=== PATIENT | female | born 1960 | race Two or more races ===

== ENCOUNTER 2020-08-25 08:15 | Outpatient (REF) | payer OTHER, SELFPAY | END 2020-08-25 08:16 | disposition home or self-care (01) | LOC: HO.LAB 08:15 | PROVIDERS: Visit Provider Internal Medicine | DX: Z20.828 Contact with and (suspected) exposure to other viral communicable diseases (principal) | CPT/HCPCS: C9803; U0003 ==

== ENCOUNTER 2020-09-09 06:02 | Outpatient (REF) | payer OTHER, SELFPAY ==
[2020-09-09 07:05] LABS: MANUAL DIFF FLAG NO
[2020-09-09 07:12] LABS: Basophils Absolute Auto 0.1 X10*3/uL (0.0-0.2); Basophils Percent Auto 0.8 % (0-2); Eosinophils Absolute Auto 0.3 X10*3/uL (0.0-0.4); Eosinophils Percent Auto 4.6 % (0-4); Glucose Urine UA NEG (NEG); Hematocrit 39.9 % (37-47); Hemoglobin 12.9 g/dl (12.0-16.0); Imm Gran Abs Auto 0.02 X10*3/uL (0.00-0.03); Imm Gran Pct Auto 0.3 % (0.0-0.4); Leukocyte Esterase Urine NEG (NEG); Lymphocytes Absolute Auto 2.5 X10*3/uL (1.2-4.9); Mean Corpuscular HGB Conc 32.3 g/dl (31.0-35.0); Mean Corpuscular Hemoglobin 30.1 pg (27.0-33.0); Mean Platelet Volume 10.5 fL (9.4-12.3); Monocytes Absolute Auto 0.6 X10*3/uL (0.1-1.2); Monocytes Percent Auto 8.1 % (2-11); Neutrophils Absolute Auto 3.9 X10*3/uL (2.0-8.3); Neutrophils Percent Auto 52.2 % (45-73); Nitrite Urine NEG (NEG); PH 5.5 (5.0-8.0); Platelet Count 250 X10*3/uL (160-400); Red Blood Count 4.29 X10*6/uL (4.20-5.50); Red Cell Distribution Width 13.6 % (11.0-16.0); Specific Gravity - Urine 1.025 (1.005-1.025); Urine Blood 2+ (NEG); Urine Ketones NEG (NEG); Urine Protein NEG (NEG-TRACE); White Blood Count 7.4 X10*3/uL (4.8-10.8)
[2020-09-09 07:15] LABS: Appearance Urine CLEAR; Color Urine YELLOW
[2020-09-09 07:27] LABS: Alanine Aminotransferase 23 U/L (0-31); Albumin Level 4.3 g/dL (3.5-5.0); Alkaline Phosphatase 92 U/L (39-117); Anion Gap 11 (12-20); Aspartate Amino Transferase 15 U/L (5-31); Bilirubin Total 0.3 mg/dL (0.0-1.0); Blood Urea Nitrogen 17 mg/dL (9-16); Calcium 8.8 mg/dL (8.4-10.2); Carbon Dioxide 27 mmol/L (22-29); Chloride 104 mmol/L (96-108); Cholesterol 171 mg/dL; Estimated Glomerular Filt Rate > 60; Glucose Fasting 116 mg/dL (60-99); HDL Cholesterol 48 mg/dL; LDL Cholesterol Calculated 99 mg/dl; Potassium 4.3 mmol/l (3.3-5.1); Sodium 138 mmol/L (135-145); Total Protein 7.3 g/dL (6.5-8.0); Triglycerides 123 mg/dL
[2020-09-09 07:31] LABS: Estimated Average Glucose 131 mg/dL; Hemoglobin A1c % 6.2 %
[2020-09-09 07:35] LABS: Creatinine Urine 82.71 mg/dL; Microalbumin Urine < 5.0 mg/L
[2020-09-09 07:37] LABS: Squamous Epithelial Cell Urine 1+ /LPF; WBC Urine 0 /HPF (0-4)
[2020-09-09 07:50] LABS: TSH reflex Free T4 4.99 mIU/mL (0.32-4.0)
[2020-09-09 08:44] LABS: Free T4 (Free Thyroxine) 0.87 ng/dL (0.71-1.85)
== END 2020-09-09 06:03 | disposition home or self-care (01) ==
LOC: HO.LAB 06:02
PROVIDERS: Visit Provider Internal Medicine
DX: E78.00 Pure hypercholesterolemia, unspecified (principal); E11.9 Type 2 diabetes mellitus without complications; I10 Essential (primary) hypertension; F17.200 Nicotine dependence, unspecified, uncomplicated; K21.9 Gastro-esophageal reflux disease without esophagitis; K59.00 Constipation, unspecified; F41.9 Anxiety disorder, unspecified; G47.00 Insomnia, unspecified
CPT/HCPCS: 36415; 80053; 80061; 81001; 82043; 83036; 84439; 84443; 85025

== ENCOUNTER 2021-05-29 06:58 | Outpatient (REF) | payer OTHER, SELFPAY ==
[2021-05-29 07:36] LABS: MANUAL DIFF FLAG NO
[2021-05-29 07:37] LABS: Basophils Absolute Auto 0.1 X10*3/uL (0.0-0.2); Basophils Percent Auto 0.6 % (0-2); Eosinophils Absolute Auto 0.4 X10*3/uL (0.0-0.4); Eosinophils Percent Auto 4.6 % (0-4); Hematocrit 41.8 % (37-47); Hemoglobin 13.4 g/dl (12.0-16.0); Imm Gran Abs Auto 0.02 X10*3/uL (0.00-0.03); Imm Gran Pct Auto 0.3 % (0.0-0.4); Lymphocytes Absolute Auto 2.4 X10*3/uL (1.2-4.9); Lymphocytes Percent Auto 30.3 % (20-40); Mean Corpuscular HGB Conc 32.1 g/dl (31.0-35.0); Mean Corpuscular Hemoglobin 29.5 pg (27.0-33.0); Mean Corpuscular Volume 91.9 fL (80-98); Mean Platelet Volume 10.4 fL (9.4-12.3); Monocytes Absolute Auto 0.7 X10*3/uL (0.1-1.2); Monocytes Percent Auto 8.3 % (2-11); Neutrophils Absolute Auto 4.4 X10*3/uL (2.0-8.3); Neutrophils Percent Auto 55.9 % (45-73); Platelet Count 250 X10*3/uL (160-400); Red Blood Count 4.55 X10*6/uL (4.20-5.50); Red Cell Distribution Width 13.7 % (11.0-16.0); White Blood Count 7.8 X10*3/uL (4.8-10.8)
[2021-05-29 07:44] LABS: Estimated Average Glucose 151 mg/dL; Hemoglobin A1c % 6.9 %
[2021-05-29 07:56] LABS: Alanine Aminotransferase 20 U/L (0-31); Albumin Level 4.5 g/dL (3.5-5.0); Alkaline Phosphatase 106 U/L (39-117); Anion Gap 11 (12-20); Aspartate Amino Transferase 13 U/L (5-31); Bilirubin Total 0.5 mg/dL (0.0-1.0); Blood Urea Nitrogen 13 mg/dL (9-16); Carbon Dioxide 28 mmol/L (22-29); Chloride 104 mmol/L (96-108); Cholesterol 191 mg/dL; Estimated Glomerular Filt Rate > 60; Glucose Fasting 133 mg/dL (60-99); HDL Cholesterol 48 mg/dL; LDL Cholesterol Calculated 109 mg/dl; Potassium 4.3 mmol/L (3.3-5.1); Sodium 139 mmol/L (135-145); Total Protein 7.7 g/dL (6.5-8.0); Triglycerides 174 mg/dL
[2021-05-29 08:18] LABS: TSH reflex Free T4 3.97 uIU/mL (0.32-4.0)
[2021-05-29 09:10] LABS: Appearance Urine CLEAR; Color Urine YELLOW; Glucose Urine UA NEG (NEG); Leukocyte Esterase Urine NEG (NEG); Nitrite Urine NEG (NEG); UACC Culture Trigger NO; Urine Blood 1+ (NEG); Urine Ketones NEG (NEG); Urine Protein NEG (NEG-TRACE)
[2021-05-29 09:30] LABS: Amorphous Sediment Urine TRACE /LPF; Bacteria Urine TRACE /LPF; Squamous Epithelial Cell Urine 1+ /LPF; WBC Urine 0-2 /HPF (0-4)
[2021-05-29 09:35] LABS: Creatinine Urine 87.81 mg/dL; Microalbum/Creatinine Ratio Ur 5.6 ug/mg cr
== END 2021-05-29 06:59 | disposition home or self-care (01) ==
LOC: HO.LAB 06:58
PROVIDERS: PCP Internal Medicine; Visit Provider Internal Medicine
DX: E11.9 Type 2 diabetes mellitus without complications (principal); E78.00 Pure hypercholesterolemia, unspecified; E66.9 Obesity, unspecified; I10 Essential (primary) hypertension; K21.9 Gastro-esophageal reflux disease without esophagitis; K59.00 Constipation, unspecified; F17.200 Nicotine dependence, unspecified, uncomplicated
CPT/HCPCS: 36415; 80053; 80061; 81001; 82043; 83036; 84443; 85025

== ENCOUNTER 2021-09-04 06:17 | Outpatient (REF) | payer OTHER, SELFPAY ==
[2021-09-04 06:34] LABS: MANUAL DIFF FLAG NO
[2021-09-04 07:12] LABS: Basophils Absolute Auto 0.1 X10*3/uL (0.0-0.2); Basophils Percent Auto 0.7 % (0-2); Eosinophils Absolute Auto 0.3 X10*3/uL (0.0-0.4); Eosinophils Percent Auto 4.3 % (0-4); Hematocrit 41.1 % (37.0-47.0); Hemoglobin 13.3 g/dl (12.0-16.0); Imm Gran Abs Auto 0.02 X10*3/uL (0.00-0.03); Imm Gran Pct Auto 0.3 % (0.0-0.4); Lymphocytes Absolute Auto 2.5 X10*3/uL (1.2-4.9); Lymphocytes Percent Auto 32.5 % (20-40); Mean Corpuscular HGB Conc 32.4 g/dl (31.0-35.0); Mean Corpuscular Hemoglobin 29.8 pg (27.0-33.0); Mean Corpuscular Volume 92.2 fL (80.0-98.0); Mean Platelet Volume 10.6 fL (9.4-12.3); Monocytes Absolute Auto 0.5 X10*3/uL (0.1-1.2); Monocytes Percent Auto 6.5 % (2-11); Neutrophils Absolute Auto 4.3 x10*3/uL (2.0-8.3); Neutrophils Percent Auto 55.7 % (45-73); Platelet Count 267 X10*3/uL (160-400); Red Blood Count 4.46 X10*6/uL (4.20-5.50); Red Cell Distribution Width 13.4 % (11.0-16.0); White Blood Count 7.7 X10*3/uL (4.8-10.8)
[2021-09-04 07:22] LABS: Appearance Urine CLEAR; Color Urine YELLOW; Glucose Urine UA NEG (NEG); Leukocyte Esterase Urine NEG (NEG); Nitrite Urine NEG (NEG); PH 5.5 (5.0-8.0); Specific Gravity - Urine 1.025 (1.005-1.025); UACC Culture Trigger NO; Urine Blood 2+ (NEG); Urine Ketones NEG (NEG); Urine Protein NEG (NEG-TRACE)
[2021-09-04 07:33] LABS: Estimated Average Glucose 163 mg/dL; Hemoglobin A1c % 7.3 %
[2021-09-04 07:41] LABS: Alanine Aminotransferase 25 U/L (0-31); Albumin Level 4.4 g/dL (3.5-5.0); Alkaline Phosphatase 111 U/L (39-117); Anion Gap 12 (12-20); Aspartate Amino Transferase 17 U/L (5-31); Bilirubin Total 0.3 mg/dL (0.0-1.0); Blood Urea Nitrogen 11 mg/dL (9-16); Calcium 9.3 mg/dL (8.4-10.2); Carbon Dioxide 25 mmol/L (22-29); Chloride 105 mmol/L (96-108); Cholesterol 174 mg/dL; Estimated Glomerular Filt Rate > 60; Glucose Fasting 131 mg/dL (60-99); HDL Cholesterol 47 mg/dL; LDL Cholesterol Calculated 94 mg/dl; Potassium 4.1 mmol/L (3.3-5.1); Sodium 138 mmol/L (135-145); Total Protein 7.7 g/dL (6.5-8.0); Triglycerides 165 mg/dL
[2021-09-04 07:52] LABS: Bacteria Urine 1+ /LPF; Mucus Urine 2+ /LPF; Squamous Epithelial Cell Urine 2+ /LPF; WBC Urine 0 /HPF (0-4)
[2021-09-04 08:03] LABS: TSH reflex Free T4 5.25 uIU/mL (0.32-4.0); Vitamin D 25-OH Total 17.9 ng/mL (>30)
[2021-09-04 09:08] LABS: Free T4 (Free Thyroxine) 0.83 ng/dL (0.71-1.85)
== END 2021-09-04 06:18 | disposition home or self-care (01) ==
LOC: HO.LAB 06:17
PROVIDERS: PCP Internal Medicine; Visit Provider Internal Medicine
DX: E78.00 Pure hypercholesterolemia, unspecified (principal); E55.9 Vitamin D deficiency, unspecified; I10 Essential (primary) hypertension; E11.9 Type 2 diabetes mellitus without complications
CPT/HCPCS: 36415; 80053; 80061; 81001; 82306; 83036; 84439; 84443; 85025

== ENCOUNTER 2021-12-18 06:11 | Outpatient (REF) | payer OTHER, SELFPAY ==
[2021-12-18 07:12] LABS: Alanine Aminotransferase 27 U/L (0-31); Albumin Level 4.3 g/dL (3.5-5.0); Alkaline Phosphatase 107 U/L (39-117); Anion Gap 12 (12-20); Aspartate Amino Transferase 16 U/L (5-31); Bilirubin Total 0.3 mg/dL (0.0-1.0); Blood Urea Nitrogen 11 mg/dL (9-16); Calcium 9.5 mg/dL (8.4-10.2); Carbon Dioxide 24 mmol/L (22-29); Chloride 104 mmol/L (96-108); Cholesterol 185 mg/dL; Estimated Glomerular Filt Rate > 60; Glucose Fasting 175 mg/dL (60-99); HDL Cholesterol 50 mg/dL; LDL Cholesterol Calculated 105 mg/dl; Potassium 4.3 mmol/L (3.3-5.1); Sodium 136 mmol/L (135-145); Total Protein 7.8 g/dL (6.5-8.0); Triglycerides 151 mg/dL
[2021-12-18 07:27] LABS: Estimated Average Glucose 169 mg/dL; Hemoglobin A1c % 7.5 %
[2021-12-18 07:34] LABS: TSH reflex Free T4 3.47 uIU/mL (0.32-4.0); Vitamin D 25-OH Total 8.7 ng/mL (>30)
[2021-12-18 07:59] LABS: Appearance Urine HAZY; Color Urine ORANGE; Glucose Urine UA NEG (NEG); Leukocyte Esterase Urine NEG (NEG); Nitrite Urine NEG (NEG); PH 5.5 (5.0-8.0); Specific Gravity - Urine >= 1.030 (1.005-1.025); UACC Culture Trigger NO; Urine Blood 3+ (NEG); Urine Ketones NEG (NEG); Urine Protein NEG (NEG-TRACE)
[2021-12-18 08:09] LABS: Bacteria Urine TRACE /LPF; Mucus Urine 1+ /LPF; Squamous Epithelial Cell Urine 2+ /LPF
[2021-12-18 08:17] LABS: Creatinine Urine 159.44 mg/dL; Microalbum/Creatinine Ratio Ur 8.1 ug/mg cr
== END 2021-12-18 06:12 | disposition home or self-care (01) ==
LOC: HO.LAB 06:11
PROVIDERS: PCP Internal Medicine; Visit Provider Internal Medicine
DX: E78.00 Pure hypercholesterolemia, unspecified (principal); E11.9 Type 2 diabetes mellitus without complications; E55.9 Vitamin D deficiency, unspecified; I10 Essential (primary) hypertension
CPT/HCPCS: 36415; 80053; 80061; 81001; 81003; 82043; 82306; 83036; 84443

== ENCOUNTER 2021-12-25 14:01 | Outpatient (REF) | payer OTHER, SELFPAY ==
--- NOTE | ~2021-12-25 | US_ITS ---
EXAMINATION: US RETROPERITONEAL COMPLETE (RENAL) CLINICAL INFORMATION: Recurrent and persistent hematuria with unspecified morphologic changes. COMPARISON: Previous CT of the abdomen and pelvis September 2011 TECHNIQUE: Real-time imaging of the kidneys and bladder. FINDINGS: RIGHT KIDNEY: 9.7 x 5.3 x 6.0 cm (SAG x AP x TRV). The kidney is normal in size, contour, and echogenicity. Renal cortical thickness is normal. No calculi or focal parenchymal lesions. No hydronephrosis. LEFT KIDNEY: 9.9 x 5.6 x 5.0 cm (SAG x AP x TRV). The kidney is normal in size, contour, and echogenicity. Renal cortical thickness is normal. No calculi or focal parenchymal lesions. No hydronephrosis.. BLADDER: Well distended and normal. Bilateral ureteral jets are demonstrated. Prevoid bladder volume is 423 mL. Postvoid bladder volume is 43.2 mL. US/US retroperitoneal comp IMPRESSION: Normal renal ultrasound. Small 43 mL post void bladder residual..
== END 2021-12-25 14:02 | disposition home or self-care (01) ==
LOC: HO.HMGCX 14:01
PROVIDERS: Visit Provider Internal Medicine
DX: N02.9 Recurrent and persistent hematuria with unspecified morphologic changes (principal)
CPT/HCPCS: 76770

== ENCOUNTER 2022-02-23 15:22 | Outpatient (REF) | payer OTHER, SELFPAY ==
--- NOTE | ~2022-02-23 | MM_ITS ---
EXAMINATION: MM SCREENING DIGITAL BREAST TOMOSYNTHESIS, BILATERAL CLINICAL INFORMATION: Screening. Asymptomatic. The lifetime risk of breast cancer based on the Tyrer-Cuzick Model is 6%. COMPARISON: Mammography: January 31, 2018 and studies dating back to July 31, 2010 TECHNIQUE: Digital breast tomosynthesis is performed in both the craniocaudal and mediolateral oblique views along with computer-aided detection (CAD). Synthesized 2D images are generated from the tomosynthesis. Additional right exaggerated craniocaudal view performed. FINDINGS: The breasts are almost entirely fatty (ACR BI-RADS breast composition Category a). There are no significant masses, abnormal calcifications, or other abnormalities. MM/MM tomosynthesis screening BI IMPRESSION: There are no significant changes from prior study. ASSESSMENT: BI-RADS 1: Negative RECOMMENDATION: Routine annual mammography screening. This patient's information was entered into a reminder system with a target due date for their next mammogram.
== END 2022-02-23 15:23 | disposition home or self-care (01) ==
LOC: HO.MAMMO 15:22
PROVIDERS: Visit Provider Internal Medicine
DX: Z12.31 Encounter for screening mammogram for malignant neoplasm of breast (principal)
CPT/HCPCS: 77063; 77067

== ENCOUNTER 2022-04-01 07:42 | Outpatient (REF) | payer OTHER, SELFPAY ==
[2022-04-01 08:15] LABS: MANUAL DIFF FLAG NO
[2022-04-01 09:08] LABS: Basophils Absolute Auto 0.1 X10*3/uL (0.0-0.2); Basophils Percent Auto 0.6 % (0-2); Eosinophils Absolute Auto 0.3 X10*3/uL (0.0-0.4); Hematocrit 42.2 % (37.0-47.0); Hemoglobin 13.5 g/dl (12.0-16.0); Imm Gran Abs Auto 0.01 X10*3/uL (0.00-0.03); Imm Gran Pct Auto 0.1 % (0.0-0.4); Lymphocytes Absolute Auto 2.5 X10*3/uL (1.2-4.9); Lymphocytes Percent Auto 31.4 % (20-40); Mean Corpuscular Hemoglobin 29.2 pg (27.0-33.0); Mean Corpuscular Volume 91.1 fL (80.0-98.0); Mean Platelet Volume 10.6 fL (9.4-12.3); Monocytes Absolute Auto 0.8 X10*3/uL (0.1-1.2); Monocytes Percent Auto 9.6 % (2-11); Neutrophils Absolute Auto 4.3 x10*3/uL (2.0-8.3); Neutrophils Percent Auto 54.3 % (45-73); Platelet Count 248 X10*3/uL (160-400); Red Blood Count 4.63 X10*6/uL (4.20-5.50); Red Cell Distribution Width 13.2 % (11.0-16.0); White Blood Count 7.9 X10*3/uL (4.8-10.8)
[2022-04-01 09:13] LABS: Urine Cytology See Pathology rpt
[2022-04-01 09:20] LABS: Appearance Urine CLEAR; Color Urine STRAW; Glucose Urine UA NEG (NEG); Leukocyte Esterase Urine NEG (NEG); Nitrite Urine NEG (NEG); PH 5.5 (5.0-8.0); Specific Gravity - Urine 1.025 (1.005-1.025); UACC Culture Trigger NO; Urine Blood 2+ (NEG); Urine Ketones NEG (NEG); Urine Protein NEG (NEG-TRACE)
[2022-04-01 09:37] LABS: Estimated Average Glucose 151 mg/dL; Hemoglobin A1c % 6.9 %
[2022-04-01 09:38] LABS: Alanine Aminotransferase 31 U/L (0-31); Albumin Level 4.5 g/dL (3.5-5.0); Alkaline Phosphatase 110 U/L (39-117); Anion Gap 13 (12-20); Aspartate Amino Transferase 17 U/L (5-31); Bilirubin Total 0.4 mg/dL (0.0-1.0); Blood Urea Nitrogen 16 mg/dL (9-16); Calcium 9.2 mg/dL (8.4-10.2); Carbon Dioxide 24 mmol/L (22-29); Chloride 102 mmol/L (96-108); Cholesterol 179 mg/dL; Estimated Glomerular Filt Rate > 60; Glucose Fasting 140 mg/dL (60-99); HDL Cholesterol 44 mg/dL; LDL Cholesterol Calculated 104 mg/dl; Potassium 4.2 mmol/L (3.3-5.1); Sodium 135 mmol/L (135-145); Total Protein 7.8 g/dL (6.5-8.0); Triglycerides 157 mg/dL
[2022-04-01 09:40] LABS: Squamous Epithelial Cell Urine TRACE /LPF
[2022-04-01 09:41] LABS: RBC Urine 0-2 /HPF (0); WBC Urine 0 /HPF (0-4)
[2022-04-01 09:57] LABS: Creatinine Urine 71.53 mg/dL; Microalbumin Urine < 5.0 mg/L
[2022-04-01 10:02] LABS: TSH reflex Free T4 4.37 uIU/mL (0.32-4.0); Vitamin D 25-OH Total 18.4 ng/mL (>30)
[2022-04-01 10:38] LABS: Free T4 (Free Thyroxine) 0.94 ng/dL (0.71-1.85)
== END 2022-04-01 07:43 | disposition home or self-care (01) ==
LOC: HO.LAB 07:42
PROVIDERS: PCP Internal Medicine; Visit Provider Internal Medicine
DX: N02.9 Recurrent and persistent hematuria with unspecified morphologic changes (principal); E55.9 Vitamin D deficiency, unspecified; I10 Essential (primary) hypertension; E11.9 Type 2 diabetes mellitus without complications; E78.00 Pure hypercholesterolemia, unspecified
CPT/HCPCS: 36415; 80053; 80061; 81001; 82043; 82306; 83036; 84439; 84443; 85025; 88112

== ENCOUNTER 2022-06-27 08:09 | Emergency (ER) | payer OTHER, SELFPAY ==
[2022-06-27 08:18] VITALS: BP 157/69; PULSE 91; RESP 20; TEMP 35.9; O2SAT 98; BMI 32.9
--- NOTE | 2022-06-27 09:26 | ED.EXTPRO ---
HPI - Extremity Problem General Chief complaint: Extremity Injury, Upper Stated complaint: Back pain Time Seen by Provider: 06/27/22 08:56 Source: patient Mode of arrival: ambulatory Limitations: no limitations History of Present Illness HPI Narrative: Patient presents emergency department for evaluation of upper back/left shoulder pain. she states that 2 days ago she awoke from her sleep with bad pain to the mid back /shoulder shoulder blade region. Pain 8/10. She denies any fall or injury. She states that she slept on her left side which she does not typically do and thinks that she may have pulled a muscle. Pain is made worse with movement of the left arm. Denies fevers, chills, headache, neck pain, neck stiffness, chest pain, palpitations, shortness of breath, difficulty breathing, nausea, vomiting, abdominal pain, numbness or tingling to the upper lower extremities, lower back pain. Related Data Home Medications Medication Instructions Recorded Confirmed magnesium hydroxide 400 mg/5 mL 5 ml PO DAILY PRN 11/18/20 04/02/22 oral suspension (Milk of Magnesia) Previous Rx's Medication Instructions Recorded triamcinolone acetonide 0.5 % 1 appl topical BID PRN itchy rash 08/31/21 topical cream 10 days #60 grams sennosides 8.6 mg tablet 8.6 mg PO DAILY PRN constipation 09/21/21 #30 tabs fluocinonide 0.05 % topical cream 1 appl topical QID PRN rash 15 10/19/21 days #60 grams lisinopril 10 1 tab PO DAILY #90 caps 11/17/21 mg-hydrochlorothiazide 12.5 mg tablet metformin 500 mg tablet,extended 500 mg PO BEDTIME 90 days #90 tabs 12/18/21 release 24 hr cholecalciferol (vitamin D3) 50 50 mcg PO DAILY 90 days #90 caps 04/02/22 mcg (2,000 unit) capsule albuterol sulfate 90 mcg/actuation 1 inh inhalation QID PRN shortness 04/21/22 aerosol inhaler (Ventolin HFA) of breath or wheezing #8.5 grams atorvastatin 20 mg tablet 20 mg PO DAILY #90 caps 04/28/22 oxycodone 10 mg tablet See Rx Instructions .Route 06/23/22 .COMPLEX 28 days #66 tabs zolpidem 10 mg tablet 10 mg PO BEDTIME PRN insomnia 30 06/23/22 days #30 tabs cyclobenzaprine 10 mg tablet 10 mg PO TID PRN muscle spasm #14 06/27/22 tabs lidocaine 5 % topical patch 1 patch topical DAILY #15 ea 06/27/22 Allergies Allergy/AdvReac Type Severity Reaction Status Date / Time amoxicillin [Amoxicillin] Allergy Unknown SHORTNESS Verified 04/21/22 10:34 OF BREATH penicillin V Allergy Unknown shortness Verified 04/21/22 10:34 of breath Penicillins Allergy Unknown SHORTNESS Verified 04/21/22 10:34 OF BREATH Review of Systems Review of Systems: Constitutional: No weight loss, fever, chills, weakness or fatigue. Skin:No rash. No itching. Cardiovascular: No chest pain, chest pressure or chest discomfort. No palpitations or pedal edema. Respiratory: No shortness of breath, cough or sputum production. Gastrointestinal: No nausea, vomiting or diarrhea. No abdominal pain Genitourinary: No burning micturition. No urinary frequency or incontinence. Neurologic: No headache, dizziness, syncope, unilateral weakness, ataxia, numbness or tingling in the extremities. No change in bowel or bladder control. Musculoskeletal: + Back/ shoulder pain as noted in HPI. No joint pain or stiffness. Hematologic: No bleeding or bruising. Lymphatics: No enlarged lymph nodes. Psychiatric:No depression or anxiety. Endocrine: No polyuria or polydipsia. Yes all other systems are reviewed and are negative [facility] Past Medical History Attestation statement: The following information was validated with the patient. 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 Pure hypercholesterolemia Smoker Surgical History History of ectopic History of foot surgery History of open reduction and internal fixation (ORIF) procedure History of tooth extraction History of tubal ligation Family History Family History Father Hypertension Mother Hypertension Family/Other Breast cancer Social History Social History Housing: Apartment Alcohol intake: never Patient Tobacco Use Status: Current everyday Tobacco user Cigarettes Per Day: 6 e-Cigarette/Vaping Use: Never Used Second Hand Smoke Exposure: Yes Advance Directives: Yes Advance Directives Information Provided: Yes Advance Directives on File: No service: No Current occupational status: disabled Cognitive needs: No Hearing needs: No Vision needs: No Physical Exam Vital Signs: Vital Signs: Last Vital Signs Temp 98.6 F 06/27/22 10:00 Pulse 74 06/27/22 10:00 Resp 16 06/27/22 10:00 BP 130/81 06/27/22 10:00 Pulse Ox 98 06/27/22 10:00 O2 Del Method 06/27/22 10:00 BMI result Body Mass Index 32.9 Appearance: Alert.?Oriented to person, place and time. No acute distress.?Normal affect. Eyes: Pupils equal, round and reactive to light.? ENT: Pharynx normal.?? Neck: Normal inspection.? Neck supple.?? CVS: Heart sounds normal. Normal heart rate and rhythm.? Pulses normal; bilateral radial pulses 2+, bilateral posterior tibial/dorsalis pedis pulses 2+.? Respiratory: No respiratory distress.? Lung sounds clear to auscultation bilaterally?? Abdomen: Soft and non-tender. Normoactive bowel sounds. Skin: Skin warm and dry.? Normal skin color.? Extremities: No lower extremity edema.? No calf ttp? Back: + mild paraspinal muscular tenderness from lumbar region to coccyx. No CVA tenderness. No midline spinal tenderness, step-off's, or deformity. Full ROM intact in bilateral lower extremities. No rashes, lesions, areas of induration or fluctuance, or signs of infection noted. Neuro: Moves all extremities spontaneously. Sensation to light touch intact bilaterally.No ataxia, gait normal and steady.No focal neuro deficits. Course Course Course Narrative: patient is a 61-year-old female with a past medical history of anxiety, hypertension, diabetes, GERD, obesity, osteoarthritis, hypercholesterolemia presents emergency department for evaluation of left posterior shoulder/ mid upper back pain. Sudden onset after awaking couple days ago, exacerbated by movement of the left arm. Vital signs are stable. No active chest pain or shortness of breath, less consistent with ACS / pneumonia. has tenderness upon palpation of the muscles beneath the shoulder blade, At this time, Pain is most consistent with muscular pain. On neurological exam there are no deficits. Not consistent with spinal fracture, spinal infection, epidural abscess, AAA, epidural abscess, or dissection. No high risk past medical history including incontinence, fever, immunosuppression, recent surgery or lumbar puncture, coagulopathy, significant trauma, recent unintentional weight loss, pulsatile mass, history of cancer, history of TB, history of IV drug use that would warrant MRI or CT. No imaging is currently indicated at this time. patient received ketorolac IM and cyclobenzaprine p.o. while in the emergency department, with some relief from pain, currently 11/26. Plan for discharge home with prescription for cyclobenzaprine, reviewed worsening signs and symptoms to return back to emergency department for, and follow-up with primary care provider, and patient agreed with plan. Discharge Plan Discharge Clinical Impression: Muscle strain of left shoulder region Patient Disposition: Home, Self-Care Instructions: Muscle Strain (ED) Additional Instructions: As we discussed, please be sure to rest, apply ice/ heat for 10-15 minutes 3-4 times daily to the area of most pain. You can apply topical Lidoderm patch as prescribed. You have been given a prescription for cyclobenzaprine, this is a muscle relaxer, may make you drowsy. You should not drive, drink alcohol, or work while taking this medication. You should return to emergency department with any new or worsening symptoms or concerns such as increased pain, chest pain, palpitations, shortness of breath, difficulty breathing, nausea, vomiting abdominal pain. Please follow-up with your primary care provider next week. Prescriptions: New cyclobenzaprine 10 mg tablet 10 mg PO TID PRN (Reason: muscle spasm) Qty: 14 0RF lidocaine 5 % adhesive patch,medicated 1 patch topical DAILY Qty: 15 0RF Rx Instructions: leave on most painful area for up to 12 hrs No Action sennosides 8.6 mg tablet 8.6 mg PO DAILY PRN (Reason: constipation) Qty: 30 3RF fluocinonide 0.05 % cream 1 appl topical QID PRN (Reason: rash) 15 Days Qty: 60 2RF lisinopril-hydrochlorothiazide 10-12.5 mg tablet 1 tab PO DAILY Qty: 90 0RF atorvastatin 20 mg tablet 20 mg PO DAILY Qty: 90 1RF oxycodone 10 mg tablet See Rx Instructions .ROUTE .COMPLEX 28 Days Qty: 66 0RF Rx Instructions: Take 1 tablet by mouth 2 to 3 times a day as needed for increased pain; zolpidem 10 mg tablet 10 mg PO BEDTIME PRN (Reason: insomnia) 30 Days Qty: 30 1RF magnesium hydroxide [Milk of Magnesia] 400 mg/5 mL suspension 5 ml PO DAILY PRN triamcinolone acetonide 0.5 % cream 1 appl topical BID PRN (Reason: itchy rash) 10 Days Qty: 60 3RF cholecalciferol (vitamin D3) 50 mcg (2,000 unit) capsule 50 mcg PO DAILY 90 Days Qty: 90 3RF albuterol sulfate [Ventolin HFA] 90 mcg/actuation HFA aerosol inhaler 1 inh inhalation QID PRN (Reason: shortness of breath or wheezing) Qty: 8.5 1RF metformin 500 mg tablet extended release 24 hr 500 mg PO BEDTIME 90 Days Qty: 90 3RF Interventions: ED Discharge Assessment Last Done: 06/27/22 10:47 Discharge Date/Time: 06/27/22 10:48
[2022-06-27] MEDS: Cyclobenzaprine HCl 10 MG TABLET PO (09:54)
[2022-06-27] MEDS: Ketorolac Tromethamine 30 MG/ML VIAL IM (09:54)
[2022-06-27 10:00] VITALS: BP 130/81; PULSE 74; RESP 16; TEMP 37; O2SAT 98
== END 2022-06-27 10:48 | disposition home or self-care (01) ==
PROVIDERS: Emergency Provider Emergency Medicine; PCP Internal Medicine
DX: M54.50 Low back pain, unspecified (principal); M25.512 Pain in left shoulder; F17.210 Nicotine dependence, cigarettes, uncomplicated; Z71.6 Tobacco abuse counseling; Z79.899 Other long term (current) drug therapy
CPT/HCPCS: 96372; 99284; J1885

== ENCOUNTER 2022-08-26 04:52 | Emergency (ER) | payer OTHER, SELFPAY ==
--- NOTE | ~2022-08-26 | XR_ITS ---
EXAMINATION: XR CHEST CLINICAL INFORMATION: Fever. Cough. COMPARISON: Chest radiograph 10/01/2019. TECHNIQUE: 2 views of the chest were obtained. FINDINGS: Normal appearance of the cardiomediastinal structures. Pleura no focal pulmonary consolidation. Normal pattern of pulmonary vasculature. XR/XR chest 2V IMPRESSION: *No acute cardiopulmonary abnormalities identified.
[2022-08-26 04:58] VITALS: BP 132/67; PULSE 117; RESP 18; TEMP 36.9; O2SAT 99; BMI 33.6
[2022-08-26 05:13] LABS: Basophils Percent Auto 0.4 % (0-2); Hematocrit 43.8 % (37.0-47.0); Hemoglobin 14.3 g/dl (12.0-16.0); Imm Gran Abs Auto 0.01 X10*3/uL (0.00-0.03); Imm Gran Pct Auto 0.2 % (0.0-0.4); Lymphocytes Absolute Auto 1.2 X10*3/uL (1.2-4.9); Lymphocytes Percent Auto 23.2 % (20-40); MANUAL DIFF FLAG NO; Mean Corpuscular HGB Conc 32.6 g/dl (31.0-35.0); Mean Corpuscular Hemoglobin 28.9 pg (27.0-33.0); Mean Corpuscular Volume 88.5 fL (80.0-98.0); Mean Platelet Volume 9.9 fL (9.4-12.3); Monocytes Absolute Auto 0.6 X10*3/uL (0.1-1.2); Monocytes Percent Auto 12.5 % (2-11); Neutrophils Absolute Auto 3.2 x10*3/uL (2.0-8.3); Neutrophils Percent Auto 63.7 % (45-73); Platelet Count 193 X10*3/uL (160-400); Red Blood Count 4.95 X10*6/uL (4.20-5.50); Red Cell Distribution Width 13.6 % (11.0-16.0); White Blood Count 5.1 X10*3/uL (4.8-10.8)
[2022-08-26 05:46] LABS: Alanine Aminotransferase 27 U/L (0-31); Albumin Level 4.6 g/dL (3.5-5.0); Alkaline Phosphatase 106 U/L (39-117); Anion Gap 15 (12-20); Aspartate Amino Transferase 29 U/L (5-31); Bilirubin Total 0.3 mg/dL (0.0-1.0); Blood Urea Nitrogen 9 mg/dL (9-16); Calcium 9.2 mg/dL (8.4-10.2); Carbon Dioxide 24 mmol/L (22-29); Chloride 101 mmol/L (96-108); Creatinine Clr Calc Pharmacy 70.5; Estimated Glomerular Filt Rate > 60; Glucose Random 167 mg/dL (60-115); Potassium 3.6 mmol/L (3.3-5.1); Sodium 136 mmol/L (135-145); Total Protein 7.9 g/dL (6.5-8.0)
[2022-08-26 05:54] LABS: Influenza A PCR NEGATIVE (Negative); Influenza B PCR NEGATIVE (Negative); Resp Syncy Virus RNA Qual PCR NEGATIVE (Negative); SARS COV2 PCR INHOUSE NEGATIVE (Negative)
--- NOTE | 2022-08-26 06:28 | ED.URI ---
HPI - URI/Sore Throat General Chief Complaint: Upper Respiratory Symptoms Stated Complaint: flu like symptoms, body fatigue, side pain Time Seen by Provider: 08/26/22 06:27 Source: patient Mode of arrival: ambulatory Limitations: no limitations History of Present Illness HPI Narrative: Mother was sick on and she tested positive with the flu, Patient started getting sick on Tuesday. Weakness, not eating and chest pain only with cough. MD elicited complaint: fever, cough, sore throat and nasal congestion Onset (ago): day(s) Consistency: constant Severity: mild Able to tolerate fluids by mouth: Yes Associated symptoms: fever, chills, nasal congestion, cough, chest pain and shortness of breath Related Data Home Medications Medication Instructions Recorded Confirmed magnesium hydroxide 400 mg/5 mL 5 ml PO DAILY PRN 11/18/20 07/24/22 oral suspension (Milk of Magnesia) Previous Rx's Medication Instructions Recorded triamcinolone acetonide 0.5 % 1 appl topical BID PRN itchy rash 08/31/21 topical cream 10 days #60 grams fluocinonide 0.05 % topical cream 1 appl topical QID PRN rash 15 10/19/21 days #60 grams cholecalciferol (vitamin D3) 50 50 mcg PO DAILY 90 days #90 caps 04/02/22 mcg (2,000 unit) capsule albuterol sulfate 90 mcg/actuation 1 inh inhalation QID PRN shortness 04/21/22 aerosol inhaler (Ventolin HFA) of breath or wheezing #8.5 grams atorvastatin 20 mg tablet 20 mg PO DAILY #90 caps 04/28/22 cyclobenzaprine 10 mg tablet 10 mg PO TID PRN muscle spasm #14 06/27/22 tabs lidocaine 5 % topical patch 1 patch topical DAILY #15 ea 06/27/22 lisinopril 10 1 tab PO DAILY #90 caps 07/22/22 mg-hydrochlorothiazide 12.5 mg tablet ciprofloxacin HCl 500 mg tablet 500 mg PO BID 10 days #20 tabs 07/23/22 metformin 500 mg tablet,extended 1,000 mg PO BID 90 days #360 tabs 07/23/22 release 24 hr oxycodone 10 mg tablet See Rx Instructions .Route 08/18/22 .COMPLEX 28 days #66 tabs sennosides 8.6 mg tablet 8.6 mg PO DAILY PRN constipation 08/18/22 #30 tabs zolpidem 10 mg tablet 10 mg PO BEDTIME PRN insomnia 30 08/18/22 days #30 tabs naproxen 500 mg tablet (Naprosyn) 500 mg PO BID #20 tabs 08/26/22 [id number] 2.5 20 ml PO Q4H PRN cough #118 mL 08/26/22 mg-5 mg-50 mg/5 mL oral liquid (Robitussin Cough and Cold CF) Allergies Allergy/AdvReac Type Severity Reaction Status Date / Time amoxicillin [Amoxicillin] Allergy Unknown SHORTNESS Verified 07/24/22 03:00 OF BREATH penicillin V Allergy Unknown shortness Verified 07/24/22 03:00 of breath Penicillins Allergy Unknown SHORTNESS Verified 07/24/22 03:00 OF BREATH Review of Systems Constitutional: Constitutional: Reports no additional constitutional complaints Eyes: Eyes: Reports no additional eye complaints ENT: Denies dizziness Cardiovascular: Cardiovascular: Reports no additional cardiovascular complaints Respiratory: Respiratory: Reports as per HPI Gastrointestinal: Gastrointestinal: Reports no additional gastrointestinal complaints Genitourinary: Genitourinary: Reports no additional female genitourinary complaints Musculoskeletal: Musculoskeletal: Reports no additional musculoskeletal complaints Integumentary/Breasts: Skin/Breast: Denies rash Neurologic: Reports system reviewed and no additional complaints, except as documented, Denies dizziness and Denies Sensory deficit (Neuro) Psychiatric: Psychiatric: Denies anxiety PMFSH Past Medical History 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 Pure hypercholesterolemia Smoker Surgical History History of ectopic History of foot surgery History of open reduction and internal fixation (ORIF) procedure History of tooth extraction History of tubal ligation Family History Family History Father Hypertension Mother Hypertension Family/Other Breast cancer Social History Social History Housing: Apartment Alcohol intake: never Patient Tobacco Use Status: Current everyday Tobacco user Cigarettes Per Day: 6 e-Cigarette/Vaping Use: Never Used Second Hand Smoke Exposure: Yes Advance Directives: No service: No Current occupational status: disabled Cognitive needs: No Hearing needs: No Vision needs: No Physical Exam Vital Signs: Vital Signs: Last Vital Signs Temp 98.4 F 08/26/22 04:58 Pulse 117 H 08/26/22 04:58 Resp 18 08/26/22 04:58 BP 132/67 08/26/22 04:58 Pulse Ox 99 08/26/22 04:58 O2 Del Method 08/26/22 04:58 BMI result Body Mass Index 33.6 Neuro: Sensory Exam: No Sensory deficit (Neuro) Course Reevaluation(s) Reevaluation #1: FINDINGS: Normal appearance of the cardiomediastinal structures. Pleura no focal pulmonary consolidation. Normal pattern of pulmonary vasculature. XR/XR chest 2V IMPRESSION: *No acute cardiopulmonary abnormalities identified. Dictated By: Harlan Arthur MD Reevaluation #2: Patient likely has the flu will dc on cough meds and NSAIDs, no evidence of pneumonia, oxygen normal Time: 06:38 Discharge Plan Discharge Clinical Impression: Upper respiratory infection, Influenza A Patient Disposition: Home, Self-Care Instructions: Influenza (ED), Upper Respiratory Infection (ED), Viral Syndrome (ED) Prescriptions: New Robitussin Cough and Cold CF 2.5-5-50 mg/5 mL liquid 20 ml PO Q4H PRN (Reason: cough) Qty: 118 0RF naproxen [Naprosyn] 500 mg tablet 500 mg PO BID Qty: 20 0RF No Action fluocinonide 0.05 % cream 1 appl topical QID PRN (Reason: rash) 15 Days Qty: 60 2RF atorvastatin 20 mg tablet 20 mg PO DAILY Qty: 90 1RF lisinopril-hydrochlorothiazide 10-12.5 mg tablet 1 tab PO DAILY Qty: 90 1RF oxycodone 10 mg tablet See Rx Instructions .ROUTE .COMPLEX 28 Days Qty: 66 0RF Rx Instructions: Take 1 tablet by mouth 2 to 3 times a day as needed for increased pain; sennosides 8.6 mg tablet 8.6 mg PO DAILY PRN (Reason: constipation) Qty: 30 3RF zolpidem 10 mg tablet 10 mg PO BEDTIME PRN (Reason: insomnia) 30 Days Qty: 30 1RF cyclobenzaprine 10 mg tablet 10 mg PO TID PRN (Reason: muscle spasm) Qty: 14 0RF lidocaine 5 % adhesive patch,medicated 1 patch topical DAILY Qty: 15 0RF Rx Instructions: leave on most painful area for up to 12 hrs magnesium hydroxide [Milk of Magnesia] 400 mg/5 mL suspension 5 ml PO DAILY PRN triamcinolone acetonide 0.5 % cream 1 appl topical BID PRN (Reason: itchy rash) 10 Days Qty: 60 3RF cholecalciferol (vitamin D3) 50 mcg (2,000 unit) capsule 50 mcg PO DAILY 90 Days Qty: 90 3RF ciprofloxacin HCl 500 mg tablet 500 mg PO BID 10 Days Qty: 20 0RF metformin 500 mg tablet extended release 24 hr 1,000 mg PO BID 90 Days Qty: 360 3RF albuterol sulfate [Ventolin HFA] 90 mcg/actuation HFA aerosol inhaler 1 inh inhalation QID PRN (Reason: shortness of breath or wheezing) Qty: 8.5 1RF Referrals: Physician,Unknown J [Primary Care Provider] - 1 week
[2022-08-26 06:31] VITALS: BP 130/72; PULSE 97; RESP 18; TEMP 37.2; O2SAT 93
== END 2022-08-26 07:50 | disposition home or self-care (01) ==
PROVIDERS: Emergency Provider Emergency Medicine
DX: J10.1 Influenza due to other identified influenza virus with other respiratory manifestations (principal); M79.10 Myalgia, unspecified site; R05.9 Cough, unspecified; R07.89 Other chest pain; R50.9 Fever, unspecified; F17.200 Nicotine dependence, unspecified, uncomplicated; Z20.822 Contact with and (suspected) exposure to COVID-19; Z79.899 Other long term (current) drug therapy; Z71.6 Tobacco abuse counseling
CPT/HCPCS: 0241U; 36415; 71046; 80053; 85025; 99283; 99284

== ENCOUNTER 2022-08-30 18:06 | Emergency (ER) | payer OTHER, SELFPAY ==
--- NOTE | ~2022-08-30 | XR_ITS ---
EXAMINATION: XR CHEST CLINICAL INFORMATION: Cough. Difficulty breathing. COMPARISON: Chest x-ray 08/26/2022 TECHNIQUE: 2 views of the chest were obtained. FINDINGS: Right axilla is normal in size. Lungs are adequately aerated. No lobar consolidation. No pleural effusion or pneumothorax. Mild degenerative changes of the spine. XR/XR chest 2V IMPRESSION: No acute pulmonary pathology.
[2022-08-30 18:13] VITALS: BP 174/92; PULSE 79; RESP 18; TEMP 36.6; O2SAT 96; BMI 32.8
--- NOTE | 2022-08-30 18:13 | ED_ITS ---
HPI - SOB/Dyspnea General Chief Complaint: Upper Respiratory Symptoms Stated Complaint: SOB, hard time breathing Time Seen by Provider: 08/30/22 19:25 Source: patient Mode of arrival: ambulatory Limitations: no limitations History of Present Illness HPI Narrative: 61 yo female with PMH RAD, +former smoker (10 days ago), anxiety, depression, HTN, HLD, DM here with complaints of diff breathing, cough. Seen here on August 26 and had testing for flu, COVID, RSV which were negative as well as chest x-ray. Patient returns for shortness of breath. No fevers, chills, chest pain, leg swelling or leg pain. Related Data Home Medications Medication Instructions Recorded Confirmed magnesium hydroxide 400 mg/5 mL 5 ml PO DAILY PRN 11/18/20 07/24/22 oral suspension (Milk of Magnesia) Previous Rx's Medication Instructions Recorded triamcinolone acetonide 0.5 % 1 appl topical BID PRN itchy rash 08/31/21 topical cream 10 days #60 grams fluocinonide 0.05 % topical cream 1 appl topical QID PRN rash 15 10/19/21 days #60 grams cholecalciferol (vitamin D3) 50 50 mcg PO DAILY 90 days #90 caps 04/02/22 mcg (2,000 unit) capsule albuterol sulfate 90 mcg/actuation 1 inh inhalation QID PRN shortness 04/21/22 aerosol inhaler (Ventolin HFA) of breath or wheezing #8.5 grams atorvastatin 20 mg tablet 20 mg PO DAILY #90 caps 04/28/22 cyclobenzaprine 10 mg tablet 10 mg PO TID PRN muscle spasm #14 06/27/22 tabs lidocaine 5 % topical patch 1 patch topical DAILY #15 ea 06/27/22 lisinopril 10 1 tab PO DAILY #90 caps 07/22/22 mg-hydrochlorothiazide 12.5 mg tablet ciprofloxacin HCl 500 mg tablet 500 mg PO BID 10 days #20 tabs 07/23/22 metformin 500 mg tablet,extended 1,000 mg PO BID 90 days #360 tabs 07/23/22 release 24 hr oxycodone 10 mg tablet See Rx Instructions .Route 08/18/22 .COMPLEX 28 days #66 tabs sennosides 8.6 mg tablet 8.6 mg PO DAILY PRN constipation 08/18/22 #30 tabs zolpidem 10 mg tablet 10 mg PO BEDTIME PRN insomnia 30 08/18/22 days #30 tabs naproxen 500 mg tablet (Naprosyn) 500 mg PO BID #20 tabs 08/26/22 glgsenbyvzqmp-IK-gxlikreeveb 2.5 20 ml PO Q4H PRN cough #118 mL 08/26/22 mg-5 mg-50 mg/5 mL oral liquid (Robitussin Cough and Cold CF) azithromycin 250 mg tablet 250 mg PO DAILY 4 days #4 tabs 08/30/22 prednisone 20 mg tablet 60 mg PO DAILY 4 days #12 tabs 08/30/22 Allergies Allergy/AdvReac Type Severity Reaction Status Date / Time amoxicillin [Amoxicillin] Allergy Intermediate SHORTNESS Unverified 08/30/22 18:13 OF BREATH penicillin V Allergy Intermediate shortness Verified 08/30/22 18:13 of breath Penicillins Allergy Intermediate SHORTNESS Verified 08/30/22 18:13 OF BREATH Review of Systems Review of Systems: Yes all other systems are reviewed and are negative Constitutional: Constitutional: Reports no additional constitutional complaints, Denies body ache(s), Denies chills, Denies fever(s), Denies headache(s) and Denies weakness Eyes: Eyes: Reports no additional eye complaints and Denies change in vision ENT: Reports system reviewed and no additional complaints, except as documented, Denies dizziness, Denies headache(s), Denies nasal congestion, Denies nasal discharge and Denies neck pain Cardiovascular: Cardiovascular: Reports no additional cardiovascular complaints, Denies chest pain, Denies leg edema and Reports dyspnea Respiratory: Respiratory: Reports no additional respiratory complaints, Reports cough, Reports dyspnea and Reports wheezing Gastrointestinal: Gastrointestinal: Reports no additional gastrointestinal complaints, Denies abdominal pain, Denies diarrhea, Denies nausea and Denies vomiting Genitourinary: Genitourinary: Reports no additional female genitourinary complaints and Denies urinary incontinence Musculoskeletal: Musculoskeletal: Reports no additional musculoskeletal complaints, Denies back pain, Denies arthralgias, Denies joint swelling, Denies neck pain, Denies numbness and Denies tingling Integumentary/Breasts: Skin/Breast: Reports system reviewed and no additional complaints, except as docu and Denies rash Neurologic: Reports system reviewed and no additional complaints, except as documented, Denies Abnormal speech present, Denies dizziness, Denies headache(s), Denies numbness, Denies tingling and Denies weakness Allergic/Immunologic: Allergic/Immunologic: Reports wheezing PMFSH Past Medical History Attestation statement: The following information was validated with the patient. 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 Pure hypercholesterolemia Smoker Surgical History History of ectopic History of foot surgery History of open reduction and internal fixation (ORIF) procedure History of tooth extraction History of tubal ligation Family History Family History Father Hypertension Mother Hypertension Family/Other Breast cancer Social History Social History Housing: Apartment Alcohol intake: never Patient Tobacco Use Status: Current everyday Tobacco user Cigarettes Per Day: 6 e-Cigarette/Vaping Use: Never Used Second Hand Smoke Exposure: Yes Advance Directives: No Advance Directives Information Provided: Yes service: No Current occupational status: disabled Cognitive needs: No Hearing needs: No Vision needs: No Physical Exam Vital Signs: Vital Signs: Last Vital Signs Temp 97.8 F 08/30/22 18:13 Pulse 79 08/30/22 18:13 Resp 18 08/30/22 18:13 BP 174/92 H 08/30/22 18:13 Pulse Ox 96 08/30/22 18:13 O2 Del Method 08/30/22 18:13 BMI result Body Mass Index 32.8 Const: General: cooperative, healthy appearing, comfortable and no acute distress Orientation/consciousness: patient oriented x3 Limitations: no limitations HEENT: Head: Yes normal to inspection Ears: hearing grossly normal b ilaterally General nose exam: Normal external nose present Face and sinus: Yes normal facial exam Mouth: Normal oral and palatal mucosa present Throat: Yes posterior oropharynx normal Eyes: General: appearance normal, both eyes and all related structures Pupils: Equal, round and reactive pupils present Neck: Neck: Yes normal visual inspection Chest: Chest palpation & inspection: normal inspection of the chest Resp: Other: Expiratory wheezing throughout Effort & Inspection: normal respiratory effort Cardio: Rate: regular rate Rhythm: regular rhythm Peripheral pulses: Peripheral pulses 2+ throughout GI: Inspection: Yes normal to inspection Palpation (GI): Soft to palpation and nontender Auscultation: normal bowel sounds Back/Spine/Pelvis: Thoracic/Lumbar Spine: thoracic and lumbar spine normal to inspection Skin: General skin exam: no rashes or lesions noted Neuro: General: patient oriented x3, no focal motor deficits and normal sensation to monofilament Cranial nerves: Yes Equal, round and reactive pupils present Cognition (Neuro): normal cognition Speech: No Abnormal speech present Gait exam (Neuro): Normal gait present Motor exam (neuro): 5/5 motor strength present throughout Extrem: General: Yes normal to inspection Course Course Course Narrative: This is a rapid medical exam. Deferred additional HPI, ROS, PE to primary provider. 61 yo female with PMH RAD, +former smoker (10 days ago), anxiety, depression, HTN, HLD, DM here with complaints of diff breathing, cough. Seen here on August 26 and had testing for flu, COVID, RSV which were negative as well as chest x-ray. Patient returns for shortness of breath. No fevers, chills, chest pain, leg swelling or leg pain. Will check CXR, flu/covid/rsv testing. VSS Reevaluation(s) Reevaluation #1: Testing for flu, COVID, RSV are negative. Chest x-ray shows no evidence of pneumonia. Patient will be treated with prednisone, azithromycin and albuterol MDI. Reviewed worrisome signs and symptoms of when to return to the emergency room. Comfortable plan for discharge home. Medications Administered Discontinued Medications Generic Name Dose Route Start Last Admin Trade Name Freq PRN Reason Stop Dose Admin Albuterol Sulfate 2 puff 08/30/22 19:27 08/30/22 19:36 Albuterol Sulfate 90 Mcg 8 Gm Inhaler INHALE 08/30/22 19:28 2 puff ONCE ONE Administration Azithromycin 500 mg 08/30/22 19:27 08/30/22 19:36 Azithromycin 500 Mg Tablet PO 08/30/22 19:28 500 mg ONCE ONE Administration Prednisone 60 mg 08/30/22 19:27 08/30/22 19:36 Prednisone 20 Mg Tablet PO 08/30/22 19:28 60 mg ONCE ONE Administration Medical Decision Making Medical Decision Making [facility] Narrative: 61 yo female with PMH RAD, +former smoker (10 days ago), anxiety, depression, HTN, HLD, DM here with complaints of diff breathing, cough. Seen here on August 26 and had testing for flu, COVID, RSV which were negative as well as chest x-ray. Patient returns for shortness of breath. No fevers, chills, chest pain, leg swelling or leg pain. Mild expiratory wheezing on exam. Vitals are stable. Will send testing for flu, COVID, RSV and check chest x-ray. Differential Diagnosis Differential Diagnoses: The differential diagnosis associated with the presentation includes Viral syndrome, influenza, pneumonia PE less likely with no hypoxia, no tachypnea, no tachycardia, no clinical findings concerning for DVT and no risk factors Lab Data Labs: Lab Results 08/30/22 Range/Units 18:30 Influenza Type A (PCR) NEGATIVE (Negative) Influenza Type B (PCR) NEGATIVE (Negative) RSV RNA Qual (PCR) NEGATIVE (Negative) SARS-CoV-2 RNA (RT-PCR) NEGATIVE (Negative) Discharge Plan Discharge Clinical Impression: Bronchitis Patient Disposition: Home, Self-Care Instructions: Acute Bronchitis (ED) Additional Instructions: Chest x-ray shows no signs of pneumonia Testing for flu, COVID, RSV are negative Use inhaler 2 puffs every 4-6 hours as needed for cough or wheezing Start the antibiotic and prednisone tomorrow Prescriptions: New azithromycin 250 mg tablet 250 mg PO DAILY 4 Days Qty: 4 0RF Rx Instructions: start on day 2 of therapy prednisone 20 mg tablet 60 mg PO DAILY 4 Days Qty: 12 0RF No Action fluocinonide 0.05 % cream 1 appl topical QID PRN (Reason: rash) 15 Days Qty: 60 2RF atorvastatin 20 mg tablet 20 mg PO DAILY Qty: 90 1RF lisinopril-hydrochlorothiazide 10-12.5 mg tablet 1 tab PO DAILY Qty: 90 1RF oxycodone 10 mg tablet See Rx Instructions .ROUTE .COMPLEX 28 Days Qty: 66 0RF Rx Instructions: Take 1 tablet by mouth 2 to 3 times a day as needed for increased pain; sennosides 8.6 mg tablet 8.6 mg PO DAILY PRN (Reason: constipation) Qty: 30 3RF zolpidem 10 mg tablet 10 mg PO BEDTIME PRN (Reason: insomnia) 30 Days Qty: 30 1RF cyclobenzaprine 10 mg tablet 10 mg PO TID PRN (Reason: muscle spasm) Qty: 14 0RF lidocaine 5 % adhesive patch,medicated 1 patch topical DAILY Qty: 15 0RF Rx Instructions: leave on most painful area for up to 12 hrs Robitussin Cough and Cold CF 2.5-5-50 mg/5 mL liquid 20 ml PO Q4H PRN (Reason: cough) Qty: 118 0RF naproxen [Naprosyn] 500 mg tablet 500 mg PO BID Qty: 20 0RF magnesium hydroxide [Milk of Magnesia] 400 mg/5 mL suspension 5 ml PO DAILY PRN triamcinolone acetonide 0.5 % cream 1 appl topical BID PRN (Reason: itchy rash) 10 Days Qty: 60 3RF cholecalciferol (vitamin D3) 50 mcg (2,000 unit) capsule 50 mcg PO DAILY 90 Days Qty: 90 3RF ciprofloxacin HCl 500 mg tablet 500 mg PO BID 10 Days Qty: 20 0RF metformin 500 mg tablet extended release 24 hr 1,000 mg PO BID 90 Days Qty: 360 3RF albuterol sulfate [Ventolin HFA] 90 mcg/actuation HFA aerosol inhaler 1 inh inhalation QID PRN (Reason: shortness of breath or wheezing) Qty: 8.5 1RF Referrals: Lionel Rodriguez MD [Primary Care Provider] - 1 week
[2022-08-30 19:14] LABS: Influenza A PCR NEGATIVE (Negative); Influenza B PCR NEGATIVE (Negative); Resp Syncy Virus RNA Qual PCR NEGATIVE (Negative); SARS COV2 PCR INHOUSE NEGATIVE (Negative)
[2022-08-30] MEDS: predniSONE 20 MG TABLET 60 MG PO (19:36)
[2022-08-30] MEDS: Albuterol Sulfate 90 MCG 8 GM INHALER 2 PUFF INHALE (19:36)
[2022-08-30] MEDS: Azithromycin 500 MG TABLET PO (19:36)
== END 2022-08-30 20:02 | disposition home or self-care (01) ==
PROVIDERS: Nurse Practitioner Family; Emergency Provider Emergency Medicine; PCP Internal Medicine
DX: J40 Bronchitis, not specified as acute or chronic (principal); Z20.822 Contact with and (suspected) exposure to COVID-19; I10 Essential (primary) hypertension; E11.9 Type 2 diabetes mellitus without complications; E78.5 Hyperlipidemia, unspecified; Z79.02 Long term (current) use of antithrombotics/antiplatelets; Z79.899 Other long term (current) drug therapy; Z79.84 Long term (current) use of oral hypoglycemic drugs; F17.200 Nicotine dependence, unspecified, uncomplicated
CPT/HCPCS: 0241U; 71046; 99282; 99284

== ENCOUNTER 2022-09-02 15:10 | Emergency (ER) | payer OTHER, SELFPAY ==
[2022-09-02 16:02] VITALS: BP 156/93; PULSE 102; RESP 18; TEMP 36.6; O2SAT 96; BMI 31.8
--- NOTE | 2022-09-02 16:02 | ED.URI ---
HPI - URI/Sore Throat General Chief Complaint: Upper Respiratory Symptoms <ARELY Enamorado - Last Filed: 09/02/22 16:20> Stated Complaint: SOB had bronchitis recently <ARELY Enamorado - Last Filed: 09/02/22 16:20> Time Seen by Provider: 09/02/22 17:06 <ARELY Enamorado - Last Filed: 09/02/22 16:20> Source: patient <ARELY Hart - Last Filed: 09/02/22 18:19> Mode of arrival: ambulatory <ARELY Hart - Last Filed: 09/02/22 18:19> Limitations: no limitations <ARELY Hart Last Filed: 09/02/22 18:19> History of Present Illness HPI Narrative: 7-year-old female with a history of reactive airway disease, GERD, anxiety, depression, constipation, osteoarthritis, diabetes, HTN, HLD who presents to the ER for evaluation of shortness of breath and cough that have been ongoing for the last week and half. This is her 3rd visit to the ER for the same. She was initially seen on August 26, tested negative for the flu, COVID, RSV. She had a normal chest x-ray. She was sent home with symptomatic care. She presented back on the with ongoing symptoms. She was thus diagnosed with bronchitis and sent with a course of prednisone and a Z-Vahid. she reports ongoing dyspnea on exertion and shortness of breath. She states she has a mild nonproductive cough that is ongoing as well. No fever or chills. No chest pain or difficulty breathing. No leg swelling. <ARELY Hart - Last Filed: 09/02/22 18:19> MD elicited complaint: cough and other ( Shortness of breath) <ARELY Hart - Last Filed: 09/02/22 18:19> Onset (ago): week(s) (1.5) <ARELY Hart Last Filed: 09/02/22 18:19> Consistency: constant <ARELY Hart Last Filed: 09/02/22 18:19> Able to tolerate fluids by mouth: Yes <ARELY Hart Last Filed: 09/02/22 18:19> Exacerbating factors: exertion <ARELY Hart - Last Filed: 09/02/22 18:19> Relieving factors: nothing <ARELY Hart - Last Filed: 09/02/22 18:19> Associated symptoms: myalgias, headache, nasal congestion, sore throat, cough and shortness of breath <ARELY Hart - Last Filed: 09/02/22 18:19> Treatments prior to arrival: none <ARELY Hart - Last Filed: 09/02/22 18:19> Related Data Home Medications: Home Medications Medication Instructions Recorded Confirmed magnesium hydroxide 400 mg/5 mL 5 ml PO DAILY PRN 11/18/20 07/24/22 oral suspension (Milk of Magnesia) Previous Rx's Medication Instructions Recorded triamcinolone acetonide 0.5 % 1 appl topical BID PRN itchy rash 08/31/21 topical cream 10 days #60 grams fluocinonide 0.05 % topical cream 1 appl topical QID PRN rash 15 10/19/21 days #60 grams cholecalciferol (vitamin D3) 50 50 mcg PO DAILY 90 days #90 caps 04/02/22 mcg (2,000 unit) capsule albuterol sulfate 90 mcg/actuation 1 inh inhalation QID PRN shortness 04/21/22 aerosol inhaler (Ventolin HFA) of breath or wheezing #8.5 grams atorvastatin 20 mg tablet 20 mg PO DAILY #90 caps 04/28/22 cyclobenzaprine 10 mg tablet 10 mg PO TID PRN muscle spasm #14 06/27/22 tabs lidocaine 5 % topical patch 1 patch topical DAILY #15 ea 06/27/22 lisinopril 10 1 tab PO DAILY #90 caps 07/22/22 mg-hydrochlorothiazide 12.5 mg tablet ciprofloxacin HCl 500 mg tablet 500 mg PO BID 10 days #20 tabs 07/23/22 metformin 500 mg tablet,extended 1,000 mg PO BID 90 days #360 tabs 07/23/22 release 24 hr oxycodone 10 mg tablet See Rx Instructions .Route 08/18/22 .COMPLEX 28 days #66 tabs sennosides 8.6 mg tablet 8.6 mg PO DAILY PRN constipation 08/18/22 #30 tabs zolpidem 10 mg tablet 10 mg PO BEDTIME PRN insomnia 30 08/18/22 days #30 tabs naproxen 500 mg tablet (Naprosyn) 500 mg PO BID #20 tabs 08/26/22 abyhgyeyjxekh-VG-rscyezmgvuj 2.5 20 ml PO Q4H PRN cough #118 mL 08/26/22 mg-5 mg-50 mg/5 mL oral liquid (Robitussin Cough and Cold CF) azithromycin 250 mg tablet 250 mg PO DAILY 4 days #4 tabs 08/30/22 prednisone 20 mg tablet 60 mg PO DAILY 4 days #12 tabs 08/30/22 doxycycline hyclate 100 mg tablet 100 mg PO BID 7 days #14 tabs 09/02/22 hydrocodone-homatropine 5 mg-1.5 5 ml PO Q4-6H PRN cough #60 mL 09/02/22 mg/5 mL (5 mL) oral syrup (Hycodan) <ARELY Enamorado - Last Filed: 09/02/22 16:20> Allergies/Adverse Reactions: Allergies Allergy/AdvReac Type Severity Reaction Status Date / Time amoxicillin [Amoxicillin] Allergy Intermediate SHORTNESS Unverified 08/30/22 18:13 OF BREATH penicillin V Allergy Intermediate shortness Verified 08/30/22 18:13 of breath Penicillins Allergy Intermediate SHORTNESS Verified 08/30/22 18:13 OF BREATH <ARELY Enamorado - Last Filed: 09/02/22 16:20> Review of Systems Review of Systems: Constitutional: No Fever, No Chills ENT/Mouth: No sore throat, No Rhinorrhea Cardiovascular: No Chest Pain, + SOB, No Orthopnea, No Edema Respiratory: + Cough, No Sputum, + Wheezing, +dyspnea Gastrointestinal: No Nausea, No Vomiting, No Diarrhea, No abdominal Pain Genitourinary: No Dysuria, No Urinary Frequency, No Hematuria Musculoskeletal: No joint pain, No Myalgias Skin: No Skin Lesions, No rash Neuro: No Weakness, No Numbness, No Dizziness, + Headache Psych: No Anxiety/Panic, No Depression Heme/Lymph: No Bruising, No Lymphadenopathy <ARELY Hart Last Filed: 09/02/22 18:19> [facility] Past Medical History Medical History: 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 Pure hypercholesterolemia Smoker <ARELY Enamorado - Last Filed: 09/02/22 16:20> Surgical History: Surgical History History of ectopic History of foot surgery History of open reduction and internal fixation (ORIF) procedure History of tooth extraction History of tubal ligation <ARELY Enamorado - Last Filed: 09/02/22 16:20> Family History Family History: Family History Father Hypertension Mother Hypertension Family/Other Breast cancer <ARELY Enamorado - Last Filed: 09/02/22 16:20> Social History Social History: Social History Housing: Apartment Alcohol intake: never Patient Tobacco Use Status: Current everyday Tobacco user Cigarettes Per Day: 6 e-Cigarette/Vaping Use: Never Used Second Hand Smoke Exposure: Yes Advance Directives: No Advance Directives Information Provided: No service: No Current occupational status: disabled Cognitive needs: No Hearing needs: No Vision needs: No <ARELY Enamorado - Last Filed: 09/02/22 16:20> Physical Exam Vital Signs: Vital Signs: Last Vital Signs Temp 97.9 F 09/02/22 16:02 Pulse 102 H 09/02/22 16:02 Resp 18 09/02/22 16:02 BP 156/93 H 09/02/22 16:02 Pulse Ox 96 09/02/22 16:02 O2 Del Method 09/02/22 16:02 BMI result Body Mass Index 31.8 <ARELY Enamorado - Last Filed: 09/02/22 16:20> Vital Signs: Last Vital Signs Temp 97.9 F 09/02/22 16:02 Pulse 102 H 09/02/22 16:02 Resp 18 09/02/22 16:02 BP 156/93 H 09/02/22 16:02 Pulse Ox 96 09/02/22 16:02 O2 Del Method 09/02/22 16:02 BMI result Body Mass Index 31.8 <ARELY Hart - Last Filed: 09/02/22 18:19> Appearance: Alert. Oriented X3. No acute distress. Eyes: Pupils equal, round and reactive to light. ENT: Pharynx normal. Neck: Normal inspection. Neck supple. CVS: Normal heart rate and rhythm. Pulses normal. Respiratory: No respiratory distress. Breath sounds normal. Abdomen: Soft and nontender. +BS x4 Skin: Skin warm and dry. Normal skin color. Normal skin turgor. No rashes. Extremities: No lower extremity edema. No calf swelling or tenderness. Neuro: Oriented X 3. No motor deficit. No sensory deficit. Nonfocal <ARELY Hart - Last Filed: 09/02/22 18:19> Course Course Course Narrative: RME- 16:05pm - 61yoF with PMH RAD, +former smoker (10 days ago), anxiety, depression, HTN, HLD, DM here with complaints of diff breathing, cough for at least 2-3 weeks that is continuing to worsen not any better. Reports that she was seen here on 08/30/2022 and diagnosed with bronchitis and was negative for COVID/RSV/flu and pneumonia. Sent home with a Z-Vahid and prednisone although no symptomatic relief. Denies any other symptoms complaints or concerns at this time. Plan: EKG and labs ordered. Patient refusing chest x-ray and COVID/RSV/flu swab. Reports that she does not want to continue having the chest x-ray and the swabs. Patient will be sent to the ER for further evaluation and treatment. Patient is stable. Vital signs are stable. <ARELY Enamorado - Last Filed: 09/02/22 16:20> Reevaluation(s) Reevaluation #1: Patient seen and examined. Lungs are clear. She appears well. Head lab workup showing a white blood cell count of 10.9. She continues to refuse chest x-ray. Doubt pneumonia without any adventitious lung sounds or fever. She is breathing comfortably and saturating well on room air. Given her tachycardia and dyspnea on exertion will check D-dimer, although clinical suspicion is low and more likely related to viral symptoms. <ARELY Hart - Last Filed: 09/02/22 18:19> Reevaluation #2: D-dimer is less than 150 which is reassuring against blood clot. Discussed results with patient. Will add doxycycline for additional pulmonary coverage, had antitussive agent and have her follow-up with her PCP next week. Comfortable discharge home. Patient agrees with plan. <ARELY Hart - Last Filed: 09/02/22 18:19> Medical Decision Making Lab Data Result Diagrams: : 09/02/22 16:34 09/02/22 16:34 <ARELY Enamorado - Last Filed: 09/02/22 16:20> Labs: Lab Results 09/02/22 09/02/22 09/02/22 Range/Units 16:34 16:34 16:34 WBC 10.9 H (4.8-10.8) X10*3/uL RBC 4.89 (4.20-5.50) X10*6/uL Hgb 14.0 (12.0-16.0) g/dl Hct 42.6 (37.0-47.0) % MCV 87.1 (80.0-98.0) fL MCH 28.6 (27.0-33.0) pg MCHC 32.9 (31.0-35.0) g/dl RDW 13.0 (11.0-16.0) % Plt Count 295 D (160-400) X10*3/uL MPV 10.3 (9.4-12.3) fL Immature Gran % (Auto) 0.5 H (0.0-0.4) % Neut % (Auto) 85.5 H (45-73) % Lymph % (Auto) 10.8 L (20-40) % [facility] % (Auto) 3.1 (2-11) % Eos % (Auto) 0.0 (0-4) % Baso % (Auto) 0.1 (0-2) % Lymph # (Auto) 1.2 (1.2-4.9) X10*3/uL [facility] # (Auto) 0.3 (0.1-1.2) X10*3/uL Eos # (Auto) 0.0 (0.0-0.4) X10*3/uL Baso # (Auto) 0.0 (0.0-0.2) X10*3/uL Abs Immat Gran (auto) 0.05 H (0.00-0.03) X10*3/uL Absolute Neuts (auto) 9.4 H (2.0-8.3) x10*3/uL Absolute Nucleated RBC 0.000 (0.0-0.012) X10*3/uL Nucleated RBC % (auto) 0.0 (0.0-0.2) /100WBC PT 12.3 (10.0-13.1) SEC INR 1.1 (0.9-1.1) D-Dimer High Sensitivty < 150 NG/ML Sodium 133 L (135-145) mmol/L Potassium 4.2 (3.3-5.1) mmol/L Chloride 102 (96-108) mmol/L Carbon Dioxide 22 (22-29) mmol/L Anion Gap 13 (12-20) BUN 18 H (9-16) mg/dL Creatinine 0.95 (0.5-1.4) mg/dL Estim Creat Clear Calc 61.2 Estimated GFR > 60 Random Glucose 313 H (60-115) mg/dL Calcium 9.3 (8.4-10.2) mg/dL Magnesium 1.7 (1.6-2.6) mg/dL Total Bilirubin 0.5 (0.0-1.0) mg/dL AST 16 (5-31) U/L ALT 41 H (0-31) U/L Alkaline Phosphatase 107 (39-117) U/L B-Natriuretic Peptide (<100) pg/mL Total Protein 7.7 (6.5-8.0) g/dL Albumin 4.5 (3.5-5.0) g/dL 09/02/22 Range/Units 16:34 WBC (4.8-10.8) X10*3/uL RBC (4.20-5.50) X10*6/uL Hgb (12.0-16.0) g/dl Hct (37.0-47.0) % MCV (80.0-98.0) fL MCH (27.0-33.0) pg MCHC (31.0-35.0) g/dl RDW (11.0-16.0) % Plt Count (160-400) X10*3/uL MPV (9.4-12.3) fL Immature Gran % (Auto) (0.0-0.4) % Neut % (Auto) (45-73) % Lymph % (Auto) (20-40) % [facility] % (Auto) (2-11) % Eos % (Auto) (0-4) % Baso % (Auto) (0-2) % Lymph # (Auto) (1.2-4.9) X10*3/uL [facility] # (Auto) (0.1-1.2) X10*3/uL Eos # (Auto) (0.0-0.4) X10*3/uL Baso # (Auto) (0.0-0.2) X10*3/uL Abs Immat Gran (auto) (0.00-0.03) X10*3/uL Absolute Neuts (auto) (2.0-8.3) x10*3/uL Absolute Nucleated RBC (0.0-0.012) X10*3/uL Nucleated RBC % (auto) (0.0-0.2) /100WBC PT (10.0-13.1) SEC INR (0.9-1.1) D-Dimer High Sensitivty NG/ML Sodium (135-145) mmol/L Potassium (3.3-5.1) mmol/L Chloride (96-108) mmol/L Carbon Dioxide (22-29) mmol/L Anion Gap (12-20) BUN (9-16) mg/dL Creatinine (0.5-1.4) mg/dL Estim Creat Clear Calc Estimated GFR Random Glucose (60-115) mg/dL Calcium (8.4-10.2) mg/dL Magnesium (1.6-2.6) mg/dL Total Bilirubin (0.0-1.0) mg/dL AST (5-31) U/L ALT (0-31) U/L Alkaline Phosphatase (39-117) U/L B-Natriuretic Peptide 47 (<100) pg/mL Total Protein (6.5-8.0) g/dL Albumin (3.5-5.0) g/dL <ARELY Enamorado - Last Filed: 09/02/22 16:20> Lab Results 12/15/22 12/15/22 12/15/22 Range/Units 16:34 16:34 16:34 WBC 10.9 H (4.8-10.8) X10*3/uL RBC 4.89 (4.20-5.50) X10*6/uL Hgb 14.0 (12.0-16.0) g/dl Hct 42.6 (37.0-47.0) % MCV 87.1 (80.0-98.0) fL MCH 28.6 (27.0-33.0) pg MCHC 32.9 (31.0-35.0) g/dl RDW 13.0 (11.0-16.0) % Plt Count 295 D (160-400) X10*3/uL MPV 10.3 (9.4-12.3) fL Immature Gran % (Auto) 0.5 H (0.0-0.4) % Neut % (Auto) 85.5 H (45-73) % Lymph % (Auto) 10.8 L (20-40) % [facility] % (Auto) 3.1 (2-11) % Eos % (Auto) 0.0 (0-4) % Baso % (Auto) 0.1 (0-2) % Lymph # (Auto) 1.2 (1.2-4.9) X10*3/uL [facility] # (Auto) 0.3 (0.1-1.2) X10*3/uL Eos # (Auto) 0.0 (0.0-0.4) X10*3/uL Baso # (Auto) 0.0 (0.0-0.2) X10*3/uL Abs Immat Gran (auto) 0.05 H (0.00-0.03) X10*3/uL Absolute Neuts (auto) 9.4 H (2.0-8.3) x10*3/uL Absolute Nucleated RBC 0.000 (0.0-0.012) X10*3/uL Nucleated RBC % (auto) 0.0 (0.0-0.2) /100WBC PT 12.3 (10.0-13.1) SEC INR 1.1 (0.9-1.1) D-Dimer High Sensitivty < 150 NG/ML Sodium 133 L (135-145) mmol/L Potassium 4.2 (3.3-5.1) mmol/L Chloride 102 (96-108) mmol/L Carbon Dioxide 22 (22-29) mmol/L Anion Gap 13 (12-20) BUN 18 H (9-16) mg/dL Creatinine 0.95 (0.5-1.4) mg/dL Estim Creat Clear Calc 61.2 Estimated GFR > 60 Random Glucose 313 H (60-115) mg/dL Calcium 9.3 (8.4-10.2) mg/dL Magnesium 1.7 (1.6-2.6) mg/dL Total Bilirubin 0.5 (0.0-1.0) mg/dL AST 16 (5-31) U/L ALT 41 H (0-31) U/L Alkaline Phosphatase 107 (39-117) U/L B-Natriuretic Peptide (<100) pg/mL Total Protein 7.7 (6.5-8.0) g/dL Albumin 4.5 (3.5-5.0) g/dL 09/02/22 Range/Units 16:34 WBC (4.8-10.8) X10*3/uL RBC (4.20-5.50) X10*6/uL Hgb (12.0-16.0) g/dl Hct (37.0-47.0) % MCV (80.0-98.0) fL MCH (27.0-33.0) pg MCHC (31.0-35.0) g/dl RDW (11.0-16.0) % Plt Count (160-400) X10*3/uL MPV (9.4-12.3) fL Immature Gran % (Auto) (0.0-0.4) % Neut % (Auto) (45-73) % Lymph % (Auto) (20-40) % [facility] % (Auto) (2-11) % Eos % (Auto) (0-4) % Baso % (Auto) (0-2) % Lymph # (Auto) (1.2-4.9) X10*3/uL [facility] # (Auto) (0.1-1.2) X10*3/uL Eos # (Auto) (0.0-0.4) X10*3/uL Baso # (Auto) (0.0-0.2) X10*3/uL Abs Immat Gran (auto) (0.00-0.03) X10*3/uL Absolute Neuts (auto) (2.0-8.3) x10*3/uL Absolute Nucleated RBC (0.0-0.012) X10*3/uL Nucleated RBC % (auto) (0.0-0.2) /100WBC PT (10.0-13.1) SEC INR (0.9-1.1) D-Dimer High Sensitivty NG/ML Sodium (135-145) mmol/L Potassium (3.3-5.1) mmol/L Chloride (96-108) mmol/L Carbon Dioxide (22-29) mmol/L Anion Gap (12-20) BUN (9-16) mg/dL Creatinine (0.5-1.4) mg/dL Estim Creat Clear Calc Estimated GFR Random Glucose (60-115) mg/dL Calcium (8.4-10.2) mg/dL Magnesium (1.6-2.6) mg/dL Total Bilirubin (0.0-1.0) mg/dL AST (5-31) U/L ALT (0-31) U/L Alkaline Phosphatase (39-117) U/L B-Natriuretic Peptide 47 (<100) pg/mL Total Protein (6.5-8.0) g/dL Albumin (3.5-5.0) g/dL <ARELY Hart - Last Filed: 09/02/22 18:19> Independent Interpretation I performed an independent interpretation of an: EKG <ARELY Hart Last Filed: 09/02/22 18:19> Interpretation: normal sinus rhythm, ventricular rate 89 beats per minute, normal DE interval, normal QTC, no ST segment elevations or depressions. <ARELY Hart Last Filed: 09/02/22 18:19> Critical Care Time Critical Care Time Critical Care Time: No <ARELY Hart Last Filed: 09/02/22 18:19> Discharge Plan Discharge Clinical Impression: Bronchitis <ARELY Enamorado Last Filed: 09/02/22 16:20> Patient Disposition: Home, Self-Care <ARELY Enamorado Last Filed: 09/02/22 16:20> Instructions: Acute Bronchitis (ED) <ARELY Enamorado - Last Filed: 09/02/22 16:20> Additional Instructions: Your lab workup today was reassuring. No evidence of blood clot. Your most likely slowly recovering from a viral infection. Things should get better with time. Recommend adding on the newly prescribed antibiotic to your previously prescribed regimen. Complete your previously prescribed steroids and antibiotics. Take the prescribed cough medication as needed, do not drive after taking the 2nd make you sleepy. Rest and make sure you are staying hydrated. Follow-up with your doctor early next week. If you develop new or worsening symptoms call 911 or come back to the ER for further evaluation. <ARELY Enamorado - Last Filed: 09/02/22 16:20> Prescriptions: New doxycycline hyclate 100 mg tablet 100 mg PO BID 7 Days Qty: 14 0RF hydrocodone-homatropine [Hycodan] 5-1.5 mg/5 mL (5 mL) syrup 5 ml PO Q4-6H PRN (Reason: cough) Qty: 60 0RF Rx Instructions: Partial Fill upon patient request. No Action fluocinonide 0.05 % cream 1 appl topical QID PRN (Reason: rash) 15 Days Qty: 60 2RF atorvastatin 20 mg tablet 20 mg PO DAILY Qty: 90 1RF lisinopril-hydrochlorothiazide 10-12.5 mg tablet 1 tab PO DAILY Qty: 90 1RF oxycodone 10 mg tablet See Rx Instructions .ROUTE .COMPLEX 28 Days Qty: 66 0RF Rx Instructions: Take 1 tablet by mouth 2 to 3 times a day as needed for increased pain; sennosides 8.6 mg tablet 8.6 mg PO DAILY PRN (Reason: constipation) Qty: 30 3RF zolpidem 10 mg tablet 10 mg PO BEDTIME PRN (Reason: insomnia) 30 Days Qty: 30 1RF cyclobenzaprine 10 mg tablet 10 mg PO TID PRN (Reason: muscle spasm) Qty: 14 0RF lidocaine 5 % adhesive patch,medicated 1 patch topical DAILY Qty: 15 0RF Rx Instructions: leave on most painful area for up to 12 hrs Robitussin Cough and Cold CF 2.5-5-50 mg/5 mL liquid 20 ml PO Q4H PRN (Reason: cough) Qty: 118 0RF naproxen [Naprosyn] 500 mg tablet 500 mg PO BID Qty: 20 0RF azithromycin 250 mg tablet 250 mg PO DAILY 4 Days Qty: 4 0RF Rx Instructions: start on day 2 of therapy prednisone 20 mg tablet 60 mg PO DAILY 4 Days Qty: 12 0RF magnesium hydroxide [Milk of Magnesia] 400 mg/5 mL suspension 5 ml PO DAILY PRN triamcinolone acetonide 0.5 % cream 1 appl topical BID PRN (Reason: itchy rash) 10 Days Qty: 60 3RF cholecalciferol (vitamin D3) 50 mcg (2,000 unit) capsule 50 mcg PO DAILY 90 Days Qty: 90 3RF ciprofloxacin HCl 500 mg tablet 500 mg PO BID 10 Days Qty: 20 0RF metformin 500 mg tablet extended release 24 hr 1,000 mg PO BID 90 Days Qty: 360 3RF albuterol sulfate [Ventolin HFA] 90 mcg/actuation HFA aerosol inhaler 1 inh inhalation QID PRN (Reason: shortness of breath or wheezing) Qty: 8.5 1RF <ARELY Enamorado - Last Filed: 09/02/22 16:20>
--- NOTE | 2022-09-02 16:07 | ECG_ITS ---
Test Reason : SOB Blood Pressure : / mmHG Vent. Rate : 089 BPM Atrial Rate : 089 BPM P-R Int : 122 ms QRS Dur : 092 ms QT Int : 384 ms P-R-T Axes : 039 043 055 degrees QTc Int : 467 ms Normal sinus rhythm Normal ECG When compared with ECG of 01-OCT-2019 20:32, No significant change was found Referred By: Kaylah Man Electronically Signed By:SOLITARIO THURMAN
[2022-09-02 16:40] LABS: MANUAL DIFF FLAG NO
[2022-09-02 16:42] LABS: Basophils Percent Auto 0.1 % (0-2); Hematocrit 42.6 % (37.0-47.0); Imm Gran Abs Auto 0.05 X10*3/uL (0.00-0.03); Imm Gran Pct Auto 0.5 % (0.0-0.4); Lymphocytes Absolute Auto 1.2 X10*3/uL (1.2-4.9); Lymphocytes Percent Auto 10.8 % (20-40); Mean Corpuscular HGB Conc 32.9 g/dl (31.0-35.0); Mean Corpuscular Hemoglobin 28.6 pg (27.0-33.0); Mean Corpuscular Volume 87.1 fL (80.0-98.0); Mean Platelet Volume 10.3 fL (9.4-12.3); Monocytes Absolute Auto 0.3 X10*3/uL (0.1-1.2); Monocytes Percent Auto 3.1 % (2-11); Neutrophils Absolute Auto 9.4 x10*3/uL (2.0-8.3); Neutrophils Percent Auto 85.5 % (45-73); Platelet Count 295 X10*3/uL (160-400); Red Blood Count 4.89 X10*6/uL (4.20-5.50); White Blood Count 10.9 X10*3/uL (4.8-10.8)
[2022-09-02 16:48] LABS: INTERNATIONAL NORM RATIO 1.1 (0.9-1.1); Prothrombin Time 12.3 SEC (10.0-13.1)
[2022-09-02 17:00] LABS: Alanine Aminotransferase 41 U/L (0-31); Albumin Level 4.5 g/dL (3.5-5.0); Alkaline Phosphatase 107 U/L (39-117); Anion Gap 13 (12-20); Aspartate Amino Transferase 16 U/L (5-31); Bilirubin Total 0.5 mg/dL (0.0-1.0); Blood Urea Nitrogen 18 mg/dL (9-16); Calcium 9.3 mg/dL (8.4-10.2); Carbon Dioxide 22 mmol/L (22-29); Chloride 102 mmol/L (96-108); Creatinine Clr Calc Pharmacy 61.2; Estimated Glomerular Filt Rate > 60; Glucose Random 313 mg/dL (60-115); Magnesium 1.7 mg/dL (1.6-2.6); Potassium 4.2 mmol/L (3.3-5.1); Sodium 133 mmol/L (135-145); Total Protein 7.7 g/dL (6.5-8.0)
[2022-09-02 17:04] LABS: B Type Natriuretic Peptide 47 pg/mL (<100)
[2022-09-02 17:48] LABS: D Dimer High Sensitivity < 150 NG/ML
[2022-09-02 18:25] VITALS: BP 145/81; PULSE 84; RESP 20; TEMP 36.8; O2SAT 97
[2022-09-02] MEDS: Doxycycline Monohydrate 100 MG CAPSULE PO (18:37)
== END 2022-09-02 18:40 | disposition home or self-care (01) ==
PROVIDERS: Physician Assistant; Physician Assistant Medical; Emergency Provider Internal Medicine; PCP Internal Medicine
DX: J40 Bronchitis, not specified as acute or chronic (principal); R06.02 Shortness of breath; R05.9 Cough, unspecified; Z20.822 Contact with and (suspected) exposure to COVID-19; Z79.899 Other long term (current) drug therapy
CPT/HCPCS: 36415; 80053; 83735; 83880; 85025; 85379; 85610; 93005; 99283

== ENCOUNTER 2022-09-20 21:38 | Emergency (ER) | payer OTHER, SELFPAY ==
[2022-09-20 22:07] VITALS: BP 143/58; PULSE 78; RESP 18; TEMP 36.6; O2SAT 98; BMI 36.6
--- NOTE | 2022-09-20 22:07 | ED_ITS ---
HPI - Recheck/Abnormal Lab/Rx General Chief Complaint: General Medical <ARELY Enamorado - Last Filed: 09/20/22 22:10> Stated Complaint: elevated blood sugar <ARELY Enamorado - Last Filed: 09/20/22 22:10> Time Seen by Provider: 09/20/22 23:57 <ARELY Enamorado - Last Filed: 09/20/22 22:10> Source: patient and family <Mariela Shipley MD - Last Filed: 09/21/22 01:44> Mode of arrival: ambulatory <Mariela Shipley MD - Last Filed: 09/21/22 01:44> Limitations: no limitations <Mariela Shipley MD - Last Filed: 09/21/22 01:44> History of Present Illness HPI narrative: 61-year-old female with history of borderline diabetes is taking metformin 500 mg twice a day came in for high blood sugar after eating rice and chicken noodle soup. Patient declined blurry vision or headache, no increased urinary frequency , no dysuria. <Mariela Shipley MD - Last Filed: 09/21/22 01:44> Related Data Home Medications: Home Medications Medication Instructions Recorded Confirmed magnesium hydroxide 400 mg/5 mL 5 ml PO DAILY PRN 11/18/20 07/24/22 oral suspension (Milk of Magnesia) Previous Rx's Medication Instructions Recorded triamcinolone acetonide 0.5 % 1 appl topical BID PRN itchy rash 08/31/21 topical cream 10 days #60 grams fluocinonide 0.05 % topical cream 1 appl topical QID PRN rash 15 10/19/21 days #60 grams cholecalciferol (vitamin D3) 50 50 mcg PO DAILY 90 days #90 caps 04/02/22 mcg (2,000 unit) capsule albuterol sulfate 90 mcg/actuation 1 inh inhalation QID PRN shortness 04/21/22 aerosol inhaler (Ventolin HFA) of breath or wheezing #8.5 grams atorvastatin 20 mg tablet 20 mg PO DAILY #90 caps 04/28/22 cyclobenzaprine 10 mg tablet 10 mg PO TID PRN muscle spasm #14 06/27/22 tabs lidocaine 5 % topical patch 1 patch topical DAILY #15 ea 06/27/22 lisinopril 10 1 tab PO DAILY #90 caps 07/22/22 mg-hydrochlorothiazide 12.5 mg tablet ciprofloxacin HCl 500 mg tablet 500 mg PO BID 10 days #20 tabs 07/23/22 metformin 500 mg tablet,extended 1,000 mg PO BID 90 days #360 tabs 07/23/22 release 24 hr naproxen 500 mg tablet (Naprosyn) 500 mg PO BID #20 tabs 08/26/22 npejyxwmdodxx-[id number] 2.5 20 ml PO Q4H PRN cough #118 mL 08/26/22 mg-5 mg-50 mg/5 mL oral liquid (Robitussin Cough and Cold CF) azithromycin 250 mg tablet 250 mg PO DAILY 4 days #4 tabs 08/30/22 prednisone 20 mg tablet 60 mg PO DAILY 4 days #12 tabs 08/30/22 doxycycline hyclate 100 mg tablet 100 mg PO BID 7 days #14 tabs 09/02/22 hydrocodone-homatropine 5 mg-1.5 5 ml PO Q4-6H PRN cough #60 mL 09/02/22 mg/5 mL (5 mL) oral syrup (Hycodan) oxycodone 10 mg tablet See Rx Instructions .Route 09/14/22 .COMPLEX 28 days #66 tabs sennosides 8.6 mg tablet 8.6 mg PO DAILY PRN constipation 09/14/22 #30 tabs zolpidem 10 mg tablet 10 mg PO BEDTIME PRN insomnia 30 09/14/22 days #30 tabs <ARELY Enamorado - Last Filed: 09/20/22 22:10> Allergies/Adverse Reactions: Allergies Allergy/AdvReac Type Severity Reaction Status Date / Time amoxicillin [Amoxicillin] Allergy Intermediate SHORTNESS Unverified 08/30/22 18:13 OF BREATH penicillin V Allergy Intermediate shortness Verified 08/30/22 18:13 of breath Penicillins Allergy Intermediate SHORTNESS Verified 08/30/22 18:13 OF BREATH <ARELY Enamorado - Last Filed: 09/20/22 22:10> Review of Systems Review of Systems: All other systems are reviewed and are negative Constitutional: Reports as per HPI and Reports no additional constitutional complaints Eyes: Reports as per HPI and Reports no additional eye complaints Reports system reviewed and no additional complaints, except as documented Cardiovascular: Reports as per HPI and Reports no additional cardiovascular c omplaints Respiratory: Reports as per HPI and Reports no additional respiratory complaints Gastrointestinal: Reports as per HPI and Reports no additional gastrointestinal complaints Genitourinary: Reports no additional female genitourinary complaints Musculoskeletal: Reports no additional musculoskeletal complaints Skin/Breast: Reports system reviewed and no additional complaints, except as docu Psychiatric: Reports no additional psychiatric complaints Endocrine: Reports no additional endocrine complaints Hematologic/Lymphatic: Reports no additional hematologic/lymphatic complaints Allergic/Immunologic: Reports no additional allergic/immunologic complaints Reports system reviewed and no additional complaints, except as documented and Reports Abnormal speech present <Mariela Shipley MD - Last Filed: 09/21/22 01:44> FORMERLY [facility] Past Medical History Medical History: 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 Pure hypercholesterolemia Smoker <ARELY Enamorado - Last Filed: 09/20/22 22:10> Surgical History: Surgical History History of ectopic History of foot surgery History of open reduction and internal fixation (ORIF) procedure History of tooth extraction History of tubal ligation <ARELY Enamorado - Last Filed: 09/20/22 22:10> Family History Family History: Family History Father Hypertension Mother Hypertension Family/Other Breast cancer <ARELY Enamorado - Last Filed: 09/20/22 22:10> Social History Social History: Social History Housing: Apartment Alcohol intake: never Patient Tobacco Use Status: Current everyday Tobacco user Cigarettes Per Day: 6 e-Cigarette/Vaping Use: Never Used Second Hand Smoke Exposure: Yes Advance Directives: No service: No Current occupational status: disabled Cognitive needs: No Hearing needs: No Vision needs: No <ARELY Enamorado - Last Filed: 09/20/22 22:10> Physical Exam Vital Signs: Vital Signs: Last Vital Signs Temp 98.1 F 09/21/22 00:14 Pulse 78 09/20/22 22:07 Resp 62 H 09/21/22 00:14 BP 131/54 L 09/21/22 00:14 Pulse Ox 99 09/21/22 00:14 O2 Del Method 09/21/22 00:14 BMI result Body Mass Index 36.6 <ARELY Enamorado - Last Filed: 09/20/22 22:10> Vital Signs: Last Vital Signs Temp 98.1 F 09/21/22 00:14 Pulse 78 09/20/22 22:07 Resp 62 H 09/21/22 00:14 BP 131/54 L 09/21/22 00:14 Pulse Ox 99 09/21/22 00:14 O2 Del Method 09/21/22 00:14 BMI result Body Mass Index 36.6 vital signs have been reviewed as appeared to be correct. Blood pressure norm al. Heart rate normal. Respiration rate normal. Temperature normal. Oxygen saturation normal. <Mariela Shipley MD - Last Filed: 09/21/22 01:44> Appearance: Alert. Oriented X3. No acute distress. Head: Normal external exam. Normocephalic. Atraumatic. No Lion signs noted. No raccoon eyes noted Eyes: PERRLA. EOMI. Conjunctiva and sclera normal. Eyelids normal. ENT: TM's Normal. Pharynx normal. Uvula midline. Moist mucous membranes. No trismus noted. No drooling noted. No muffled voice noted. Neck: Normal inspection. Neck supple. FROM. No adenopathy. Thyroid Normal. No meningeal signs. No neck mass noted. CVS: Normal heart rate and rhythm. Heart sound normal. No murmurs noted. Pulses normal throughout. Respiratory: No respiratory distress. Painless inspiration. Breath sounds normal. No wheezes/rales/rhonchi noted. Chest nontender. No accessory muscle usage noted or decreased air movement noted. Abdomen: Soft and nontender. Bowel sounds normal in all 4 quadrants. No distention noted. No organomegaly noted. No visible injury noted. Back: No CVA tenderness. Full range of motion noted. Skin: Skin warm and dry. Normal skin color. Normal skin turgor. No rashes/lesions/lacerations noted. Extremities: No lower extremity edema. Extremities exhibit normal range of motion. Extremities nontender. Neuro: Oriented X 3. Cranial nerve exam: II-XII are grossly intact No motor deficit. No sensory deficit. Reflexes normal. <Mariela Shipley MD - Last Filed: 09/21/22 01:44> Course Course Course Narrative: OMAIRA-22:08PM - 61yoF presenting to the ED c c/o of elevated blood glucose levels up to 200's only on metformin reports taking as prescribed for the past few days. Reports that she took her blood sugar did prior to arrival which was 270. Reports increased urinary urgency/frequency. Denies any other symptoms related to this. Plan: Will obtain labs. Patient will be sent back to the waiting room to be evaluated in the ED. <ARELY Enamorado - Last Filed: 09/20/22 22:10> Reevaluation(s) Reevaluation #1: Hyperglycemia of type 2 diabetes blood sugar now is in the 180s no anion gap normal bicarb will discharge and follow-up with PCP. <Mariela Shipley MD - Last Filed: 09/21/22 01:44> Medications Administered Discontinued Medications Generic Name Dose Route Start Last Admin Trade Name Freq PRN Reason Stop Dose Admin Metformin HCl 500 mg 09/21/22 00:08 09/21/22 01:09 Metformin Hcl 500 Mg Tablet PO 09/21/22 00:09 500 mg ONCE ONE Administration <ARELY Enamorado - Last Filed: 09/20/22 22:10> Medications Administered Discontinued Medications Generic Name Dose Route Start Last Admin Trade Name Freq PRN Reason Stop Dose Admin Metformin HCl 500 mg 09/21/22 00:08 09/21/22 01:09 Metformin Hcl 500 Mg Tablet PO 09/21/22 00:09 500 mg ONCE ONE Administration <Mariela Shipley MD - Last Filed: 09/21/22 01:44> Medical Decision Making Differential Diagnosis Differential Diagnoses: The differential diagnosis associated with the presentation includes ( DKA/hyperglycemia / UTI.) <Mariela Shipley MD - Last Filed: 09/21/22 01:44> Lab Data MDM Lab Attestation statement: I reviewed the patient's lab results. <Mariela Shipley MD - Last Filed: 09/21/22 01:44> Result Diagrams: : 09/20/22 22:41 09/20/22 22:41 <ARELY Enamorado - Last Filed: 09/20/22 22:10> Labs: Lab Results 09/20/22 09/20/22 09/20/22 Range/Units 22:41 22:41 22:41 WBC 6.8 (4.8-10.8) X10*3/uL RBC 4.58 (4.20-5.50) X10*6/uL Hgb 13.4 (12.0-16.0) g/dl Hct 41.5 (37.0-47.0) % MCV 90.6 (80.0-98.0) fL MCH 29.3 (27.0-33.0) pg MCHC 32.3 (31.0-35.0) g/dl RDW 13.2 (11.0-16.0) % Plt Count 218 D (160-400) X10*3/uL MPV 10.9 (9.4-12.3) fL Immature Gran % (Auto) 0.3 (0.0-0.4) % Neut % (Auto) 56.8 (45-73) % Lymph % (Auto) 31.2 (20-40) % Saline % (Auto) 8.8 (2-11) % Eos % (Auto) 2.5 (0-4) % Baso % (Auto) 0.4 (0-2) % Lymph # (Auto) 2.1 (1.2-4.9) X10*3/uL Saline # (Auto) 0.6 (0.1-1.2) X10*3/uL Eos # (Auto) 0.2 (0.0-0.4) X10*3/uL Baso # (Auto) 0.0 (0.0-0.2) X10*3/uL Abs Immat Gran (auto) 0.02 (0.00-0.03) X10*3/uL Absolute Neuts (auto) 3.9 (2.0-8.3) x10*3/uL Absolute Nucleated RBC 0.000 (0.0-0.012) X10*3/uL Nucleated RBC % (auto) 0.0 (0.0-0.2) /100WBC PT 11.6 (10.0-13.1) SEC INR 1.0 (0.9-1.1) Sodium 139 (135-145) mmol/L Potassium 3.9 (3.3-5.1) mmol/L Chloride 104 (96-108) mmol/L Carbon Dioxide 24 (22-29) mmol/L Anion Gap 15 (12-20) BUN 15 (9-16) mg/dL Creatinine 0.83 (0.5-1.4) mg/dL Estim Creat Clear Calc 75.5 Estimated GFR > 60 Random Glucose 182 H (60-115) mg/dL Calcium 9.2 (8.4-10.2) mg/dL Magnesium 1.9 (1.6-2.6) mg/dL Total Bilirubin 0.3 (0.0-1.0) mg/dL AST 19 (5-31) U/L ALT 26 (0-31) U/L Alkaline Phosphatase 88 (39-117) U/L Total Protein 7.5 (6.5-8.0) g/dL Albumin 4.4 (3.5-5.0) g/dL Urine Color Urine Appearance Urine pH (5.0-9.0) Ur Specific Vale (1.005-1.025) Urine Protein (Neg-Trace) mg/dL Urine Glucose (UA) (Negative) mg/dL Urine Ketones (Negative) mg/dL Urine Blood (Negative) Urine Nitrite (Negative) Ur Leukocyte Esterase (Negative) Urine RBC (0-2) /HPF Urine WBC (0-5) /HPF Ur Squamous Epith Cells (0-2) /HPF Urine Bacteria (None Seen) Hyaline Casts (0-2) /LPF Acetone, Qual Negative (Negative) 09/21/22 Range/Units 00:38 WBC (4.8-10.8) X10*3/uL RBC (4.20-5.50) X10*6/uL Hgb (12.0-16.0) g/dl Hct (37.0-47.0) % MCV (80.0-98.0) fL MCH (27.0-33.0) pg MCHC (31.0-35.0) g/dl RDW (11.0-16.0) % Plt Count (160-400) X10*3/uL MPV (9.4-12.3) fL Immature Gran % (Auto) (0.0-0.4) % Neut % (Auto) (45-73) % Lymph % (Auto) (20-40) % Saline % (Auto) (2-11) % Eos % (Auto) (0-4) % Baso % (Auto) (0-2) % Lymph # (Auto) (1.2-4.9) X10*3/uL Saline # (Auto) (0.1-1.2) X10*3/uL Eos # (Auto) (0.0-0.4) X10*3/uL Baso # (Auto) (0.0-0.2) X10*3/uL Abs Immat Gran (auto) (0.00-0.03) X10*3/uL Absolute Neuts (auto) (2.0-8.3) x10*3/uL Absolute Nucleated RBC (0.0-0.012) X10*3/uL Nucleated RBC % (auto) (0.0-0.2) /100WBC PT (10.0-13.1) SEC INR (0.9-1.1) Sodium (135-145) mmol/L Potassium (3.3-5.1) mmol/L Chloride (96-108) mmol/L Carbon Dioxide (22-29) mmol/L Anion Gap (12-20) BUN (9-16) mg/dL Creatinine (0.5-1.4) mg/dL Estim Creat Clear Calc Estimated GFR Random Glucose (60-115) mg/dL Calcium (8.4-10.2) mg/dL Magnesium (1.6-2.6) mg/dL Total Bilirubin (0.0-1.0) mg/dL AST (5-31) U/L ALT (0-31) U/L Alkaline Phosphatase (39-117) U/L Total Protein (6.5-8.0) g/dL Albumin (3.5-5.0) g/dL Urine Color Yellow Urine Appearance Clear Urine pH 6.0 (5.0-9.0) Ur Specific Vale 1.010 (1.005-1.025) Urine Protein Negative (Neg-Trace) mg/dL Urine Glucose (UA) Negative (Negative) mg/dL Urine Ketones Negative (Negative) mg/dL Urine Blood Small (1+) H (Negative) Urine Nitrite Negative (Negative) Ur Leukocyte Esterase Trace H (Negative) Urine RBC 0-2 (0-2) /HPF Urine WBC 0-5 (0-5) /HPF Ur Squamous Epith Cells 0-2 (0-2) /HPF Urine Bacteria None Seen (None Seen) Hyaline Casts 0-2 (0-2) /LPF Acetone, Qual (Negative) <ARELY Enamorado - Last Filed: 09/20/22 22:10> Lab Results 09/20/22 09/20/22 09/20/22 Range/Units 22:41 22:41 22:41 WBC 6.8 (4.8-10.8) X10*3/uL RBC 4.58 (4.20-5.50) X10*6/uL Hgb 13.4 (12.0-16.0) g/dl Hct 41.5 (37.0-47.0) % MCV 90.6 (80.0-98.0) fL MCH 29.3 (27.0-33.0) pg MCHC 32.3 (31.0-35.0) g/dl RDW 13.2 (11.0-16.0) % Plt Count 218 D (160-400) X10*3/uL MPV 10.9 (9.4-12.3) fL Immature Gran % (Auto) 0.3 (0.0-0.4) % Neut % (Auto) 56.8 (45-73) % Lymph % (Auto) 31.2 (20-40) % Saline % (Auto) 8.8 (2-11) % Eos % (Auto) 2.5 (0-4) % Baso % (Auto) 0.4 (0-2) % Lymph # (Auto) 2.1 (1.2-4.9) X10*3/uL Saline # (Auto) 0.6 (0.1-1.2) X10*3/uL Eos # (Auto) 0.2 (0.0-0.4) X10*3/uL Baso # (Auto) 0.0 (0.0-0.2) X10*3/uL Abs Immat Gran (auto) 0.02 (0.00-0.03) X10*3/uL Absolute Neuts (auto) 3.9 (2.0-8.3) x10*3/uL Absolute Nucleated RBC 0.000 (0.0-0.012) X10*3/uL Nucleated RBC % (auto) 0.0 (0.0-0.2) /100WBC PT 11.6 (10.0-13.1) SEC INR 1.0 (0.9-1.1) Sodium 139 (135-145) mmol/L Potassium 3.9 (3.3-5.1) mmol/L Chloride 104 (96-108) mmol/L Carbon Dioxide 24 (22-29) mmol/L Anion Gap 15 (12-20) BUN 15 (9-16) mg/dL Creatinine 0.83 (0.5-1.4) mg/dL Estim Creat Clear Calc 75.5 Estimated GFR > 60 Random Glucose 182 H (60-115) mg/dL Calcium 9.2 (8.4-10.2) mg/dL Magnesium 1.9 (1.6-2.6) mg/dL Total Bilirubin 0.3 (0.0-1.0) mg/dL AST 19 (5-31) U/L ALT 26 (0-31) U/L Alkaline Phosphatase 88 (39-117) U/L Total Protein 7.5 (6.5-8.0) g/dL Albumin 4.4 (3.5-5.0) g/dL Urine Color Urine Appearance Urine pH (5.0-9.0) Ur Specific Vale (1.005-1.025) Urine Protein (Neg-Trace) mg/dL Urine Glucose (UA) (Negative) mg/dL Urine Ketones (Negative) mg/dL Urine Blood (Negative) Urine Nitrite (Negative) Ur Leukocyte Esterase (Negative) Urine RBC (0-2) /HPF Urine WBC (0-5) /HPF Ur Squamous Epith Cells (0-2) /HPF Urine Bacteria (None Seen) Hyaline Casts (0-2) /LPF Acetone, Qual Negative (Negative) 09/21/22 Range/Units 00:38 WBC (4.8-10.8) X10*3/uL RBC (4.20-5.50) X10*6/uL Hgb (12.0-16.0) g/dl Hct (37.0-47.0) % MCV (80.0-98.0) fL MCH (27.0-33.0) pg MCHC (31.0-35.0) g/dl RDW (11.0-16.0) % Plt Count (160-400) X10*3/uL MPV (9.4-12.3) fL Immature Gran % (Auto) (0.0-0.4) % Neut % (Auto) (45-73) % Lymph % (Auto) (20-40) % Saline % (Auto) (2-11) % Eos % (Auto) (0-4) % Baso % (Auto) (0-2) % Lymph # (Auto) (1.2-4.9) X10*3/uL Saline # (Auto) (0.1-1.2) X10*3/uL Eos # (Auto) (0.0-0.4) X10*3/uL Baso # (Auto) (0.0-0.2) X10*3/uL Abs Immat Gran (auto) (0.00-0.03) X10*3/uL Absolute Neuts (auto) (2.0-8.3) x10*3/uL Absolute Nucleated RBC (0.0-0.012) X10*3/uL Nucleated RBC % (auto) (0.0-0.2) /100WBC PT (10.0-13.1) SEC INR (0.9-1.1) Sodium (135-145) mmol/L Potassium (3.3-5.1) mmol/L Chloride (96-108) mmol/L Carbon Dioxide (22-29) mmol/L Anion Gap (12-20) BUN (9-16) mg/dL Creatinine (0.5-1.4) mg/dL Estim Creat Clear Calc Estimated GFR Random Glucose (60-115) mg/dL Calcium (8.4-10.2) mg/dL Magnesium (1.6-2.6) mg/dL Total Bilirubin (0.0-1.0) mg/dL AST (5-31) U/L ALT (0-31) U/L Alkaline Phosphatase (39-117) U/L Total Protein (6.5-8.0) g/dL Albumin (3.5-5.0) g/dL Urine Color Yellow Urine Appearance Clear Urine pH 6.0 (5.0-9.0) Ur Specific Vale 1.010 (1.005-1.025) Urine Protein Negative (Neg-Trace) mg/dL Urine Glucose (UA) Negative (Negative) mg/dL Urine Ketones Negative (Negative) mg/dL Urine Blood Small (1+) H (Negative) Urine Nitrite Negative (Negative) Ur Leukocyte Esterase Trace H (Negative) Urine RBC 0-2 (0-2) /HPF Urine WBC 0-5 (0-5) /HPF Ur Squamous Epith Cells 0-2 (0-2) /HPF Urine Bacteria None Seen (None Seen) Hyaline Casts 0-2 (0-2) /LPF Acetone, Qual (Negative) <Mariela Shipley MD - Last Filed: 09/21/22 01:44> Discharge Plan Discharge Clinical Impression: Acute hyperglycemia <ARELY Enamorado - Last Filed: 09/20/22 22:10> Patient Disposition: Home, Self-Care <ARELY Enamorado - Last Filed: 09/20/22 22:10> Instructions: Diabetic Hyperglycemia (ED) <ARELY Enamorado - Last Filed: 09/20/22 22:10> Prescriptions: No Action fluocinonide 0.05 % cream 1 appl topical QID PRN (Reason: rash) 15 Days Qty: 60 2RF atorvastatin 20 mg tablet 20 mg PO DAILY Qty: 90 1RF lisinopril-hydrochlorothiazide 10-12.5 mg tablet 1 tab PO DAILY Qty: 90 1RF oxycodone 10 mg tablet See Rx Instructions .ROUTE .COMPLEX 28 Days Qty: 66 0RF Rx Instructions: Take 1 tablet by mouth 2 to 3 times a day as needed for increased pain; sennosides 8.6 mg tablet 8.6 mg PO DAILY PRN (Reason: constipation) Qty: 30 3RF zolpidem 10 mg tablet 10 mg PO BEDTIME PRN (Reason: insomnia) 30 Days Qty: 30 1RF cyclobenzaprine 10 mg tablet 10 mg PO TID PRN (Reason: muscle spasm) Qty: 14 0RF lidocaine 5 % adhesive patch,medicated 1 patch topical DAILY Qty: 15 0RF Rx Instructions: leave on most painful area for up to 12 hrs Robitussin Cough and Cold CF 2.5-5-50 mg/5 mL liquid 20 ml PO Q4H PRN (Reason: cough) Qty: 118 0RF naproxen [Naprosyn] 500 mg tablet 500 mg PO BID Qty: 20 0RF azithromycin 250 mg tablet 250 mg PO DAILY 4 Days Qty: 4 0RF Rx Instructions: start on day 2 of therapy prednisone 20 mg tablet 60 mg PO DAILY 4 Days Qty: 12 0RF doxycycline hyclate 100 mg tablet 100 mg PO BID 7 Days Qty: 14 0RF hydrocodone-homatropine [Hycodan] 5-1.5 mg/5 mL (5 mL) syrup 5 ml PO Q4-6H PRN (Reason: cough) Qty: 60 0RF Rx Instructions: Partial Fill upon patient request. magnesium hydroxide [Milk of Magnesia] 400 mg/5 mL suspension 5 ml PO DAILY PRN triamcinolone acetonide 0.5 % cream 1 appl topical BID PRN (Reason: itchy rash) 10 Days Qty: 60 3RF cholecalciferol (vitamin D3) 50 mcg (2,000 unit) capsule 50 mcg PO DAILY 90 Days Qty: 90 3RF ciprofloxacin HCl 500 mg tablet 500 mg PO BID 10 Days Qty: 20 0RF metformin 500 mg tablet extended release 24 hr 1,000 mg PO BID 90 Days Qty: 360 3RF albuterol sulfate [Ventolin HFA] 90 mcg/actuation HFA aerosol inhaler 1 inh inhalation QID PRN (Reason: shortness of breath or wheezing) Qty: 8.5 1RF <ARELY Enamorado - Last Filed: 09/20/22 22:10> Referrals: Lionel Rodriguez MD [Primary Care Provider] - <ARELY Enamorado - Last Filed: 09/20/22 22:10>
[2022-09-20 22:59] LABS: Basophils Percent Auto 0.4 % (0-2); Eosinophils Absolute Auto 0.2 X10*3/uL (0.0-0.4); Eosinophils Percent Auto 2.5 % (0-4); Hematocrit 41.5 % (37.0-47.0); Hemoglobin 13.4 g/dl (12.0-16.0); Imm Gran Abs Auto 0.02 X10*3/uL (0.00-0.03); Imm Gran Pct Auto 0.3 % (0.0-0.4); Lymphocytes Absolute Auto 2.1 X10*3/uL (1.2-4.9); Lymphocytes Percent Auto 31.2 % (20-40); MANUAL DIFF FLAG NO; Mean Corpuscular HGB Conc 32.3 g/dl (31.0-35.0); Mean Corpuscular Hemoglobin 29.3 pg (27.0-33.0); Mean Corpuscular Volume 90.6 fL (80.0-98.0); Mean Platelet Volume 10.9 fL (9.4-12.3); Monocytes Absolute Auto 0.6 X10*3/uL (0.1-1.2); Monocytes Percent Auto 8.8 % (2-11); Neutrophils Absolute Auto 3.9 x10*3/uL (2.0-8.3); Neutrophils Percent Auto 56.8 % (45-73); Platelet Count 218 X10*3/uL (160-400); Red Blood Count 4.58 X10*6/uL (4.20-5.50); Red Cell Distribution Width 13.2 % (11.0-16.0); White Blood Count 6.8 X10*3/uL (4.8-10.8)
[2022-09-20 23:06] LABS: Prothrombin Time 11.6 SEC (10.0-13.1)
[2022-09-20 23:16] LABS: Acetone, serum QL Negative (Negative)
[2022-09-20 23:22] LABS: Alanine Aminotransferase 26 U/L (0-31); Albumin Level 4.4 g/dL (3.5-5.0); Alkaline Phosphatase 88 U/L (39-117); Anion Gap 15 (12-20); Aspartate Amino Transferase 19 U/L (5-31); Bilirubin Total 0.3 mg/dL (0.0-1.0); Blood Urea Nitrogen 15 mg/dL (9-16); Calcium 9.2 mg/dL (8.4-10.2); Carbon Dioxide 24 mmol/L (22-29); Chloride 104 mmol/L (96-108); Creatinine Clr Calc Pharmacy 75.5; Estimated Glomerular Filt Rate > 60; Glucose Random 182 mg/dL (60-115); Magnesium 1.9 mg/dL (1.6-2.6); Potassium 3.9 mmol/L (3.3-5.1); Sodium 139 mmol/L (135-145); Total Protein 7.5 g/dL (6.5-8.0)
[2022-09-21 00:14] VITALS: BP 131/54; RESP 62; TEMP 36.7; O2SAT 99
[2022-09-21 00:47] LABS: Appearance Urine Clear; Color Urine Yellow; Glucose Urine UA Negative (Negative); Leukocyte Esterase Urine Trace (Negative); Nitrite Urine Negative (Negative); UMIC TRIGGER UACC YES; Urine Blood Small (1+) (Negative); Urine Ketones Negative (Negative); Urine Protein Negative (Neg-Trace)
[2022-09-21 00:58] LABS: Bacteria Urine None Seen (None Seen); Hyaline Casts Urine 0-2 /LPF (0-2); RBC Urine 0-2 /HPF (0-2); Squamous Epithelial Cell Urine 0-2 /HPF (0-2); WBC Urine 0-5 /HPF (0-5)
[2022-09-21] MEDS: metFORMIN HCl 500 MG TABLET PO (01:09)
== END 2022-09-21 02:13 | disposition home or self-care (01) ==
PROVIDERS: Physician Assistant Medical; Emergency Provider Emergency Medicine; PCP Internal Medicine
DX: E11.65 Type 2 diabetes mellitus with hyperglycemia (principal); I10 Essential (primary) hypertension; E78.00 Pure hypercholesterolemia, unspecified; F17.210 Nicotine dependence, cigarettes, uncomplicated; E66.9 Obesity, unspecified; Z68.36 Body mass index [BMI] 36.0-36.9, adult; Z79.02 Long term (current) use of antithrombotics/antiplatelets; Z79.899 Other long term (current) drug therapy; Z79.84 Long term (current) use of oral hypoglycemic drugs
CPT/HCPCS: 36415; 80053; 81001; 82009; 83735; 85025; 85610; 99283

== ENCOUNTER 2022-10-07 21:58 | Observation (INO) | payer OTHER, SELFPAY ==
[2022-10-07 22:18] VITALS: BP 153/85; PULSE 103; RESP 18; TEMP 36.5; O2SAT 98; BMI 31.1
--- NOTE | 2022-10-07 22:37 | ED.GENADULT ---
HPI - General Adult General Chief complaint: Allergic Reaction Stated complaint: Swollen Tongue Time Seen by Provider: 10/07/22 22:26 Source: patient Limitations: no limitations History of Present Illness HPI narrative: this is a 62-year-old female who is on lisinopril for hypertension, also metformin for diabetes. The patient had taken her metformin this evening. Around 19:00 the patient noted swelling on the left side of her tongue which has gotten worse the point where admit the patient concerned that her airway might become obstructed. She denies any troubles swallowing her secretions at this time. She denies shortness of breath. She denies any lip swelling. Related Data Home Medications Medication Instructions Recorded Confirmed magnesium hydroxide 400 mg/5 mL 5 ml PO DAILY PRN 11/18/20 09/22/22 oral suspension (Milk of Magnesia) Previous Rx's Medication Instructions Recorded triamcinolone acetonide 0.5 % 1 appl topical BID PRN itchy rash 08/31/21 topical cream 10 days #60 grams fluocinonide 0.05 % topical cream 1 appl topical QID PRN rash 15 10/19/21 days #60 grams cholecalciferol (vitamin D3) 50 50 mcg PO DAILY 90 days #90 caps 04/02/22 mcg (2,000 unit) capsule albuterol sulfate 90 mcg/actuation 1 inh inhalation QID PRN shortness 04/21/22 aerosol inhaler (Ventolin HFA) of breath or wheezing #8.5 grams atorvastatin 20 mg tablet 20 mg PO DAILY #90 caps 04/28/22 lidocaine 5 % topical patch 1 patch topical DAILY #15 ea 06/27/22 lisinopril 10 1 tab PO DAILY #90 caps 07/22/22 mg-hydrochlorothiazide 12.5 mg tablet naproxen 500 mg tablet (Naprosyn) 500 mg PO BID #20 tabs 08/26/22 cxzstystybqls-HE-fbzybdpqpvq 2.5 20 ml PO Q4H PRN cough #118 mL 08/26/22 mg-5 mg-50 mg/5 mL oral liquid (Robitussin Cough and Cold CF) hydrocodone-homatropine 5 mg-1.5 5 ml PO Q4-6H PRN cough #60 mL 09/02/22 mg/5 mL (5 mL) oral syrup (Hycodan) oxycodone 10 mg tablet See Rx Instructions .Route 09/14/22 .COMPLEX 28 days #66 tabs sennosides 8.6 mg tablet 8.6 mg PO DAILY PRN constipation 09/14/22 #30 tabs zolpidem 10 mg tablet 10 mg PO BEDTIME PRN insomnia 30 09/14/22 days #30 tabs metformin 500 mg tablet,extended 1,000 mg PO BID 90 days #360 tabs 09/22/22 release 24 hr Allergies Allergy/AdvReac Type Severity Reaction Status Date / Time amoxicillin [Amoxicillin] Allergy Intermediate SHORTNESS Verified 09/22/22 16:43 OF BREATH penicillin V Allergy Intermediate shortness Verified 09/22/22 16:43 of breath Penicillins Allergy Intermediate SHORTNESS Verified 09/22/22 16:43 OF BREATH Review of Systems Constitutional: Constitutional: Denies fever(s) Eyes: Eyes: Reports no additional eye complaints ENT: Reports as per HPI Cardiovascular: Cardiovascular: Reports no additional cardiovascular complaints Respiratory: Respiratory: Reports no additional respiratory complaints Gastrointestinal: Gastrointestinal: Reports no additional gastrointestinal complaints Musculoskeletal: Musculoskeletal: Reports no additional musculoskeletal complaints Integumentary/Breasts: Skin/Breast: Denies rash Neurologic: Reports system reviewed and no additional complaints, except as documented PMFSH Past Medical History 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 Pure hypercholesterolemia Smoker Surgical History History of ectopic History of foot surgery History of open reduction and internal fixation (ORIF) procedure History of tooth extraction History of tubal ligation Family History Family History Father Hypertension Mother Hypertension Family/Other Breast cancer Social History Social History Housing: Apartment Alcohol intake: never Patient Tobacco Use Status: Current everyday Tobacco user Cigarettes Per Day: 6 e-Cigarette/Vaping Use: Never Used Second Hand Smoke Exposure: Yes Advance Directives: No Advance Directives Information Provided: No Nutrition Risks: Difficulty swallowing service: No Current occupational status: disabled Cognitive needs: No Hearing needs: No Vision needs: No Physical Exam ED Vital Signs: Vital Signs - 24 hr 10/07/22 22:18 10/07/22 23:03 10/07/22 23:19 Temperature 97.7 F Pulse Rate 103 H 95 85 Respiratory Rate 18 16 16 Blood Pressure 153/85 H 168/86 H 147/81 H Pulse Oximetry 98 98 97 Oxygen Delivery Method Room Air Room Air Room Air BMI result Body Mass Index 31.1 Const Other: moderately obese General: no acute distress Orientation/consciousness: patient oriented x3 HENMT Head: Yes normal to inspection General nose exam: Normal external nose present Mouth: moist mucous membranes and other ( Moderate swelling to the left half of the tongue, speech slightly affect) Throat: Yes posterior oropharynx normal, Yes tonsils normal and Yes uvula midline Eyes Eyelids: Yes eyelids normal Conjunctivae: conjunctivae normal Pupils: Equal, round and reactive pupils present Neck Neck: Yes supple Resp Effort & Inspection: normal respiratory effort Auscultation: clear to auscultation bilaterally Cardio Rate: regular rate Rhythm: regular rhythm Heart sounds: S1 normal heart sound present, S2 normal heart sound present, no gallops, no murmurs and no rubs GI Inspection: No distended Palpation (GI): Soft to palpation and nontender Auscultation: normal bowel sounds Skin General skin exam: other (Warm and dry) Neuro General: patient oriented x3 and CN's II-XI intact bilaterally Cranial nerves: Yes Equal, round and reactive pupils present Extrem General: Yes no pedal edema Psych Affect: normal affect Attitude: cooperative Medications Administered Generic Name Dose Route Start Last Admin Trade Name Freq PRN Reason Stop Dose Admin Enoxaparin Sodium 40 mg 10/07/22 23:30 10/07/22 23:47 Enoxaparin Sodium 40 Mg/0.4 Ml Syringe SUBCUT 40 mg Q24H PER Administration Sodium Chloride 3 ml 10/08/22 00:00 10/07/22 23:47 0.9 % Sodium Chloride Flush 3 Ml Syringe IVFLUSH 3 ml QSHIFT PER Administration Discontinued Medications Generic Name Dose Route Start Last Admin Trade Name Freq PRN Reason Stop Dose Admin Dexamethasone Sodium Phosphate 8 mg 10/07/22 22:35 10/07/22 22:49 Dexamethasone Sod Phosphate 4 Mg/Ml Vial IVPUSH 10/07/22 22:36 8 mg ONCE ONE Administration Diphenhydramine HCl 25 mg 10/07/22 22:35 10/07/22 22:49 Diphenhydramine Hcl 50 Mg/Ml Vial IVPUSH 10/07/22 22:36 25 mg ONCE ONE Administration Famotidine 20 mg 10/07/22 22:35 10/07/22 22:49 Famotidine/Pf 20 Mg/2 Ml Vial IVPUSH 10/07/22 22:36 20 mg ONCE ONE Administration Lorazepam 0.5 mg 10/07/22 23:06 10/07/22 23:15 Lorazepam 2 Mg/Ml Vial IVPUSH 10/07/22 23:07 0.5 mg STAT STA Administration Medical Decision Making Medical Decision Making [facility] Narrative: patient on lisinopril, with angioedema of her tongue, worse on the left side. Patient with some thickened speech but no imminent airway compromise. Patient was given Decadron 8 mg IV, Pepcid 20 mg IV, diphenhydramine 25 mg IV (patient had taken 25 mg at home). Onset of symptoms around 19:00. Given the location of the swelling and possible for airway compromise of the tongue became more swollen, admission for observation is warranted. Dr. Espinal of the hospitalist service was consulted for admission Differential Diagnosis allergic reaction, angioedema secondary to CONNER-inhibitor, airway obstruction, tongue infection Admission/Observation Consideration of admission/observation: Escalation of care including admission/observation considered Consult Healthcare Provider Management of the patient was discussed with: Hospitalist Lab Data [facility] Lab Attestation statement: I reviewed the patient's lab results. 10/07/22 22:48 10/07/22 22:48 Labs: Lab Results 10/07/22 10/07/22 10/07/22 Range/Units 22:48 22:48 22:48 WBC 9.7 (4.8-10.8) X10*3/uL RBC 5.03 (4.20-5.50) X10*6/uL Hgb 14.7 (12.0-16.0) g/dl Hct 43.8 (37.0-47.0) % MCV 87.1 (80.0-98.0) fL MCH 29.2 (27.0-33.0) pg MCHC 33.6 (31.0-35.0) g/dl RDW 13.6 (11.0-16.0) % Plt Count 265 (160-400) X10*3/uL MPV 10.3 (9.4-12.3) fL Immature Gran % (Auto) 0.2 (0.0-0.4) % Neut % (Auto) 58.6 (45-73) % Lymph % (Auto) 30.6 (20-40) % [place] % (Auto) 7.8 (2-11) % Eos % (Auto) 2.0 (0-4) % Baso % (Auto) 0.8 (0-2) % Lymph # (Auto) 3.0 (1.2-4.9) X10*3/uL [place] # (Auto) 0.8 (0.1-1.2) X10*3/uL Eos # (Auto) 0.2 (0.0-0.4) X10*3/uL Baso # (Auto) 0.1 (0.0-0.2) X10*3/uL Abs Immat Gran (auto) 0.02 (0.00-0.03) X10*3/uL Absolute Neuts (auto) 5.7 (2.0-8.3) x10*3/uL Absolute Nucleated RBC 0.000 (0.0-0.012) X10*3/uL Nucleated RBC % (auto) 0.0 (0.0-0.2) /100WBC Sodium 136 (135-145) mmol/L Potassium 3.6 (3.3-5.1) mmol/L Chloride 101 (96-108) mmol/L Carbon Dioxide 26 (22-29) mmol/L Anion Gap 13 (12-20) BUN 17 H (9-16) mg/dL Creatinine 0.77 (0.5-1.4) mg/dL Estim Creat Clear Calc 73.7 Estimated GFR > 60 Random Glucose 104 (60-115) mg/dL Calcium 9.8 D (8.4-10.2) mg/dL Total Bilirubin 0.4 (0.0-1.0) mg/dL AST 20 (5-31) U/L ALT 20 (0-31) U/L Alkaline Phosphatase 95 (39-117) U/L Total Protein 7.7 (6.5-8.0) g/dL Albumin 4.6 (3.5-5.0) g/dL COVID-19 ([place]) Negative (Negative) COVID-19 Clin Com See Note Discharge Plan Discharge Clinical Impression: Angioedema of tongue Patient Disposition: Admitted as Observation
[2022-10-07] MEDS: Famotidine/PF 20 MG/2 ML VIAL IVPUSH (22:49)
[2022-10-07] MEDS: dexAMETHasone sod phosphate 4 MG/ML VIAL 8 MG IVPUSH (22:49)
[2022-10-07] MEDS: diphenhydrAMINE HCL 50 MG/ML VIAL 25 MG IVPUSH (22:49)
[2022-10-07 22:52] LABS: MANUAL DIFF FLAG NO
[2022-10-07 22:53] LABS: Basophils Absolute Auto 0.1 X10*3/uL (0.0-0.2); Basophils Percent Auto 0.8 % (0-2); Eosinophils Absolute Auto 0.2 X10*3/uL (0.0-0.4); Hematocrit 43.8 % (37.0-47.0); Hemoglobin 14.7 g/dl (12.0-16.0); Imm Gran Abs Auto 0.02 X10*3/uL (0.00-0.03); Imm Gran Pct Auto 0.2 % (0.0-0.4); Lymphocytes Percent Auto 30.6 % (20-40); Mean Corpuscular HGB Conc 33.6 g/dl (31.0-35.0); Mean Corpuscular Hemoglobin 29.2 pg (27.0-33.0); Mean Corpuscular Volume 87.1 fL (80.0-98.0); Mean Platelet Volume 10.3 fL (9.4-12.3); Monocytes Absolute Auto 0.8 X10*3/uL (0.1-1.2); Monocytes Percent Auto 7.8 % (2-11); Neutrophils Absolute Auto 5.7 x10*3/uL (2.0-8.3); Neutrophils Percent Auto 58.6 % (45-73); Platelet Count 265 X10*3/uL (160-400); Red Blood Count 5.03 X10*6/uL (4.20-5.50); Red Cell Distribution Width 13.6 % (11.0-16.0); White Blood Count 9.7 X10*3/uL (4.8-10.8)
[2022-10-07 23:03] VITALS: BP 168/86; PULSE 95; RESP 16; O2SAT 98
[2022-10-07 23:06] LABS: Alanine Aminotransferase 20 U/L (0-31); Albumin Level 4.6 g/dL (3.5-5.0); Alkaline Phosphatase 95 U/L (39-117); Anion Gap 13 (12-20); Aspartate Amino Transferase 20 U/L (5-31); Bilirubin Total 0.4 mg/dL (0.0-1.0); Blood Urea Nitrogen 17 mg/dL (9-16); Calcium 9.8 mg/dL (8.4-10.2); Carbon Dioxide 26 mmol/L (22-29); Chloride 101 mmol/L (96-108); Creatinine Clr Calc Pharmacy 73.7; Estimated Glomerular Filt Rate > 60; Glucose Random 104 mg/dL (60-115); Potassium 3.6 mmol/L (3.3-5.1); Sodium 136 mmol/L (135-145); Total Protein 7.7 g/dL (6.5-8.0)
[2022-10-07 23:08] LABS: COVID-19 Test Negative (Negative); IDNOW Serial# 6674DD1D
[2022-10-07] MEDS: LORazepam 2 MG/ML VIAL 0.5 MG IVPUSH (23:15)
--- NOTE | 2022-10-07 23:16 | PC.NURSE ---
patient awake and alert. skin pwd, resp even and non labored. speaking in full, clear sentences. patient reports that this evening she started with left sided tongue swelling- left side of tongue is largely swollen. reports trouble swallowing- denies difficulty breathing, lung sounds CTA. patient medicated for allergic reaction per order. patient states that after pepcid was administerd she felt a pain/pressure from top of head to feet. vitals assessed and situation reports to Dr. Brito. patient medicated w/ ativan as ordered. before ativan was administered she stated the pain/pressure was starting to go away- sx lasted approx 5 minutes. patient aware of plan of care for admission,
[2022-10-07 23:19] VITALS: BP 147/81; PULSE 85; RESP 16; O2SAT 97
--- NOTE | 2022-10-07 23:28 | P.HPHOSP_ITS ---
History of Present Illness Date of Service: 10/07/22 Chief Complaint: Swelling of tongue This is a 62-year-old female with pertinent history of essential hypertension, mixed hyperlipidemia, chronic pain with opioid use, ugm-hdcsawk-vggvpevvg diabetes mellitus, insomnia who presents to the emergency department for evaluation tongue swelling. Patient states she noticed swelling of her tongue around 19:00 which was sudden in onset. Swelling on the left side of the tongue was increasing and patient was concerned and hence presented to the ER. Patient denies trouble breathing, swallowing her secretions, itching, loss of consciousness, wheezing, nausea, vomiting. No similar symptoms in the past. No history of angioedema in family. Patient denies fever, chills, chest discomfort, palpitations, abdominal pain, changes in urinary bowel habits. No swelling of the lips In the emergency department, patient given steroids and antihistamines Review of Systems Constitutional: Constitutional: Reports no additional constitutional complaints Cardiovascular: Cardiovascular: Reports no additional cardiovascular complaints Respiratory: Respiratory: Reports no additional respiratory complaints Gastrointestinal: Gastrointestinal: Reports no additional gastrointestinal complaints Genitourinary: Genitourinary: Reports no additional female genitourinary complaints [facility] 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 Pure hypercholesterolemia Smoker Functional capacity: independent ambulation Family History Father Hypertension Mother Hypertension Family/Other Breast cancer Surgical History History of ectopic History of foot surgery History of open reduction and internal fixation (ORIF) procedure History of tooth extraction History of tubal ligation Social History Housing: Apartment Alcohol intake: never Patient Tobacco Use Status: Current everyday Tobacco user Cigarettes Per Day: 6 e-Cigarette/Vaping Use: Never Used Second Hand Smoke Exposure: Yes Advance Directives: No Advance Directives Information Provided: No service: No Current occupational status: disabled Cognitive needs: No Hearing needs: No Vision needs: No Meds Allergies Allergy/AdvReac Type Severity Reaction Status Date / Time amoxicillin [Amoxicillin] Allergy Intermediate SHORTNESS Verified 09/22/22 16:43 OF BREATH penicillin V Allergy Intermediate shortness Verified 09/22/22 16:43 of breath Penicillins Allergy Intermediate SHORTNESS Verified 09/22/22 16:43 OF BREATH Active Medications: Current Medications Pharmacy Consult (Consult Rx Perform Med Rec) 1 each MISCELLANE ONCE PRN PRN Reason: Consult order Home Medications Medication Instructions Recorded Confirmed Last Taken Type magnesium hydroxide 400 mg/5 mL 5 ml PO DAILY PRN 11/18/20 09/22/22 Unknown History oral suspension (Milk of Magnesia) Physical Exam Vital Signs and Narrative: Vital Signs: Last Vital Signs Temp 97.7 F 10/07/22 22:18 Pulse 85 10/07/22 23:19 Resp 16 10/07/22 23:19 BP 147/81 H 10/07/22 23:19 Pulse Ox 97 10/07/22 23:19 O2 Del Method 10/07/22 23:19 BMI result Body Mass Index 31.1 Middle-aged female lying in bed in no distress Left-sided tongue swelling present Regular rate and rhythm, S1-S2 heard Regular breath sounds bilaterally, no wheezing or crackles appreciated Abdomen soft nontender, no guarding, no rigidity Patient is awake, alert and oriented to self, place, time and person ; no focal motor deficit Psych: Normal mood No pedal edema Results Labs 10/07/22 22:48 10/07/22 22:48 Labs: Laboratory Results - last 24 hr 10/07/22 10/07/22 10/07/22 22:48 22:48 22:48 MCV 87.1 MCH 29.2 MCHC 33.6 RDW 13.6 Plt Count 265 MPV 10.3 Immature Gran % (Auto) 0.2 Neut % (Auto) 58.6 Lymph % (Auto) 30.6 [place] % (Auto) 7.8 Eos % (Auto) 2.0 Baso % (Auto) 0.8 Lymph # (Auto) 3.0 [place] # (Auto) 0.8 Eos # (Auto) 0.2 Baso # (Auto) 0.1 Abs Immat Gran (auto) 0.02 Absolute Neuts (auto) 5.7 Absolute Nucleated RBC 0.000 Nucleated RBC % (auto) 0.0 Anion Gap 13 Estim Creat Clear Calc 73.7 Estimated GFR > 60 Random Glucose 104 Calcium 9.8 D Total Bilirubin 0.4 AST 20 ALT 20 Alkaline Phosphatase 95 Total Protein 7.7 Albumin 4.6 COVID-19 ([place]) Negative COVID-19 Clin Com See Note Assessment and Plan (1) Angioedema of tongue: Status: Acute Plan This is a 62-year-old female with pertinent history of essential hypertension, mixed hyperlipidemia, chronic pain with opioid use, gep-qoemaqb-qrxznyqrp diabetes mellitus, insomnia who presents to the emergency department for evaluation tongue swelling. #. Angioedema of the tongue: Patient received steroids and antihistamines in the ER. Will admit for observation. Closely monitor for resolution and discontinue CONNER-inhibitor. No concern for anaphylaxis or airway compromise at the time of admission. No urticaria #. Essential hypertension: Continue home medications, discontinue lisinopril as above. Optimize antihypertensives at discharge #. Ptd-xzgkikm-ilicjsnku diabetes mellitus: Hold metformin and initiate Accu- Cheks with sliding scale insulin while in the hospital #. Chronic pain with chronic use oxycodone #. Insomnia: On Ambien #. Mixed hyperlipidemia: On Statin Med rec pending DVT prophylaxis: Lovenox 40 mg daily Full code Cardiac diet Time Spent With Patient Time: Total time managing care of this patient today ____ minutes. Quality Stroke Does the patient have a stroke diagnosis?: No VTE Prior VTE?: No VTE Risk Level:: Medical - moderate - high VTE Device Contraindication: Treatment Not Indicated VTE Drug Contraindication: N/A - Med Ordered
[2022-10-07] MEDS: Enoxaparin Sodium 40 MG/0.4 ML SYRINGE SUBCUT (23:47)
[2022-10-07] MEDS: 0.9 % Sodium Chloride Flush 3 ML SYRINGE IVFLUSH (23:47)
[2022-10-08] MEDS: oxyCODONE HCl Immed Release 5 MG TABLET 10 MG PO ×3 (01:40→21:02)
[2022-10-08 02:15] VITALS: BP 125/79; PULSE 84; RESP 18; TEMP 35.7; O2SAT 96
[2022-10-08] MEDS: Zolpidem Tartrate 5 MG TABLET 10 MG PO ×2 (02:34→22:46)
[2022-10-08 07:00] LABS: Basophils Percent Auto 0.4 % (0-2); Eosinophils Percent Auto 0.1 % (0-4); Hematocrit 41.7 % (37.0-47.0); Hemoglobin 13.9 g/dl (12.0-16.0); Imm Gran Abs Auto 0.01 X10*3/uL (0.00-0.03); Imm Gran Pct Auto 0.1 % (0.0-0.4); Lymphocytes Absolute Auto 0.9 X10*3/uL (1.2-4.9); Lymphocytes Percent Auto 13.9 % (20-40); MANUAL DIFF FLAG SCAN; Mean Corpuscular HGB Conc 33.3 g/dl (31.0-35.0); Mean Corpuscular Volume 87.1 fL (80.0-98.0); Mean Platelet Volume 10.6 fL (9.4-12.3); Monocytes Absolute Auto 0.1 X10*3/uL (0.1-1.2); Monocytes Percent Auto 0.7 % (2-11); Neutrophils Absolute Auto 5.7 x10*3/uL (2.0-8.3); Neutrophils Percent Auto 84.8 % (45-73); Platelet Count 245 X10*3/uL (160-400); Red Blood Count 4.79 X10*6/uL (4.20-5.50); Red Cell Distribution Width 13.5 % (11.0-16.0); SCAN SMEAR FLAG 1; White Blood Count 6.7 X10*3/uL (4.8-10.8)
[2022-10-08 07:19] LABS: Anion Gap 15 (12-20); Blood Urea Nitrogen 14 mg/dL (9-16); Calcium 9.4 mg/dL (8.4-10.2); Carbon Dioxide 22 mmol/L (22-29); Chloride 102 mmol/L (96-108); Creatinine Clr Calc Pharmacy 77.8; Estimated Glomerular Filt Rate > 60; Glucose Random 143 mg/dL (60-115); Potassium 4.7 mmol/L (3.3-5.1); Sodium 134 mmol/L (135-145)
[2022-10-08 07:24] LABS: SLIDE REVIEW VERIFIED
[2022-10-08 07:27] VITALS: BP 115/63; PULSE 77; RESP 18; TEMP 36.2; O2SAT 97
[2022-10-08 08:05] LABS: Glucose, Whole Blood 140 mg/dL (60-115)
--- NOTE | 2022-10-08 08:12 | PHA.MEDREC ---
Pharmacy Consult ? Medication Reconciliation Pharmacy has completed the medication reconciliation. Spoke to patient.
[2022-10-08] MEDS: Cholecalciferol (Vitamin D3) 25 MCG TABLET 50 MCG PO (09:12)
[2022-10-08] MEDS: 0.9 % Sodium Chloride Flush 3 ML SYRINGE IVFLUSH ×3 (09:15→21:03)
--- NOTE | 2022-10-08 09:43 | MHC.CM.PN ---
MARISEL 10/08/22, EMR REVIEWED, PT ADMITTED W/SWELLING OF TONGUE, CM MET W/PT VIA [facility] REPORT DEVELOPER HOWEVER PT ANSWERED ALL QUESTIONS IN [place] AND HOUSE RN DID CLARIFY A FEW THINGS FOR PT. 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 PT VERIFIES PCP IS [facility] BARRON X3 AND PT REPORTS HER FATOU ELIZONDO [phone] IS HER HCP AND COPY REQUESTED. KAYLAN D/C LATER TODAY W/RESUMP OF SOA [employer]INEER HRS AND PT WILL ARRANGE HER OWN TRANSPORT
[2022-10-08] MEDS: diphenhydrAMINE HCL 50 MG/ML VIAL 25 MG IVPUSH ×2 (09:57→16:50)
[2022-10-08 11:30] LABS: Glucose, Whole Blood 117 mg/dL (60-115)
--- NOTE | 2022-10-08 11:31 | P.PNIM_ITS ---
Subjective Subjective Date of Service: 10/08/22 Interval History: Complaining of persistent tongue swelling and difficultly swallowing pills, requesting for oxycodone home dose for her chronic pain, denies shortness of breath, no chest pain, no palpitations, denies rash or itching, no other acute events overnight, refusing to take insulin, refusing to take steroids due to concern for hyperglycemia. Review of Systems General no headache no dizziness no fever chills. CVS no chest pain, no palpitation. Respiratory no cough no sob Gastrointestinal no nausea no vomiting, no abdominal pain Review of Systems: Yes all other systems are reviewed and are negative Physical Exam Vital Signs: Vital Signs: Last Vital Signs Temp 97.2 F 10/08/22 07:27 Pulse 77 10/08/22 07:27 Resp 18 10/08/22 07:27 BP 115/63 10/08/22 07:27 Pulse Ox 97 10/08/22 07:27 O2 Del Method 10/08/22 07:27 BMI result Body Mass Index 31.1 Const: Other: General patient awake alert, in no distress Persistent Left-sided tongue swelling , CVS Regular rate and rhythm, S1-S2 heard No drooling Resp: Regular breath sounds bilaterally, no wheezing or crackles appreciated Abdomen soft non tender, no guarding, no rigidity Neuro awake, alert and oriented to self, place, time and person ; no focal motor deficit Psych: Normal mood No pedal edema Objective Data Active Medications Acetaminophen (Acetaminophen 325 Mg Tablet) 650 mg PO Q6H PRN PRN Reason: Pain, Mild (Pain Scale 1-3) Albuterol Sulfate (Albuterol Sulfate 90 Mcg 8 Gm Inhaler) 1 puff INHALE QID PRN PRN Reason: shortness of breath or wheezing Atorvastatin Calcium (Atorvastatin Calcium 20 Mg Tablet) 20 mg PO DAILY [facility] Last Admin: 10/08/22 09:22 Dose: Not Given Documented By: TESSY Non-Admin Reason: Patient Refused Dextrose (Dextrose 50 % 25 Gm/50 Ml Syringe) 25 gm IVPUSH Q15M PRN; Protocol PRN Reason: per Hypoglycemia Standing Ord. Enoxaparin Sodium (Enoxaparin Sodium 40 Mg/0.4 Ml Syringe) 40 mg SUBCUT Q24H [facility] Last Admin: 10/07/22 23:47 Dose: 40 mg Documented By: HO.DAMONC Glucose (Glucose Gel 15 Gm Gel..Gram.) 15 gm PO Q15M PRN; Protocol PRN Reason: per Hypoglycemia Standing Ord. Hydroxyzine HCl (Hydroxyzine Hcl 25 Mg Tablet) 25 mg PO BEDTIME PRN PRN Reason: anxiety or sleep Insulin Human Lispro (Insulin Lispro 100 Unit/Ml 3 Ml Vial) 0 unit SUBCUT QIDACHS [facility]; Protocol Last Admin: 10/08/22 08:08 Dose: Not Given Documented By: TESSY Non-Admin Reason: No Insulin Coverage Melatonin (Melatonin 3 Mg Tablet) 6 mg PO BEDTIME PRN PRN Reason: Insomnia Metformin HCl (Metformin Hcl 1,000 Mg Tablet) 1,000 mg PO BIDWM [facility] Methylprednisolone Sodium Succinate (Methylprednisolone Sod Succ 40 Mg/Ml Vial) 40 mg IVPUSH Q8H [facility] Last Admin: 10/08/22 09:59 Dose: Not Given Documented By: TESSY Non-Admin Reason: Patient Refused Ondansetron HCl (Ondansetron Hcl 4 Mg/2 Ml Vial) 4 mg IVPUSH Q8H PRN PRN Reason: Nausea and Vomiting Oxycodone HCl (Oxycodone Hcl Immed Release 5 Mg Tablet) 10 mg PO Q8H PRN PRN Reason: Pain, Severe (Pain Scale 7-10) Last Admin: 10/08/22 11:22 Dose: 10 mg Documented By: TESSY Pharmacy Consult (Consult Rx Perform Med Rec) 1 each MISCELLANE ONCE PRN PRN Reason: Consult order Senna (Sennosides 8.6 Mg Tablet) 8.6 mg PO DAILY PRN PRN Reason: constipation Sodium Chloride (0.9 % Sodium Chloride Flush 3 Ml Syringe) 3 ml IVFLUSH QSHIFT [facility] Last Admin: 10/08/22 09:15 Dose: 3 ml Documented By: TESSY Vitamin D (Cholecalciferol (Vitamin D3) 25 Mcg Tablet) 50 mcg PO DAILY [facility] Last Admin: 10/08/22 09:12 Dose: 50 mcg Documented By: TESSY Zolpidem Tartrate (Zolpidem Tartrate 5 Mg Tablet) 10 mg PO BEDTIME PRN PRN Reason: Insomnia Last Admin: 10/08/22 02:34 Dose: 10 mg Documented By: ARIANA Zolpidem Tartrate (Zolpidem Tartrate 5 Mg Tablet) 10 mg PO BEDTIME PRN PRN Reason: insomnia Labs 10/08/22 06:13 10/08/22 06:13 Labs: Laboratory Results - last 24 hr 10/07/22 10/07/22 10/07/22 22:48 22:48 22:48 MCV 87.1 MCH 29.2 MCHC 33.6 RDW 13.6 Plt Count 265 MPV 10.3 Immature Gran % (Auto) 0.2 Neut % (Auto) 58.6 Lymph % (Auto) 30.6 Mathews % (Auto) 7.8 Eos % (Auto) 2.0 Baso % (Auto) 0.8 Lymph # (Auto) 3.0 Mathews # (Auto) 0.8 Eos # (Auto) 0.2 Baso # (Auto) 0.1 Abs Immat Gran (auto) 0.02 Absolute Neuts (auto) 5.7 Absolute Nucleated RBC 0.000 Nucleated RBC % (auto) 0.0 Smear Tech's Comments Anion Gap 13 Estim Creat Clear Calc 73.7 Estimated GFR > 60 POC Glucose Random Glucose 104 Calcium 9.8 D Total Bilirubin 0.4 AST 20 ALT 20 Alkaline Phosphatase 95 Total Protein 7.7 Albumin 4.6 COVID-19 ([place]) Negative COVID-19 Clin Com See Note 10/08/22 10/08/22 10/08/22 06:13 06:13 07:29 MCV 87.1 MCH 29.0 MCHC 33.3 RDW 13.5 Plt Count 245 MPV 10.6 Immature Gran % (Auto) 0.1 Neut % (Auto) 84.8 H Lymph % (Auto) 13.9 L Mathews % (Auto) 0.7 L Eos % (Auto) 0.1 Baso % (Auto) 0.4 Lymph # (Auto) 0.9 L Mathews # (Auto) 0.1 Eos # (Auto) 0.0 Baso # (Auto) 0.0 Abs Immat Gran (auto) 0.01 Absolute Neuts (auto) 5.7 Absolute Nucleated RBC 0.000 Nucleated RBC % (auto) 0.0 Smear Tech's Comments VERIFIED Anion Gap 15 Estim Creat Clear Calc 77.8 Estimated GFR > 60 POC Glucose 140 H Random Glucose 143 H Calcium 9.4 Total Bilirubin AST ALT Alkaline Phosphatase Total Protein Albumin COVID-19 ([place]) COVID-19 Clin Com 10/08/22 11:27 MCV MCH MCHC RDW Plt Count MPV Immature Gran % (Auto) Neut % (Auto) Lymph % (Auto) Mathews % (Auto) Eos % (Auto) Baso % (Auto) Lymph # (Auto) Mathews # (Auto) Eos # (Auto) Baso # (Auto) Abs Immat Gran (auto) Absolute Neuts (auto) Absolute Nucleated RBC Nucleated RBC % (auto) Smear Tech's Comments Anion Gap Estim Creat Clear Calc Estimated GFR POC Glucose 117 H Random Glucose Calcium Total Bilirubin AST ALT Alkaline Phosphatase Total Protein Albumin COVID-19 ([place]) COVID-19 Clin Com Assessment and Plan (1) Angioedema of tongue: Status: Acute Plan 62-year-old female with pertinent history of essential hypertension, mixed hyperlipidemia, chronic pain with opioid use, uym-oxfefsu-cspdgsdsy diabetes mellitus, insomnia who presents to the emergency department for evaluation tongue swelling. #.? Angioedema of the tongue likely due to CONNER-inhibitor Complaining of persistent tongue swelling, as well as difficulty swallowing pills. Will place on IV steroids, and iv Benadryl, discontinue lisinopril, will follow clinical course, no shortness of breath no airway compromise, no anaphylaxis. #.? Essential hypertension: Soft BP this morning, DC lisinopril, follow blood pressure?resume hctz 12.5 mg. #.? Hqc-kgzfmgf-eboylinhv diabetes mellitus:? Patient refusing insulin, and reassured patient will be requiring insulin short-term while on steroids, cont inue diabetic diet resume metformin #.? Chronic pain with chronic use of oxycodone, resume home dose of oxycodone #.? Insomnia: Continue Ambien home dose #.? Mixed hyperlipidemia:? On Statin # Obesity recommend low-calorie diet that will help with better blood sugar control. DVT prophylaxis: Lovenox 40 mg daily Full code in my clinical judgment patient needs continued hospitalization for further management of persistent tongue swelling and difficulty swallowing requiring IV steroids and antihistamine. Time Spent With Patient Time: Total time managing care of this patient today ____ minutes. Quality Stroke Does the patient have a stroke diagnosis?: No VTE Prior VTE?: No VTE Risk Level:: Medical - moderate - high VTE Device Contraindication: Treatment Not Indicated VTE Drug Contraindication: N/A - Med Ordered
[2022-10-08 15:23] VITALS: BP 129/69; PULSE 82; RESP 16; TEMP 36.8; O2SAT 97
[2022-10-08 16:13] LABS: Glucose, Whole Blood 127 mg/dL (60-115)
[2022-10-08] MEDS: methylPREDNISolone Sod Succ 40 MG/ML VIAL IVPUSH (16:50)
[2022-10-08] MEDS: metFORMIN HCl 1,000 MG TABLET 1000 MG PO (16:50)
[2022-10-08 20:07] LABS: Glucose, Whole Blood 148 mg/dL (60-115)
[2022-10-08] MEDS: Enoxaparin Sodium 40 MG/0.4 ML SYRINGE SUBCUT (22:34)
[2022-10-08] MEDS: Atorvastatin Calcium 20 MG TABLET PO (22:46)
[2022-10-08 23:25] VITALS: BP 117/67; PULSE 73; RESP 18; TEMP 36.6; O2SAT 98
[2022-10-09] MEDS: methylPREDNISolone Sod Succ 40 MG/ML VIAL IVPUSH ×2 (00:57→10:40)
[2022-10-09] MEDS: diphenhydrAMINE HCL 50 MG/ML VIAL 25 MG IVPUSH ×2 (00:57→05:42)
[2022-10-09 07:25] VITALS: BP 124/69; PULSE 72; RESP 18; TEMP 36; O2SAT 97
[2022-10-09 07:30] LABS: Glucose, Whole Blood 210 mg/dL (60-115)
[2022-10-09] MEDS: metFORMIN HCl 1,000 MG TABLET 1000 MG PO (07:52)
[2022-10-09] MEDS: Cholecalciferol (Vitamin D3) 25 MCG TABLET 50 MCG PO (07:52)
[2022-10-09] MEDS: 0.9 % Sodium Chloride Flush 3 ML SYRINGE IVFLUSH (07:53)
[2022-10-09 08:20] LABS: Glucose, Whole Blood 182 mg/dL (60-115)
--- NOTE | 2022-10-09 09:37 | P.DS_ITS ---
DS: Providers Provider Date of Service: 10/09/22 Date of admission: 10/07/22 23:26 Primary care physician: Lionel Rodriguez MD DS: Diagnosis Discharge Diagnosis (1) Angioedema of tongue: Status: Acute DS: Summary Hospital Course Hospital Course: Date of Service: 10/07/22 Chief Complaint: Swelling of tongue This is a 62-year-old female with pertinent history of essential hypertension, mixed hyperlipidemia, chronic pain with opioid use, fmj-ecjnoso-kheunilhr diab etes mellitus, insomnia who presents to the emergency department for evaluation tongue swelling.? Patient states she noticed swelling of her tongue around 19:00 which was sudden in onset.? Swelling on the left side of the tongue was increasing and patient was concerned and hence presented to the ER.? Patient denies trouble breathing, swallowing her secretions, itching, loss of consciousness, wheezing, nausea, vomiting.? No similar symptoms in the past.? No history of angioedema in family.? Patient denies fever, chills, chest discomfort, palpitations, abdominal pain, changes in urinary bowel habits.? No swelling of the lips In the emergency department, patient given steroids and antihistamines. Hospital course 62-year-old female with pertinent history of essential hypertension, mixed hyp erlipidemia, chronic pain with opioid use, zdk-kkcnusz-czywlhmgk diabetes mellitus, insomnia who presents to the emergency department for evaluation tongue swelling. #.? Angioedema of the tongue likely due to CONNER-inhibitor patient treated with IV steroids, IV Benadryl lisinopril has been discontinued, tongue swelling resolved, patient is tolerating diet swallowing pills therefore is being discharged home on prednisone and Benadryl for 3 more days ?? ? #.? Essential hypertension:? Soft BP DC lisinopril, will give prescription of hctz 12.5 mg, follow blood pressure and adjust dosage as per PCP. #.? Rcn-bjctvfl-xpqifubko diabetes mellitus:? Follow diabetic diet and continue metformin. #.? Chronic pain continue home dose of oxycodone #.? Insomnia:? Continue Ambien. #.? Mixed hyperlipidemia:? On Statin # ? Obesity recommend low-calorie diet that will help with better blood sugar control. Time Spent with Patient Time attestation: Total time managing care of this patient today ____ minutes. Discharge coordination time: Greater than 30 minutes Quality: Safe Use of Opioids Does Pt have an Active Cancer Diagnosis on the Problem List?: No Quality: Stroke Does the patient have a stroke diagnosis?: No Physical Exam Vital Signs: Vital Signs: Last Vital Signs Temp 96.8 F 10/09/22 07:25 Pulse 72 10/09/22 07:25 Resp 18 10/09/22 07:25 BP 124/69 10/09/22 07:25 Pulse Ox 97 10/09/22 07:25 O2 Del Method 10/09/22 07:25 BMI result Body Mass Index 31.1 Const: Other: General patient awake alert, in no distress Neck no swelling Left-sided tongue swelling resolved CVS Regular rate and rhythm, S1-S2 heard No drooling Resp:? Regular breath sounds bilaterally, no wheezing or crackles appreciated Abdomen soft non tender, no guarding, no rigidity Neuro awake, alert and oriented to self, place, time and person ; no focal motor deficit Psych: Normal mood No pedal edema DS: Data Data Completed and Pending Labs on day of discharge: Laboratory Results - last 24 hr 10/08/22 10/08/22 10/08/22 11:27 16:09 19:57 POC Glucose 117 H 127 H 148 H 10/09/22 10/09/22 07:24 08:17 POC Glucose 210 H 182 H Discharge Plan Discharge Patient Disposition: Home, Self-Care Discharge Diagnosis: Angioedema since Referrals: Lionel Rodriguez MD [Primary Care Provider] - 1 Week Discharge Medications: New prednisone 20 mg tablet 20 mg PO DAILY Qty: 3 0RF hydrochlorothiazide 12.5 mg tablet 12.5 mg PO DAILY Qty: 30 0RF diphenhydramine HCl [Benadryl] 25 mg capsule 25 mg PO TID Qty: 10 0RF Continued atorvastatin 20 mg tablet 20 mg PO DAILY Qty: 90 1RF sennosides 8.6 mg tablet 8.6 mg PO DAILY PRN (Reason: constipation) Qty: 30 3RF zolpidem 10 mg tablet 10 mg PO BEDTIME PRN (Reason: insomnia) 30 Days Qty: 30 1RF multivitamin Tablet 1 tab PO DAILY hydroxyzine HCl 25 mg tablet 1 tab PO BEDTIME PRN (Reason: anxiety or sleep) fluocinonide 0.05 % cream 1 appl topical BID PRN (Reason: rash or eczema) oxycodone 10 mg tablet 10 mg PO TID PRN (Reason: increased pain) cholecalciferol (vitamin D3) 50 mcg (2,000 unit) capsule 50 mcg PO DAILY 90 Days Qty: 90 3RF albuterol sulfate [Ventolin HFA] 90 mcg/actuation HFA aerosol inhaler 1 inh inhalation QID PRN (Reason: shortness of breath or wheezing) Qty: 8.5 1RF metformin 500 mg tablet extended release 24 hr 1,000 mg PO BID 90 Days Qty: 360 3RF Discontinued lisinopril-hydrochlorothiazide 10-12.5 mg tablet 1 tab PO DAILY Qty: 90 1RF Discharge Orders: Discharge Order (Routine); Ordered 10/09/22 Ordered By: Ayleen Hill Diet: Diabetic diet Activity on Discharge: As tolerated Stand Alone Forms: Patient Portal Discharge page Care Plan Goals: Angioedema resolved take prednisone 20 mg 1 by mouth daily with food for 3 more days, take Benadryl 25 mg by mouth 3x daily for 3 days stop lisinopril/hydrochlorothiazide Given prescription of hydrochlorothiazide 12.5 mg daily Health Concerns: Diabetes mellitus follow diabetic diet Plan of Treatment: Follow-up with primary care physician call for appointment Assessment: As above
--- NOTE | 2022-10-09 09:49 | MHC.CM.PN ---
PT TO DC HOME TODAY WITH RESUMPTION OF [employer] PT TO ARRANGE TRANSPORT
== END 2022-10-09 11:00 | disposition home or self-care (01) ==
LOC: HO.ED 22:48 → HO.EDOVER 23:49 → HO.S3 10-08 01:14
PROVIDERS: Admitting Provider Student in an Organized Health Care Education/Training Program; Emergency Provider Emergency Medicine; PCP Internal Medicine; Visit Provider Hospitalist
DX: T78.3XXA Angioneurotic edema, initial encounter (principal); Z20.822 Contact with and (suspected) exposure to COVID-19; I10 Essential (primary) hypertension; E11.9 Type 2 diabetes mellitus without complications; E78.5 Hyperlipidemia, unspecified; G89.4 Chronic pain syndrome; F17.210 Nicotine dependence, cigarettes, uncomplicated; E66.9 Obesity, unspecified; Z68.31 Body mass index [BMI] 31.0-31.9, adult; Z79.899 Other long term (current) drug therapy; Z79.84 Long term (current) use of oral hypoglycemic drugs; Z79.891 Long term (current) use of opiate analgesic
CPT/HCPCS: 36415; 80048; 80053; 82947; 85025; 87635; 96372; 96374; 96375; 96376; 99221; 99285; J1100; J1200; J1650; J2060; J2920

== ENCOUNTER 2022-10-17 09:25 | Emergency (ER) | payer OTHER, SELFPAY ==
[2022-10-17 09:32] VITALS: BP 158/78; PULSE 98; RESP 18; TEMP 36.4; O2SAT 97; BMI 31.1
--- NOTE | 2022-10-17 09:44 | ED.GENADULT ---
HPI - General Adult General Chief complaint: General Medical Stated complaint: Swollen R eye Time Seen by Provider: 10/17/22 09:44 Source: patient Mode of arrival: ambulatory Limitations: no limitations History of Present Illness HPI narrative: 62-year-old female with a history of hypertension, [id number] diabetes, high cholesterol, recent admission for Hema inhibitor induced angioedema who presents to the emergency room with complaints of swelling under the right eye noticed yesterday with waking. Patient denies any injury or trauma. She denies any itching, visual complaints, pain with eye movement. Patient denies any discharge from the eye. Patient reports she did sleep at her 's apartment Tuesday evening and she is concerned because he does have mice in his apartment. She is worried that she may be allergic to them. She denies any associated cough, sneezing, runny nose. She was discharged from this facility on 3 additional days of prednisone which she did not take because it elevated her blood sugars. She has been taking Benadryl p.r.n.. However she does not feel like the Benadryl has helped with the eye swelling. Her blood pressure medication was switched from lisinopril hydrochlorothiazide to hydrochlorothiazide only. Unfortunately she lost this medication and has not been taking anything for her blood pressure. Patient reports when she was admitted she was admitted for tongue and lip swelling. She tells me that all of these symptoms are resolved and she is feeling well. Patient has follow-up appointment with her primary care on October 28 Related Data Home Medications Medication Instructions Recorded Confirmed fluocinonide 0.05 % topical cream 1 appl topical BID PRN rash or 10/08/22 10/08/22 eczema hydroxyzine HCl 25 mg tablet 1 tab PO BEDTIME PRN anxiety or 10/08/22 10/08/22 sleep multivitamin 1 tab PO DAILY 10/08/22 10/08/22 oxycodone 10 mg tablet 10 mg PO TID PRN increased pain 10/08/22 10/08/22 Previous Rx's Medication Instructions Recorded cholecalciferol (vitamin D3) 50 50 mcg PO DAILY 90 days #90 caps 04/02/22 mcg (2,000 unit) capsule albuterol sulfate 90 mcg/actuation 1 inh inhalation QID PRN shortness 04/21/22 aerosol inhaler (Ventolin HFA) of breath or wheezing #8.5 grams metformin 500 mg tablet,extended 1,000 mg PO BID 90 days #360 tabs 09/22/22 release 24 hr diphenhydramine HCl 25 mg capsule 25 mg PO TID #10 caps 10/09/22 (Benadryl) hydrochlorothiazide 12.5 mg tablet 12.5 mg PO DAILY #30 tabs 10/09/22 prednisone 20 mg tablet 20 mg PO DAILY #3 tabs 10/09/22 oxycodone 10 mg tablet See Rx Instructions .Route 10/12/22 .COMPLEX 28 days #66 tabs sennosides 8.6 mg tablet 8.6 mg PO DAILY PRN constipation 10/12/22 #30 tabs zolpidem 10 mg tablet 10 mg PO BEDTIME PRN insomnia 30 10/12/22 days #30 tabs atorvastatin 20 mg tablet 20 mg PO DAILY #90 caps 10/14/22 clindamycin HCl 150 mg capsule 150 mg PO TID #21 caps 10/17/22 hydrochlorothiazide 12.5 mg tablet 12.5 mg PO DAILY #30 tabs 10/17/22 Allergies Allergy/AdvReac Type Severity Reaction Status Date / Time amoxicillin [Amoxicillin] Allergy Intermediate SHORTNESS Verified 09/22/22 16:43 OF BREATH penicillin V Allergy Intermediate shortness Verified 09/22/22 16:43 of breath Penicillins Allergy Intermediate SHORTNESS Verified 09/22/22 16:43 OF BREATH Review of Systems Review of Systems: Yes all other systems are reviewed and are negative Constitutional: Constitutional: Reports no additional constitutional complaints, Denies body ache(s), Denies chills, Denies fever(s), Denies headache(s) and Denies weakness Eyes: Eyes: Reports no additional eye complaints, Denies blurry vision, Denies change in vision, Denies eye discharge, Denies irritation, Denies itchy eyes, Denies eye pain and Denies photophobia Comments: +facial swelling ENT: Reports system reviewed and no additional complaints, except as documented, Denies dizziness, Denies headache(s), Denies nasal congestion, Denies nasal discharge and Denies neck pain Cardiovascular: Cardiovascular: Reports no additional cardiovascular complaints, Denies chest pain, Denies leg edema and Denies dyspnea Respiratory: Respiratory: Reports no additional respiratory complaints, Denies cough and Denies dyspnea Gastrointestinal: Gastrointestinal: Reports no additional gastrointestinal complaints, Denies abdominal pain, Denies diarrhea, Denies nausea and Denies vomiting Genitourinary: Genitourinary: Reports no additional female genitourinary complaints and Denies urinary incontinence Musculoskeletal: Musculoskeletal: Reports no additional musculoskeletal complaints, Denies back pain, Denies arthralgias, Denies joint swelling, Denies neck pain, Denies numbness and Denies tingling Integumentary/Breasts: Skin/Breast: Reports system reviewed and no additional complaints, except as docu and Denies rash Neurologic: Reports system reviewed and no additional complaints, except as documented, Denies dizziness, Denies headache(s), Denies numbness, Denies tingling and Denies weakness Allergic/Immunologic: Allergic/Immunologic: Denies itchy eyes PMFSH Past Medical History Attestation statement: The following information was validated with the patient. 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 Pure hypercholesterolemia Smoker Surgical History History of ectopic History of foot surgery History of open reduction and internal fixation (ORIF) procedure History of tooth extraction History of tubal ligation Family History Family History Father Hypertension Mother Hypertension Family/Other Breast cancer Social History Social History Housing: Apartment Alcohol intake: never Patient Tobacco Use Status: Current everyday Tobacco user Tobacco use type: Cigarette Cigarettes Per Day: 5 e-Cigarette/Vaping Use: Never Used Second Hand Smoke Exposure: Yes Advance Directives: No service: No Current occupational status: disabled Cognitive needs: No Hearing needs: No Vision needs: No Physical Exam ED Vital Signs: Vital Signs - 24 hr 10/17/22 09:32 Temperature 97.5 F Pulse Rate 98 Respiratory Rate 18 Blood Pressure 158/78 H Pulse Oximetry 97 Oxygen Delivery Method Room Air BMI result Body Mass Index 31.1 Const General: cooperative, healthy appearing, comfortable and no acute distress Orientation/consciousness: patient oriented x3 Limitations: no limitations HENMT Ears: hearing grossly normal bilaterally and TM's normal bilaterally General nose exam: Normal external nose present Face and sinus: Yes normal facial exam Mouth: Normal oral and palatal mucosa present, lip normal and tongue normal Teeth and gingiva: dentition normal Throat: Yes posterior oropharynx normal, Yes tonsils normal and Yes uvula midline Eyes Other: Over the right eye there is slight periorbital swelling and redness. EOM is normal. No pain with eye movement Visual Carpio: normal visual carpio by confrontation Alignment and Position: alignment normal Eyelids: Yes eyelids normal Conjunctivae: conjunctivae normal Sclerae: sclerae normal Corneas: corneas normal Pupils: Equal, round and reactive pupils present EOM: EOMs intact bilaterally Direct Ophthalmoscopy: normal light reflex, no photophobia and No photophobia Neck Neck: Yes normal visual inspection, Yes full ROM and Yes no lymphadenopathy Chest Chest palpation & inspection: normal inspection of the chest Resp Effort & Inspection: normal respiratory effort Auscultation: clear to auscultation bilaterally Cardio Rate: regular rate Rhythm: regular rhythm Peripheral pulses: Peripheral pulses 2+ throughout GI Inspection: Yes normal to inspection Back/Spine/Pelvis Thoracic/Lumbar Spine: thoracic and lumbar spine normal to inspection Skin General skin exam: no rashes or lesions noted Neuro General: patient oriented x3 and moves all extremities Cranial nerves: Yes Equal, round and reactive pupils present Cognition (Neuro): normal cognition Gait exam (Neuro): Normal gait present Medical Decision Making Medical Decision Making MDM Narrative: 62-year-old female here with complaints of right eye swelling and redness noticed with waking yesterday with new complaints of visual changes or pain in the eye or pain with eye movement. Patient with recent admission for lisinopril and reduced angioedema discharged on Benadryl, prednisone, hydrochlorothiazide. Patient has been noncompliant with prednisone. Patient reports all symptoms of her angioedema has been resolved. She has follow-up appointment October 28 with her primary care doctor to discuss further On exam patient with right periorbital swelling and redness. No evidence of orbital cellulitis. Likely periorbital cellulitis. Also consider underlying allergy but no reports of itching or drainage or cough or sneezing or runny nose. Patient has also trialed Benadryl with no improvement of symptoms. At this point will start patient on oral antibiotic. Patient instructed on worrisome signs and symptoms of when to return to the emergency room. Patient also requesting refill for her hydrochlorothiazide as she lost this. Differential Diagnosis Differential Diagnoses: The differential diagnosis associated with the presentation includes Periorbital cellulitis Allergic reaction Orbital cellulitis less likely with no pain with eye movement, EOM is normal, no visual complaints External Record Review External record reviewed: Inpatient record Reviewed admission for lisinopril induced angioedema Discharge Plan Discharge Clinical Impression: Cellulitis, periorbital Patient Disposition: Home, Self-Care Instructions: Periorbital Cellulitis in Adults (ED) Additional Instructions: Warm compresses Continue Benadryl Follow-up with primary care doctor asked for a referral to a shank burnisher Prescriptions: New clindamycin HCl 150 mg capsule 150 mg PO TID Qty: 21 0RF hydrochlorothiazide 12.5 mg tablet 12.5 mg PO DAILY Qty: 30 0RF No Action zolpidem 10 mg tablet 10 mg PO BEDTIME PRN (Reason: insomnia) 30 Days Qty: 30 1RF sennosides 8.6 mg tablet 8.6 mg PO DAILY PRN (Reason: constipation) Qty: 30 3RF oxycodone 10 mg tablet See Rx Instructions .ROUTE .COMPLEX 28 Days Qty: 66 0RF Rx Instructions: Take 1 tablet by mouth 2 to 3 times a day as needed for increased pain; atorvastatin 20 mg tablet 20 mg PO DAILY Qty: 90 1RF multivitamin Tablet 1 tab PO DAILY hydroxyzine HCl 25 mg tablet 1 tab PO BEDTIME PRN (Reason: anxiety or sleep) fluocinonide 0.05 % cream 1 appl topical BID PRN (Reason: rash or eczema) oxycodone 10 mg tablet 10 mg PO TID PRN (Reason: increased pain) prednisone 20 mg tablet 20 mg PO DAILY Qty: 3 0RF hydrochlorothiazide 12.5 mg tablet 12.5 mg PO DAILY Qty: 30 0RF diphenhydramine HCl [Benadryl] 25 mg capsule 25 mg PO TID Qty: 10 0RF cholecalciferol (vitamin D3) 50 mcg (2,000 unit) capsule 50 mcg PO DAILY 90 Days Qty: 90 3RF albuterol sulfate [Ventolin HFA] 90 mcg/actuation HFA aerosol inhaler 1 inh inhalation QID PRN (Reason: shortness of breath or wheezing) Qty: 8.5 1RF metformin 500 mg tablet extended release 24 hr 1,000 mg PO BID 90 Days Qty: 360 3RF Referrals: Lionel Rodriguez MD [Primary Care Provider] - 10 days (as scheduled ) Interventions: ED Discharge Assessment Last Done: 10/17/22 10:15 Discharge Date/Time: 10/17/22 10:15
== END 2022-10-17 10:15 | disposition home or self-care (01) ==
PROVIDERS: Emergency Provider Student in an Organized Health Care Education/Training Program; PCP Internal Medicine
DX: H00.033 Abscess of eyelid right eye, unspecified eyelid (principal); H57.11 Ocular pain, right eye; Z79.899 Other long term (current) drug therapy; F17.210 Nicotine dependence, cigarettes, uncomplicated; Z71.6 Tobacco abuse counseling
CPT/HCPCS: 99283

== ENCOUNTER 2022-10-28 06:06 | Outpatient (REF) | payer OTHER, SELFPAY ==
[2022-10-28 06:13] LABS: MANUAL DIFF FLAG NO
[2022-10-28 07:43] LABS: Basophils Absolute Auto 0.1 X10*3/uL (0.0-0.2); Basophils Percent Auto 0.8 % (0-2); Eosinophils Absolute Auto 0.3 X10*3/uL (0.0-0.4); Eosinophils Percent Auto 5.2 % (0-4); Hematocrit 42.4 % (37.0-47.0); Hemoglobin 13.7 g/dl (12.0-16.0); Imm Gran Abs Auto 0.01 X10*3/uL (0.00-0.03); Imm Gran Pct Auto 0.2 % (0.0-0.4); Lymphocytes Absolute Auto 2.1 X10*3/uL (1.2-4.9); Lymphocytes Percent Auto 34.6 % (20-40); Mean Corpuscular HGB Conc 32.3 g/dl (31.0-35.0); Mean Corpuscular Hemoglobin 29.1 pg (27.0-33.0); Mean Platelet Volume 11.3 fL (9.4-12.3); Monocytes Absolute Auto 0.5 X10*3/uL (0.1-1.2); Monocytes Percent Auto 8.2 % (2-11); Platelet Count 261 X10*3/uL (160-400); Red Blood Count 4.71 X10*6/uL (4.20-5.50); Red Cell Distribution Width 14.6 % (11.0-16.0)
[2022-10-28 07:46] LABS: Appearance Urine Cloudy; Color Urine Yellow; Glucose Urine UA Negative (Negative); Leukocyte Esterase Urine Trace (Negative); Nitrite Urine Negative (Negative); PH 5.5 (5.0-9.0); UMIC TRIGGER UACC YES; Urine Blood Small (1+) (Negative); Urine Ketones 15 mg/dL (Negative); Urine Protein Negative (Neg-Trace)
[2022-10-28 07:56] LABS: Bacteria Urine 1+ (None Seen); Hyaline Casts Urine 0-2 /LPF (0-2); UACC Culture Trigger YES
[2022-10-28 08:13] LABS: Creatinine Urine 214.03 mg/dL; Microalbum/Creatinine Ratio Ur 6.5 ug/mg cr
[2022-10-28 08:15] LABS: Estimated Average Glucose 137 mg/dL; Hemoglobin A1c % 6.4 %
[2022-10-28 08:46] LABS: Alanine Aminotransferase 23 U/L (0-31); Albumin Level 4.5 g/dL (3.5-5.0); Alkaline Phosphatase 86 U/L (39-117); Anion Gap 19 (12-20); Aspartate Amino Transferase 19 U/L (5-31); Bilirubin Total 0.6 mg/dL (0.0-1.0); Blood Urea Nitrogen 11 mg/dL (9-16); Carbon Dioxide 21 mmol/L (22-29); Chloride 105 mmol/L (96-108); Cholesterol 145 mg/dL; Estimated Glomerular Filt Rate > 60; Glucose Fasting 79 mg/dL (60-99); HDL Cholesterol 35 mg/dL; LDL Cholesterol Calculated 83 mg/dl; Potassium 3.9 mmol/L (3.3-5.1); Sodium 141 mmol/L (135-145); TSH reflex Free T4 4.13 uIU/mL (0.32-4.0); Total Protein 7.3 g/dL (6.5-8.0); Triglycerides 138 mg/dL; Vitamin D 25-OH Total 29.8 ng/mL (>30)
[2022-10-28 09:47] LABS: Calcium 9.6 mg/dL (8.4-10.2)
[2022-10-28 10:11] LABS: Free T4 (Free Thyroxine) 0.92 ng/dL (0.71-1.85)
== END 2022-10-28 06:07 | disposition home or self-care (01) ==
LOC: HO.LAB 06:06
PROVIDERS: PCP Internal Medicine; Visit Provider Internal Medicine
DX: E55.9 Vitamin D deficiency, unspecified (principal); E78.00 Pure hypercholesterolemia, unspecified; I10 Essential (primary) hypertension; R82.90 Unspecified abnormal findings in urine
CPT/HCPCS: 36415; 80053; 80061; 81001; 82043; 82306; 83036; 84439; 84443; 85025; 87086

== ENCOUNTER 2022-12-15 17:01 | Emergency (ER) | payer OTHER, SELFPAY ==
[2022-12-15 17:06] VITALS: BP 153/79; PULSE 100; RESP 19; TEMP 36.6; O2SAT 98; BMI 26.9
--- NOTE | 2022-12-15 17:08 | ED_ITS ---
HPI - General Adult General Chief complaint: Eye Problems Stated complaint: R Eye is swollen Time Seen by Provider: 12/15/22 17:07 Source: patient Mode of arrival: ambulatory Limitations: no limitations History of Present Illness HPI narrative: 62-year-old female presents the ER for evaluation of swelling and slight redness under her right eye that she noticed this morning when she woke up. She denies any injury to the area. She states she had a similar episode in the past was treated with antibiotics for cellulitis. She reports the area under the eyes the only part that is swollen. She denies any vision changes, no discharge. No pain with extraocular movements. No headaches, fevers, chills. No nausea, vomiting, diarrhea. MD complaint: swelling and redness below right eye Onset (ago): hour(s) Location: face Radiation: non-radiation Severity: mild Severity scale (1-10): 3 Quality: aching Pain Consistency: intermittent Relieving factors: none Exacerbating factors: none Associated symptoms: denies other symptoms Treatments prior to arrival: none Related Data Home Medications Medication Instructions Recorded Confirmed fluocinonide 0.05 % topical cream 1 appl topical BID PRN rash or 10/08/22 10/29/22 eczema hydroxyzine HCl 25 mg tablet 1 tab PO BEDTIME PRN anxiety or 10/08/22 10/29/22 sleep multivitamin 1 tab PO DAILY 10/08/22 10/29/22 oxycodone 10 mg tablet 10 mg PO TID PRN increased pain 10/08/22 10/29/22 Previous Rx's Medication Instructions Recorded cholecalciferol (vitamin D3) 50 50 mcg PO DAILY 90 days #90 caps 04/02/22 mcg (2,000 unit) capsule albuterol sulfate 90 mcg/actuation 1 inh inhalation QID PRN shortness 04/21/22 aerosol inhaler (Ventolin HFA) of breath or wheezing #8.5 grams metformin 500 mg tablet,extended 1,000 mg PO BID 90 days #360 tabs 09/22/22 release 24 hr diphenhydramine HCl 25 mg capsule 25 mg PO TID #10 caps 10/09/22 (Benadryl) atorvastatin 20 mg tablet 20 mg PO DAILY #90 caps 10/14/22 clindamycin HCl 150 mg capsule 150 mg PO TID #21 caps 10/17/22 cetirizine 10 mg tablet 10 mg PO DAILY PRN allergy 10/29/22 symptoms 90 days #90 tabs sulfamethoxazole 800 1 tab PO BID 7 days #14 tabs 10/29/22 mg-trimethoprim 160 mg tablet (Bactrim DS) hydrochlorothiazide 12.5 mg tablet 12.5 mg PO DAILY #30 tabs 12/06/22 losartan 50 mg tablet 50 mg PO DAILY 30 days #30 tabs 12/06/22 oxycodone 10 mg tablet See Rx Instructions .Route 12/06/22 .COMPLEX 28 days #66 tabs sennosides 8.6 mg tablet 8.6 mg PO DAILY PRN constipation 12/06/22 #30 tabs zolpidem 10 mg tablet 10 mg PO BEDTIME PRN insomnia 30 12/06/22 days #30 tabs doxycycline hyclate 100 mg tablet 100 mg PO BID #14 tabs 12/15/22 Allergies Allergy/AdvReac Type Severity Reaction Status Date / Time lisinopril Allergy Severe Angioedema Verified 12/15/22 17:05 amoxicillin [Amoxicillin] Allergy Intermediate SHORTNESS Verified 12/15/22 17:05 OF BREATH penicillin V Allergy Intermediate shortness Verified 12/15/22 17:05 of breath Penicillins Allergy Intermediate SHORTNESS Verified 12/15/22 17:05 OF BREATH Review of Systems Review of Systems: Yes all other systems are reviewed and are negative [facility] Past Medical History 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 Pure hypercholesterolemia Smoker Surgical History History of ectopic History of foot surgery History of open reduction and internal fixation (ORIF) procedure History of tooth extraction History of tubal ligation Family History Family History Father Hypertension Mother Hypertension Family/Other Breast cancer Social History Social History Housing: Apartment Alcohol intake: never Patient Tobacco Use Status: Current everyday Tobacco user Tobacco use type: Cigarette Cigarettes Per Day: 5 e-Cigarette/Vaping Use: Never Used Second Hand Smoke Exposure: Yes Advance Directives: No Advance Directives Information Provided: Yes service: No Current occupational status: disabled Cognitive needs: No Hearing needs: No Vision needs: No Physical Exam ED Vital Signs: Vital Signs - 24 hr 12/15/22 17:06 Temperature 98 F Pulse Rate 100 Respiratory Rate 19 Blood Pressure 153/79 H Pulse Oximetry 98 Oxygen Delivery Method Room Air BMI result Body Mass Index 26.9 Appearance: Alert. Oriented X3. No acute distress. HEENT: Below the right eye there is mild erythema and swelling. Area is mildly warm, nontender. No swelling of the upper lids. Extraocular movements are intact.PERRLA. CVS: Normal heart rate and rhythm. Pulses normal. Respiratory: No respiratory distress. Skin: Skin warm and dry. Normal skin color. Normal skin turgor. No rashes. Extremities: normal inspection Neuro: Oriented X 3. Grossly normal, nonfocal Medical Decision Making Medical Decision Making MDM Narrative: 62-year-old female presents to the evaluation of lower right swelling and redness that started today. no visible bite or lesion. exam is consistent with a mild and early cellulitis. will start on abx and have her closely follow up with her PCP. given strict return precautions. stable for d/c home. Differential Diagnosis Differential Diagnoses: The differential diagnosis associated with the presentation includes Facial cellulitis, preseptal cellulitis, allergic reaction, angioedema External Record Review External record reviewed: Inpatient record, Outpatient record and Prior outpatient labs Prescription Management I considered prescription management with: Antibiotic Chronic Conditions Patient?s care impacted by: Diabetes Critical Care Time Critical Care Time Critical Care Time: No Discharge Plan Discharge Clinical Impression: Cellulitis Patient Disposition: Home, Self-Care Instructions: Cellulitis (DC), Warm Compress or Soak (ED) Additional Instructions: Take the prescribed antibiotic as directed. Complete the entire course and do not miss any doses. Use warm compresses to your right eye several times per day. Follow-up with your doctor. If you develop new or worsening symptoms call 911 or come back to the ER for further evaluation. Prescriptions: New doxycycline hyclate 100 mg tablet 100 mg PO BID Qty: 14 0RF No Action atorvastatin 20 mg tablet 20 mg PO DAILY Qty: 90 1RF losartan 50 mg tablet 50 mg PO DAILY 30 Days Qty: 30 3RF oxycodone 10 mg tablet See Rx Instructions .ROUTE .COMPLEX 28 Days Qty: 66 0RF Rx Instructions: Take 1 tablet by mouth 2 to 3 times a day as needed for increased pain; sennosides 8.6 mg tablet 8.6 mg PO DAILY PRN (Reason: constipation) Qty: 30 3RF zolpidem 10 mg tablet 10 mg PO BEDTIME PRN (Reason: insomnia) 30 Days Qty: 30 1RF hydrochlorothiazide 12.5 mg tablet 12.5 mg PO DAILY Qty: 30 3RF multivitamin Tablet 1 tab PO DAILY hydroxyzine HCl 25 mg tablet 1 tab PO BEDTIME PRN (Reason: anxiety or sleep) fluocinonide 0.05 % cream 1 appl topical BID PRN (Reason: rash or eczema) oxycodone 10 mg tablet 10 mg PO TID PRN (Reason: increased pain) diphenhydramine HCl [Benadryl] 25 mg capsule 25 mg PO TID Qty: 10 0RF clindamycin HCl 150 mg capsule 150 mg PO TID Qty: 21 0RF cholecalciferol (vitamin D3) 50 mcg (2,000 unit) capsule 50 mcg PO DAILY 90 Days Qty: 90 3RF albuterol sulfate [Ventolin HFA] 90 mcg/actuation HFA aerosol inhaler 1 inh inhalation QID PRN (Reason: shortness of breath or wheezing) Qty: 8.5 1RF sulfamethoxazole-trimethoprim [Bactrim DS] 800-160 mg tablet 1 tab PO BID 7 Days Qty: 14 0RF cetirizine 10 mg tablet 10 mg PO DAILY PRN (Reason: allergy symptoms) 90 Days Qty: 90 3RF metformin 500 mg tablet extended release 24 hr 1,000 mg PO BID 90 Days Qty: 360 3RF Interventions: ED Discharge Assessment Last Done: 12/15/22 17:31 Discharge Date/Time: 12/15/22 17:31
== END 2022-12-15 17:31 | disposition home or self-care (01) ==
LOC: HO.ED 17:17
PROVIDERS: Emergency Provider Emergency Medicine; PCP Internal Medicine
DX: H00.032 Abscess of right lower eyelid (principal); F17.210 Nicotine dependence, cigarettes, uncomplicated; Z71.6 Tobacco abuse counseling; Z79.899 Other long term (current) drug therapy
CPT/HCPCS: 99282; 99283

== ENCOUNTER 2022-12-16 10:57 | Emergency (ER) | payer OTHER, SELFPAY ==
[2022-12-16 10:59] VITALS: BP 150/80; PULSE 93; RESP 17; TEMP 36.8; O2SAT 97; BMI 28.9
--- NOTE | 2022-12-16 11:09 | ED.EYEPROB ---
HPI - Eye Problem General Chief complaint: Eye Problems <ARELY Hennessy Last Filed: 12/16/22 11:11> Stated complaint: swollen eye <ARELY Hennessy Last Filed: 12/16/22 11:11> Time Seen by Provider: 12/16/22 11:15 <ARELY Hennessy Last Filed: 12/16/22 11:11> Source: patient and RN notes reviewed <ARELY Nunes Last Filed: 12/16/22 19:33> Mode of arrival: ambulatory <ARELY Nunes Last Filed: 12/16/22 19:33> Limitations: no limitations <ARELY Nunes Last Filed: 12/16/22 19:33> History of Present Illness HPI Narrative: This is a 62-year-old female, with a past medical history of diabetes, hypertension, GERD depression, and anxiety, who presents to the emergency department today complaints of swelling underneath her right eye which she noticed yesterday morning. Patient was seen at [facility] [place] yesterday and was prescribed doxycycline and was advised to apply warm compresses to the area. Patient has been doing so however has noticed that the area has increased in swelling. She has been able to take 2 doses of the doxycycline. She denies any fevers, chills, eye pain, visual changes, headache, dizziness, eye discharge. Patient has no pain with extraocular movements. <ARELY Nunes Last Filed: 12/16/22 19:33> Onset (ago): day(s) <ARELY Nunes Last Filed: 12/16/22 19:33> Onset description: gradual <ARELY Nunes - Last Filed: 12/16/22 19:33> Duration: constant <ARELY Nunes Last Filed: 12/16/22 19:33> Location: right eye <ARELY Nunes Last Filed: 12/16/22 19:33> Mechanism: none <ARELY Nunes Last Filed: 12/16/22 19:33> Severity: moderate <ARLEY Nunes Last Filed: 12/16/22 19:33> Associated symptoms: none <ARELY Nunes Last Filed: 12/16/22 19:33> Treatments Prior to Arrival: none <Krissy ARELY Hirsch - Last Filed: 12/16/22 19:33> Related Data Home medications: Home Medications Medication Instructions Recorded Confirmed fluocinonide 0.05 % topical cream 1 appl topical BID PRN rash or 10/08/22 10/29/22 eczema hydroxyzine HCl 25 mg tablet 1 tab PO BEDTIME PRN anxiety or 10/08/22 10/29/22 sleep multivitamin 1 tab PO DAILY 10/08/22 10/29/22 oxycodone 10 mg tablet 10 mg PO TID PRN increased pain 10/08/22 10/29/22 Previous Rx's Medication Instructions Recorded cholecalciferol (vitamin D3) 50 50 mcg PO DAILY 90 days #90 caps 04/02/22 mcg (2,000 unit) capsule albuterol sulfate 90 mcg/actuation 1 inh inhalation QID PRN shortness 04/21/22 aerosol inhaler (Ventolin HFA) of breath or wheezing #8.5 grams metformin 500 mg tablet,extended 1,000 mg PO BID 90 days #360 tabs 09/22/22 release 24 hr diphenhydramine HCl 25 mg capsule 25 mg PO TID #10 caps 10/09/22 (Benadryl) atorvastatin 20 mg tablet 20 mg PO DAILY #90 caps 10/14/22 clindamycin HCl 150 mg capsule 150 mg PO TID #21 caps 10/17/22 cetirizine 10 mg tablet 10 mg PO DAILY PRN allergy 10/29/22 symptoms 90 days #90 tabs sulfamethoxazole 800 1 tab PO BID 7 days #14 tabs 10/29/22 mg-trimethoprim 160 mg tablet (Bactrim DS) hydrochlorothiazide 12.5 mg tablet 12.5 mg PO DAILY #30 tabs 12/06/22 losartan 50 mg tablet 50 mg PO DAILY 30 days #30 tabs 12/06/22 oxycodone 10 mg tablet See Rx Instructions .Route 12/06/22 .COMPLEX 28 days #66 tabs sennosides 8.6 mg tablet 8.6 mg PO DAILY PRN constipation 12/06/22 #30 tabs zolpidem 10 mg tablet 10 mg PO BEDTIME PRN insomnia 30 12/06/22 days #30 tabs doxycycline hyclate 100 mg tablet 100 mg PO BID #14 tabs 12/15/22 levofloxacin 500 mg tablet 500 mg PO DAILY 7 days #7 tabs 12/16/22 <ARELY Hennessy - Last Filed: 12/16/22 11:11> Allergies/adverse reactions: Allergies Allergy/AdvReac Type Severity Reaction Status Date / Time lisinopril Allergy Severe Angioedema Verified 12/15/22 17:05 amoxicillin [Amoxicillin] Allergy Intermediate SHORTNESS Verified 12/15/22 17:05 OF BREATH penicillin V Allergy Intermediate shortness Verified 12/15/22 17:05 of breath Penicillins Allergy Intermediate SHORTNESS Verified 12/15/22 17:05 OF BREATH <ARELY Hennessy - Last Filed: 12/16/22 11:11> Review of Systems Review of Systems: Yes all other systems are reviewed and are negative <ARELY Nunes - Last Filed: 12/16/22 19:33> [facility] Past Medical History Medical History: 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 Pure hypercholesterolemia Smoker <ARELY Hennessy - Last Filed: 12/16/22 11:11> Surgical History: Surgical History History of ectopic History of foot surgery History of open reduction and internal fixation (ORIF) procedure History of tooth extraction History of tubal ligation <ARELY Hennessy - Last Filed: 12/16/22 11:11> Family History Family History: Family History Father Hypertension Mother Hypertension Family/Other Breast cancer <ARELY Hennessy - Last Filed: 12/16/22 11:11> Social History Social History: Social History Housing: Apartment Alcohol intake: never Patient Tobacco Use Status: Current everyday Tobacco user Tobacco use type: Cigarette Cigarettes Per Day: 5 e-Cigarette/Vaping Use: Never Used Second Hand Smoke Exposure: Yes Advance Directives: No service: No Current occupational status: disabled Cognitive needs: No Hearing needs: No Vision needs: No <ARELY Hennessy - Last Filed: 12/16/22 11:11> Physical Exam Vital Signs: Vital Signs: Last Vital Signs Temp 98.2 F 12/16/22 10:59 Pulse 93 12/16/22 10:59 Resp 17 12/16/22 10:59 BP 150/80 H 12/16/22 10:59 Pulse Ox 97 12/16/22 10:59 O2 Del Method Room Air 12/16/22 10:59 BMI result Body Mass Index 28.9 <ARELY Hennessy - Last Filed: 12/16/22 11:11> Vital Signs: Last Vital Signs Temp 98.2 F 12/16/22 10:59 Pulse 93 12/16/22 10:59 Resp 17 12/16/22 10:59 BP 150/80 H 12/16/22 10:59 Pulse Ox 97 12/16/22 10:59 O2 Del Method Room Air 12/16/22 10:59 BMI result Body Mass Index 28.9 <ARELY Nunes - Last Filed: 12/16/22 19:33> Appearance: Alert. Oriented X3. No acute distress. Eyes: Pupils equal, round and reactive to light. EOMI, PERRL, inferior to the right eye there is a area of mild erythema and edema. Region is mildly warm, and is nontender. No induration or fluctuance. No pain with extraocular movements. ENT: Pharynx normal. Neck: Normal inspection. Neck supple. CVS: Normal heart rate and rhythm. Pulses normal. Respiratory: No respiratory distress. Breath sounds normal. Lungs clear to auscultation bilaterally. Skin: warm and dry. Normal skin color. Normal skin turgor. No rashes. Extremities: No lower extremity edema. Neuro: Oriented X 3. No motor deficit. No sensory deficit. CN II-XII intact. <ARELY Nunes - Last Filed: 12/16/22 19:33> Course Course Course Narrative: This is an RME: Additional HPI, ROS, PE not included below will be deferred to primary provider. 62 year old female hx of depression, anxiety, DM presents w/progressively worsening right eye swelling, patient was seen here yesterday given antibiotics, patient tells me despite taking antibiotics last night and this morning swelling has significantly worsened. She does not state pain with range of motion of eyes however she does report discomfort. Physical examination with of right-sided javier orbital cellulitis. Patient reports slight discomfort with eye movements however tells me it is not too bad. Plan: Basic labs and CT of the right orbit with contrast to rule out orbital cellulitis although less likely <ARELY Hennessy - Last Filed: 12/16/22 11:11> Medical Decision Making Medical Decision Making MDM Narrative: 62-year-old female presenting to the emergency department today for evaluation of ongoing swelling below her right eye since yesterday. Patient was seen yesterday and was prescribed a course of doxycycline. Patient reports that she had 2 doses of the doxycycline has been applying warm compresses to her eye however she reports that the swelling has not resolved and believes that it is getting worse. Extensive discussion with patient regarding antibiotics and swelling has not improved likely because there has not been enough time with antibiotics, but will add Levaquin for broad-spectrum coverage. Patient has no pain with extraocular movements in area is not indurated or fluctuant. No leukocytosis, under labwork nondiagnostic. Imaging deferred at this time. Patient encouraged to continue warm compresses. Patient urged the importance to return if her symptoms worsen. Patient understands and agrees with plan. <ARELY Nunes - Last Filed: 12/16/22 19:33> Differential Diagnosis Differential Diagnoses: The differential diagnosis associated with the presentation includes <ARELY Nunes Last Filed: 12/16/22 19:33> Cellulitis, preseptal cellulitis, allergic reaction, hordeolum <ARELY Nunes - Last Filed: 12/16/22 19:33> Lab Data Result Diagrams: 12/16/22 11:14 12/16/22 11:14 <ARELY Hennessy - Last Filed: 12/16/22 11:11> Labs: Lab Results 12/16/22 12/16/22 12/16/22 Range/Units 11:14 11:14 11:14 WBC 8.7 (4.8-10.8) X10*3/uL RBC 4.55 (4.20-5.50) X10*6/uL Hgb 13.6 (12.0-16.0) g/dl Hct 41.8 (37.0-47.0) % MCV 91.9 (80.0-98.0) fL MCH 29.9 (27.0-33.0) pg MCHC 32.5 (31.0-35.0) g/dl RDW 14.1 (11.0-16.0) % Plt Count 239 (160-400) X10*3/uL MPV 10.6 (9.4-12.3) fL Immature Gran % (Auto) 0.5 H (0.0-0.4) % Neut % (Auto) 65.8 (45-73) % Lymph % (Auto) 17.6 L (20-40) % [place] % (Auto) 8.2 (2-11) % Eos % (Auto) 7.6 H (0-4) % Baso % (Auto) 0.3 (0-2) % Lymph # (Auto) 1.5 (1.2-4.9) X10*3/uL [place] # (Auto) 0.7 (0.1-1.2) X10*3/uL Eos # (Auto) 0.7 H (0.0-0.4) X10*3/uL Baso # (Auto) 0.0 (0.0-0.2) X10*3/uL Abs Immat Gran (auto) 0.04 H (0.00-0.03) X10*3/uL Absolute Neuts (auto) 5.7 (2.0-8.3) x10*3/uL Absolute Nucleated RBC 0.000 (0.0-0.012) X10*3/uL Nucleated RBC % (auto) 0.0 (0.0-0.2) /100WBC Sodium 140 (135-145) mmol/L Potassium 3.9 (3.3-5.1) mmol/L Chloride 105 (96-108) mmol/L Carbon Dioxide 24 (22-29) mmol/L Anion Gap 15 (12-20) BUN 13 (9-16) mg/dL Creatinine 0.72 (0.5-1.4) mg/dL Estim Creat Clear Calc 76.1 Estimated GFR > 60 Random Glucose 100 (60-115) mg/dL Calcium 9.5 (8.4-10.2) mg/dL Magnesium 1.6 (1.6-2.6) mg/dL Total Bilirubin 0.4 (0.0-1.0) mg/dL AST 19 (5-31) U/L ALT 22 (0-31) U/L Alkaline Phosphatase 84 (39-117) U/L Total Protein 7.2 (6.5-8.0) g/dL Albumin 4.4 (3.5-5.0) g/dL COVID-19 ([place]) Negative (Negative) COVID-19 Clin Com See Note <ARELY Hennessy - Last Filed: 12/16/22 11:11> Lab Results 12/16/22 12/16/22 12/16/22 Range/Units 11:14 11:14 11:14 WBC 8.7 (4.8-10.8) X10*3/uL RBC 4.55 (4.20-5.50) X10*6/uL Hgb 13.6 (12.0-16.0) g/dl Hct 41.8 (37.0-47.0) % MCV 91.9 (80.0-98.0) fL MCH 29.9 (27.0-33.0) pg MCHC 32.5 (31.0-35.0) g/dl RDW 14.1 (11.0-16.0) % Plt Count 239 (160-400) X10*3/uL MPV 10.6 (9.4-12.3) fL Immature Gran % (Auto) 0.5 H (0.0-0.4) % Neut % (Auto) 65.8 (45-73) % Lymph % (Auto) 17.6 L (20-40) % [place] % (Auto) 8.2 (2-11) % Eos % (Auto) 7.6 H (0-4) % Baso % (Auto) 0.3 (0-2) % Lymph # (Auto) 1.5 (1.2-4.9) X10*3/uL [place] # (Auto) 0.7 (0.1-1.2) X10*3/uL Eos # (Auto) 0.7 H (0.0-0.4) X10*3/uL Baso # (Auto) 0.0 (0.0-0.2) X10*3/uL Abs Immat Gran (auto) 0.04 H (0.00-0.03) X10*3/uL Absolute Neuts (auto) 5.7 (2.0-8.3) x10*3/uL Absolute Nucleated RBC 0.000 (0.0-0.012) X10*3/uL Nucleated RBC % (auto) 0.0 (0.0-0.2) /100WBC Sodium 140 (135-145) mmol/L Potassium 3.9 (3.3-5.1) mmol/L Chloride 105 (96-108) mmol/L Carbon Dioxide 24 (22-29) mmol/L Anion Gap 15 (12-20) BUN 13 (9-16) mg/dL Creatinine 0.72 (0.5-1.4) mg/dL Estim Creat Clear Calc 76.1 Estimated GFR > 60 Random Glucose 100 (60-115) mg/dL Calcium 9.5 (8.4-10.2) mg/dL Magnesium 1.6 (1.6-2.6) mg/dL Total Bilirubin 0.4 (0.0-1.0) mg/dL AST 19 (5-31) U/L ALT 22 (0-31) U/L Alkaline Phosphatase 84 (39-117) U/L Total Protein 7.2 (6.5-8.0) g/dL Albumin 4.4 (3.5-5.0) g/dL COVID-19 ([place]) Negative (Negative) COVID-19 Clin Com See Note <ARELY Nunes - Last Filed: 12/16/22 19:33> Critical Care Time Critical Care Time Critical Care Time: No <ARELY Nunes - Last Filed: 12/16/22 19:33> Discharge Plan Discharge Clinical Impression: Cellulitis <ARELY Hennessy - Last Filed: 12/16/22 11:11> Patient Disposition: Home, Self-Care <ARELY Hennessy Last Filed: 12/16/22 11:11> Instructions: Cellulitis (ED) <ARELY Hennessy - Last Filed: 12/16/22 11:11> Additional Instructions: Continue taking doyxycline, and start taking prescribed levaquin as directed. Continue using warm compresses to the right eye several times per day. If your symptoms do not improve, or if they worsen in the next 24-48 hours please return. If any new or worsening symptoms occur, please return for re-evaluation. Follow up with your primary care physician next week. <ARELY Hennessy - Last Filed: 12/16/22 11:11> Prescriptions: New levofloxacin 500 mg tablet 500 mg PO DAILY 7 Days Qty: 7 0RF No Action atorvastatin 20 mg tablet 20 mg PO DAILY Qty: 90 1RF losartan 50 mg tablet 50 mg PO DAILY 30 Days Qty: 30 3RF oxycodone 10 mg tablet See Rx Instructions .ROUTE .COMPLEX 28 Days Qty: 66 0RF Rx Instructions: Take 1 tablet by mouth 2 to 3 times a day as needed for increased pain; sennosides 8.6 mg tablet 8.6 mg PO DAILY PRN (Reason: constipation) Qty: 30 3RF zolpidem 10 mg tablet 10 mg PO BEDTIME PRN (Reason: insomnia) 30 Days Qty: 30 1RF hydrochlorothiazide 12.5 mg tablet 12.5 mg PO DAILY Qty: 30 3RF multivitamin Tablet 1 tab PO DAILY hydroxyzine HCl 25 mg tablet 1 tab PO BEDTIME PRN (Reason: anxiety or sleep) fluocinonide 0.05 % cream 1 appl topical BID PRN (Reason: rash or eczema) oxycodone 10 mg tablet 10 mg PO TID PRN (Reason: increased pain) diphenhydramine HCl [Benadryl] 25 mg capsule 25 mg PO TID Qty: 10 0RF clindamycin HCl 150 mg capsule 150 mg PO TID Qty: 21 0RF doxycycline hyclate 100 mg tablet 100 mg PO BID Qty: 14 0RF cholecalciferol (vitamin D3) 50 mcg (2,000 unit) capsule 50 mcg PO DAILY 90 Days Qty: 90 3RF albuterol sulfate [Ventolin HFA] 90 mcg/actuation HFA aerosol inhaler 1 inh inhalation QID PRN (Reason: shortness of breath or wheezing) Qty: 8.5 1RF sulfamethoxazole-trimethoprim [Bactrim DS] 800-160 mg tablet 1 tab PO BID 7 Days Qty: 14 0RF cetirizine 10 mg tablet 10 mg PO DAILY PRN (Reason: allergy symptoms) 90 Days Qty: 90 3RF metformin 500 mg tablet extended release 24 hr 1,000 mg PO BID 90 Days Qty: 360 3RF <ARELY Hennessy - Last Filed: 12/16/22 11:11> Interventions: ED Discharge Assessment Last Done: 12/16/22 11:56 <ARELY Hennessy - Last Filed: 12/16/22 11:11> Discharge Date/Time: 12/16/22 11:56 <ARELY Hennessy - Last Filed: 12/16/22 11:11>
[2022-12-16 11:27] LABS: MANUAL DIFF FLAG NO
[2022-12-16 11:30] LABS: Basophils Percent Auto 0.3 % (0-2); Eosinophils Absolute Auto 0.7 X10*3/uL (0.0-0.4); Eosinophils Percent Auto 7.6 % (0-4); Hematocrit 41.8 % (37.0-47.0); Hemoglobin 13.6 g/dl (12.0-16.0); Imm Gran Abs Auto 0.04 X10*3/uL (0.00-0.03); Imm Gran Pct Auto 0.5 % (0.0-0.4); Lymphocytes Absolute Auto 1.5 X10*3/uL (1.2-4.9); Lymphocytes Percent Auto 17.6 % (20-40); Mean Corpuscular HGB Conc 32.5 g/dl (31.0-35.0); Mean Corpuscular Hemoglobin 29.9 pg (27.0-33.0); Mean Corpuscular Volume 91.9 fL (80.0-98.0); Mean Platelet Volume 10.6 fL (9.4-12.3); Monocytes Absolute Auto 0.7 X10*3/uL (0.1-1.2); Monocytes Percent Auto 8.2 % (2-11); Neutrophils Absolute Auto 5.7 x10*3/uL (2.0-8.3); Neutrophils Percent Auto 65.8 % (45-73); Platelet Count 239 X10*3/uL (160-400); Red Blood Count 4.55 X10*6/uL (4.20-5.50); Red Cell Distribution Width 14.1 % (11.0-16.0); White Blood Count 8.7 X10*3/uL (4.8-10.8)
[2022-12-16 11:42] LABS: COVID-19 Test Negative (Negative); IDNOW Serial# BCCEAD1C
--- NOTE | 2022-12-16 11:42 | MHC.EDTECH ---
Tech did acuity exam with patient due to OD swelling. Patient was able to Read line 5 (20/40) OD, with no Errors. C/o of blurry vision.
[2022-12-16 11:44] LABS: Alanine Aminotransferase 22 U/L (0-31); Albumin Level 4.4 g/dL (3.5-5.0); Alkaline Phosphatase 84 U/L (39-117); Anion Gap 15 (12-20); Aspartate Amino Transferase 19 U/L (5-31); Bilirubin Total 0.4 mg/dL (0.0-1.0); Blood Urea Nitrogen 13 mg/dL (9-16); Calcium 9.5 mg/dL (8.4-10.2); Carbon Dioxide 24 mmol/L (22-29); Chloride 105 mmol/L (96-108); Creatinine Clr Calc Pharmacy 76.1; Estimated Glomerular Filt Rate > 60; Glucose Random 100 mg/dL (60-115); Magnesium 1.6 mg/dL (1.6-2.6); Potassium 3.9 mmol/L (3.3-5.1); Sodium 140 mmol/L (135-145); Total Protein 7.2 g/dL (6.5-8.0)
== END 2022-12-16 11:56 | disposition home or self-care (01) ==
PROVIDERS: Physician Assistant; Emergency Provider Emergency Medicine; PCP Internal Medicine
DX: H00.033 Abscess of eyelid right eye, unspecified eyelid (principal); I10 Essential (primary) hypertension; F17.210 Nicotine dependence, cigarettes, uncomplicated; Z20.822 Contact with and (suspected) exposure to COVID-19; Z20.828 Contact with and (suspected) exposure to other viral communicable diseases; Z71.6 Tobacco abuse counseling; Z79.899 Other long term (current) drug therapy
CPT/HCPCS: 80053; 83735; 85025; 87635; 99282; 99283

== ENCOUNTER 2022-12-17 08:22 | Emergency (ER) | payer OTHER, SELFPAY ==
--- NOTE | ~2022-12-17 | CT_ITS ---
CT ORBIT WITHOUT CONTRAST CLINICAL INFORMATION: Bilateral erythema/puffiness. COMPARISON: None available. TECHNIQUE: Multidetector CT acquisition of the orbits is obtained without contrast. This CT examination was performed using dose optimization techniques as appropriate, variously including the following: *Automated exposure control *Adjustment of mA and/or kV according to patient size (this includes techniques or standardized protocols for targeted exams where dose is matched to indication/reason for exam; i.e. extremities or head) *Use of iterative reconstruction technique FINDINGS: Study is limited given that the patient refused contrast. There is right greater than left periorbital soft tissue swelling/preseptal swelling that may reflect preseptal cellulitis or the sequela of trauma in the appropriate clinical context. There are no post septal inflammatory changes and there are no drainable fluid collections. No retrobulbar mass lesions. Extraocular muscles are symmetric in size and normal. The globes are intact. Preserved fat within the orbital fissures and pterygopalatine fossa bilaterally. Partially imaged unenhanced intracranial compartment is unremarkable. There is a small retention cyst within the inferior left maxillary sinus and there is mild mucosal thickening within the maxillary sinuses and ethmoid air cells bilaterally. The mastoid air cells and middle ear cavities are clear. TMJs are unremarkable. Periapical lucency associated with the roots of the right second maxillary premolar. CT/CT orbit BI wo IV con IMPRESSION: Study is limited given that the patient refused contrast. There is right greater than left periorbital soft tissue swelling/preseptal swelling that may reflect preseptal cellulitis or the sequela of trauma in the appropriate clinical context. There are no post septal inflammatory changes and there are no drainable fluid collections.
[2022-12-17 08:28] VITALS: BP 182/89; PULSE 118; RESP 20; TEMP 36.8; O2SAT 97; BMI 28.7
[2022-12-17 08:30] VITALS: PULSE 119; RESP 20; O2SAT 98
--- NOTE | 2022-12-17 08:34 | PC.NURSE ---
Pt reports 3 days of right sided facial/eye swelling, seen here yesterday and rx abx. Awoke with swelling to left eye/face. Denies diff breathing or pain. Reports itch. Attempt to use Benadryl without change. Breathing even/unlabored. Sinus tach on tele and HTN. Nausea at this time
--- NOTE | 2022-12-17 08:49 | ED_ITS ---
HPI - General Adult General Chief complaint: Skin/Abscess/Foreign Body Stated complaint: Facial swelling/Dizzinezz Time Seen by Provider: 12/17/22 08:27 Source: patient and old records reviewed Mode of arrival: ambulatory History of Present Illness HPI narrative: 62-year-old female past medical history diabetes, HTN, GERD, depression, anx iety, presenting to the ED complaining of new left sided facial/periorbital swelling since this morning. Patient was seen and treated in our ED on 12/15 & 12/16 for preseptal cellulitis treated with Doxycycline and Levaquin, has taking about 5 doses of Doxycycline and 1 dose of Levaquin. Returns today due to new left-sided involvement. Reports overall feels right side is improved. Denies fever, headache, vision change/loss, pain with EOMs, sore throat, foreign body sensation, trauma Onset (ago): day(s) Related Data Home Medications Medication Instructions Recorded Confirmed fluocinonide 0.05 % topical cream 1 appl topical BID PRN rash or 10/08/22 10/29/22 eczema hydroxyzine HCl 25 mg tablet 1 tab PO BEDTIME PRN anxiety or 10/08/22 10/29/22 sleep multivitamin 1 tab PO DAILY 10/08/22 10/29/22 oxycodone 10 mg tablet 10 mg PO TID PRN increased pain 10/08/22 10/29/22 Previous Rx's Medication Instructions Recorded cholecalciferol (vitamin D3) 50 50 mcg PO DAILY 90 days #90 caps 04/02/22 mcg (2,000 unit) capsule albuterol sulfate 90 mcg/actuation 1 inh inhalation QID PRN shortness 04/21/22 aerosol inhaler (Ventolin HFA) of breath or wheezing #8.5 grams metformin 500 mg tablet,extended 1,000 mg PO BID 90 days #360 tabs 09/22/22 release 24 hr diphenhydramine HCl 25 mg capsule 25 mg PO TID #10 caps 10/09/22 (Benadryl) atorvastatin 20 mg tablet 20 mg PO DAILY #90 caps 10/14/22 clindamycin HCl 150 mg capsule 150 mg PO TID #21 caps 10/17/22 cetirizine 10 mg tablet 10 mg PO DAILY PRN allergy 10/29/22 symptoms 90 days #90 tabs sulfamethoxazole 800 1 tab PO BID 7 days #14 tabs 10/29/22 mg-trimethoprim 160 mg tablet (Bactrim DS) hydrochlorothiazide 12.5 mg tablet 12.5 mg PO DAILY #30 tabs 12/06/22 losartan 50 mg tablet 50 mg PO DAILY 30 days #30 tabs 12/06/22 oxycodone 10 mg tablet See Rx Instructions .Route 12/06/22 .COMPLEX 28 days #66 tabs sennosides 8.6 mg tablet 8.6 mg PO DAILY PRN constipation 12/06/22 #30 tabs zolpidem 10 mg tablet 10 mg PO BEDTIME PRN insomnia 30 12/06/22 days #30 tabs doxycycline hyclate 100 mg tablet 100 mg PO BID #14 tabs 12/15/22 levofloxacin 500 mg tablet 500 mg PO DAILY 7 days #7 tabs 12/16/22 cetirizine 10 mg capsule (Zyrtec) 10 mg PO DAILY PRN allergy 12/17/22 symptoms #14 caps diphenhydramine HCl 25 mg capsule 25 mg PO TID PRN allergic reaction 12/17/22 (Benadryl) #20 caps Allergies Allergy/AdvReac Type Severity Reaction Status Date / Time lisinopril Allergy Severe Angioedema Verified 12/15/22 17:05 amoxicillin [Amoxicillin] Allergy Intermediate SHORTNESS Verified 12/15/22 17:05 OF BREATH penicillin V Allergy Intermediate shortness Verified 12/15/22 17:05 of breath Penicillins Allergy Intermediate SHORTNESS Verified 12/15/22 17:05 OF BREATH Review of Systems Review of Systems: Constitutional: No Fever, No Chills, No Fatigue, No Malaise ENT/Mouth: No Hearing loss, No Ear Pain, No Nasal Congestion, No sore throat, No Rhinorrhea, No Swallowing Difficulty Eyes: No Eye Pain,+ Swelling, + Redness, No Foreign Body, No Discharge, No Vision Changes Cardiovascular: No Chest Pain, No SOB, No Edema, No Palpitations Respiratory: No Cough, No Sputum, No Dyspnea Gastrointestinal: No Nausea, No Vomiting, No Diarrhea, No Constipation, No Abdominal pain Musculoskeletal: No joint pain, No Myalgias, No Joint Swelling Skin: No Skin Lesions, No rash Neuro: No Weakness, No Numbness, No Loss of Consciousness, No Dizziness, No Headache Yes all other systems are reviewed and are negative Constitutional: Constitutional: Reports as per [facility] Past Medical History Attestation statement: The following information was validated with the patient. 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 Pure hypercholesterolemia Smoker Surgical History History of ectopic History of foot surgery History of open reduction and internal fixation (ORIF) procedure History of tooth extraction History of tubal ligation Family History Family History Father Hypertension Mother Hypertension Family/Other Breast cancer Social History Social History Housing: Apartment Alcohol intake: never Patient Tobacco Use Status: Current everyday Tobacco user Tobacco use type: Cigarette Cigarettes Per Day: 5 Smoked in Last 30 Days: Yes e-Cigarette/Vaping Use: Never Used Second Hand Smoke Exposure: Yes Use of substances other than those prescribed or required for medical reasons: No Advance Directives: Yes Advance Directives Information Provided: Yes Advance Directives on File: No service: No Current occupational status: disabled Cognitive needs: No Hearing needs: No Vision needs: No Physical Exam ED Vital Signs: Vital Signs - 24 hr 12/17/22 08:28 12/17/22 08:30 12/17/22 10:04 Temperature 98.3 F Pulse Rate 118 H 119 H 83 Respiratory Rate 20 20 16 Blood Pressure 182/89 H 136/69 Pulse Oximetry 97 98 Oxygen Delivery Method Room Air Room Air BMI result Body Mass Index 28.7 Const General: cooperative, healthy appearing and no acute distress Orientation/consciousness: patient oriented x3 Limitations: no limitations HENMT Head: Yes normal to inspection and Yes atraumatic Ears: hearing grossly normal bilaterally General nose exam: Normal external nose present Face and sinus: Yes normal facial exam Eyes Other: + bilateral periorbital swelling/puffiness noted > right. Mild central forehead swelling. No erythema/warmth. No fluctuance/induration. EOMs intact without pain. General: appearance normal, both eyes and all related structures Pupils: Equal, round and reactive pupils present EOM: EOMs intact bilaterally Neck Neck: Yes normal visual inspection and Yes no meningeal signs Resp Effort & Inspection: normal respiratory effort and no respiratory distress Auscultation: clear to auscultation bilaterally Cardio Rate: regular rate Heart sounds: S1 normal heart sound present and S2 normal heart sound present Skin Rashes: no rashes Wounds: no wounds Neuro General: patient oriented x3, tone normal and no meningeal signs Cranial nerves: Yes Equal, round and reactive pupils present Gait exam (Neuro): Normal gait present Extrem General: Yes normal to inspection Course Course Course Narrative: -09--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 No leukocytosis. CT orbit BI wo IV con IMPRESSION: Study is limited given that the patient refused contrast. There is right greater than left periorbital soft tissue swelling/preseptal swelling that may reflect preseptal cellulitis or the sequela of trauma in the appropriate clinical context. There are no post septal inflammatory changes and there are no drainable fluid collections. >> will continue patient on previously prescribed Doxycycline and Levaquin. Encouraged patient to additionally take Zyrtec and Benadryl at home. Encouraged close PCP follow-up, & discussed antibiotics likely need more time -on re-evaluation swelling improved after IV Benadryl. Results discussed with patient including worrisome signs and symptoms and strict return precautions, and when to return to the emergency department. They verbalized understanding and feel safe for discharge at this time. Medications Administered Discontinued Medications Generic Name Dose Route Start Last Admin Trade Name Shimon PRN Reason Stop Dose Admin Diphenhydramine HCl 50 mg 12/17/22 08:46 12/17/22 09:20 Diphenhydramine Hcl 50 Mg/Ml Vial IVPUSH 12/17/22 08:47 50 mg ONCE ONE Administration Hydrochlorothiazide 12.5 mg 12/17/22 08:48 12/17/22 09:21 Hydrochlorothiazide 12.5 Mg Tablet PO 12/17/22 08:49 12.5 mg ONCE ONE Administration Protocol Sodium Chloride 1,000 mls @ 999 mls/hr 12/17/22 09:00 12/17/22 09:24 Ns IV 12/17/22 10:00 999 mls/hr .Q1H1M PER Administration Levofloxacin 500 mg in 100 mls @ 100 mls/hr 12/17/22 09:00 12/17/22 10:35 Levaquin IV 12/17/22 09:59 Infused ONCE ONE Infusion Losartan Potassium 50 mg 12/17/22 08:48 12/17/22 09:21 Losartan Potassium 50 Mg Tablet PO 12/17/22 08:49 50 mg ONCE ONE Administration Protocol Medical Decision Making Medical Decision Making [facility] Narrative: 62-year-old female past medical history diabetes, HTN, GERD, depression, anxiety, presenting to the ED complaining of new left sided facial/periorbital swelling since this morning. On exam afebrile, tachycardic to 119 initially, bilateral periorbital swelling noted without erythema/warmth. EOMs intact without pain. Physical exam as above. Concern for allergic reaction vs continued preseptal cellulitis > patient reports right-side appears improved. Low suspicion for orbital cellulitis or deeper infection. No evidence of absc ess. Low suspicion for severe sepsis Plan: Labs, lactic/blood cultures, CT, IV Benadryl, IV Levaquin Please refer to course for remaining clinical decision making, interpretation of labs/imaging results, and discussions with consultants and/or family members. Differential Diagnosis Differential Diagnoses: The differential diagnosis associated with the presentation includes As above Admission/Observation Consideration of admission/observation: Escalation of care including admission/observation considered Lab Data [facility] Lab Attestation statement: I reviewed the patient's lab results. 12/17/22 08:50 12/17/22 08:50 Labs: Lab Results 12/17/22 12/17/22 12/17/22 Range/Units 08:50 08:50 09:00 WBC 7.4 (4.8-10.8) X10*3/uL RBC 4.70 (4.20-5.50) X10*6/uL Hgb 13.9 (12.0-16.0) g/dl Hct 42.6 (37.0-47.0) % MCV 90.6 (80.0-98.0) fL MCH 29.6 (27.0-33.0) pg MCHC 32.6 (31.0-35.0) g/dl RDW 14.0 (11.0-16.0) % Plt Count 220 (160-400) X10*3/uL MPV 10.5 (9.4-12.3) fL Immature Gran % (Auto) 0.3 (0.0-0.4) % Neut % (Auto) 51.7 (45-73) % Lymph % (Auto) 29.8 (20-40) % Converse % (Auto) 10.2 (2-11) % Eos % (Auto) 7.5 H (0-4) % Baso % (Auto) 0.5 (0-2) % Lymph # (Auto) 2.2 (1.2-4.9) X10*3/uL Converse # (Auto) 0.8 (0.1-1.2) X10*3/uL Eos # (Auto) 0.6 H (0.0-0.4) X10*3/uL Baso # (Auto) 0.0 (0.0-0.2) X10*3/uL Abs Immat Gran (auto) 0.02 (0.00-0.03) X10*3/uL Absolute Neuts (auto) 3.8 (2.0-8.3) x10*3/uL Absolute Nucleated RBC 0.000 (0.0-0.012) X10*3/uL Nucleated RBC % (auto) 0.0 (0.0-0.2) /100WBC ESR 16 (0-20) MM/HR Sodium 140 (135-145) mmol/L Potassium 3.5 (3.3-5.1) mmol/L Chloride 106 (96-108) mmol/L Carbon Dioxide 23 (22-29) mmol/L Anion Gap 15 (12-20) BUN 11 (9-16) mg/dL Creatinine 0.74 (0.5-1.4) mg/dL Estim Creat Clear Calc 73.8 Estimated GFR > 60 Random Glucose 109 (60-115) mg/dL Lactic Acid (0.5-2.0) mmol/L Calcium 9.5 (8.4-10.2) mg/dL Total Bilirubin 0.6 (0.0-1.0) mg/dL Direct Bilirubin 0.2 (0.0-0.5) mg/dL AST 18 (5-31) U/L ALT 19 (0-31) U/L Alkaline Phosphatase 81 (39-117) U/L C-Reactive Protein 0.54 H (< or = 0.50) mg/dL Total Protein 7.3 (6.5-8.0) g/dL Albumin 4.5 (3.5-5.0) g/dL 12/17/22 Range/Units 09:00 WBC (4.8-10.8) X10*3/uL RBC (4.20-5.50) X10*6/uL Hgb (12.0-16.0) g/dl Hct (37.0-47.0) % MCV (80.0-98.0) fL MCH (27.0-33.0) pg MCHC (31.0-35.0) g/dl RDW (11.0-16.0) % Plt Count (160-400) X10*3/uL MPV (9.4-12.3) fL Immature Gran % (Auto) (0.0-0.4) % Neut % (Auto) (45-73) % Lymph % (Auto) (20-40) % Converse % (Auto) (2-11) % Eos % (Auto) (0-4) % Baso % (Auto) (0-2) % Lymph # (Auto) (1.2-4.9) X10*3/uL Converse # (Auto) (0.1-1.2) X10*3/uL Eos # (Auto) (0.0-0.4) X10*3/uL Baso # (Auto) (0.0-0.2) X10*3/uL Abs Immat Gran (auto) (0.00-0.03) X10*3/uL Absolute Neuts (auto) (2.0-8.3) x10*3/uL Absolute Nucleated RBC (0.0-0.012) X10*3/uL Nucleated RBC % (auto) (0.0-0.2) /100WBC ESR (0-20) MM/HR Sodium (135-145) mmol/L Potassium (3.3-5.1) mmol/L Chloride (96-108) mmol/L Carbon Dioxide (22-29) mmol/L Anion Gap (12-20) BUN (9-16) mg/dL Creatinine (0.5-1.4) mg/dL Estim Creat Clear Calc Estimated GFR Random Glucose (60-115) mg/dL Lactic Acid 0.8 (0.5-2.0) mmol/L Calcium (8.4-10.2) mg/dL Total Bilirubin (0.0-1.0) mg/dL Direct Bilirubin (0.0-0.5) mg/dL AST (5-31) U/L ALT (0-31) U/L Alkaline Phosphatase (39-117) U/L C-Reactive Protein (< or = 0.50) mg/dL Total Protein (6.5-8.0) g/dL Albumin (3.5-5.0) g/dL Radiology Impression Discussion of test interpretation with radiology: I have reviewed the radiologist's reading. External Record Review External record reviewed: Inpatient record, Office record, Outpatient record, Prior outpatient labs, Prior outpatient radiology, Primary care record and Outside ED record Discharge Plan Discharge Clinical Impression: Allergic reaction, Preseptal cellulitis Patient Disposition: Home, Self-Care Instructions: Periorbital Cellulitis in Adults (ED) Additional Instructions: Continue taking previously prescribed antibiotics. Additionally should be taking Benadryl and Zyrtec. We suspect this is an allergic reaction to your hair dye. Have close follow-up with her doctor If symptoms persist or worsen turn to the ED Prescriptions: New diphenhydramine HCl [Benadryl] 25 mg capsule 25 mg PO TID PRN (Reason: allergic reaction) Qty: 20 0RF Zyrtec 10 mg capsule 10 mg PO DAILY PRN (Reason: allergy symptoms) Qty: 14 0RF No Action atorvastatin 20 mg tablet 20 mg PO DAILY Qty: 90 1RF losartan 50 mg tablet 50 mg PO DAILY 30 Days Qty: 30 3RF oxycodone 10 mg tablet See Rx Instructions .ROUTE .COMPLEX 28 Days Qty: 66 0RF Rx Instructions: Take 1 tablet by mouth 2 to 3 times a day as needed for increased pain; sennosides 8.6 mg tablet 8.6 mg PO DAILY PRN (Reason: constipation) Qty: 30 3RF zolpidem 10 mg tablet 10 mg PO BEDTIME PRN (Reason: insomnia) 30 Days Qty: 30 1RF hydrochlorothiazide 12.5 mg tablet 12.5 mg PO DAILY Qty: 30 3RF multivitamin Tablet 1 tab PO DAILY hydroxyzine HCl 25 mg tablet 1 tab PO BEDTIME PRN (Reason: anxiety or sleep) fluocinonide 0.05 % cream 1 appl topical BID PRN (Reason: rash or eczema) oxycodone 10 mg tablet 10 mg PO TID PRN (Reason: increased pain) diphenhydramine HCl [Benadryl] 25 mg capsule 25 mg PO TID Qty: 10 0RF clindamycin HCl 150 mg capsule 150 mg PO TID Qty: 21 0RF doxycycline hyclate 100 mg tablet 100 mg PO BID Qty: 14 0RF levofloxacin 500 mg tablet 500 mg PO DAILY 7 Days Qty: 7 0RF cholecalciferol (vitamin D3) 50 mcg (2,000 unit) capsule 50 mcg PO DAILY 90 Days Qty: 90 3RF albuterol sulfate [Ventolin HFA] 90 mcg/actuation HFA aerosol inhaler 1 inh inhalation QID PRN (Reason: shortness of breath or wheezing) Qty: 8.5 1RF sulfamethoxazole-trimethoprim [Bactrim DS] 800-160 mg tablet 1 tab PO BID 7 Days Qty: 14 0RF cetirizine 10 mg tablet 10 mg PO DAILY PRN (Reason: allergy symptoms) 90 Days Qty: 90 3RF metformin 500 mg tablet extended release 24 hr 1,000 mg PO BID 90 Days Qty: 360 3RF Referrals: Lionel Rodriguez MD [Primary Care Provider] - 3 days Interventions: ED Discharge Assessment Last Done: 12/17/22 10:57 Discharge Date/Time: 12/17/22 10:57
[2022-12-17 08:56] LABS: MANUAL DIFF FLAG NO
[2022-12-17 08:58] LABS: Basophils Percent Auto 0.5 % (0-2); Eosinophils Absolute Auto 0.6 X10*3/uL (0.0-0.4); Eosinophils Percent Auto 7.5 % (0-4); Hematocrit 42.6 % (37.0-47.0); Hemoglobin 13.9 g/dl (12.0-16.0); Imm Gran Abs Auto 0.02 X10*3/uL (0.00-0.03); Imm Gran Pct Auto 0.3 % (0.0-0.4); Lymphocytes Absolute Auto 2.2 X10*3/uL (1.2-4.9); Lymphocytes Percent Auto 29.8 % (20-40); Mean Corpuscular HGB Conc 32.6 g/dl (31.0-35.0); Mean Corpuscular Hemoglobin 29.6 pg (27.0-33.0); Mean Corpuscular Volume 90.6 fL (80.0-98.0); Mean Platelet Volume 10.5 fL (9.4-12.3); Monocytes Absolute Auto 0.8 X10*3/uL (0.1-1.2); Monocytes Percent Auto 10.2 % (2-11); Neutrophils Absolute Auto 3.8 x10*3/uL (2.0-8.3); Neutrophils Percent Auto 51.7 % (45-73); Platelet Count 220 X10*3/uL (160-400); White Blood Count 7.4 X10*3/uL (4.8-10.8)
[2022-12-17 09:13] LABS: Alanine Aminotransferase 19 U/L (0-31); Albumin Level 4.5 g/dL (3.5-5.0); Alkaline Phosphatase 81 U/L (39-117); Anion Gap 15 (12-20); Aspartate Amino Transferase 18 U/L (5-31); Bilirubin Direct 0.2 mg/dL (0.0-0.5); Bilirubin Total 0.6 mg/dL (0.0-1.0); Blood Urea Nitrogen 11 mg/dL (9-16); C Reactive Protein 0.54 mg/dL (< or = 0.50); Calcium 9.5 mg/dL (8.4-10.2); Carbon Dioxide 23 mmol/L (22-29); Chloride 106 mmol/L (96-108); Creatinine Clr Calc Pharmacy 73.8; Estimated Glomerular Filt Rate > 60; Glucose Random 109 mg/dL (60-115); Potassium 3.5 mmol/L (3.3-5.1); Sodium 140 mmol/L (135-145); Total Protein 7.3 g/dL (6.5-8.0)
[2022-12-17] MEDS: diphenhydrAMINE HCL 50 MG/ML VIAL IVPUSH (09:20)
[2022-12-17] MEDS: Losartan Potassium 50 MG TABLET PO (09:21)
[2022-12-17] MEDS: hydroCHLOROthiazide 12.5 MG TABLET PO (09:21)
[2022-12-17] MEDS: levoFLOXacin/D5W 500 MG/100 ML PIGGYBACK 100 MG IV (09:23)
[2022-12-17 09:24] LABS: Lactic Acid 0.8 mmol/L (0.5-2.0)
[2022-12-17] MEDS: 0.9 % Sodium Chloride 1,000 ML 999 ML IV (09:24)
[2022-12-17 09:55] LABS: Erythrocyte Sedimentation Rate 16 MM/HR (0-20)
[2022-12-17 10:04] VITALS: BP 136/69; PULSE 83; RESP 16
== END 2022-12-17 10:57 | disposition home or self-care (01) ==
PROVIDERS: Physician Assistant; Emergency Provider Emergency Medicine Emergency Medical Services; PCP Internal Medicine
DX: L03.213 Periorbital cellulitis (principal); T78.40XA Allergy, unspecified, initial encounter; X58.XXXA Exposure to other specified factors, initial encounter; I10 Essential (primary) hypertension; E11.9 Type 2 diabetes mellitus without complications; F17.200 Nicotine dependence, unspecified, uncomplicated
CPT/HCPCS: 36415; 70480; 80048; 80076; 83605; 85025; 85652; 86140; 87040; 96365; 96375; 99284; J1200; J1956

== ENCOUNTER 2023-03-10 16:28 | Outpatient (REF) | payer OTHER, SELFPAY ==
--- NOTE | ~2023-03-10 | MM_ITS ---
EXAMINATION: MM SCREENING DIGITAL BREAST TOMOSYNTHESIS, BILATERAL CLINICAL INFORMATION: Screening. Asymptomatic. The lifetime risk of breast cancer based on the Tyrer-Cuzick Model is 4%. COMPARISON: Mammography: 02/23/2022, 01/31/2018, 11/04/2016 TECHNIQUE: Digital breast tomosynthesis is performed in both the craniocaudal and mediolateral oblique views along with computer-aided detection (CAD). Synthesized 2D images are generated from the tomosynthesis. Additional left CC view is provided. FINDINGS: There are scattered areas of fibroglandular density (ACR BI-RADS breast composition Category b). There are no significant masses, abnormal calcifications, or other abnormalities. No developing density or architectural abnormality. Incidental low right axillary tail node again seen. There are again scattered punctate round and rim and dermal calcifications. No significant changes. MM/MM tomosynthesis screening BI IMPRESSION: No mammographic evidence of malignancy. ASSESSMENT: BI-RADS 2: Benign RECOMMENDATION: Routine annual mammography screening. This patient's information was entered into a reminder system with a target due date for their next mammogram.
== END 2023-03-10 16:29 | disposition home or self-care (01) ==
LOC: HO.MAMMO 16:28
PROVIDERS: PCP Internal Medicine; Visit Provider Internal Medicine
DX: Z12.31 Encounter for screening mammogram for malignant neoplasm of breast (principal)
CPT/HCPCS: 77063; 77067

== ENCOUNTER 2023-04-25 06:52 | Outpatient (REF) | payer OTHER, SELFPAY ==
[2023-04-25 07:07] LABS: MANUAL DIFF FLAG NO
[2023-04-25 07:12] LABS: Basophils Absolute Auto 0.1 X10*3/uL (0.0-0.2); Basophils Percent Auto 0.9 % (0-2); Eosinophils Absolute Auto 0.3 X10*3/uL (0.0-0.4); Eosinophils Percent Auto 3.6 % (0-4); Hematocrit 44.5 % (37.0-47.0); Hemoglobin 14.4 g/dl (12.0-16.0); Imm Gran Abs Auto 0.02 X10*3/uL (0.00-0.03); Imm Gran Pct Auto 0.3 % (0.0-0.4); Lymphocytes Absolute Auto 2.7 X10*3/uL (1.2-4.9); Lymphocytes Percent Auto 35.8 % (20-40); Mean Corpuscular HGB Conc 32.4 g/dl (31.0-35.0); Mean Corpuscular Hemoglobin 30.1 pg (27.0-33.0); Mean Corpuscular Volume 93.1 fL (80.0-98.0); Mean Platelet Volume 9.8 fL (9.4-12.3); Monocytes Absolute Auto 0.6 X10*3/uL (0.1-1.2); Monocytes Percent Auto 8.1 % (2-11); Neutrophils Absolute Auto 3.9 x10*3/uL (2.0-8.3); Neutrophils Percent Auto 51.3 % (45-73); Platelet Count 252 X10*3/uL (160-400); Red Blood Count 4.78 X10*6/uL (4.20-5.50); White Blood Count 7.6 X10*3/uL (4.8-10.8)
[2023-04-25 07:25] LABS: Estimated Average Glucose 108 mg/dL; Hemoglobin A1c % 5.4 %
[2023-04-25 07:52] LABS: Alanine Aminotransferase 24 U/L (0-31); Albumin Level 4.4 g/dL (3.5-5.0); Alkaline Phosphatase 75 U/L (39-117); Anion Gap 15 (12-20); Aspartate Amino Transferase 17 U/L (5-31); Bilirubin Total 0.4 mg/dL (0.0-1.0); Blood Urea Nitrogen 11 mg/dL (9-16); Calcium 9.6 mg/dL (8.4-10.2); Carbon Dioxide 20 mmol/L (22-29); Chloride 108 mmol/L (96-108); Cholesterol 259 mg/dL; Estimated Glomerular Filt Rate > 60; Glucose Fasting 99 mg/dL (60-99); HDL Cholesterol 52 mg/dL; LDL Cholesterol Calculated 177 mg/dl; Sodium 139 mmol/L (135-145); Total Protein 7.8 g/dL (6.5-8.0); Triglycerides 153 mg/dL
[2023-04-25 08:11] LABS: TSH reflex Free T4 5.03 uIU/mL (0.32-4.0); Vitamin D 25-OH Total 35.6 ng/mL (>30)
[2023-04-25 08:57] LABS: Free T4 (Free Thyroxine) 0.77 ng/dL (0.71-1.85)
[2023-04-25 09:01] LABS: Appearance Urine Clear; Color Urine Yellow; Glucose Urine UA Negative (Negative); Leukocyte Esterase Urine Negative (Negative); Nitrite Urine Negative (Negative); PH 5.5 (5.0-9.0); Specific Gravity - Urine 1.015 (1.005-1.025); UMIC TRIGGER UACC YES; Urine Blood Trace (Negative); Urine Ketones Negative (Negative); Urine Protein Negative (Neg-Trace)
[2023-04-25 09:05] LABS: Bacteria Urine None Seen (None Seen); Hyaline Casts Urine 0-2 /LPF (0-2); Squamous Epithelial Cell Urine 0-2 /HPF (0-2); WBC Urine 0-5 /HPF (0-5)
[2023-04-25 09:39] LABS: Creatinine Urine 55.69 mg/dL; Microalbumin Urine < 5.0 mg/L
== END 2023-04-25 06:53 | disposition home or self-care (01) ==
LOC: HO.LAB 06:52
PROVIDERS: PCP Internal Medicine; Visit Provider Internal Medicine
DX: I10 Essential (primary) hypertension (principal); E11.9 Type 2 diabetes mellitus without complications; E55.9 Vitamin D deficiency, unspecified; E78.00 Pure hypercholesterolemia, unspecified
CPT/HCPCS: 36415; 80053; 80061; 81001; 81003; 82043; 82306; 83036; 84439; 84443; 85025

== ENCOUNTER 2023-05-13 13:05 | Outpatient (AMB) | payer OTHER, SELFPAY ==
[2023-05-13 13:15] VITALS: BP 124/80; PULSE 85; O2SAT 97; BMI 26.4
--- NOTE | 2023-05-13 13:15 | A.OFFPC_ITS ---
Vital Signs 05/13/23 13:15 Height 5 ft 2 in Weight 144 lb 6 oz BMI 26.4 BP 124/80 Blood Pressure Location Lt brachial Position Sitting Pulse 85 Pulse Source Pulse Oximeter Pulse Oximetry (%) 97 Oxygen Delivery Method Room Air Intake Visit Reasons: 3mth f/u Se[employer] Associate Required: No Accompanied by: Self / Same As Patient Allergies lisinopril Allergy (Severe, Verified 05/13/23 14:03) Angioedema amoxicillin [Amoxicillin] Allergy (Intermediate, Verified 05/13/23 14:03) SHORTNESS OF BREATH penicillin V Allergy (Intermediate, Verified 05/13/23 14:03) shortness of breath Penicillins Allergy (Intermediate, Verified 05/13/23 14:03) SHORTNESS OF BREATH Medication List - Last Reconciled 05/13/23 by Lionel Rodriguez MD albuterol sulfate 90 mcg/actuation (Ventolin HFA) 1 inh inhalation QID PRN atorvastatin 20 mg PO DAILY 90 days cetirizine (Zyrtec) 10 mg PO DAILY PRN cetirizine 10 mg PO DAILY PRN 90 days cholecalciferol (vitamin D3) 50 mcg PO DAILY 90 days diphenhydramine HCl (Benadryl) 25 mg PO TID diphenhydramine HCl (Benadryl) 25 mg PO TID PRN fluocinonide 0.05% 1 appl topical BID PRN hydrochlorothiazide 12.5 mg PO DAILY hydroxyzine HCl 1 tab PO BEDTIME PRN losartan 50 mg PO DAILY 90 days metformin ER 1,000 mg (2 x 500 mg) PO BID 90 days multivitamin 1 tab PO DAILY oxycodone 10 mg PO TID PRN oxycodone Take 1 tablet by mouth 2 to 3 times a day as needed for increased pain; 28 days sennosides 8.6 mg PO DAILY PRN zolpidem 10 mg PO BEDTIME PRN 30 days Tobacco use date assessed: 05/13/23 Dental Screening Dental Screen Date: 05/13/23 Did you have a dental visit in the last 12 months?: Yes Did you have a dental problem in the last 6 months where you did not have access to dental care?: No Was dental information given to patient?: Patient has dentist HPI 3mth f/u HPI Details Patient comes in today for her follow up visit States that she has been experiencing increasing pain and stiffness of both of her hands lately; is also experiencing increasing pain in her knee, especially in the left knee Notes that the symptoms are often worse at night or later in the day Adds that she missed taking her cholesterol Rx for a couple of weeks when she misplaced them as she was moving recently Relates that she just started back on them when she went for her labs a couple of weeks ago States that her current meds help keep her pain manageable and that she feels okay otherwise She denies any headaches or dizziness Denies any chest pains, no SOB No nausea/vomiting, no abdominal pain No change in bowel habits noted PFSH Medical History Anxiety Benign essential hypertension Constipation Depression Diabetes mellitus GERD without esophagitis Insomnia Lumbar degenerative disc disease Lumbar radiculopathy Obesity (BMI 30-39.9) Osteoarthritis of left knee Overweight (BMI 25.0-29.9) 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 Pure hypercholesterolemia Smoker Surgical History History of ectopic History of foot surgery History of open reduction and internal fixation (ORIF) procedure History of tooth extraction History of tubal ligation Family History Father Hypertension Mother Hypertension Family/Other Breast cancer Social History Housing: Apartment Alcohol intake: never Patient Tobacco Use Status: Current everyday Tobacco user Tobacco use type: Cigarette Cigarettes Per Day: 5 e-Cigarette/Vaping Use: Never Used Second Hand Smoke Exposure: Yes service: No Current occupational status: disabled Cognitive needs: No Hearing needs: No Vision needs: No Questionnaire PHQ-9 Over the last 2 weeks, how often have you been bothered by any of the following problems? 1. Little interest or pleasure in doing things: not at all 2. Feeling down, depressed, or hopeless: not at all 3. Trouble falling or staying asleep, or sleeping too much: not at all 4. Feeling tired or having little energy: not at all 5. Poor appetite or overeating: not at all 6. Feeling bad about yourself - or that you are a failure or have let yourself or your family down: not at all 7. Trouble concentrating on things, such as reading the newspaper or watching television: not at all 8. Moving or speaking so slowly that other people could have noticed. Or the opposite - being so fidgety or restless that you have been moving around a lot more than usual: not at all 9. Thoughts that you would be better off or of hurting yourself in some way: not at all Total score: 0 Depression Screening Interpretation: Negative 46417 - PHQ-9 Billing: Yes Source: Developed by Drs. Stan Kruse, Doris Bustamante, Jose Wheatley and colleagues, with an educational marlee from [employer] Thrive Questionnaire Date Thrive assessed: 05/13/23 I am a: Patient What is your living situation today?: I have a steady place to live Within the past 12 months, did the food you bought not last and you didn't have the money to get more?: Never true Within the past 12 months, did you worry whether your food would run out before you got money to buy more?: Never true Do you have trouble paying for medicines?: No Do you have trouble getting transportation to medical appointments?: No Do you have trouble paying your heating and electricity bill?: No Do you have trouble taking care of your child, family member or friend?: No Do you have trouble with day-to-day activities such as bathing, preparing meals, shopping, managing finances, etc.?: No Are you currently unemployed and looking for a job?: No Are you interested in more education?: No Please select the resources that you would like help with: None Currently or been in a relationship where the following occur: no concerns reported AUDIT C Alcohol Use Questionnaire (AUDIT-C) 1. How often do you have a drink containing alcohol?: Never 3. How often do you have six or more drinks on one occasion?: Never Total Score: 0 Score Reviewed/Action Taken: Yes IZABEL-7 AMB Questionnaire IZABEL-7 Date IZABEL - 7 assessed: 05/13/23 Feeling nervous, anxious, or on edge: 0 = Not at all Not being able to stop or control worryin = Not at all Worrying too much about different things: 0 = Not at all Trouble relaxin = Not at all Being so restless that it is hard to sit still: 0 = Not at all Becoming easily annoyed or irritable: 0 = Not at all Feeling afraid as if something awful might happen: 0 = Not at all Total IZABEL-7 score (0-4 normal; 5-9 mild; 10-14 moderate; 15-21 severe): 0 Source: Developed by Drs. Stan Kruse, Doris Bustamante, Jose Wheatley and colleagues, with an educational marlee from [employer] Review of Systems Const Denies chills, Denies fatigue, Denies fever(s) and Denies headache(s) ENT Denies dysphagia, Denies dizziness, Denies otalgia, Denies headache(s), Denies odynophagia and Denies sore throat Card Denies chest pain, Denies palpitations and Denies dyspnea Resp Denies cough and Denies dyspnea GI Denies abdominal pain, Denies constipation, Denies dysphagia, Denies heartburn, Denies diarrhea, Denies nausea, Denies odynophagia and Denies vomiting Denies hematuria, Denies difficulty voiding, Denies nocturia and Denies dysuria Musc Reports back pain (chronic, over the lower back), Reports arthralgias (increasing pain over both hands/fingers and on the knees, dejon left knee) and Reports stiffness Skin/Breast Details: (+) recurrent rash on the upper chest wall, often triggered by sun exposure Neuro Denies dizziness and Denies headache(s) Psych Reports anxiety Endo Denies fatigue and Denies palpitations Aller/Immun Reports as per HPI Physical exam (Primary Care) Vital Signs: Last Vital Signs Pulse 85 05/13/23 13:15 BP 124/80 05/13/23 13:15 Pulse Ox 97 05/13/23 13:15 Oxygen Delivery Method Room Air 05/13/23 13:15 BMI result Body Mass Index 26.4 Tobacco/Smoking Status: Tobacco use Status Tobacco use date assessed 05/13/23 05/13/23 13:21 Patient Tobacco Use Status Current everyday Tobacco 05/13/23 13:21 Tobacco use type Cigarette 05/13/23 13:21 e-Cigarette/Vaping Use Never Used 05/13/23 13:21 PHQ-9: PHQ-9 Score PHQ-9: Total score 0 05/13/23 13:21 Depression Screening Interpretation: Negative Thrive Assessment: Date of Thrive Assessment Date Thrive assessed 05/13/23 05/13/23 13:21 Currently or been in a relationship where the following occur: no concerns reported Const General: no acute distress and alert HENMT Ears: TM's normal bilaterally and EAC's normal Throat: Yes posterior oropharynx normal and Yes tonsils normal (no TP congestion noted) Neck Neck: Yes supple Resp Auscultation: clear to auscultation bilaterally, no rales and no wheezes Cardio Rate: regular rate Rhythm: regular rhythm Heart sounds: no murmurs GI Palpation (GI): Soft to palpation and nontender Auscultation: normal bowel sounds Back/Spine/Pelvis Thoracic/Lumbar Spine: lumbar spinal tenderness (chronic) Skin Other: (+) few scattered erythematous papular lesions on the upper chest wall Extrem General: Yes no clubbing, cyanosis or edema Right upper extremity: Extremity exam: right hand Details: tenderness and no swelling Left upper extremity: hand Details: tenderness and no swelling Right lower extremity: knee Details: tenderness (mild); no swelling Left lower extremity: knee Details: tenderness; no swelling Results Reviewed Results Reviewed: Laboratory Tests 04/25/23 04/25/23 04/25/23 07:00 07:05 07:05 WBC 7.6 Hgb 14.4 Hct 44.5 Plt Count 252 Sodium 139 Potassium 4.0 Creatinine 0.71 Estimated GFR > 60 Fasting Glucose 99 Hemoglobin A1c % Calcium 9.6 AST 17 ALT 24 Cholesterol 259 LDL Cholesterol, Calc 177 HDL Cholesterol 52 25-OH Vitamin D Total 35.6 TSH 5.03 H Free T4 0.77 Ur Specific [place] 1.015 Urine Protein Negative Urine Glucose (UA) Negative Urine Blood Trace H 04/25/23 07:05 WBC Hgb Hct Plt Count Sodium Potassium Creatinine Estimated GFR Fasting Glucose Hemoglobin A1c % 5.4 Calcium AST ALT Cholesterol LDL Cholesterol, Calc HDL Cholesterol 25-OH Vitamin D Total TSH Free T4 Ur Specific [place] Urine Protein Urine Glucose (UA) Urine Blood Assessment and Plan Assessment & Plan (1) Pure hypercholesterolemia: Code(s): E78.00 - Pure hypercholesterolemia, unspecified Plan: Results of her labs done a couple of weeks ago reviewed and discussed with patient - cautioned that her cholesterol levels have increased significantly (over 100 pts) from her previous results earlier this year (she forgot to get h er labs done at her last visit) Reinforced low cholesterol diet; recalls that she was not taking her cholesterol Rx for a couple of weeks just prior to her lab draw as she misplaced her Rx back then Continue Atorvastatin 20 mg QD for now Will recheck her labs and fasting lipids in 3 months for follow up (2) Diabetes mellitus: Code(s): E11.9 - Type 2 diabetes mellitus without complications Qualifiers: Diabetes mellitus type: type 2 Diabetes mellitus fdc insulin use: without performance improvement specialist use Diabetes mellitus complication status: without complication Qualified Code(s): E11.9 - Type 2 diabetes mellitus without complications Plan: HgbA1c was at 5.4% on her labs done a couple of weeks ago (in-office HgbA1c was at 5.6% a few months ago) - goal is < 7.0% Reinforced diabetic diet Continue Metformin ER 500 mg 2 tablets BID Will recheck her labs and HgbA1c in 3 months for follow up (3) Benign essential hypertension: Code(s): I10 - Essential (primary) hypertension Plan: Reinforced low sodium diet - goal is systolic BP of 120 mm or less Continue HCT 12.5 mg QD and Losartan 50 mg QD Was on Lisinopril 10 mg QD but was taken off Rx when she developed angioedema a few months ago - was switched over to Losartan then (4) Multiple allergies: Code(s): Z88.9 - Allergy status to unspecified drugs, medicaments and biological substances Plan: She has been referred to allergy and immunology for allergy testing and evaluation - to follow up with junk removal specialist as scheduled Continue Cetirizine 10 mg QD PRN (5) Primary osteoarthritis of hands, bilateral: Code(s): M19.041 - Primary osteoarthritis, right hand; M19.042 - Primary osteoarthritis, left hand Plan: Will send her for x-rays of both hands [facility] for further evaluation Patient had some labs done back in 2012 for arthralgia work ups - tests done then were all negative for inflammatory markers Will send her for some labs again for her arthralgia work ups Will also refer her to rheumatology for further evaluation and management (6) Lumbar degenerative disc disease: Code(s): M51.36 - Other intervertebral disc degeneration, lumbar region Plan: Reinforced activity and weight-lifting restrictions Continue Tizanidine 4 mg TID PRN and Oxycodone 10 mg 2 to 3 times a day only as needed for increased pain Follow up with [facility] as scheduled (7) Osteoarthritis of left knee: Code(s): M17.12 - Unilateral primary osteoarthritis, left knee Qualifiers: Osteoarthritis type: primary Qualified Code(s): M17.12 - Unilateral primary osteoarthritis, left knee Plan: X-rays of the left knee done in the past showed (+) arthritis changes Follow up with orthopedics as scheduled (8) Rash and nonspecific skin eruption: Code(s): R21 - Rash and other nonspecific skin eruption Plan: Follow up with dermatology as scheduled (9) Insomnia: Code(s): G47.00 - Insomnia, unspecified Qualifiers: Insomnia type: unspecified Qualified Code(s): G47.00 - Insomnia, unspecified Plan: Sleep hygiene reinforced Continue Zolpidem 10 mg Q HS PRN (10) Anxiety: Code(s): F41.9 - Anxiety disorder, unspecified Plan: Continue Lorazepam 0.5 mg BID PRN for severe anxiety (11) Depression: Code(s): F32.9 - Major depressive disorder, single episode, unspecified Qualifiers: Depression Type: major depressive disorder Major depression recurrence: recurrent Active/Remission status: currently active Major depression episode severity: unspecified Qualified Code(s): F33.9 - Major depressive disorder, recurrent, unspecified Plan: Follow up with psychiatry as scheduled (12) Smoker: Code(s): F17.200 - Nicotine dependence, unspecified, uncomplicated Plan: Counseled again on smoking cessation (13) Overweight (BMI 25.0-29.9): Code(s): E66.3 - Overweight Plan: diet/exercise as tolerated/lose weight Plan Follow up in 3 months Orders: Orders XR hand LT min 3V Today M19.041 - Primary osteoarthritis, right hand, M19.042 - Primary osteoarthritis, left hand XR hand RT min 3V Today M19.041 - Primary osteoarthritis, right hand, M19.042 - Primary osteoarthritis, left hand Cyclic Citrullinated Peptide Today M19.041 - Primary osteoarthritis, right hand, M19.042 - Primary osteoarthritis, left hand, M25.50 - Pain in unspecified joint C Reactive Protein Today M19.041 - Primary osteoarthritis, right hand, M19.042 - Primary osteoarthritis, left hand, M25.50 - Pain in unspecified joint Rheumatoid Factor Today M19.041 - Primary osteoarthritis, right hand, M19.042 - Primary osteoarthritis, left hand, M25.50 - Pain in unspecified joint Erythrocyte Sedimentation Rate Today M19.041 - Primary osteoarthritis, right hand, M19.042 - Primary osteoarthritis, left hand, M25.50 - Pain in unspecified joint, M79.7 - Fibromyalgia CED Reflex Titer and Pattern Today M19.041 - Primary osteoarthritis, right hand, M19.042 - Primary osteoarthritis, left hand, M25.50 - Pain in unspecified joint Comprehensive [place]. Panel Fast 3 Months E78.00 - Pure hypercholesterolemia, unspecified Hemoglobin A1c 3 Months E11.9 - Type 2 diabetes mellitus without complications Lipid Panel 3 Months E78.00 - Pure hypercholesterolemia, unspecified TSH reflex Free T4 3 Months E78.00 - Pure hypercholesterolemia, unspecified Vitamin D 25-OH Total 3 Months E55.9 - Vitamin D deficiency, unspecified Microalbumin, Random (w Creat) 3 Months E11.9 - Type 2 diabetes mellitus without complications Complete Blood Count Auto Diff 3 Months I10 - Essential (primary) hypertension UA CC w/rflx Micro + Cult 3 Months R30.0 - Dysuria Referrals Rheumatology Referral M17.12 - Unilateral primary osteoarthritis, left knee, M19.041 - Primary osteoarthritis, right hand, M19.042 - Primary osteoarthritis, left hand Coding Level of Care Code Est Pt Level 4 (53746) Diagnoses Pure hypercholesterolemia E78.00 Diabetes mellitus E11.9 Diabetes mellitus type: type 2 Diabetes mellitus fdc insulin use: without fdc use Diabetes mellitus complication status: without complication Benign essential hypertension I10 Multiple allergies Z88.9 Primary osteoarthritis of hands, bilateral M19.041; M19.042 Lumbar degenerative disc disease M51.36 Osteoarthritis of left knee M17.12 Osteoarthritis type: primary Rash and nonspecific skin eruption R21 Insomnia G47.00 Insomnia type: unspecified Anxiety F41.9 Depression F33.9 Depression Type: major depressive disorder Major depression recurrence: recurrent Active/Remission status: currently active Major depression episode severity: unspecified Smoker F17.200 Overweight (BMI 25.0-29.9) E66.3
== END 2023-05-13 14:04 | disposition home or self-care (01) ==
PROVIDERS: PCP Internal Medicine; Visit Provider Internal Medicine
DX: E11.9 Type 2 diabetes mellitus without complications (principal); I10 Essential (primary) hypertension; F41.9 Anxiety disorder, unspecified; F17.210 Nicotine dependence, cigarettes, uncomplicated; Z88.9 Allergy status to unspecified drugs, medicaments and biological substances; F33.9 Major depressive disorder, recurrent, unspecified; E78.00 Pure hypercholesterolemia, unspecified; M19.041 Primary osteoarthritis, right hand; M19.042 Primary osteoarthritis, left hand; M51.36 Other intervertebral disc degeneration, lumbar region; M17.12 Unilateral primary osteoarthritis, left knee; R21 Rash and other nonspecific skin eruption
CPT/HCPCS: 99214

== ENCOUNTER 2023-06-28 07:49 | Outpatient (REF) | payer OTHER, SELFPAY ==
--- NOTE | ~2023-06-28 | XR_ITS ---
EXAMINATION: XR HAND, RIGHT CLINICAL INFORMATION: Osteoarthritis. COMPARISON: No prior plain film of the right hand. Plain film of the right wrist dated June 20, 2014. TECHNIQUE: PA, lateral, and oblique views of the right hand. FINDINGS: The fifth DIP joint is held in mild flexion on all views. The bones and soft tissues appear unremarkable. No acute fracture appreciated. Alignment is anatomic. Joint spaces appear maintained. No erosions or soft tissue calcifications. XR/XR hand RT min 3V IMPRESSION: No evidence of osteoarthritis.
--- NOTE | ~2023-06-28 | XR_ITS ---
EXAMINATION: XR HAND, LEFT CLINICAL INFORMATION: Osteoarthritis. COMPARISON: June 15, 2013. TECHNIQUE: PA, lateral, and oblique views of the left hand. FINDINGS: Mild deformity of the fifth middle phalanx may be congenital or related to old trauma. The bones and soft tissues otherwise appear unremarkable. No acute fracture appreciated. Alignment is anatomic. Joint spaces appear maintained. No erosions or soft tissue calcifications. XR/XR hand LT min 3V IMPRESSION: No evidence of osteoarthritis.
[2023-07-01 11:58] LABS: Cyclic Citrullinated Peptide <16 UNITS
[2023-07-03 14:45] LABS: Anti Nuclear Antibody Screen POSITIVE (NEGATIVE)
== END 2023-06-28 07:50 | disposition home or self-care (01) ==
LOC: HO.LAB 07:49
PROVIDERS: PCP Internal Medicine; Visit Provider Internal Medicine
DX: M19.041 Primary osteoarthritis, right hand (principal); M19.042 Primary osteoarthritis, left hand; E78.00 Pure hypercholesterolemia, unspecified; M79.7 Fibromyalgia; E11.9 Type 2 diabetes mellitus without complications; E55.9 Vitamin D deficiency, unspecified; I10 Essential (primary) hypertension
CPT/HCPCS: 36415; 73130; 80053; 80061; 81001; 82043; 82306; 82570; 83036; 84439; 84443; 85025; 85652; 86038; 86039; 86140; 86200; 86431

== ENCOUNTER 2023-06-30 13:17 | Outpatient (AMB) | payer OTHER, SELFPAY ==
--- NOTE | 2023-06-30 13:20 | A.OFFVIS_ITS ---
Intake Vital Signs 06/30/23 13:22 Height 5 ft 2 in Weight 144 lb 9.972 oz BMI 26.4 BP 110/70 Blood Pressure Location Rt brachial Position Sitting Pulse 76 Pulse Source Pulse Oximeter Temp 97.2 F Temp Source Skin Pulse Oximetry (%) 95 Oxygen Delivery Method Room Air Intake Visit Reasons: OA Intake Note: New patient here today for OA. No prior vp informatics. c/o hoang hand and finger pain x 1 mo [place] Tour Guide Required: No Accompanied by: Self / Same As Patient Allergies lisinopril Allergy (Severe, Verified 06/30/23 13:30) Angioedema amoxicillin [Amoxicillin] Allergy (Intermediate, Verified 06/30/23 13:30) SHORTNESS OF BREATH penicillin V Allergy (Intermediate, Verified 06/30/23 13:30) shortness of breath Penicillins Allergy (Intermediate, Verified 06/30/23 13:30) SHORTNESS OF BREATH HPI HPI Comments History of Present Illness Details Erica, 62yoF presents for evaluation of hand pain, left greater than right. Per patient, it started approximately 2 months near the time she was moving to a new home. The pain lasts all day, but is worst at night. It hurt for her to make fists and makes it challenging to carry bags which she now does no her forearm. The hand pain is mildly improved when she takes Oxydodone. She has not used anything else for the pain. Patient denies Raynaud's phenomenon, butterfly rash on face or other rashes; denies photosensitivity - getting sick or developing a rash from being out in the sun. Per her EMR records she had a photosensitive reaction, However, patient states the rash was due to the covid vaccine she took, because she was going to [place]. She never had that rash before then or since. (She is from [place]). She denies blood or froth in urine; patient denies hx of SOB, chest pain. Patient denies hx of Carditis or Pleuritis. Patient denies any history of DVT/PE. Denies fevers, excessive fatigue, unexplained weight-loss or weight-gain, Denies: thinning hair or hair loss Denies: dry, itchy eyes, red burning eyes needing steroids to treat; dry mouth, mouth sores or ulcers; nose bleed; ringing in the ear, Denies abdominal pain, blood or mucous in stool; nausea, vomitting and diarrhea , difficulty swallowing, heartburn. Denies morning stiffness lasting more than 20 mins. She endorses: Bilateral knee pain worse with climbing stairs and was told by ortho that she has arthritis in the knee. Malignancy screening: denies personal cancer hx. 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 Obesity (BMI 30-39.9) Smoker Depression Anxiety Insomnia GERD without esophagitis Constipation Osteoarthritis of left knee Lumbar radiculopathy Lumbar degenerative disc disease Pure hypercholesterolemia Benign essential hypertension Diabetes mellitus Surgical History History of tooth extraction History of ectopic History of open reduction and internal fixation (ORIF) procedure History of foot surgery History of tubal ligation Family History (Updated 06/30/23 @ 13:31 by ZEV Belle) Father Hypertension Mother Hypertension Arthritis Family/Other Breast cancer Social History (Updated 06/30/23 @ 13:26 by ZEV Belle) Household Members: None Housing: Apartment Alcohol intake: never Patient Tobacco Use Status: Current everyday Tobacco user Tobacco use type: Cigarette Cigarettes Per Day: 7 e-Cigarette/Vaping Use: Never Used Second Hand Smoke Exposure: Yes service: No Current occupational status: disabled Cognitive needs: No Hearing needs: No Vision needs: No Female Reproductive History Menstrual Total pregnancies: 4 Ab spontaneous: 1 Review of Systems Const All systems reviewed & are unremarkable except as noted in HPI and below Denies chills, Denies fatigue and Denies fever(s) Eyes Details: No concerns ENT Details: No Concerns Card Denies chest pain, Denies palpitations and Denies dyspnea Resp Denies cough and Denies dyspnea GI Denies abdominal pain, Denies constipation, Denies heartburn, Denies diarrhea, D enies nausea and Denies vomiting Denies hematuria, Denies difficulty voiding, Denies nocturia and Denies dysuria Musc Reports back pain (chronic, over the lower back), Reports arthralgias (increasing pain over both hands/fingers and on the knees, dejon left knee) and Reports stiffness Psych Reports anxiety Endo Denies fatigue and Denies palpitations Aller/Immun Reports as per HPI Physical Exam Vital Signs: Last Vital Signs Temp 97.2 F 06/30/23 13:22 Pulse 76 06/30/23 13:22 BP 110/70 06/30/23 13:22 Pulse Ox 95 06/30/23 13:22 Oxygen Delivery Method Room Air 06/30/23 13:22 BMI result Body Mass Index 26.4 APPEARANCE: Patient in no acute distress. EYES no redness, pupils equal and reactive to light, eyelids normal THROAT: Oral mucosa moist, no ulcerations NECK: Enlarged right submandibular lymph. No thyromegaly or masses, no a denopathy, trachea midline. HEART: Regulrar rhythm, S1-S2 heard, no murmurs, rubs or gallops. LUNG: Clear to percussion and auscultation. Diminished in the bases EXTREMITIES: No edema, no calf tenderness, normal peripheral pulses. normal strength JOINT EXAM: Cervical Spine:. Full range of motion with mild pain; no tenderness. Thoracic Spine:. No scoliosis. No tenderness on palpation. Lumbar Spine:. Alignment normal. No tenderness. Hands: Right: marked tenderness right 4th flexor tendon. Left: Tenderness left 3rd flexor tendon. Hesitant to make a closed fist given pain. thicken flexor tendons at these digits. Wrists:. Bilateral Full range of motion without pain; no tenderness, swelling, increased warmth or erythema. Elbows:. Bilateral Full range of motion without pain; no tenderness, swelling, increased warmth or erythema. Shoulders:. Bilateral Full range of motion without pain; no tenderness, swelling, increased warmth or erythema. Hips:. Bilateral Full range of motion without pain; no tenderness, swelling, increased warmth or erythema. Hip bursa:. No tenderness. Knees:. Bilateral Full range of motion with mild discomfort pain; no tenderness, swelling, increased warmth or erythema. Ankles: No tenderness or pain with motion. No soft tissue swelling, increased warmth or erythema. Office Procedures Tendon Injection Tendon Injection Details: Left 3rd palmar MCP area was prepped with Chloroprep and flexor tendon injected with 20mg of Triamcinalone. Bandaid applied 11851-Yfigfi Tendon Sheath Injection (Left 3rd Flexor Tendon) All charges added?: Procedure code (CPT) selection complete Tendon Injection Tendon Injection Details: Right 4th palmar MCP area was prepped with Chloroprep and flexor tendon injected with 20mg of Triamcinalone. Bandaid applied 62724-Ebirwg Tendon Sheath Injection (Right 4th Flexor tendon) 52137-Obuali Tendon Origin/Insertion Injection All charges added?: Procedure code (CPT) selection complete Results Reviewed Results Reviewed: Laboratory Tests 06/28/23 08:16 Rheumatoid Factor < 13.0 Cycl Citrul Peptide IgG Pending CED Screen Pending CED Titer Pending CED Titer 2 Pending CED Titer 3 Pending CED Pattern Pending CED Pattern 2 Pending CED Pattern 3 Pending Assessment & Plan Assessment & Plan (1) Tenosynovitis of finger: Code(s): M65.9 - Synovitis and tenosynovitis, unspecified Plan 62 yo female evaluated for hand pain found to have tenosynovitis to the flexor tendon of the right 4th and left 3rd fingers. On exam there is marked tenderness to the palmar MCP areas. There is some thickening to these tendons on PE suggesting swellon and inflamed tendons. There are no bony prominences to her Hand IP joints. I suggested Prednisone or steroid injections. She opted to have corticosteroid injections rather then systemic prednisone given her T2DM and challenges to control. She has had injections in the past for carpal tunnel, diagnosed with EMC per patient. I injected each finger with 20 mg(0.5ml) of Triamcinalone. Patient tolerated the procedure though it was painful. Recommendations at home for continued improvement included icing, topical voltaren gel and stretching of the fingers and palms. Encouraged hand exercises with a stress ball to strengthen interoseous muscles. At this time, after initial review of prior history and PE, I do not suspect that there is an autoimmune or inflammatory component to this at this time. This may be attributed to overuse during her move. The RF and CCP are negative. However, the results of CED is still pending. Follow-up in 2 months. Will call patient if any adverse results of labs and Xray Coding Level of Care Code New Pt Level 4 (33345) Diagnoses Tenosynovitis of finger M65.9 CPT Codes Tendon Injection - Tendon Injection 1: 13362-Wrsbbd Tendon Sheath Injection ([id number]) Tendon Injection - Tendon Injection 1: 69094-Lsxvef Tendon Sheath Injection ([id number]) Tendon Injection - Tendon Injection 2: 70653-Dvsdam Tendon Origin/Insertion Injection ([id number])
[2023-06-30 13:22] VITALS: BP 110/70; PULSE 76; TEMP 36.2; O2SAT 95; BMI 26.4
== END 2023-06-30 14:15 | disposition home or self-care (01) ==
PROVIDERS: PCP Internal Medicine; Visit Provider Nurse Practitioner Family
DX: M65.841 Other synovitis and tenosynovitis, right hand (principal); M65.842 Other synovitis and tenosynovitis, left hand
CPT/HCPCS: 20550; 99203

== ENCOUNTER → 2023-06-30 13:17 | Outpatient (BNVA) | payer OTHER, SELFPAY | PROVIDERS: PCP Internal Medicine; Visit Provider Nurse Practitioner Family | DX: M65.9 Synovitis and tenosynovitis, unspecified (principal) | CPT/HCPCS: 20550; 99202; J3301 ==

== ENCOUNTER 2023-09-22 12:38 | Outpatient (AMB) | payer OTHER, SELFPAY ==
--- NOTE | 2023-09-22 12:46 | MHC.PC.OV ---
Vital Signs 09/22/23 12:49 09/22/23 12:55 Height 5 ft 2 in Weight 147 lb 8 oz BMI 27.0 BP 150/90 H 130/80 Blood Pressure Location Lt brachial Lt brachial Position Sitting Sitting Pulse 96 Pulse Source Pulse Oximeter Pulse Oximetry (%) 97 Oxygen Delivery Method Room Air Intake Visit Reasons: shingles pain Intake Note: Patient is here today for shingles pain [employer] Foreperson Required: No Surg Rn: Not Required per policy Accompanied by: Self / Same As Patient Allergies lisinopril Allergy (Severe, Verified 09/25/23 10:18) Angioedema amoxicillin [Amoxicillin] Allergy (Intermediate, Verified 09/25/23 10:18) SHORTNESS OF BREATH penicillin V Allergy (Intermediate, Verified 09/25/23 10:18) shortness of breath Penicillins Allergy (Intermediate, Verified 09/25/23 10:18) SHORTNESS OF BREATH Medication List - Last Reconciled 09/25/23 by Robinson Botello MD albuterol sulfate 90 mcg/actuation (Ventolin HFA) 1 inh inhalation QID PRN atorvastatin 20 mg PO DAILY 90 days cetirizine (Zyrtec) 10 mg PO DAILY PRN cholecalciferol (vitamin D3) 50 mcg PO DAILY 90 days diphenhydramine HCl (Benadryl) 25 mg PO TID PRN fluocinonide 0.05% 1 appl topical BID PRN gabapentin (Neurontin) 300 mg PO TID hydrochlorothiazide 12.5 mg PO DAILY hydroxyzine HCl 1 tab PO BEDTIME PRN losartan 50 mg PO DAILY 90 days metformin ER 1,000 mg (2 x 500 mg) PO BID 90 days multivitamin 1 tab PO DAILY oxycodone Take 1 tablet by mouth 2 to 3 times a day as needed for increased pain; 28 days [id number]-[id number]-igmpvwtidfv 2.5-5-50 mg/5 mL (Robitussin Cough and Cold CF) 20 mL PO Q4H PRN sennosides 8.6 mg PO DAILY PRN tacrolimus 0.1% 1 appl topical BID valacyclovir 1,000 mg PO TID zolpidem 10 mg PO BEDTIME PRN 30 days Tobacco use date assessed: 09/22/23 Dental Screening Dental Screen Date: 09/22/23 Did you have a dental visit in the last 12 months?: Yes Did you have a dental problem in the last 6 months where you did not have access to dental care?: No Was dental information given to patient?: Patient has dentist HPI shingles pain HPI Details 63-year-old female presents to the office for a sick visit. Patient has been diagnosed with herpes zoster in the past week. She was seen at the emergency room and given valacyclovir. Patient is complaining a lot of discomfort in the area of the rash. For a different reason patient is already taking oxycodone. 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 Obesity (BMI 30-39.9) Smoker Depression Anxiety Insomnia GERD without esophagitis Constipation Osteoarthritis of left knee Lumbar radiculopathy Lumbar degenerative disc disease Pure hypercholesterolemia Benign essential hypertension Diabetes mellitus Surgical History History of tooth extraction History of ectopic History of open reduction and internal fixation (ORIF) procedure History of foot surgery History of tubal ligation Family History Father Hypertension Mother Hypertension Arthritis Family/Other Breast cancer Social History (Updated 09/22/23 @ 12:54 by ZEV Wiggins) Household Members: None Housing: Apartment Alcohol intake: never Patient Tobacco Use Status: Current everyday Tobacco user Tobacco use type: Cigarette Cigarettes Per Day: 8 e-Cigarette/Vaping Use: Never Used Second Hand Smoke Exposure: Yes service: No Current occupational status: disabled Cognitive needs: No Hearing needs: No Vision needs: No Questionnaire PHQ-9 Over the last 2 weeks, how often have you been bothered by any of the following problems? 1. Little interest or pleasure in doing things: not at all 2. Feeling down, depressed, or hopeless: not at all 3. Trouble falling or staying asleep, or sleeping too much: not at all 4. Feeling tired or having little energy: not at all 5. Poor appetite or overeating: not at all 6. Feeling bad about yourself - or that you are a failure or have let yourself or your family down: not at all 7. Trouble concentrating on things, such as reading the newspaper or watching television: not at all 8. Moving or speaking so slowly that other people could have noticed. Or the opposite - being so fidgety or restless that you have been moving around a lot more than usual: not at all 9. Thoughts that you would be better off or of hurting yourself in some way: not at all Total score: 0 Depression Screening Interpretation: Negative Depression Screening Done: Yes Source: Developed by Drs. Stan Kruse, Doris Bustamante, Jose Wheatley and colleagues, with an educational marlee from [employer]. Thrive Questionnaire Date Thrive assessed: 09/22/23 I am a: Patient What is your living situation today?: I have a steady place to live Within the past 12 months, did the food you bought not last and you didn't have the money to get more?: Never true Within the past 12 months, did you worry whether your food would run out before you got money to buy more?: Never true Do you have trouble paying for medicines?: No Do you have trouble getting transportation to medical appointments?: No Do you have trouble paying your heating and electricity bill?: No Do you have trouble taking care of your child, family member or friend?: No Do you have trouble with day-to-day activities such as bathing, preparing meals, shopping, managing finances, etc.?: No Are you currently unemployed and looking for a job?: No Are you interested in more education?: No Currently or been in a relationship where the following occur: no concerns reported AUDIT C Alcohol Use Questionnaire (AUDIT-C) 1. How often do you have a drink containing alcohol?: Never Total Score: 0 IZABEL-7 AMB Questionnaire IZABEL-7 Date IZABEL - 7 assessed: 09/22/23 Feeling nervous, anxious, or on edge: 0 = Not at all Not being able to stop or control worryin = Not at all Worrying too much about different things: 0 = Not at all Trouble relaxin = Not at all Being so restless that it is hard to sit still: 0 = Not at all Becoming easily annoyed or irritable: 0 = Not at all Feeling afraid as if something awful might happen: 0 = Not at all Total IZABEL-7 score (0-4 normal; 5-9 mild; 10-14 moderate; 15-21 severe): 0 Source: Developed by Drs. Stan Kruse, Doris Bustamante, Jose Wheatley and colleagues, with an educational marlee from [employer]. Physical exam (Primary Care) Vital Signs: Last Vital Signs Pulse 96 09/22/23 12:49 BP 130/80 09/22/23 12:55 Pulse Ox 97 09/22/23 12:49 Oxygen Delivery Method Room Air 09/22/23 12:49 BMI result Body Mass Index 27.0 Tobacco/Smoking Status: Tobacco use Status Tobacco use date assessed 09/22/23 09/22/23 12:56 Patient Tobacco Use Status Current everyday Tobacco 09/22/23 12:54 Tobacco use type Cigarette 09/22/23 12:54 e-Cigarette/Vaping Use Never Used 09/22/23 12:54 PHQ-9: PHQ-9 Score PHQ-9: Total score 0 09/22/23 12:47 Depression Screening Interpretation: Negative Thrive Assessment: Date of Thrive Assessment Date Thrive assessed 09/22/23 09/22/23 12:47 Currently or been in a relationship where the following occur: no concerns reported Skin Other: Erythematous rash on the right side of the abdomen along the dermatomal pattern. Assessment and Plan Assessment & Plan (1) Post herpetic neuralgia: Code(s): B02.29 - Other postherpetic nervous system involvement Plan: Neurontin added to the regimen. Patient was advised to use [id number] capsaicin cream for more relief. Medications: New gabapentin (Neurontin) 300 mg PO TID 90 caps 0RF Coding Level of Care Code Est Pt Level 3 (66037) Diagnoses Post herpetic neuralgia B02.29
[2023-09-22 12:49] VITALS: BP 150/90; PULSE 96; O2SAT 97; BMI 27.0
[2023-09-22 12:55] VITALS: BP 130/80
== END 2023-09-22 13:43 | disposition home or self-care (01) ==
PROVIDERS: PCP Internal Medicine; Visit Provider Internal Medicine
DX: B02.29 Other postherpetic nervous system involvement (principal)
CPT/HCPCS: 99213

== ENCOUNTER 2023-11-14 13:21 | Emergency (ER) | payer OTHER, SELFPAY ==
--- NOTE | ~2023-11-14 | XR_ITS ---
EXAMINATION: XR SHOULDER, RIGHT CLINICAL INFORMATION: Atraumatic shoulder pain COMPARISON: None available. TECHNIQUE: AP external rotation, Grashey, scapular Y views of the right shoulder. FINDINGS: The bones are intact. No fracture. Glenohumeral and acromioclavicular alignment is anatomic with normal joint space. No abnormal soft tissue calcifications. XR/XR shoulder RT min 2V IMPRESSION: No bony abnormality.
[2023-11-14 13:37] VITALS: BP 147/90; PULSE 84; RESP 16; TEMP 35.9; O2SAT 100; BMI 25.6
--- NOTE | 2023-11-14 13:39 | ED_ITS ---
HPI - General Adult General Chief complaint: Recheck/Abnormal Lab/Rx Stated complaint: low bs headache Time Seen by Provider: 11/14/23 22:38 Source: patient, RN notes reviewed and old records reviewed Mode of arrival: ambulatory Limitations: no limitations History of Present Illness HPI narrative: 63-year-old female with past medical history significant for insulin-dependent diabetes, reactive airway disease, GERD, constipation presents for evaluation of right shoulder pain and ? my sugar was low this morning. ? Patient reports right shoulder pain for the last 3-4 weeks pain Denies any trauma to the area. She has previously had cortisone injections on her left upper extremity but never on her right for arthritis. She denies any numbness, tingling, swelling to the area. For chronic pain. The patient also states that her sugar was in the 60s earlier today She reports that she gave her full dose of insulin but ?I did not eat breakfast sprain? She gave herself oral glucose and her blood sugar improves Related Data Home Medications Medication Instructions Recorded Confirmed fluocinonide 0.05 % topical cream 1 appl topical BID PRN rash or 10/08/22 09/25/23 eczema hydroxyzine HCl 25 mg tablet 1 tab PO BEDTIME PRN anxiety or 10/08/22 09/25/23 sleep multivitamin 1 tab PO DAILY 10/08/22 09/25/23 tacrolimus 0.1 % topical ointment 1 appl topical BID 06/23/23 09/25/23 valacyclovir 1 gram tablet 1,000 mg PO TID 09/22/23 09/25/23 Previous Rx's Medication Instructions Recorded albuterol sulfate 90 mcg/actuation 1 inh inhalation QID PRN shortness 04/21/22 aerosol inhaler (Ventolin HFA) of breath or wheezing #8.5 grams cetirizine 10 mg capsule (Zyrtec) 10 mg PO DAILY PRN allergy 12/17/22 symptoms #14 caps diphenhydramine HCl 25 mg capsule 25 mg PO TID PRN allergic reaction 12/17/22 (Benadryl) #20 caps metformin 500 mg tablet,extended 1,000 mg (2 x 500 mg) PO BID 90 01/31/23 release 24 hr days #360 tabs cholecalciferol (vitamin D3) 50 50 mcg PO DAILY 90 days #90 caps 04/25/23 mcg (2,000 unit) capsule hydrochlorothiazide 12.5 mg tablet 12.5 mg PO DAILY #30 tabs 07/18/23 atorvastatin 20 mg tablet 20 mg PO DAILY 90 days #90 caps 07/23/23 losartan 50 mg tablet 50 mg PO DAILY 90 days #90 tabs 08/22/23 gdsryegrqroav-EQ-udgumibjlst 2.5 20 ml PO Q4H PRN cough #118 mL 09/17/23 mg-5 mg-50 mg/5 mL oral liquid (Robitussin Cough and Cold CF) gabapentin 300 mg capsule 300 mg PO TID #90 caps 09/22/23 (Neurontin) capsaicin 0.075 % topical cream 1 appl topical TID PRN pain #120 10/18/23 grams oxycodone 10 mg tablet See Rx Instructions .Route 11/07/23 .COMPLEX 28 days #66 tabs sennosides 8.6 mg tablet 8.6 mg PO DAILY PRN constipation 11/07/23 #30 tabs zolpidem 10 mg tablet 10 mg PO BEDTIME PRN insomnia 30 11/07/23 days #30 tabs Allergies Allergy/AdvReac Type Severity Reaction Status Date / Time lisinopril Allergy Severe Angioedema Verified 09/25/23 10:18 amoxicillin [Amoxicillin] Allergy Intermediate SHORTNESS Verified 09/25/23 10:18 OF BREATH penicillin V Allergy Intermediate shortness Verified 09/25/23 10:18 of breath Penicillins Allergy Intermediate SHORTNESS Verified 09/25/23 10:18 OF BREATH Review of Systems 2 Constitutional: Constitutional: Denies chills and Denies fever(s) Cardiovascular: Cardiovascular: Denies chest pain Respiratory: Respiratory: Denies cough and Denies pain with cough Gastrointestinal: Gastrointestinal: Denies abdominal pain Musculoskeletal: Musculoskeletal: Reports arthralgias, Reports joint swelling and Reports limited range of motion Integumentary/Breasts: Skin/Breast: Denies rash PMFSH Past Medical History Medical History (Updated 11/14/23 @ 22:53 by Yousif Corea) Tenosynovitis of finger Overweight (BMI 25.0-29.9) 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 Obesity (BMI 30-39.9) Smoker Depression Anxiety Insomnia GERD without esophagitis Constipation Osteoarthritis of left knee Lumbar radiculopathy Lumbar degenerative disc disease Pure hypercholesterolemia Benign essential hypertension Diabetes mellitus Surgical History History of tooth extraction History of ectopic History of open reduction and internal fixation (ORIF) procedure History of foot surgery History of tubal ligation Family History Family History Father Hypertension Mother Hypertension Arthritis Family/Other Breast cancer Social History Social History (Updated 09/22/23 @ 12:54 by ZEV Wiggins) Household Members: None Housing: Apartment Alcohol intake: never Patient Tobacco Use Status: Current everyday Tobacco user Tobacco use type: Cigarette Cigarettes Per Day: 8 e-Cigarette/Vaping Use: Never Used Second Hand Smoke Exposure: Yes Advance Directives: No Advance Directives Information Provided: No service: No Current occupational status: disabled Cognitive needs: No Hearing needs: No Vision needs: No Physical Exam ED Vital Signs: Vital Signs - 24 hr 11/14/23 13:37 Temperature 96.6 F L Pulse Rate 84 Respiratory Rate 16 Blood Pressure 147/90 H Pulse Oximetry 100 Oxygen Delivery Method Room Air BMI result Body Mass Index 25.6 Const General: healthy appearing, comfortable, no acute distress, alert and awake Nutritional Appearance: well nourished Orientation/consciousness: patient oriented x3 HENMT Head: Yes normocephalic and Yes atraumatic Eyes Eyelids: Yes eyelids normal Conjunctivae: conjunctivae normal Sclerae: sclerae normal Corneas: corneas normal Pupils: Equal, round and reactive pupils present EOM: EOMs intact bilaterally Neck Neck: Yes full ROM Resp Effort & Inspection: normal respiratory effort, able to speak in complete sentences and not labored Cardio Rate: regular rate Rhythm: regular rhythm GI Inspection: No distended Palpation (GI): Soft to palpation, not firm, nontender, no guarding and not rigid Back/Spine/Pelvis Other: No C-spine tender Neuro General: patient oriented x3 Cranial nerves: Yes Equal, round and reactive pupils present and Yes Bilaterally intact EOM present Cognition (Neuro): normal cognition Extrem Other: Some tenderness to the right acromioclavicular joint. No deformity palpable. It is full range of motion the right upper extremity without difficulty. No right elbow tenderness. Course Course Course Narrative: RME:?63 yo female hx DM on metformin here for eval of low blood sugar [employer]. [place] dizzy and weak- poc glucose 60 this am at home. ate and then re-checked BS .. first poc 100, second poc 130 (1 hr ago). continues to have headache at present. additionally endorses atraumatic right shoulder pain x1 week. ttp over right glenohumeral joint. basic labs, poc glucose, xr ordered Full HPI, ROS and PE to be performed by the primary ED provider. Medical Decision Making Medical Decision Making [facility] Narrative: 63-year-old female presents for evaluation of right shoulder pain. She also reports her blood sugar was low prior to arrival. Her sugar has been checked several times in the ER and has all been over 100, most recently 190 prior to discharge. Patient was educated not to take a full dose of insulin if she does not eat breakfast that morning. Patient reports a previous reaction to lidocaine cream so we will not prescribe lidocaine patches Differential Diagnosis Differential Diagnoses: The differential diagnosis associated with the presentation includes Hyperglycemia Hypoglycemia Shoulder pain Arthrex Lab Data [facility] Lab Attestation statement: I reviewed the patient's lab results. No leukocytosis, no anemia. Normal platelet count. No electrolyte abnormalities. Glucose initially 117. 11/14/23 14:53 11/14/23 14:53 Labs: Lab Results 11/14/23 Range/Units 14:53 WBC 7.2 (4.8-10.8) X10*3/uL RBC 4.70 (4.20-5.50) X10*6/uL Hgb 14.5 (12.0-16.0) g/dl Hct 45.2 (37.0-47.0) % MCV 96.2 (80.0-98.0) fL MCH 30.9 (27.0-33.0) pg MCHC 32.1 (31.0-35.0) g/dl RDW 13.9 (11.0-16.0) % Plt Count 238 (160-400) X10*3/uL MPV 9.8 (9.4-12.3) fL Immature Gran % (Auto) 0.4 (0.0-0.4) % Neut % (Auto) 55.1 (45-73) % Lymph % (Auto) 32.7 (20-40) % Aiken % (Auto) 8.3 (2-11) % Eos % (Auto) 2.4 (0-4) % Baso % (Auto) 1.1 (0-2) % Lymph # (Auto) 2.4 (1.2-4.9) X10*3/uL Aiken # (Auto) 0.6 (0.1-1.2) X10*3/uL Eos # (Auto) 0.2 (0.0-0.4) X10*3/uL Baso # (Auto) 0.1 (0.0-0.2) X10*3/uL Abs Immat Gran (auto) 0.03 (0.00-0.03) X10*3/uL Absolute Neuts (auto) 4.0 (2.0-8.3) x10*3/uL Absolute Nucleated RBC 0.000 (0.0-0.012) X10*3/uL Nucleated RBC % (auto) 0.0 (0.0-0.2) /100WBC Sodium 138 (135-145) mmol/L Potassium 3.9 (3.3-5.1) mmol/L Chloride 103 (96-108) mmol/L Carbon Dioxide 28 (22-29) mmol/L Anion Gap 11 L (12-20) BUN 11 (9-16) mg/dL Creatinine 0.68 (0.5-1.4) mg/dL Estim Creat Clear Calc 75.0 Estimated GFR > 60 Random Glucose 117 H (60-115) mg/dL Calcium 9.2 (8.4-10.2) mg/dL Magnesium 2.0 (1.6-2.6) mg/dL Independent Interpretation I performed an independent interpretation of an: Plain X-Ray (No right shoulder fracture or dislocation) Radiology Impression Discussion of test interpretation with radiology: I have reviewed the radiologist's reading. (No bony abnormality) Discharge Plan Discharge Clinical Impression: Acute pain of right shoulder Patient Disposition: Home, Self-Care Instructions: Shoulder Pain (ED) Additional Instructions: Your sugars were within normal limits today. If you do not eat breakfast, you should not give herself a full dose of insulin, as it will likely drop your blood sugar low Your x-ray shows no fractures Follow-up with your primary doctor, return for new or worsening symptoms Prescriptions: No Action cholecalciferol (vitamin D3) 50 mcg (2,000 unit) capsule 50 mcg PO DAILY 90 Days Qty: 90 3RF hydrochlorothiazide 12.5 mg tablet 12.5 mg PO DAILY Qty: 30 3RF atorvastatin 20 mg tablet 20 mg PO DAILY 90 Days Qty: 90 1RF losartan 50 mg tablet 50 mg PO DAILY 90 Days Qty: 90 1RF Robitussin Cough and Cold CF 2.5-5-50 mg/5 mL liquid 20 ml PO Q4H PRN (Reason: cough) Qty: 118 0RF capsaicin 0.075 % cream 1 appl topical TID PRN (Reason: pain) Qty: 120 0RF Rx Instructions: do not wash area for at least 30 min after application zolpidem 10 mg tablet 10 mg PO BEDTIME PRN (Reason: insomnia) 30 Days Qty: 30 1RF oxycodone 10 mg tablet See Rx Instructions .ROUTE .COMPLEX 28 Days Qty: 66 0RF Rx Instructions: Take 1 tablet by mouth 2 to 3 times a day as needed for increased pain; sennosides 8.6 mg tablet 8.6 mg PO DAILY PRN (Reason: constipation) Qty: 30 12RF multivitamin Tablet 1 tab PO DAILY hydroxyzine HCl 25 mg tablet 1 tab PO BEDTIME PRN (Reason: anxiety or sleep) fluocinonide 0.05 % cream 1 appl topical BID PRN (Reason: rash or eczema) diphenhydramine HCl [Benadryl] 25 mg capsule 25 mg PO TID PRN (Reason: allergic reaction) Qty: 20 0RF Zyrtec 10 mg capsule 10 mg PO DAILY PRN (Reason: allergy symptoms) Qty: 14 0RF albuterol sulfate [Ventolin HFA] 90 mcg/actuation HFA aerosol inhaler 1 inh inhalation QID PRN (Reason: shortness of breath or wheezing) Qty: 8.5 1RF metformin 500 mg tablet extended release 24 hr 1,000 mg PO BID 90 Days Qty: 360 1RF valacyclovir 1 gram tablet 1,000 mg PO TID gabapentin [Neurontin] 300 mg capsule 300 mg PO TID Qty: 90 0RF tacrolimus 0.1 % ointment 1 appl topical BID
[2023-11-14 14:56] LABS: MANUAL DIFF FLAG NO
[2023-11-14 15:07] LABS: Basophils Absolute Auto 0.1 X10*3/uL (0.0-0.2); Basophils Percent Auto 1.1 % (0-2); Eosinophils Absolute Auto 0.2 X10*3/uL (0.0-0.4); Eosinophils Percent Auto 2.4 % (0-4); Hematocrit 45.2 % (37.0-47.0); Hemoglobin 14.5 g/dl (12.0-16.0); Imm Gran Abs Auto 0.03 X10*3/uL (0.00-0.03); Imm Gran Pct Auto 0.4 % (0.0-0.4); Lymphocytes Absolute Auto 2.4 X10*3/uL (1.2-4.9); Lymphocytes Percent Auto 32.7 % (20-40); Mean Corpuscular HGB Conc 32.1 g/dl (31.0-35.0); Mean Corpuscular Hemoglobin 30.9 pg (27.0-33.0); Mean Corpuscular Volume 96.2 fL (80.0-98.0); Mean Platelet Volume 9.8 fL (9.4-12.3); Monocytes Absolute Auto 0.6 X10*3/uL (0.1-1.2); Monocytes Percent Auto 8.3 % (2-11); Neutrophils Percent Auto 55.1 % (45-73); Platelet Count 238 X10*3/uL (160-400); Red Cell Distribution Width 13.9 % (11.0-16.0); White Blood Count 7.2 X10*3/uL (4.8-10.8)
[2023-11-14 15:14] LABS: Anion Gap 11 (12-20); Blood Urea Nitrogen 11 mg/dL (9-16); Calcium 9.2 mg/dL (8.4-10.2); Carbon Dioxide 28 mmol/L (22-29); Chloride 103 mmol/L (96-108); Estimated Glomerular Filt Rate > 60; Glucose Random 117 mg/dL (60-115); Potassium 3.9 mmol/L (3.3-5.1); Sodium 138 mmol/L (135-145)
[2023-11-14 23:05] LABS: Glucose, Whole Blood 190 mg/dL (60-115)
== END 2023-11-14 23:14 | disposition home or self-care (01) ==
PROVIDERS: Physician Assistant Medical; Emergency Provider Internal Medicine; PCP Internal Medicine
DX: M25.511 Pain in right shoulder (principal); E11.649 Type 2 diabetes mellitus with hypoglycemia without coma; I10 Essential (primary) hypertension; Z79.4 Long term (current) use of insulin
CPT/HCPCS: 36415; 73030; 80048; 82947; 83735; 85025; 99282; 99283

== ENCOUNTER 2023-12-29 07:46 | Outpatient (REF) | payer OTHER, SELFPAY ==
[2023-12-29 08:08] LABS: Appearance Urine Clear; Color Urine Yellow; Glucose Urine UA Negative (Negative); Leukocyte Esterase Urine Negative (Negative); Nitrite Urine Negative (Negative); UMIC TRIGGER UACC YES; Urine Blood Small (1+) (Negative); Urine Ketones Negative (Negative); Urine Protein Negative (Neg-Trace)
[2023-12-29 08:10] LABS: Bacteria Urine None Seen (None Seen); Hyaline Casts Urine 0-2 /LPF (0-2); Squamous Epithelial Cell Urine 0-2 /HPF (0-2); WBC Urine 0-5 /HPF (0-5)
== END 2023-12-29 07:47 | disposition home or self-care (01) ==
LOC: HO.LAB 07:46
PROVIDERS: PCP Internal Medicine; Visit Provider Internal Medicine
DX: E11.9 Type 2 diabetes mellitus without complications (principal); R30.0 Dysuria
CPT/HCPCS: 81001; 81003

== ENCOUNTER 2023-12-29 11:53 | Outpatient (AMB) | payer OTHER, SELFPAY ==
[2023-12-29 11:54] VITALS: BP 132/68; PULSE 85; O2SAT 97; BMI 27.8
--- NOTE | 2023-12-29 11:54 | A.OFFPC_ITS ---
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: No Allergies lisinopril Allergy (Severe, Verified 12/29/23 13:24) Angioedema amoxicillin [Amoxicillin] Allergy (Intermediate, Verified 12/29/23 13:24) SHORTNESS OF BREATH penicillin V Allergy (Intermediate, Verified 12/29/23 13:24) shortness of breath Penicillins Allergy (Intermediate, Verified 12/29/23 13:24) SHORTNESS OF BREATH Medication List - Last Reconciled 12/29/23 by Lionel Rodriguez MD albuterol sulfate 90 mcg/actuation (Ventolin HFA) 1 inh inhalation QID PRN atorvastatin 20 mg PO DAILY 90 days capsaicin 0.075% 1 appl topical TID PRN cetirizine (Zyrtec) 10 mg PO DAILY PRN cholecalciferol (vitamin D3) 50 mcg PO DAILY 90 days diphenhydramine HCl (Benadryl) 25 mg PO TID PRN fluocinonide 0.05% 1 appl topical BID PRN hydrochlorothiazide 12.5 mg PO DAILY hydroxyzine HCl 1 tab PO BEDTIME PRN losartan 50 mg PO DAILY 90 days metformin ER 1,000 mg (2 x 500 mg) PO BID 90 days multivitamin 1 tab PO DAILY oxycodone Take 1 tablet by mouth 2 to 3 times a day as needed for increased pain; 28 days [id number] 2.5-5-50 mg/5 mL (Robitussin Cough and Cold CF) 20 mL PO Q4H PRN sennosides 8.6 mg PO DAILY PRN tacrolimus 0.1% 1 appl topical BID valacyclovir 1,000 mg PO TID zolpidem 10 mg PO BEDTIME PRN 30 days Tobacco use date assessed: 12/29/23 Dental Screening Dental Screen Date: 09/22/23 HPI 3 month f/u HPI Details Patient comes in today for her follow up visit - was last seen by me on 05/11/2023 She has not had any follow up labs done recently as she states that she went to the lab the other day and was told that there were no labs ordered for her at present Her last follow up labs were done back in June 2023 although she did have some tests done in October 2023 when she was seen at the ER Recalls that she broke out in shingles back in September 20[address] was seen by Dr[address] Botello, who started her on Gabapentin for her pain States that she presently still has some mild burning sensation over the right upper abdominal area where her shingles lesions broke out at but she otherwise feels okay and is no longer taking her Gabapentin Adds that she had been experiencing increased pain over her right shoulder for the past couple of months now She denies any recent injury or trauma to her shoulder but states that she does have a habit of sleeping on her right side often She went to the ER a couple of months ago for this and had shoulder x-rays done, which reportedly came out normal She would now like to know what to do next as her shoulder is still bothering her a lot She denies any headaches or dizziness Denies any chest pains, no SOB No nausea/vomiting, no abdominal pain No change in bowel habits noted States that her chronic low back pain and joint pains remain adequately controlled on her current Rx and she does not need any Rx refills at this time [facility] Medical History Tenosynovitis of finger Overweight (BMI 25.0-29.9) 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 Obesity (BMI 30-39.9) Smoker Depression Anxiety Insomnia GERD without esophagitis Constipation Osteoarthritis of left knee Lumbar radiculopathy Lumbar degenerative disc disease Pure hypercholesterolemia Benign essential hypertension Diabetes mellitus Surgical History History of tooth extraction History of ectopic History of open reduction and internal fixation (ORIF) procedure History of foot surgery History of tubal ligation Family History Father Hypertension Mother Hypertension Arthritis Family/Other Breast cancer Social History Household Members: None Housing: Apartment Alcohol intake: never Patient Tobacco Use Status: Current everyday Tobacco user Tobacco use type: Cigarette Cigarettes Per Day: 8 e-Cigarette/Vaping Use: Never Used Second Hand Smoke Exposure: Yes service: No Current occupational status: disabled Cognitive needs: No Hearing needs: No Vision needs: No Questionnaire Thrive Questionnaire Date Thrive assessed: 09/22/23 AUDIT C Alcohol Use Questionnaire (AUDIT-C) 1. How often do you have a drink containing alcohol?: Never 3. How often do you have six or more drinks on one occasion?: Never Total Score: 0 Score Reviewed/Action Taken: Yes IZABEL-7 AMB Questionnaire IZABEL-7 Date IZABEL - 7 assessed: 09/22/23 Source: Developed by Drs. Stan Kruse, Doris Bustamante, Jose Wheatley and colleagues, with an educational marlee from [employer]. Review of Systems Const Denies chills, Denies fatigue, Denies fever(s) and Denies headache(s) ENT Denies dysphagia, Denies dizziness, Denies otalgia, Denies headache(s), Denies neck pain, Denies odynophagia and Denies sore throat Card Denies chest pain, Denies palpitations and Denies dyspnea Resp Denies cough and Denies dyspnea GI Denies abdominal pain, Denies constipation, Denies dysphagia, Denies heartburn, Denies diarrhea, Denies nausea, Denies odynophagia and Denies vomiting Denies hematuria, Denies difficulty voiding, Denies nocturia, Denies dysuria and Denies urinary urgency Musc Reports back pain (chronic, over the lower back), Reports arthralgias (over both hands/fingers and on both knees; increased over R shoulder lately), Denies neck pain and Reports stiffness Skin/Breast Details: (+) recurrent rash on the upper chest wall, often triggered by sun exposure Neuro Details: (+) residual burning sensation and pain over the right upper abdominal wall area (where shingles lesions broke out over a few months ago) Denies dizziness and Denies headache(s) Psych Reports anxiety Endo Denies fatigue and Denies palpitations Aller/Immun Reports as per HPI Physical exam (Primary Care) Vital Signs: Last Vital Signs Pulse 85 12/29/23 11:54 BP 132/68 12/29/23 11:54 Pulse Ox 97 12/29/23 11:54 Oxygen Delivery Method Room Air 12/29/23 11:54 BMI result Body Mass Index 27.8 Tobacco/Smoking Status: Tobacco use Status Tobacco use date assessed 12/29/23 12/29/23 11:58 Patient Tobacco Use Status Current everyday Tobacco 12/29/23 11:58 Tobacco use type Cigarette 12/29/23 11:58 e-Cigarette/Vaping Use Never Used 12/29/23 11:58 Thrive Assessment: Date of Thrive Assessment Date Thrive assessed 09/22/23 12/29/23 11:58 Const General: no acute distress and alert HENMT Ears: TM's normal bilaterally and EAC's normal Throat: Yes posterior oropharynx normal and Yes tonsils normal (no TP congestion noted) Neck Neck: Yes no lymphadenopathy and Yes supple Thyroid: Thyroid normal Resp Auscultation: clear to auscultation bilaterally, no rales and no wheezes Cardio Rate: regular rate Rhythm: regular rhythm Heart sounds: no murmurs GI Palpation (GI): Soft to palpation and nontender Auscultation: normal bowel sounds Back/Spine/Pelvis Thoracic/Lumbar Spine: lumbar spinal tenderness (chronic) Skin Other: (+) few scattered erythematous papular lesions on the upper chest wall; some residual faint scars noted over the right upper abdominal wall - area is slightly sensitive to touch Extrem General: Yes no clubbing, cyanosis or edema Right upper extremity: shoulder/upper arm Details: tenderness Location: of the A-C joint; no swelling and Extremity exam: right hand Details: tenderness and no swelling Left upper extremity: hand Details: tenderness and no swelling Right lower extremity: knee Details: tenderness (mild); no swelling Left lower extremity: knee Details: tenderness; no swelling Results AMB Hemoglobin A1c AMB Hemoglobin A1c 4.9 % Last Edit by ZEV Jhaveri on 12/29/23 12:10 Results Reviewed Results Reviewed: Laboratory Last Values Hgb A1c (Clinic) 4.9 % (4.0-6.0) 12/29/23 12:08 Assessment and Plan Assessment & Plan (1) Bursitis of right shoulder: Code(s): M75.51 - Bursitis of right shoulder Plan: X-rays of the right shoulder done in October 2023 came out normal Patient is advised that her shoulder symptoms/pain are consistent with bursitis Will refer her to physical therapy for further evaluation and management (2) Pure hypercholesterolemia: Code(s): E78.00 - Pure hypercholesterolemia, unspecified Plan: Reinforced low cholesterol diet Patient has not had any recent follow up labs done or ordered as she got off her routinely scheduled follow up appointments when her last appt was revised Reassured that her cholesterol levels when they were last checked in June 2023 were much improved from previous Continue Atorvastatin 20 mg QD for now Will recheck her labs and fasting lipids in 3 months for follow up (3) Diabetes mellitus: Code(s): E11.9 - Type 2 diabetes mellitus without complications Qualifiers: Diabetes mellitus complication status: without complication Diabetes mellitus fci insulin use: without fci use Diabetes mellitus type: type 2 Qualified Code(s): E11.9 - Type 2 diabetes mellitus without complications Plan: In-office HgbA1c today is normal at 4.9%; her HgbA1c was at 5.4% and 5.6% when they were checked sometime last year - goal is < 7.0% Reinforced diabetic diet Continue Metformin ER 500 mg 2 tablets BID Will recheck her labs and HgbA1c in 3 months for follow up (4) Benign essential hypertension: Code(s): I10 - Essential (primary) hypertension Plan: Reinforced low sodium diet - goal is systolic BP of 120 mm or less Continue HCT 12.5 mg QD and Losartan 50 mg QD (she developed angioedema on Lisinopril previously) (5) Multiple allergies: Code(s): Z88.9 - Allergy status to unspecified drugs, medicaments and biological substances Plan: She has been referred to allergy and immunology for allergy testing and evaluation - to follow up with radiological equipment specialist as scheduled Continue Cetirizine 10 mg QD PRN (6) Tenosynovitis of finger: Code(s): M65.9 - Synovitis and tenosynovitis, unspecified Plan: X-rays of both hands done back in June 2023 came out normal Patient had some labs done back in 2012 and again in June 2023 for arthralgia work ups - tests done were all negative for inflammatory markers She was referred to and seen by rheumatology a few months ago and received some cortisone injections into her hands/fingers and states that she experienced some relief from the injections Follow up with rheumatology as scheduled (7) Lumbar degenerative disc disease: Code(s): M51.36 - Other intervertebral disc degeneration, lumbar region Plan: Reinforced activity and weight-lifting restrictions Continue Tizanidine 4 mg TID PRN and Oxycodone 10 mg 2 to 3 times a day only as needed for increased pain Follow up with [facility] [place] Pain Management as scheduled (8) Osteoarthritis of left knee: Code(s): M17.12 - Unilateral primary osteoarthritis, left knee Qualifiers: Osteoarthritis type: primary Qualified Code(s): M17.12 - Unilateral primary osteoarthritis, left knee Plan: X-rays of the left knee done in the past showed (+) arthritis changes Follow up with orthopedics as scheduled (9) Postherpetic neuralgia: Code(s): B02.29 - Other postherpetic nervous system involvement Plan: This is mostly over her right upper abdominal wall area and states that her symptoms are tolerable She is no longer taking Gabapentin - does not feel that she needs to continue taking it (10) Rash and nonspecific skin eruption: Code(s): R21 - Rash and other nonspecific skin eruption Plan: Follow up with dermatology as scheduled (11) Insomnia: Code(s): G47.00 - Insomnia, unspecified Qualifiers: Insomnia type: unspecified Qualified Code(s): G47.00 - Insomnia, unspecified Plan: Sleep hygiene reinforced Continue Zolpidem 10 mg Q HS PRN (12) Anxiety: Code(s): F41.9 - Anxiety disorder, unspecified Plan: Continue Lorazepam 0.5 mg BID PRN for severe anxiety (13) Depression: Code(s): F32.9 - Major depressive disorder, single episode, unspecified Qualifiers: Active/Remission status: currently active Depression Type: major depressive disorder Major depression episode severity: unspecified Major depression recurrence: recurrent Qualified Code(s): F33.9 - Major depressive disorder, recurrent, unspecified Plan: Follow up with psychiatry as scheduled (14) Smoker: Code(s): F17.200 - Nicotine dependence, unspecified, uncomplicated Plan: Counseled again on smoking cessation (15) Overweight (BMI 25.0-29.9): Code(s): E66.3 - Overweight Plan: Reinforced diet/exercise as tolerated/lose weight Plan Follow up in 3 months Orders: Orders PT Evaluation and Treatment Today M75.51 - Bursitis of right shoulder Comprehensive [place]. Panel Fast 3 Months E78.00 - Pure hypercholesterolemia, unspecified UA CC w/rflx Micro + Cult 3 Months R30.0 - Dysuria AMB Hemoglobin A1c Today E11.9 - Type 2 diabetes mellitus without complications Complete Blood Count Auto Diff 3 Months D64.9 - Anemia, unspecified Lipid Panel 3 Months E78.00 - Pure hypercholesterolemia, unspecified TSH reflex Free T4 3 Months E78.00 - Pure hypercholesterolemia, unspecified Coding Level of Care Code Est Pt Level 4 (86709) Diagnoses Bursitis of right shoulder M75.51 Pure hypercholesterolemia E78.00 Type 2 diabetes mellitus without complication, without long-term current use of insulin E11.9 Diabetes mellitus complication status: without complication Diabetes mellitus terminal carman insulin use: without fci use Diabetes mellitus type: type 2 Benign essential hypertension I10 Multiple allergies Z88.9 Tenosynovitis of finger M65.9 Lumbar degenerative disc disease M51.36 Primary osteoarthritis of left knee M17.12 Osteoarthritis type: primary Postherpetic neuralgia B02.29 Rash and nonspecific skin eruption R21 Insomnia, unspecified type G47.00 Insomnia type: unspecified Anxiety F41.9 Episode of recurrent major depressive disorder, unspecified depression episode severity F33.9 Active/Remission status: currently active Depression Type: major depressive disorder Major depression episode severity: unspecified Major depression recurrence: recurrent Smoker F17.200 Overweight (BMI 25.0-29.9) E66.3
== END 2023-12-29 12:42 | disposition home or self-care (01) ==
PROVIDERS: PCP Internal Medicine; Visit Provider Internal Medicine
DX: E11.9 Type 2 diabetes mellitus without complications (principal)
CPT/HCPCS: 83036; 99214

== ENCOUNTER 2024-04-19 11:53 | Outpatient (AMB) | payer OTHER, SELFPAY ==
[2024-04-19 11:55] VITALS: BP 130/64; PULSE 82; O2SAT 98; BMI 28.0
--- NOTE | 2024-04-19 11:55 | A.OFFPC_ITS ---
Vital Signs 04/19/24 11:55 Height 5 ft 2 in Weight 153 lb BMI 28.0 BP 130/64 Blood Pressure Location Lt brachial Position Sitting Pulse 82 Pulse Source Pulse Oximeter Pulse Oximetry (%) 98 Oxygen Delivery Method Room Air Intake Visit Reasons: 3 MO f/u Glass Unloading Equipment Tender: Not Required per policy Accompanied by: Self / Same As Patient Allergies lisinopril Allergy (Severe, Verified 04/19/24 12:44) Angioedema amoxicillin [Amoxicillin] Allergy (Intermediate, Verified 04/19/24 12:44) SHORTNESS OF BREATH penicillin V Allergy (Intermediate, Verified 04/19/24 12:44) shortness of breath Penicillins Allergy (Intermediate, Verified 04/19/24 12:44) SHORTNESS OF BREATH Medication List - Last Reconciled 04/19/24 by Lionel Rodriguez MD albuterol sulfate 90 mcg/actuation (Ventolin HFA) 1 inh inhalation QID PRN atorvastatin 20 mg PO DAILY 90 days capsaicin 0.075% 1 appl topical TID PRN cetirizine (Zyrtec) 10 mg PO DAILY PRN cholecalciferol (vitamin D3) 50 mcg PO DAILY 90 days diphenhydramine HCl (Benadryl) 25 mg PO TID PRN fluocinonide 0.05% 1 appl topical BID PRN hydrochlorothiazide 12.5 mg PO DAILY hydroxyzine HCl 1 tab PO BEDTIME PRN losartan 50 mg PO DAILY 90 days metformin ER 1,000 mg (2 x 500 mg) PO BID 90 days multivitamin 1 tab PO DAILY oxycodone Take 1 tablet by mouth 2 to 3 times a day as needed for increased pain; 28 days uwjxezavotqkk-FY-aepptsejbpu 2.5-5-50 mg/5 mL (Robitussin Cough and Cold CF) 20 mL PO Q4H PRN sennosides 8.6 mg PO DAILY PRN tacrolimus 0.1% 1 appl topical BID valacyclovir 1,000 mg PO TID zolpidem 10 mg PO BEDTIME PRN 30 days Tobacco use date assessed: 12/29/23 Dental Screening Dental Screen Date: 09/22/23 HPI 3 MO f/u HPI Details Patient comes in today for her follow up visit States that she feels okay She denies any headaches or dizziness Denies any chest pains, no SOB No nausea/vomiting, no abdominal pain No change in bowel habits noted States that her chronic low back pain and joint pains remain adequately controlled on her current Rx She was not able to get her follow up labs done prior to her visit today - states that she will go and get these done 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 Smoker Depression Anxiety Insomnia GERD without esophagitis Constipation Osteoarthritis of left knee Lumbar radiculopathy Lumbar degenerative disc disease Pure hypercholesterolemia Benign essential hypertension Diabetes mellitus Surgical History History of tooth extraction History of ectopic History of open reduction and internal fixation (ORIF) procedure History of foot surgery History of tubal ligation Family History Father Hypertension Mother Hypertension Arthritis Family/Other Breast cancer Social History Household Members: None Housing: Apartment Alcohol intake: never Patient Tobacco Use Status: Current everyday Tobacco user Tobacco use type: Cigarette Cigarettes Per Day: 8 e-Cigarette/Vaping Use: Never Used Second Hand Smoke Exposure: Yes service: No Current occupational status: disabled Cognitive needs: No Hearing needs: No Vision needs: No Questionnaire Thrive Questionnaire Date Thrive assessed: 09/22/23 IZABEL-7 AMB Questionnaire IZABEL-7 Date IZABEL - 7 assessed: 09/22/23 Source: Developed by Drs. Stan Kruse, Doris Bustamante, Jose Wheatley and colleagues, with an educational marlee from [employer]. Review of Systems Const Denies chills, Denies fatigue, Denies fever(s) and Denies headache(s) ENT Denies dysphagia, Denies dizziness, Denies otalgia, Denies headache(s), Denies neck pain, Denies odynophagia and Denies sore throat Card Denies chest pain, Denies palpitations and Denies dyspnea Resp Denies cough and Denies dyspnea GI Denies abdominal pain, Denies constipation, Denies dysphagia, Denies heartburn, Denies diarrhea, Denies nausea, Denies odynophagia and Denies vomiting Denies hematuria, Denies difficulty voiding, Denies nocturia, Denies dysuria and Denies urinary urgency Musc Reports back pain (chronic, over the lower back), Reports arthralgias (over both hands/fingers and on both knees), Denies neck pain and Reports stiffness Skin/Breast Denies rash Neuro Denies dizziness and Denies headache(s) Psych Reports anxiety Endo Denies fatigue and Denies palpitations Aller/Immun Reports as per HPI Physical exam (Primary Care) Vital Signs: Last Vital Signs Pulse 82 04/19/24 11:55 BP 130/64 04/19/24 11:55 Pulse Ox 98 04/19/24 11:55 Oxygen Delivery Method Room Air 04/19/24 11:55 BMI result Body Mass Index 28.0 Tobacco/Smoking Status: Tobacco use Status Tobacco use date assessed 12/29/23 04/19/24 11:56 Patient Tobacco Use Status Current everyday Tobacco 04/19/24 11:56 Tobacco use type Cigarette 04/19/24 11:56 e-Cigarette/Vaping Use Never Used 04/19/24 11:56 Thrive Assessment: Date of Thrive Assessment Date Thrive assessed 09/22/23 04/19/24 11:56 Const General: no acute distress and alert HENMT Ears: TM's normal bilaterally and EAC's normal Throat: Yes posterior oropharynx normal and Yes tonsils normal (no TP congestion noted) Neck Neck: Yes no lymphadenopathy and Yes supple Thyroid: Thyroid normal Resp Auscultation: clear to auscultation bilaterally, no rales and no wheezes Cardio Rate: regular rate Rhythm: regular rhythm Heart sounds: no murmurs GI Palpation (GI): Soft to palpation and nontender Auscultation: normal bowel sounds General: Yes no CVA tenderness Back/Spine/Pelvis Back: no CVA tenderness Thoracic/Lumbar Spine: lumbar spinal tenderness (chronic) Skin Rashes: no rashes Extrem General: Yes no clubbing, cyanosis or edema Right upper extremity: Extremity exam: right hand Details: tenderness and no swelling Left upper extremity: hand Details: tenderness and no swelling Right lower extremity: knee Details: tenderness (mild); no swelling Left lower extremity: knee Details: tenderness; no swelling Results AMB Hemoglobin A1c AMB Hemoglobin A1c 5.8 % Last Edit by ZEV Jordan on 04/19/24 12:25 Results Reviewed Results Reviewed: Laboratory Last Values Hgb A1c (Clinic) 5.8 % (4.0-6.0) 04/19/24 11:58 Assessment and Plan Assessment & Plan (1) Diabetes mellitus: Code(s): E11.9 - Type 2 diabetes mellitus without complications Qualifiers: Diabetes mellitus complication status: without complication Diabetes mellitus group home insulin use: without group home use Diabetes mellitus type: type 2 Qualified Code(s): E11.9 - Type 2 diabetes mellitus without comp lications Plan: Her in-office HgbA1c done today is normal at 5.8%; was at 4.9% previously and at 5.4% and 5.6% when they were checked last year - goal is < 7.0% Reinforced diabetic diet Continue Metformin ER 500 mg 2 tablets BID Will recheck her labs and HgbA1c in 3 months for follow up (2) Pure hypercholesterolemia: Code(s): E78.00 - Pure hypercholesterolemia, unspecified Plan: She was not able to get her follow up labs done prior to her visit today - states that she will try to get them done MARIE Reinforced low cholesterol diet Continue Atorvastatin 20 mg QD Will recheck her labs and fasting lipids again in 3 months for follow up (3) Benign essential hypertension: Code(s): I10 - Essential (primary) hypertension Plan: Reinforced low sodium diet - goal is systolic BP of 120 mm or less Continue HCT 12.5 mg QD and Losartan 50 mg QD (she developed angioedema on Lisinopril previously) (4) Multiple allergies: Code(s): Z88.9 - Allergy status to unspecified drugs, medicaments and biological substances Plan: She has been referred to allergy and immunology for allergy testing and evaluation - to follow up with charge entry specialist as scheduled Continue Cetirizine 10 mg QD PRN (5) Tenosynovitis of finger: Code(s): M65.9 - Synovitis and tenosynovitis, unspecified Plan: X-rays of both hands done back in June 2023 came out normal Patient had some labs done back in 2012 and again in June 2023 for arthralgia work ups - tests done were all negative for inflammatory markers She was referred to and seen by rheumatology a few months ago and received some cortisone injections into her hands/fingers and states that she experienced some relief from the injections Follow up with rheumatology as scheduled (6) Lumbar degenerative disc disease: Code(s): M51.36 - Other intervertebral disc degeneration, lumbar region Plan: Reinforced activity and weight-lifting restrictions Continue Tizanidine 4 mg TID PRN and Oxycodone 10 mg 2 to 3 times a day only as needed for increased pain Follow up with [facility] as scheduled (7) Osteoarthritis of left knee: Code(s): M17.12 - Unilateral primary osteoarthritis, left knee Qualifiers: Osteoarthritis type: primary Qualified Code(s): M17.12 - Unilateral yohana sohan osteoarthritis, left knee Plan: X-rays of the left knee done in the past showed (+) arthritis changes Follow up with orthopedics as scheduled (8) Insomnia: Code(s): G47.00 - Insomnia, unspecified Qualifiers: Insomnia type: unspecified Qualified Code(s): G47.00 - Insomnia, unspecified Plan: Sleep hygiene reinforced Continue Zolpidem 10 mg Q HS PRN (9) Anxiety: Code(s): F41.9 - Anxiety disorder, unspecified Plan: Continue Lorazepam 0.5 mg BID PRN for severe anxiety (10) Depression: Code(s): F32.9 - Major depressive disorder, single episode, unspecified Qualifiers: Depression Type: major depressive disorder Major depression recurrence: recurrent Active/Remission status: currently active Major depression episode severity: unspecified Qualified Code(s): F33.9 - Major depressive disorder, recurrent, unspecified Plan: Follow up with psychiatry as scheduled (11) Smoker: Code(s): F17.200 - Nicotine dependence, unspecified, uncomplicated Plan: Counseled again on smoking cessation (12) Overweight (BMI 25.0-29.9): Code(s): E66.3 - Overweight Plan: Reinforced diet/exercise as tolerated/lose weight Plan Follow up in 3 months Orders: Orders AMB Hemoglobin A1c Today E11.9 - Type 2 diabetes mellitus without complications Comprehensive [place]. Panel Fast 3 Months E78.00 - Pure hypercholesterolemia, u nspecified Lipid Panel 3 Months E78.00 - Pure hypercholesterolemia, unspecified Complete Blood Count Auto Diff 3 Months D64.9 - Anemia, unspecified Hemoglobin A1c 3 Months E11.9 - Type 2 diabetes mellitus without complications Coding Level of Care Code Est Pt Level 4 (99998) Complex EM visit Add On G2211 Diagnoses Type 2 diabetes mellitus without complication, without long-term current use of insulin E11.9 Diabetes mellitus complication status: without complication Diabetes mellitus rat exterminator insulin use: without rat exterminator use Diabetes mellitus type: type 2 Pure hypercholesterolemia E78.00 Benign essential hypertension I10 Multiple allergies Z88.9 Tenosynovitis of finger M65.9 Lumbar degenerative disc disease M51.36 Primary osteoarthritis of left knee M17.12 Osteoarthritis type: primary Insomnia, unspecified type G47.00 Insomnia type: unspecified Anxiety F41.9 Episode of recurrent major depressive disorder, unspecified depression episode severity F33.9 Depression Type: major depressive disorder Major depression recurrence: recurrent Active/Remission status: currently active Major depression episode severity: unspecified Smoker F17.200 Overweight (BMI 25.0-29.9) E66.3
== END 2024-04-19 12:50 | disposition home or self-care (01) ==
PROVIDERS: PCP Internal Medicine; Visit Provider Internal Medicine
DX: E11.9 Type 2 diabetes mellitus without complications (principal); E78.00 Pure hypercholesterolemia, unspecified; I10 Essential (primary) hypertension; M65.9 Synovitis and tenosynovitis, unspecified; Z88.9 Allergy status to unspecified drugs, medicaments and biological substances; M51.36 Other intervertebral disc degeneration, lumbar region; M17.12 Unilateral primary osteoarthritis, left knee; G47.00 Insomnia, unspecified; F41.9 Anxiety disorder, unspecified; F17.200 Nicotine dependence, unspecified, uncomplicated
CPT/HCPCS: 83036; 99214; G2211

== ENCOUNTER 2024-05-06 06:57 | Inpatient (IN) | payer OTHER, SELFPAY ==
[2024-05-06] VITALS (9 sets, daily range): BP systolic 105–139; BP diastolic 52–76; PULSE 74–99; RESP 14–26; TEMP 36–37; O2SAT 91–99; BMI 28.0; BMI 28.1
--- NOTE | ~2024-05-06 | XR_ITS ---
EXAMINATION: XR CHEST CLINICAL INFORMATION: Cough COMPARISON: 08/30/2022 TECHNIQUE: 2 views of the chest were obtained. FINDINGS: Lungs are well expanded. No evidence of airspace disease or pleural effusion. The bronchial kwok appear to be diffusely thickened. An old small opacity projecting over the left anterior first rib appears to be related to calcification of the rib end. Cardiac silhouette is normal in size. The hilar contours are normal. Moderate spondylosis of the thoracic spine. XR/XR chest 2V IMPRESSION: * No radiographic evidence of pneumonia. * The bronchial kwok appear to be diffusely thickened. This could be a manifestation of asthma or bronchitis/bronchiolitis.
[2024-05-06] MEDS: Albuterol Sulfate 5 MG, Albuterol/Iprat 2.5/0.5MG 3 ML 3 ML INHALE (07:32)
[2024-05-06 08:02] LABS: Influenza A PCR NEGATIVE (Negative); Influenza B PCR NEGATIVE (Negative); Resp Syncy Virus RNA Qual PCR NEGATIVE (Negative); SARS COV2 PCR INHOUSE NEGATIVE (Negative)
[2024-05-06] MEDS: Magnesium Sulfate/H2O 2 GM/50 ML PIGGYBACK IV (08:38)
[2024-05-06] MEDS: methylPREDNISolone Sod Succ 125 MG/2 ML VIAL 60 MG IVPUSH (08:38)
--- NOTE | 2024-05-06 08:39 | ED.ASTHMA ---
HPI - Asthma General Chief Complaint: Upper Respiratory Symptoms Stated Complaint: coughing Time Seen by Provider: 05/06/24 07:08 Source: patient and old records reviewed Mode of arrival: ambulatory Limitations: no limitations History of Present Illness ED Provider: FAIZA OLMOS Narrative: 63 yo female with PMH of asthma still heavy smoker, anxiety, depression, GERD, HTN, DM, HLD, here with c/o 2 days of cough, wheezing, white sputum no fevers, she notes her family member came over and was ill. She has tried her home treatments without any improvement. She is here and upset to get steroids as it will make her sugars go high. She denies chest pain. She has slight R rib pain when she coughs at times. MD complaint: asthma attack , shortness of breath and wheezing Onset (ago): day(s) (2) Severity: moderate Context: recent URI Associated symptoms: productive cough Asthma History: childhood onset Treatments Prior to Arrival: inhaled bronchodilator Related Data Home Medications ?Medication ?Instructions ?Recorded ?Confirmed fluocinonide 0.05 % topical cream 1 appl topical BID PRN rash or 10/08/22 04/19/24 eczema hydroxyzine HCl 25 mg tablet 1 tab PO BEDTIME PRN anxiety or 10/08/22 04/19/24 sleep multivitamin 1 tab PO DAILY 10/08/22 04/19/24 tacrolimus 0.1 % topical ointment 1 appl topical BID 06/23/23 04/19/24 valacyclovir 1 gram tablet 1,000 mg PO TID 09/22/23 04/19/24 Previous Rx's ?Medication ?Instructions ?Recorded albuterol sulfate 90 mcg/actuation 1 inh inhalation QID PRN shortness 04/21/22 aerosol inhaler (Ventolin HFA) of breath or wheezing #8.5 grams diphenhydramine HCl 25 mg capsule 25 mg PO TID PRN allergic reaction 12/17/22 (Benadryl) #20 caps cholecalciferol (vitamin D3) 50 50 mcg PO DAILY 90 days #90 caps 04/25/23 mcg (2,000 unit) capsule [id number]-IR-vqrbhfoylhj 2.5 20 ml PO Q4H PRN cough #118 mL 09/17/23 mg-5 mg-50 mg/5 mL oral liquid (Robitussin Cough and Cold CF) capsaicin 0.075 % topical cream 1 appl topical TID PRN pain #120 10/18/23 grams atorvastatin 20 mg tablet 20 mg PO DAILY 90 days #90 caps 11/17/23 sennosides 8.6 mg tablet 8.6 mg PO DAILY PRN constipation 02/02/24 #30 tabs cetirizine 10 mg capsule (Zyrtec) 10 mg PO DAILY PRN allergy 02/15/24 symptoms #14 caps losartan 50 mg tablet 50 mg PO DAILY 90 days #90 tabs 02/15/24 hydrochlorothiazide 12.5 mg tablet 12.5 mg PO DAILY #30 tabs 03/16/24 metformin 500 mg tablet,extended 1,000 mg (2 x 500 mg) PO BID 90 03/16/24 release 24 hr days #360 tabs oxycodone 10 mg tablet See Rx Instructions .Route 04/25/24 .COMPLEX 28 days #66 tabs zolpidem 10 mg tablet 10 mg PO BEDTIME PRN insomnia 30 04/25/24 days #30 tabs Allergies Allergy/AdvReac Type Severity Reaction Status Date / Time lisinopril Allergy Severe Angioedema Verified 05/06/24 07:02 amoxicillin [Amoxicillin] Allergy Intermediate SHORTNESS Verified 05/06/24 07:02 OF BREATH penicillin V Allergy Intermediate shortness Verified 05/06/24 07:02 of breath Penicillins Allergy Intermediate SHORTNESS Verified 05/06/24 07:02 OF BREATH Review of Systems Review of Systems: Constitutional : No Fever, No Chills ENT/Mouth : No Hoarseness, No sore throat, No Rhinorrhea Eyes: No Redness, No Discharge, No Vision Changes Cardiovascular : No Chest Pain, positive SOB, positive Dyspnea on Exertion, No Edema Respiratory : positive Cough, pos Sputum, positive Wheezing, Gastrointestinal : No Nausea, No Vomiting, No Diarrhea, No abdominal Pain Genitourinary : No Dysuria, No Hematuria Musculoskeletal : No joint pain, No Myalgias Skin : No rash Neuro : No Weakness, No Numbness, No Headache Psych : No anxiety, depression All other systems reviewed and are negative PMFSH Past Medical History Attestation statement: The following information was validated with the patient. 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 Smoker Depression Anxiety Insomnia GERD without esophagitis Constipation Osteoarthritis of left knee Lumbar radiculopathy Lumbar degenerative disc disease Pure hypercholesterolemia Benign essential hypertension Diabetes mellitus Surgical History History of tooth extraction History of ectopic History of open reduction and internal fixation (ORIF) procedure History of foot surgery History of tubal ligation Family History Family History Father Hypertension Mother Hypertension Arthritis Family/Other Breast cancer Social History Social History Household Members: None Housing: Apartment Unable to assess alcohol history related to: Unknown Alcohol intake: never Patient Tobacco Use Status: Current everyday Tobacco user Tobacco use type: Cigarette Cigarettes Per Day: 8 Smoked in Last 30 Days: Yes e-Cigarette/Vaping Use: Never Used Second Hand Smoke Exposure: Yes Use of substances other than those prescribed or required for medical reasons: Unknown Advance Directives: Yes Advance Directives Information Provided: Yes Advance Directives on File: No Do you have a plan to hurt others: No Plan service: No Current occupational status: disabled Cognitive needs: No Hearing needs: No Vision needs: No Physical Exam Vital Signs: Vital Signs: Last Vital Signs Temp 98.6 F 05/06/24 07:00 Pulse 95 05/06/24 07:25 Resp 26 H 05/06/24 07:25 BP 139/76 05/06/24 07:00 Pulse Ox 93 05/06/24 07:00 O2 Del Method Room Air 05/06/24 07:00 BMI result Body Mass Index 28.0 Appearance: Alert. Oriented X3. No acute distress. Eyes: Pupils equal, round and reactive to light. ENT: Pharynx normal. Neck: Normal inspection. Neck supple. CVS: Normal heart rate and rhythm. Pulses normal. Respiratory: No respiratory distress. Breath sounds mild diffuse insp and exp wheezes throughout Abdomen: Soft and nontender. Skin: Skin warm and dry. Normal skin color. Normal skin turgor. Extremities: No lower extremity edema. No calf ttp Neuro: Oriented X 3. No motor deficit. No sensory deficit. Medications Administered Discontinued Medications Generic Name Dose Route Start Last Admin Trade Name Freq PRN Reason Stop Dose Admin Albuterol Sulfate 5 mg/ 0 mg 05/06/24 07:25 05/06/24 07:32 Albuterol/Ipratropium 3 ml INHALE 05/06/24 07:26 1 each ONCE ONE Administration Magnesium Sulfate 2 gm in 50 mls @ 150 mls/hr 05/06/24 07:52 05/06/24 09:19 Magnesium Sulfate/H2o IV 05/06/24 08:11 Infused ONCE ONE Infusion Methylprednisolone Sodium Succinate 60 mg 05/06/24 07:52 05/06/24 08:38 Methylprednisolone Sod Succ 125 Mg/2 Ml Vial IVPUSH 05/06/24 07:53 60 mg ONCE ONE Administration Medical Decision Making Medical Decision Making MDM Narrative: 63 yo female with PMH of asthma still heavy smoker, anxiety, depression, GERD, HTN, DM, HLD, here with c/o asthma exacerbation after sick contact she is not in resp distress at this time will obtain labs, CXR, viral panel, start on IV solumedrol, nebs and IV magnesium. Dispo per her response to therapy in ED. This is asthma bronchospasm I do not suspect VTE or ACS Differential Diagnosis Differential Diagnoses: The differential diagnosis associated with the presentation includes asthma, bronchitis, viral syndrome Admission/Observation Consideration of admission/observation: Escalation of care including admission/observation considered repeat nebs still tachypneic 28 92% on RA will admit Consult Healthcare Provider Management of the patient was discussed with: Hospitalist (will admit) Lab Data [facility] Lab Attestation statement: I reviewed the patient's lab results. 05/06/24 08:41 05/06/24 08:41 Labs: Lab Results 05/06/24 05/06/24 Range/Units 07:18 08:41 WBC 9.0 (4.8-10.8) X10*3/uL RBC 4.31 (4.20-5.50) X10*6/uL Hgb 13.1 (12.0-16.0) g/dl Hct 38.8 (37.0-47.0) % MCV 90.0 (80.0-98.0) fL MCH 30.4 (27.0-33.0) pg MCHC 33.8 (31.0-35.0) g/dl RDW 13.8 (11.0-16.0) % Plt Count 163 D (160-400) X10*3/uL MPV 9.6 (9.4-12.3) fL Immature Gran % (Auto) 0.2 (0.0-0.4) % Neut % (Auto) 67.5 (45-73) % Lymph % (Auto) 20.3 (20-40) % Lipscomb % (Auto) 11.4 H (2-11) % Eos % (Auto) 0.3 (0-4) % Baso % (Auto) 0.3 (0-2) % Lymph # (Auto) 1.8 (1.2-4.9) X10*3/uL Lipscomb # (Auto) 1.0 (0.1-1.2) X10*3/uL Eos # (Auto) 0.0 (0.0-0.4) X10*3/uL Baso # (Auto) 0.0 (0.0-0.2) X10*3/uL Abs Immat Gran (auto) 0.02 (0.00-0.03) X10*3/uL Absolute Neuts (auto) 6.1 (2.0-8.3) x10*3/uL Absolute Nucleated RBC 0.000 (0.0-0.012) X10*3/uL Nucleated RBC % (auto) 0.0 (0.0-0.2) /100WBC Sodium 138 (135-145) mmol/L Potassium 3.4 (3.3-5.1) mmol/L Chloride 103 (96-108) mmol/L Carbon Dioxide 25 (22-29) mmol/L Anion Gap 13 (12-20) BUN 8 L (9-16) mg/dL Creatinine 0.74 (0.5-1.4) mg/dL Estim Creat Clear Calc 72.0 Estimated GFR > 60 Random Glucose 125 H (60-115) mg/dL Calcium 9.4 (8.4-10.2) mg/dL Influenza Type A (PCR) NEGATIVE (Negative) Influenza Type B (PCR) NEGATIVE (Negative) RSV RNA Qual (PCR) NEGATIVE (Negative) SARS-CoV-2 RNA (RT-PCR) NEGATIVE (Negative) Independent Interpretation I performed an independent interpretation of an: Plain X-Ray (no pneumonia) Radiology Impression Discussion of test interpretation with radiology: I have reviewed the radiologist's reading. External Record Review External record reviewed: Inpatient record Prescription Management I considered prescription management with: Antibiotic and Other Discharge Plan Discharge Clinical Impression: Asthma Patient Disposition: Admitted As Inpatient Prescriptions: No Action cholecalciferol (vitamin D3) 50 mcg (2,000 unit) capsule 50 mcg PO DAILY 90 Days Qty: 90 3RF Robitussin Cough and Cold CF 2.5-5-50 mg/5 mL liquid 20 ml PO Q4H PRN (Reason: cough) Qty: 118 0RF capsaicin 0.075 % cream 1 appl topical TID PRN (Reason: pain) Qty: 120 0RF Rx Instructions: do not wash area for at least 30 min after application atorvastatin 20 mg tablet 20 mg PO DAILY 90 Days Qty: 90 1RF sennosides 8.6 mg tablet 8.6 mg PO DAILY PRN (Reason: constipation) Qty: 30 12RF losartan 50 mg tablet 50 mg PO DAILY 90 Days Qty: 90 1RF Zyrtec 10 mg capsule 10 mg PO DAILY PRN (Reason: allergy symptoms) Qty: 14 0RF metformin 500 mg tablet extended release 24 hr 1,000 mg PO BID 90 Days Qty: 360 1RF hydrochlorothiazide 12.5 mg tablet 12.5 mg PO DAILY Qty: 30 3RF zolpidem 10 mg tablet 10 mg PO BEDTIME PRN (Reason: insomnia) 30 Days Qty: 30 1RF oxycodone 10 mg tablet See Rx Instructions .ROUTE .COMPLEX 28 Days Qty: 66 0RF Rx Instructions: Take 1 tablet by mouth 2 to 3 times a day as needed for increased pain; multivitamin Tablet 1 tab PO DAILY hydroxyzine HCl 25 mg tablet 1 tab PO BEDTIME PRN (Reason: anxiety or sleep) fluocinonide 0.05 % cream 1 appl topical BID PRN (Reason: rash or eczema) diphenhydramine HCl [Benadryl] 25 mg capsule 25 mg PO TID PRN (Reason: allergic reaction) Qty: 20 0RF albuterol sulfate [Ventolin HFA] 90 mcg/actuation HFA aerosol inhaler 1 inh inhalation QID PRN (Reason: shortness of breath or wheezing) Qty: 8.5 1RF valacyclovir 1 gram tablet 1,000 mg PO TID tacrolimus 0.1 % ointment 1 appl topical BID Print Language: Nicarag[place]
[2024-05-06 08:45] LABS: MANUAL DIFF FLAG NO
[2024-05-06 08:46] LABS: Basophils Percent Auto 0.3 % (0-2); Eosinophils Percent Auto 0.3 % (0-4); Hematocrit 38.8 % (37.0-47.0); Hemoglobin 13.1 g/dl (12.0-16.0); Imm Gran Abs Auto 0.02 X10*3/uL (0.00-0.03); Imm Gran Pct Auto 0.2 % (0.0-0.4); Lymphocytes Absolute Auto 1.8 X10*3/uL (1.2-4.9); Lymphocytes Percent Auto 20.3 % (20-40); Mean Corpuscular HGB Conc 33.8 g/dl (31.0-35.0); Mean Corpuscular Hemoglobin 30.4 pg (27.0-33.0); Mean Platelet Volume 9.6 fL (9.4-12.3); Monocytes Percent Auto 11.4 % (2-11); Neutrophils Absolute Auto 6.1 x10*3/uL (2.0-8.3); Neutrophils Percent Auto 67.5 % (45-73); Platelet Count 163 X10*3/uL (160-400); Red Blood Count 4.31 X10*6/uL (4.20-5.50); Red Cell Distribution Width 13.8 % (11.0-16.0)
[2024-05-06 09:00] LABS: Anion Gap 13 (12-20); Blood Urea Nitrogen 8 mg/dL (9-16); Calcium 9.4 mg/dL (8.4-10.2); Carbon Dioxide 25 mmol/L (22-29); Chloride 103 mmol/L (96-108); Estimated Glomerular Filt Rate > 60; Glucose Random 125 mg/dL (60-115); Potassium 3.4 mmol/L (3.3-5.1); Sodium 138 mmol/L (135-145)
--- NOTE | 2024-05-06 10:20 | P.HPHOSP_ITS ---
History of Present Illness Date of Service: 05/06/24 <Christina Ann NP - Last Filed: 05/06/24 16:02> Chief Complaint: SOB <Christina Ann NP - Last Filed: 05/06/24 16:02> 63 yo female with PMH of asthma still heavy smoker, anxiety, depression, GERD, HTN, DM, HLD, here with c/o 2 days of cough, wheezing, white sputum no fevers, She has tried her home treatments without any improvement. CXR showing no consolidation but bronchial wall thickening likely bronchitis. No fever or leukocytosis noted. labs all within normal limits, stable vs without hypoxia. She received IV Solu-Medrol, doxycycline, albuterol, magnesium in the ER. She will be admitted for further management and treatment of asthma/COPD exacerbation. <Christina Ann NP - Last Filed: 05/06/24 16:02> Review of Systems 2 Review of Systems: Denies any recent fever chills or decrease in appetite respiratory denies any shortness of breath coverage production cardiovascular is adjustment of any PND or edema gastrointestinal denies any dysphagia abdominal pain nausea vomiting or diarrhea genitourinary denies any dysuria frequency or hematuria musculoskeletal denies any joint pain or swelling neuropsych denies any weakness or seizures all other systems reviewed are negative <Christina Ann NP - Last Filed: 05/06/24 16:02> [facility] Medical History: Medical History Tenosynovitis of finger Overweight (BMI 25.0-29.9) 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 Smoker Depression Anxiety Insomnia GERD without esophagitis Constipation Osteoarthritis of left knee Lumbar radiculopathy Lumbar degenerative disc disease Pure hypercholesterolemia Benign essential hypertension Diabetes mellitus <Christina Ann NP - Last Filed: 05/06/24 16:02> Family History: Family History Father Hypertension Mother Hypertension Arthritis Family/Other Breast cancer <Christina Ann NP - Last Filed: 05/06/24 16:02> Surgical History: Surgical History History of tooth extraction History of ectopic History of open reduction and internal fixation (ORIF) procedure History of foot surgery History of tubal ligation <Christina Ann NP - Last Filed: 05/06/24 16:02> Social History: Social History Household Members: None Housing: Apartment Unable to assess alcohol history related to: Unknown Alcohol intake: never Patient Tobacco Use Status: Current everyday Tobacco user Tobacco use type: Cigarette Cigarettes Per Day: 8 Smoked in Last 30 Days: Yes e-Cigarette/Vaping Use: Never Used Second Hand Smoke Exposure: Yes Use of substances other than those prescribed or required for medical reasons: Unknown Advance Directives: Yes Advance Directives Information Provided: Yes Advance Directives on File: No Do you have a plan to hurt others: No Plan service: No Current occupational status: disabled Cognitive needs: No Hearing needs: No Vision needs: No <Christina Ann NP - Last Filed: 05/06/24 16:02> Meds Allergies/Adverse reactions: Allergies Allergy/AdvReac Type Severity Reaction Status Date / Time lisinopril Allergy Severe Angioedema Verified 05/06/24 07:02 amoxicillin [Amoxicillin] Allergy Intermediate SHORTNESS Verified 05/06/24 07:02 OF BREATH penicillin V Allergy Intermediate shortness Verified 05/06/24 07:02 of breath Penicillins Allergy Intermediate SHORTNESS Verified 05/06/24 07:02 OF BREATH <Christina Ann NP - Last Filed: 05/06/24 16:02> Active Medications: Current Medications Acetaminophen (Acetaminophen 325 Mg Tablet) 650 mg PO Q6H PRN PRN Reason: Pain, Mild (Pain Scale 1-3), fever or headache Albuterol Sulfate (Albuterol Sulfate (0.083%) 2.5 Mg/3 Ml Vial.Neb) 2.5 mg INHALE RQ4H WHILE AWAKE PER Calcium Carbonate (Calcium Carbonate 750 Mg Tab.Chew) 750 mg PO Q4H PRN PRN Reason: Heartburn Enoxaparin Sodium (Enoxaparin Sodium 40 Mg/0.4 Ml Syringe) 40 mg SUBCUT Q24H PER Doxycycline Hyclate 100 mg/ (Sodium Chloride) 250 mls @ 166.67 mls/hr IV Q12H PER Magnesium Hydroxide (Milk Of Magnesia 30 Ml Oral.Susp) 30 ml PO DAILY PRN PRN Reason: Constipation Melatonin (Melatonin 3 Mg Tablet) 6 mg PO BEDTIME PRN PRN Reason: Insomnia Methylprednisolone Sodium Succinate (Methylprednisolone Sod Succ 40 Mg/Ml Vial) 40 mg IVPUSH Q8H PER Sodium Chloride (0.9 % Sodium Chloride Flush 3 Ml Syringe) 3 ml IVFLUSH QSHIFT PER <Christina Ann NP - Last Filed: 05/06/24 16:02> Home medications: Home Medications ?Medication ?Instructions ?Recorded ?Confirmed ?Last Taken ?Type multivitamin 1 tab PO DAILY 10/08/22 05/06/24 05/06/24 History metformin 500 mg tablet,extended 500 mg PO BID 05/06/24 05/06/24 05/06/24 History release 24 hr oxycodone 10 mg tablet 10 mg PO BID-TID PRN Pain 05/06/24 05/06/24 05/06/24 History sennosides 8.6 mg tablet 8.6 mg PO DAILY constipation 05/06/24 05/06/24 Unknown History zolpidem 10 mg tablet 10 mg PO BEDTIME insomnia 05/06/24 05/06/24 Unknown History <Christina Ann NP - Last Filed: 05/06/24 16:02> Physical Exam 2 Vital Signs and Narrative: Vital Signs: Last Vital Signs Temp 98.6 F 05/06/24 07:00 Pulse 95 05/06/24 07:25 Resp 26 H 05/06/24 07:25 BP 139/76 05/06/24 07:00 Pulse Ox 93 05/06/24 07:00 O2 Del Method Room Air 05/06/24 07:00 BMI result Body Mass Index 28.0 <Christina Ann NP - Last Filed: 05/06/24 16:02> Appearing in no acute distress head is normocephalic atraumatic eyes pupils are PERRLA sclera is anicteric mouth throat mucous membranes are intact and moist neck is supple no lymphadenopathy, no JVD noted lung sounds are clear to auscultation heart regular rate rhythm, clear S1, S2 positive bowel sounds, abdomen is soft, nontender neuro patient is alert x3, no focal deficits <Christina Ann NP - Last Filed: 05/06/24 16:02> Results Labs CBC and Chem 7: 05/06/24 08:41 05/06/24 08:41 <Christina Ann NP - Last Filed: 05/06/24 16:02> Labs: Laboratory Results - last 24 hr 05/06/24 05/06/24 07:18 08:41 MCV 90.0 MCH 30.4 MCHC 33.8 RDW 13.8 Plt Count 163 D MPV 9.6 Immature Gran % (Auto) 0.2 Neut % (Auto) 67.5 Lymph % (Auto) 20.3 Coffey % (Auto) 11.4 H Eos % (Auto) 0.3 Baso % (Auto) 0.3 Lymph # (Auto) 1.8 Coffey # (Auto) 1.0 Eos # (Auto) 0.0 Baso # (Auto) 0.0 Abs Immat Gran (auto) 0.02 Absolute Neuts (auto) 6.1 Absolute Nucleated RBC 0.000 Nucleated RBC % (auto) 0.0 Anion Gap 13 Estim Creat Clear Calc 72.0 Estimated GFR > 60 Random Glucose 125 H Calcium 9.4 Influenza Type A (PCR) NEGATIVE Influenza Type B (PCR) NEGATIVE RSV RNA Qual (PCR) NEGATIVE SARS-CoV-2 RNA (RT-PCR) NEGATIVE <Christina Ann NP - Last Filed: 05/06/24 16:02> Imaging Radiologist's Impressions: Impressions Chest X-Ray 05/06/24 07:25 IMPRESSION: * No radiographic evidence of pneumonia. * The bronchial kwok appear to be diffusely thickened. This could be a manifestation of asthma or bronchitis/bronchiolitis. <Christina Ann NP - Last Filed: 05/06/24 16:02> Assessment and Plan (1) Asthma: Qualifiers: Asthma complication type: with acute exacerbation Asthma persistence: persistent Asthma severity: severe Qualified Code(s): J45.51 - Severe persistent asthma with (acute) exacerbation <Christina Ann NP - Last Filed: 05/06/24 16:02> Status: Acute <Christina Ann NP - Last Filed: 05/06/24 16:02> 63 year old women admitted with bronchitis and asthma/COPD exacerbation Asthma/COPD exacerbation and bronchitis patient reports no hx of asthma, likely COPD with smoking hx IV solumedrol, scheduled duonebs Doxycycline supplemental oxygen to keep o2 sat >90% HTN Continue losartan and hydrochlorothiazide DM2 Patient declined insulin sliding scale, will continue her metformin ada diet HLD Statin Mental health continue home medications Smoker discussed the importance of smoking cessation NRT DVT prophylaxis with Lovenox Attending Dr. Robledo Full code <Christina Ann NP - Last Filed: 05/06/24 16:02> Quality Stroke Does the patient have a stroke diagnosis?: No <Mariano Robledo MD - Last Filed: 05/06/24 14:29> VTE Prior VTE?: No <Mariano Robledo MD - Last Filed: 05/06/24 14:29> VTE Risk Level:: Medical - moderate - high <Christina Ann NP - Last Filed: 05/06/24 16:02> VTE Device Contraindication: Treatment Not Indicated <Christina Ann NP - Last Filed: 05/06/24 16:02> VTE Drug Contraindication: N/A - Med Ordered <Christina Ann NP - Last Filed: 05/06/24 16:02>
[2024-05-06] MEDS: Enoxaparin Sodium 40 MG/0.4 ML SYRINGE SUBCUT (10:53)
[2024-05-06] MEDS: Doxycycline Hyclate 100 MG in 0.9 % Sodium Chloride 250 ML 166.67 MG IV ×2 (10:54→21:47)
[2024-05-06 11:06] LABS: Glucose, Whole Blood 238 mg/dL (60-115)
[2024-05-06] MEDS: Albuterol Sulfate (0.083%) 2.5 MG/3 ML VIAL.NEB INHALE ×3 (11:12→19:23)
--- NOTE | 2024-05-06 11:16 | PC.NURSE ---
Pt refuses insulin. Every time I come here they try to give me insulin and my body doesn't need it pt becomes very upset and is repeating herself
--- NOTE | 2024-05-06 11:36 | PHA.MEDREC ---
Addendum entered by Sammy Cardona RPh 05/06/24 12:01: Reviewed by [facility] Original Note: Pharmacy Consult ? Medication Reconciliation Pharmacy has completed the medication reconciliation. spoke with patient to confirm medications. She takes 1 tablet of metformin BID instead of 2 tabs BID. The senna and zolpidem she takes scheduled. She does not take gabapentin. She took her blood pressure meds, metformin, vitamins, and pain medication today.
[2024-05-06] MEDS: metFORMIN HCl ER 500 MG TAB.ER.24H PO (17:31)
[2024-05-06 20:23] LABS: Glucose, Whole Blood 121 mg/dL (60-115)
[2024-05-06] MEDS: oxyCODONE HCl Immed Release 5 MG TABLET 10 MG PO (21:45)
[2024-05-06] MEDS: 0.9 % Sodium Chloride Flush 3 ML SYRINGE IVFLUSH (21:50)
[2024-05-06] MEDS: Zolpidem Tartrate 5 MG TABLET PO (23:16)
[2024-05-07] VITALS (8 sets, daily range): BP systolic 121–145; BP diastolic 60–81; PULSE 66–82; RESP 16–20; TEMP 36–36.8; O2SAT 93–100
[2024-05-07] MEDS: guaiFEN/Codeine SF 200/20/10ML 10 ML LIQUID 5 ML PO ×3 (03:44→22:13)
[2024-05-07 06:34] LABS: Hematocrit 37.5 % (37.0-47.0); Hemoglobin 12.4 g/dl (12.0-16.0); Mean Corpuscular HGB Conc 33.1 g/dl (31.0-35.0); Mean Corpuscular Hemoglobin 30.6 pg (27.0-33.0); Mean Corpuscular Volume 92.6 fL (80.0-98.0); Mean Platelet Volume 10.4 fL (9.4-12.3); Platelet Count 179 X10*3/uL (160-400); Red Blood Count 4.05 X10*6/uL (4.20-5.50); Red Cell Distribution Width 13.7 % (11.0-16.0); White Blood Count 7.6 X10*3/uL (4.8-10.8)
[2024-05-07 07:12] LABS: Alanine Aminotransferase 18 U/L (0-31); Albumin Level 3.9 g/dL (3.5-5.0); Alkaline Phosphatase 68 U/L (39-117); Anion Gap 13 (12-20); Aspartate Amino Transferase 14 U/L (5-31); Bilirubin Total 0.3 mg/dL (0.0-1.0); Blood Urea Nitrogen 15 mg/dL (9-16); Calcium 9.4 mg/dL (8.4-10.2); Carbon Dioxide 24 mmol/L (22-29); Chloride 104 mmol/L (96-108); Creatinine Clr Calc Pharmacy 76.2; Estimated Glomerular Filt Rate > 60; Glucose Random 120 mg/dL (60-115); Potassium 3.6 mmol/L (3.3-5.1); Sodium 137 mmol/L (135-145); Total Protein 7.1 g/dL (6.5-8.0)
[2024-05-07 07:25] LABS: Glucose, Whole Blood 92 mg/dL (60-115)
[2024-05-07] MEDS: methylPREDNISolone Sod Succ 40 MG/ML VIAL IVPUSH (08:15)
[2024-05-07] MEDS: oxyCODONE HCl Immed Release 5 MG TABLET 10 MG PO ×2 (08:15→17:51)
[2024-05-07] MEDS: Losartan Potassium 50 MG TABLET PO (08:16)
[2024-05-07] MEDS: hydroCHLOROthiazide 12.5 MG TABLET PO (08:16)
[2024-05-07] MEDS: Sennosides 8.6 MG TABLET PO (08:16)
[2024-05-07] MEDS: Multivitamin TABLET 1 TAB PO (08:16)
[2024-05-07] MEDS: metFORMIN HCl ER 500 MG TAB.ER.24H PO ×2 (08:16→17:52)
[2024-05-07] MEDS: Cholecalciferol (Vitamin D3) 25 MCG TABLET 50 MCG PO (08:16)
[2024-05-07] MEDS: 0.9 % Sodium Chloride Flush 3 ML SYRINGE IVFLUSH ×2 (08:24→22:38)
[2024-05-07] MEDS: Albuterol Sulfate (0.083%) 2.5 MG/3 ML VIAL.NEB INHALE ×4 (08:38→20:05)
--- NOTE | 2024-05-07 08:49 | P.PNIM_ITS ---
Subjective Subjective Date of Service: 05/07/24 Review of Systems Follow bronchitis, COPD Still with expiratory wheezing and shortness of breath with ambulation Physical Exam 2 Vital Signs: Vital Signs: Last Vital Signs Temp 97.5 F 05/07/24 07:45 Pulse 82 05/07/24 08:38 Resp 17 05/07/24 08:38 BP 145/81 H 05/07/24 07:45 Pulse Ox 100 05/07/24 07:45 O2 Del Method Room Air 05/07/24 07:45 O2 Flow Rate 94 05/07/24 03:43 BMI result Body Mass Index 28.1 Appearing in no acute distress lung sounds expiratory wheezing heart regular rate rhythm, clear S1, S2 positive bowel sounds, abdomen is soft, nontender neuro patient is alert x3, no focal deficits Objective Data Active Medications Acetaminophen (Acetaminophen 325 Mg Tablet) 650 mg PO Q6H PRN PRN Reason: Pain, Mild (Pain Scale 1-3), fever or headache Albuterol Sulfate (Albuterol Sulfate (0.083%) 2.5 Mg/3 Ml Vial.Neb) 2.5 mg INHALE RQ4H WHILE AWAKE [facility] Last Admin: 05/07/24 08:38 Dose: 2.5 mg Documented By: FLAQUITO Atorvastatin Calcium (Atorvastatin Calcium 20 Mg Tablet) 20 mg PO DAILY [facility] Last Admin: 05/07/24 08:21 Dose: Not Given Documented By: MARGARITA Non-Admin Reason: Patient Refused Calcium Carbonate (Calcium Carbonate 750 Mg Tab.Chew) 750 mg PO Q4H PRN PRN Reason: Heartburn Diphenhydramine HCl (Diphenhydramine Hcl 25 Mg Capsule) 25 mg PO TID PRN PRN Reason: allergic reaction Enoxaparin Sodium (Enoxaparin Sodium 40 Mg/0.4 Ml Syringe) 40 mg SUBCUT Q24H [facility] Last Admin: 05/06/24 10:53 Dose: 40 mg Documented By: CHAO Glucose (Glucose Gel 15 Gm Gel..Gram.) 15 gm PO Q15M PRN; Protocol PRN Reason: per Hypoglycemia Standing Ord. Guaifenesin/Codeine Phosphate (Guaifen/Codeine Sf 200/20/10ml 10 Ml Liquid) 5 ml PO Q6H PRN PRN Reason: Cough Last Admin: 05/07/24 08:15 Dose: 5 ml Documented By: MARGARITA Hydrochlorothiazide (Hydrochlorothiazide 12.5 Mg Tablet) 12.5 mg PO DAILY [facility]; Protocol Last Admin: 05/07/24 08:16 Dose: 12.5 mg Documented By: MARGARITA Doxycycline Hyclate 100 mg/ (Sodium Chloride) 250 mls @ 166.67 mls/hr IV Q12H [facility] Last Infusion: 05/06/24 23:53 Dose: Infused Documented By: MELISSA Dextrose (D10) 250 mls @ 750 mls/hr IV Q15M PRN; Protocol PRN Reason: per Hypoglycemia Standing Ord. Loratadine (Loratadine 10 Mg Tablet) 10 mg PO DAILY PRN PRN Reason: allergy symptoms Losartan Potassium (Losartan Potassium 50 Mg Tablet) 50 mg PO DAILY [facility]; Protocol Last Admin: 05/07/24 08:16 Dose: 50 mg Documented By: MARGARITA Magnesium Hydroxide (Milk Of Magnesia 30 Ml Oral.Susp) 30 ml PO DAILY PRN PRN Reason: Constipation Melatonin (Melatonin 3 Mg Tablet) 6 mg PO BEDTIME PRN PRN Reason: Insomnia Metformin HCl (Metformin Hcl Er 500 Mg Tab.Er.24h) 500 mg PO BIDWM [facility] Last Admin: 05/07/24 08:16 Dose: 500 mg Documented By: MARGARITA Methylprednisolone Sodium Succinate (Methylprednisolone Sod Succ 40 Mg/Ml Vial) 40 mg IVPUSH DAILY [facility] Last Admin: 05/07/24 08:15 Dose: 40 mg Documented By: MARGARITA Multivitamins/Vitamin C (Multivitamin Tablet) 1 tab PO DAILY [facility] Last Admin: 05/07/24 08:16 Dose: 1 tab Documented By: MARGARITA Nicotine (Nicotine 7 Mg Patch.Td24) 7 mg TRANSDERMA DAILY [facility] Last Admin: 05/07/24 08:25 Dose: Not Given Documented By: MARGARITA Non-Admin Reason: Patient Refused Oxycodone HCl (Oxycodone Hcl Immed Release 5 Mg Tablet) 10 mg PO Q8H PRN PRN Reason: Pain, Severe (Pain Scale 7-10) Last Admin: 05/07/24 08:15 Dose: 10 mg Documented By: MARGARITA Senna (Sennosides 8.6 Mg Tablet) 8.6 mg PO DAILY [facility] Last Admin: 08/19/24 08:16 Dose: 8.6 mg Documented By: MARGARITA Sodium Chloride (0.9 % Sodium Chloride Flush 3 Ml Syringe) 3 ml IVFLUSH QSHIFT [facility] Last Admin: 05/07/24 08:24 Dose: 3 ml Documented By: MARGARITA Vitamin D (Cholecalciferol (Vitamin D3) 25 Mcg Tablet) 50 mcg PO DAILY [facility] Last Admin: 05/07/24 08:16 Dose: 50 mcg Documented By: MARGARITA Zolpidem Tartrate (Zolpidem Tartrate 5 Mg Tablet) 5 mg PO BEDTIME [facility] Last Admin: 05/06/24 23:16 Dose: 5 mg Documented By: MELISSA Labs 05/07/24 05:28 05/07/24 05:28 Labs: Laboratory Results - last 24 hr 05/06/24 05/06/24 05/06/24 08:41 11:02 20:13 MCV 90.0 MCH 30.4 MCHC 33.8 RDW 13.8 Plt Count 163 D MPV 9.6 Immature Gran % (Auto) 0.2 Neut % (Auto) 67.5 Lymph % (Auto) 20.3 Frontier % (Auto) 11.4 H Eos % (Auto) 0.3 Baso % (Auto) 0.3 Lymph # (Auto) 1.8 Frontier # (Auto) 1.0 Eos # (Auto) 0.0 Baso # (Auto) 0.0 Abs Immat Gran (auto) 0.02 Absolute Neuts (auto) 6.1 Absolute Nucleated RBC 0.000 Nucleated RBC % (auto) 0.0 Anion Gap 13 Estim Creat Clear Calc 72.0 Estimated GFR > 60 POC Glucose 238 H 121 H Random Glucose 125 H Calcium 9.4 Total Bilirubin AST ALT Alkaline Phosphatase Total Protein Albumin 05/07/24 05/07/24 05:28 07:09 MCV 92.6 MCH 30.6 MCHC 33.1 RDW 13.7 Plt Count 179 MPV 10.4 Immature Gran % (Auto) Neut % (Auto) Lymph % (Auto) Frontier % (Auto) Eos % (Auto) Baso % (Auto) Lymph # (Auto) Frontier # (Auto) Eos # (Auto) Baso # (Auto) Abs Immat Gran (auto) Absolute Neuts (auto) Absolute Nucleated RBC 0.000 Nucleated RBC % (auto) 0.0 Anion Gap 13 Estim Creat Clear Calc 76.2 Estimated GFR > 60 POC Glucose 92 Random Glucose 120 H Calcium 9.4 Total Bilirubin 0.3 AST 14 ALT 18 Alkaline Phosphatase 68 Total Protein 7.1 Albumin 3.9 Assessment and Plan (1) Bronchitis: Status: Inactive Plan 63 year old women admitted with bronchitis and asthma/COPD exacerbation Asthma/COPD exacerbation and bronchitis patient reports no hx of asthma, likely COPD with smoking hx Still with expiratory wheezing today IV solumedrol, scheduled duonebs Doxycycline supplemental oxygen to keep o2 sat >90% HTN Continue losartan and hydrochlorothiazide DM2 Patient declined insulin sliding scale, will continue her metformin ada diet HLD Statin Mental health continue home medications Smoker discussed the importance of smoking cessation NRT DVT prophylaxis with Loveleeannx Attending Dr. Robledo Quality Stroke Does the patient have a stroke diagnosis?: No VTE Prior VTE?: No VTE Risk Level:: Medical - moderate - high VTE Device Contraindication: Treatment Not Indicated VTE Drug Contraindication: N/A - Med Ordered
[2024-05-07 11:14] LABS: Glucose, Whole Blood 132 mg/dL (60-115)
[2024-05-07] MEDS: Enoxaparin Sodium 40 MG/0.4 ML SYRINGE SUBCUT (11:29)
[2024-05-07] MEDS: Milk of Magnesia 30 ML ORAL.SUSP PO (11:40)
[2024-05-07] MEDS: Doxycycline Hyclate 100 MG in 0.9 % Sodium Chloride 250 ML 166.67 MG IV ×2 (13:14→22:37)
--- NOTE | 2024-05-07 15:25 | MHC.CM.PN ---
IMM DELIVERED. PATIENT LIVES IN AN APARTMENT ALONE, THOUGH S.O. STAYS OVER MOST DAYS. AMBULATES W/ WALKER. HAS A SHOWER CHAIR AND GRAB BARS IN BATHROOM. HAS A [facility] 14 HRS/WK TO ASSIST W/ SHOWERS AND CLEANING. PCP PÉREZ JACKSON MD PATIENT COMPLETED HCP NAMING [facility]. DP: GOAL IS HOME, RESUME [facility], FAMILY TO TRANSPORT. CM WILL CONTINUE TO FOLLOW.
[2024-05-07 16:05] LABS: Glucose, Whole Blood 133 mg/dL (60-115)
[2024-05-07 20:02] LABS: Glucose, Whole Blood 136 mg/dL (60-115)
[2024-05-07] MEDS: Zolpidem Tartrate 5 MG TABLET PO (22:48)
[2024-05-08 02:31] VITALS: BP 153/69; PULSE 72; RESP 20; TEMP 36.1; O2SAT 97
[2024-05-08 07:09] LABS: Glucose, Whole Blood 108 mg/dL (60-115)
[2024-05-08 07:45] VITALS: BP 138/78; PULSE 68; RESP 18; TEMP 36.4; O2SAT 99
--- NOTE | 2024-05-08 08:04 | P.CDIM_ITS ---
PROVIDER RESPONSE TEXT: To clarify, the appropriate diagnosis supported by the clinical indicators: Acute QUERY TEXT: PHYSICIAN'S DOCUMENTATION REQUEST Date of Query: 05/08/2024 07:50 AM EDT Patient Name: Erica Ennis Admit Date: 05/06/2024 Dear Christina Ann SALES CONSULTING DIRECTOR, A review of the medical record indicates additional documentation may be needed. Please review below and update the documentation accordingly. Clinical Indicators: Progress notes within the Plan: Asthma/COPD exacerbation with bronchitis Smoking history Still with expiratory wheezing today IV solumedrol, scheduled duonebs Clarify which of the following accurately represents the acuity of the documented Bronchitis: Possible options might include: Acute Acute on chronic Chronic Other (explain) Clinically unable to determine (explain) Thank you, Sharon Bell, CCS, CDIS Use of terms such as suspected, likely, concern for, or probable (associated with a specific diagnosi s that is being evaluated, monitored, or treated as if it exists) are acceptable and can be coded in the inpatient se tting, when documented at the time of discharge. Please use your independent medical judgment in providing your response. THIS QUERY IS PART OF THE PERMANENT MEDICAL RECORD
[2024-05-08] MEDS: metFORMIN HCl ER 500 MG TAB.ER.24H PO ×2 (08:39→16:30)
[2024-05-08] MEDS: Sennosides 8.6 MG TABLET PO (08:39)
[2024-05-08] MEDS: Cholecalciferol (Vitamin D3) 25 MCG TABLET 50 MCG PO (08:39)
[2024-05-08] MEDS: methylPREDNISolone Sod Succ 40 MG/ML VIAL IVPUSH (08:39)
[2024-05-08] MEDS: hydroCHLOROthiazide 12.5 MG TABLET PO (08:39)
[2024-05-08] MEDS: Milk of Magnesia 30 ML ORAL.SUSP PO (08:39)
[2024-05-08] MEDS: Enoxaparin Sodium 40 MG/0.4 ML SYRINGE SUBCUT (08:40)
[2024-05-08] MEDS: Multivitamin TABLET 1 TAB PO (08:40)
[2024-05-08] MEDS: Losartan Potassium 50 MG TABLET PO (08:40)
[2024-05-08] MEDS: 0.9 % Sodium Chloride Flush 3 ML SYRINGE IVFLUSH (08:40)
[2024-05-08] MEDS: oxyCODONE HCl Immed Release 5 MG TABLET 10 MG PO ×2 (08:43→21:13)
--- NOTE | 2024-05-08 09:04 | P.PNIM_ITS ---
Subjective Subjective Date of Service: 05/08/24 Review of Systems Follow bronchitis, COPD Still with expiratory wheezing and shortness of breath with ambulation Physical Exam 2 Vital Signs: Vital Signs: Last Vital Signs Temp 97.6 F 05/08/24 07:45 Pulse 68 05/08/24 07:45 Resp 18 05/08/24 07:45 BP 138/78 05/08/24 07:45 Pulse Ox 99 05/08/24 07:45 O2 Del Method Room Air 05/08/24 07:45 O2 Flow Rate 94 05/07/24 03:43 BMI result Body Mass Index 28.1 Appearing in no acute distress lung sounds exp wheezing heart regular rate rhythm, clear S1, S2 positive bowel sounds, abdomen is soft, nontender neuro patient is alert x3, no focal deficits Objective Data Active Medications Acetaminophen (Acetaminophen 325 Mg Tablet) 650 mg PO Q6H PRN PRN Reason: Pain, Mild (Pain Scale 1-3), fever or headache Albuterol Sulfate (Albuterol Sulfate (0.083%) 2.5 Mg/3 Ml Vial.Neb) 2.5 mg INHALE RQ4H WHILE AWAKE [facility] Last Admin: 05/08/24 08:58 Dose: Not Given Documented By: ADAMA Non-Admin Reason: Patient Refused Atorvastatin Calcium (Atorvastatin Calcium 20 Mg Tablet) 20 mg PO DAILY [facility] Last Admin: 05/08/24 08:33 Dose: Not Given Documented By: JORGE Non-Admin Reason: Patient Refused Calcium Carbonate (Calcium Carbonate 750 Mg Tab.Chew) 750 mg PO Q4H PRN PRN Reason: Heartburn Diphenhydramine HCl (Diphenhydramine Hcl 25 Mg Capsule) 25 mg PO TID PRN PRN Reason: allergic reaction Enoxaparin Sodium (Enoxaparin Sodium 40 Mg/0.4 Ml Syringe) 40 mg SUBCUT Q24H [facility] Last Admin: 05/08/24 08:40 Dose: 40 mg Documented By: COTEMA Glucose (Glucose Gel 15 Gm Gel..Gram.) 15 gm PO Q15M PRN; Protocol PRN Reason: per Hypoglycemia Standing Ord. Guaifenesin/Codeine Phosphate (Guaifen/Codeine Sf 200/20/10ml 10 Ml Liquid) 5 ml PO Q6H PRN PRN Reason: Cough Last Admin: 05/07/24 22:13 Dose: 5 ml Documented By: MELISSA Hydrochlorothiazide (Hydrochlorothiazide 12.5 Mg Tablet) 12.5 mg PO DAILY [facility]; Protocol Last Admin: 05/08/24 08:39 Dose: 12.5 mg Documented By: JORGE Doxycycline Hyclate 100 mg/ (Sodium Chloride) 250 mls @ 166.67 mls/hr IV Q12H [facility] Last Infusion: 05/08/24 00:42 Dose: Infused Documented By: MELISSA Dextrose (D10) 250 mls @ 750 mls/hr IV Q15M PRN; Protocol PRN Reason: per Hypoglycemia Standing Ord. Loratadine (Loratadine 10 Mg Tablet) 10 mg PO DAILY PRN PRN Reason: allergy symptoms Losartan Potassium (Losartan Potassium 50 Mg Tablet) 50 mg PO DAILY [facility]; Protocol Last Admin: 05/08/24 08:40 Dose: 50 mg Documented By: JORGE Magnesium Hydroxide (Milk Of Magnesia 30 Ml Oral.Susp) 30 ml PO DAILY PRN PRN Reason: Constipation Last Admin: 05/08/24 08:39 Dose: 30 ml Documented By: JORGE Melatonin (Melatonin 3 Mg Tablet) 6 mg PO BEDTIME PRN PRN Reason: Insomnia Metformin HCl (Metformin Hcl Er 500 Mg Tab.Er.24h) 500 mg PO BIDWM [facility] Last Admin: 05/08/24 08:39 Dose: 500 mg Documented By: JORGE Methylprednisolone Sodium Succinate (Methylprednisolone Sod Succ 40 Mg/Ml Vial) 40 mg IVPUSH DAILY [facility] Last Admin: 05/08/24 08:39 Dose: 40 mg Documented By: FADIEMA Multivitamins/Vitamin C (Multivitamin Tablet) 1 tab PO DAILY [facility] Last Admin: 05/08/24 08:40 Dose: 1 tab Documented By: FADIEMA Nicotine (Nicotine 7 Mg Patch.Td24) 7 mg TRANSDERMA DAILY [facility] Last Admin: 05/08/24 08:33 Dose: Not Given Documented By: FADIEMA Non-Admin Reason: Patient Refused Oxycodone HCl (Oxycodone Hcl Immed Release 5 Mg Tablet) 10 mg PO Q8H PRN PRN Reason: Pain, Severe (Pain Scale 7-10) Last Admin: 05/08/24 08:43 Dose: 10 mg Documented By: FADIEMA Senna (Sennosides 8.6 Mg Tablet) 8.6 mg PO DAILY [facility] Last Admin: 05/08/24 08:39 Dose: 8.6 mg Documented By: JAZMIN.COTEMA Sodium Chloride (0.9 % Sodium Chloride Flush 3 Ml Syringe) 3 ml IVFLUSH QSHIFT [facility] Last Admin: 05/08/24 08:40 Dose: 3 ml Documented By: JAZMIN.COTEMA Vitamin D (Cholecalciferol (Vitamin D3) 25 Mcg Tablet) 50 mcg PO DAILY [facility] Last Admin: 05/08/24 08:39 Dose: 50 mcg Documented By: JAZMIN.COTEMA Zolpidem Tartrate (Zolpidem Tartrate 5 Mg Tablet) 5 mg PO BEDTIME [facility] Last Admin: 05/07/24 22:48 Dose: 5 mg Documented By: WYSK Labs 05/07/24 05:28 05/07/24 05:28 Labs: Laboratory Results - last 24 hr 05/07/24 05/07/24 05/07/24 11:06 16:02 19:52 POC Glucose 132 H 133 H 136 H 05/08/24 07:04 POC Glucose 108 Assessment and Plan (1) Bronchitis: Status: Inactive Plan 63 year old women admitted with bronchitis and asthma/COPD exacerbation Asthma/COPD exacerbation and bronchitis patient reports no hx of asthma, likely COPD with smoking hx Still with expiratory wheezing today IV solumedrol, scheduled duonebs Doxycycline supplemental oxygen to keep o2 sat >90% HTN Continue losartan and hydrochlorothiazide DM2 Patient declined insulin sliding scale, will continue her metformin ada diet HLD Statin Mental health continue home medications Smoker discussed the importance of smoking cessation NRT DVT prophylaxis with Loveleeannx Attending Dr. Kwong Quality Stroke Does the patient have a stroke diagnosis?: No VTE Prior VTE?: No VTE Risk Level:: Medical - moderate - high VTE Device Contraindication: Treatment Not Indicated VTE Drug Contraindication: N/A - Med Ordered
[2024-05-08] MEDS: Doxycycline Hyclate 100 MG in 0.9 % Sodium Chloride 250 ML 166.67 MG IV (10:56)
[2024-05-08] MEDS: bisacodyL 10 MG SUPP.RECT PR (11:01)
[2024-05-08 11:44] LABS: Glucose, Whole Blood 121 mg/dL (60-115)
[2024-05-08] MEDS: Doxycycline Monohydrate 100 MG CAPSULE PO ×2 (11:48→21:13)
[2024-05-08] MEDS: Albuterol Sulfate (0.083%) 2.5 MG/3 ML VIAL.NEB INHALE ×2 (12:07→15:36)
[2024-05-08 12:08] VITALS: PULSE 68; RESP 18; O2SAT 99
[2024-05-08] MEDS: guaiFEN/Codeine SF 200/20/10ML 10 ML LIQUID 5 ML PO (12:44)
[2024-05-08 15:37] VITALS: BP 106/56; PULSE 74; RESP 16; RESP 20; TEMP 36; O2SAT 94; O2SAT 95
[2024-05-08 16:16] LABS: Glucose, Whole Blood 164 mg/dL (60-115)
[2024-05-08] MEDS: Sennosides 8.6 MG TABLET 17.2 MG PO ×2 (16:30→20:22)
[2024-05-08] MEDS: Sodium Phosphate,Mono-Dibasic 133 ML ENEMA PR (18:28)
[2024-05-08 19:15] VITALS: BP 111/59; PULSE 73; RESP 20; TEMP 36; O2SAT 96
[2024-05-08 20:03] LABS: Glucose, Whole Blood 172 mg/dL (60-115)
[2024-05-08] MEDS: Zolpidem Tartrate 5 MG TABLET PO (20:22)
[2024-05-08] MEDS: metFORMIN HCl 500 MG TABLET PO (21:13)
[2024-05-09] VITALS (7 sets, daily range): BP systolic 118–147; BP diastolic 65–73; PULSE 61–95; RESP 16–18; TEMP 36.1–36.9; O2SAT 64–97
[2024-05-09 07:21] LABS: Glucose, Whole Blood 101 mg/dL (60-115)
[2024-05-09] MEDS: Albuterol Sulfate (0.083%) 2.5 MG/3 ML VIAL.NEB INHALE ×3 (07:55→19:56)
[2024-05-09] MEDS: Sennosides 8.6 MG TABLET 17.2 MG PO ×2 (08:45→20:51)
[2024-05-09] MEDS: hydroCHLOROthiazide 12.5 MG TABLET PO (08:45)
[2024-05-09] MEDS: Cholecalciferol (Vitamin D3) 25 MCG TABLET 50 MCG PO (08:45)
[2024-05-09] MEDS: metFORMIN HCl ER 500 MG TAB.ER.24H PO (08:45)
[2024-05-09] MEDS: oxyCODONE HCl Immed Release 5 MG TABLET 10 MG PO ×2 (08:45→21:09)
[2024-05-09] MEDS: predniSONE 20 MG TABLET 40 MG PO (08:45)
[2024-05-09] MEDS: Multivitamin TABLET 1 TAB PO (08:46)
[2024-05-09] MEDS: Losartan Potassium 50 MG TABLET PO (08:46)
[2024-05-09] MEDS: guaiFEN/Codeine SF 200/20/10ML 10 ML LIQUID 5 ML PO (10:37)
[2024-05-09] MEDS: Enoxaparin Sodium 40 MG/0.4 ML SYRINGE SUBCUT (10:38)
[2024-05-09] MEDS: Doxycycline Monohydrate 100 MG CAPSULE PO ×2 (10:38→23:02)
[2024-05-09 11:22] LABS: Glucose, Whole Blood 216 mg/dL (60-115)
--- NOTE | 2024-05-09 12:14 | MHC.CM.PN ---
Per MD rounds patient not medically cleared for dc. CM will continue to follow.
--- NOTE | 2024-05-09 12:21 | HO.PM.IMPN ---
Subjective Subjective Date of Service: 05/09/24 Interval History: Still wheezy when speaking. Shortness of breath with exertion however no O2 requirement Review of Systems Denies chest pain Denies shortness of breath at rest; minimal with exertion Denies nausea vomiting diarrhea Denies fever chills Physical Exam Vital Signs: Vital Signs: Last Vital Signs Temp 96.9 F 05/09/24 07:45 Pulse 85 05/09/24 07:56 Resp 18 05/09/24 07:56 BP 147/73 H 05/09/24 07:45 Pulse Ox 97 05/09/24 07:45 O2 Del Method Room Air 05/09/24 07:45 O2 Flow Rate 94 05/07/24 03:43 BMI result Body Mass Index 28.1 Const: Other: Awake alert no acute distress Resp: Other: Diminished at bases with dense scattered expiratory wheezes Cardio: Other: No S4; positive S1-S2; no S3 murmurs rubs or gallops GI: Other: Soft nontender nondistended normoactive bowel sounds Extrem: Other: No edema bilaterally Objective Data Active Medications Acetaminophen (Acetaminophen 325 Mg Tablet) 650 mg PO Q6H PRN PRN Reason: Pain, Mild (Pain Scale 1-3), fever or headache Albuterol Sulfate (Albuterol Sulfate (0.083%) 2.5 Mg/3 Ml Vial.Neb) 2.5 mg INHALE RQ4H WHILE AWAKE [facility] Last Admin: 05/09/24 11:32 Dose: Not Given Documented By: NANNETTE Non-Admin Reason: Not In Room Atorvastatin Calcium (Atorvastatin Calcium 20 Mg Tablet) 20 mg PO DAILY [facility] Last Admin: 05/09/24 07:30 Dose: Not Given Documented By: JORGE Non-Admin Reason: Patient Refused Bisacodyl (Bisacodyl 10 Mg Supp.Rect) 10 mg SD DAILY PRN PRN Reason: Constipation Last Admin: 05/08/24 11:01 Dose: 10 mg Documented By: JORGE Calcium Carbonate (Calcium Carbonate 750 Mg Tab.Chew) 750 mg PO Q4H PRN PRN Reason: Heartburn Diphenhydramine HCl (Diphenhydramine Hcl 25 Mg Capsule) 25 mg PO TID PRN PRN Reason: allergic reaction Doxycycline Monohydrate (Doxycycline Monohydrate 100 Mg Capsule) 100 mg PO Q12H [facility] Last Admin: 05/09/24 10:38 Dose: 100 mg Documented By: COTEMA Enoxaparin Sodium (Enoxaparin Sodium 40 Mg/0.4 Ml Syringe) 40 mg SUBCUT Q24H [facility] Last Admin: 05/09/24 10:38 Dose: 40 mg Documented By: COTEMA Glucose (Glucose Gel 15 Gm Gel..Gram.) 15 gm PO Q15M PRN; Protocol PRN Reason: per Hypoglycemia Standing Ord. Guaifenesin/Codeine Phosphate (Guaifen/Codeine Sf 200/20/10ml 10 Ml Liquid) 5 ml PO Q6H PRN PRN Reason: Cough Last Admin: 05/09/24 10:37 Dose: 5 ml Documented By: COTEMA Hydrochlorothiazide (Hydrochlorothiazide 12.5 Mg Tablet) 12.5 mg PO DAILY [facility]; Protocol Last Admin: 05/09/24 08:45 Dose: 12.5 mg Documented By: COTEMA Dextrose (D10) 250 mls @ 750 mls/hr IV Q15M PRN; Protocol PRN Reason: per Hypoglycemia Standing Ord. Loratadine (Loratadine 10 Mg Tablet) 10 mg PO DAILY PRN PRN Reason: allergy symptoms Losartan Potassium (Losartan Potassium 50 Mg Tablet) 50 mg PO DAILY [facility]; Protocol Last Admin: 05/09/24 08:46 Dose: 50 mg Documented By: FADIEMA Magnesium Hydroxide (Milk Of Magnesia 30 Ml Oral.Susp) 30 ml PO DAILY PRN PRN Reason: Constipation Last Admin: 05/08/24 08:39 Dose: 30 ml Documented By: FADIEMA Melatonin (Melatonin 3 Mg Tablet) 6 mg PO BEDTIME PRN PRN Reason: Insomnia Metformin HCl (Metformin Hcl Er 500 Mg Tab.Er.24h) 500 mg PO BIDWM [facility] Last Admin: 05/09/24 08:45 Dose: 500 mg Documented By: COTEMA Multivitamins/Vitamin C (Multivitamin Tablet) 1 tab PO DAILY [facility] Last Admin: 05/09/24 08:46 Dose: 1 tab Documented By: COTEMA Nicotine (Nicotine 7 Mg Patch.Td24) 7 mg TRANSDERMA DAILY [facility] Last Admin: 05/09/24 07:30 Dose: Not Given Documented By: COTEMA Non-Admin Reason: Patient Refused Oxycodone HCl (Oxycodone Hcl Immed Release 5 Mg Tablet) 10 mg PO Q8H PRN PRN Reason: Pain, Severe (Pain Scale 7-10) Last Admin: 05/09/24 08:45 Dose: 10 mg Documented By: COTGEETA Prednisone (Prednisone 20 Mg Tablet) 40 mg PO DAILY [facility] Last Admin: 05/09/24 08:45 Dose: 40 mg Documented By: COTEMA Senna (Sennosides 8.6 Mg Tablet) 8.6 mg PO DAILY [facility] Last Admin: 05/09/24 07:30 Dose: Not Given Documented By: COTEMA Non-Admin Reason: Duplicate Order Senna (Sennosides 8.6 Mg Tablet) 17.2 mg PO BID [facility] Last Admin: 05/09/24 08:45 Dose: 17.2 mg Documented By: JORGE Sodium Biphosphate/Sodium Phosphate (Sodium Phosphate,[place]-Dibasic 133 Ml Enema) 133 ml SD ONCE PRN PRN Reason: Constipation Last Admin: 05/08/24 18:28 Dose: 133 ml Documented By: JORGE Sodium Chloride (0.9 % Sodium Chloride Flush 3 Ml Syringe) 3 ml IVFLUSH QSHIFT [facility] Last Admin: 05/09/24 08:45 Dose: Not Given Documented By: COTEMA Non-Admin Reason: No Access Vitamin D (Cholecalciferol (Vitamin D3) 25 Mcg Tablet) 50 mcg PO DAILY [facility] Last Admin: 05/09/24 08:45 Dose: 50 mcg Documented By: JORGE Zolpidem Tartrate (Zolpidem Tartrate 5 Mg Tablet) 5 mg PO BEDTIME [facility] Last Admin: 05/08/24 20:22 Dose: 5 mg Documented By: EDIN Labs 05/07/24 05:28 05/07/24 05:28 Labs: Laboratory Results - last 24 hr 05/08/24 05/08/24 05/09/24 16:05 19:42 07:18 POC Glucose 164 H 172 H 101 05/09/24 11:15 POC Glucose 216 H Assessment and Plan (1) Reactive airway disease: Status: Acute (2) Diabetes mellitus: Status: Acute Quality Stroke Does the patient have a stroke diagnosis?: No VTE Prior VTE?: No VTE Risk Level:: Medical - moderate - high VTE Device Contraindication: Treatment Not Indicated VTE Drug Contraindication: N/A - Med Ordered
[2024-05-09] MEDS: methylPREDNISolone Sod Succ 125 MG/2 ML VIAL 60 MG IVPUSH (13:00)
[2024-05-09 15:59] LABS: Glucose, Whole Blood 330 mg/dL (60-115)
[2024-05-09] MEDS: metFORMIN HCl 1,000 MG TABLET 1000 MG PO (15:59)
[2024-05-09] MEDS: 0.9 % Sodium Chloride Flush 3 ML SYRINGE IVFLUSH ×2 (16:00→21:10)
[2024-05-09] MEDS: bisacodyL 10 MG SUPP.RECT PR (19:31)
[2024-05-09 20:16] LABS: Glucose, Whole Blood 132 mg/dL (60-115)
[2024-05-09] MEDS: Zolpidem Tartrate 5 MG TABLET PO (20:52)
[2024-05-10 03:45] VITALS: BP 117/62; PULSE 68; RESP 18; TEMP 36.1; O2SAT 99
[2024-05-10 06:20] LABS: Basophils Percent Auto 0.2 % (0-2); Hematocrit 40.4 % (37.0-47.0); Hemoglobin 13.7 g/dl (12.0-16.0); Imm Gran Abs Auto 0.12 X10*3/uL (0.00-0.03); Lymphocytes Percent Auto 24.1 % (20-40); MANUAL DIFF FLAG SCAN; Mean Corpuscular HGB Conc 33.9 g/dl (31.0-35.0); Mean Corpuscular Hemoglobin 30.2 pg (27.0-33.0); Mean Platelet Volume 10.2 fL (9.4-12.3); Monocytes Percent Auto 7.7 % (2-11); Neutrophils Absolute Auto 8.3 x10*3/uL (2.0-8.3); Platelet Count 250 X10*3/uL (160-400); Red Blood Count 4.54 X10*6/uL (4.20-5.50); Red Cell Distribution Width 13.3 % (11.0-16.0); SCAN SMEAR FLAG 1; White Blood Count 12.4 X10*3/uL (4.8-10.8)
[2024-05-10 06:44] LABS: Alanine Aminotransferase 27 U/L (0-31); Albumin Level 4.2 g/dL (3.5-5.0); Alkaline Phosphatase 68 U/L (39-117); Anion Gap 14 (12-20); Aspartate Amino Transferase 16 U/L (5-31); Bilirubin Total 0.2 mg/dL (0.0-1.0); Blood Urea Nitrogen 19 mg/dL (9-16); Calcium 9.8 mg/dL (8.4-10.2); Carbon Dioxide 24 mmol/L (22-29); Chloride 103 mmol/L (96-108); Creatinine Clr Calc Pharmacy 75.1; Estimated Glomerular Filt Rate > 60; Glucose Fasting 87 mg/dL (60-99); Potassium 3.8 mmol/L (3.3-5.1); Sodium 137 mmol/L (135-145); Total Protein 7.8 g/dL (6.5-8.0)
[2024-05-10 06:50] LABS: SLIDE REVIEW VERIFIED
[2024-05-10 07:20] VITALS: BP 131/60; PULSE 71; RESP 14; TEMP 36.6; O2SAT 97
[2024-05-10] MEDS: Albuterol Sulfate (0.083%) 2.5 MG/3 ML VIAL.NEB INHALE (07:29)
[2024-05-10 07:31] VITALS: PULSE 70; RESP 16; O2SAT 98
[2024-05-10 07:49] LABS: Glucose, Whole Blood 185 mg/dL (60-115)
[2024-05-10] MEDS: Cholecalciferol (Vitamin D3) 25 MCG TABLET 50 MCG PO (08:04)
[2024-05-10] MEDS: hydroCHLOROthiazide 12.5 MG TABLET PO (08:04)
[2024-05-10] MEDS: oxyCODONE HCl Immed Release 5 MG TABLET 10 MG PO (08:04)
[2024-05-10] MEDS: Losartan Potassium 50 MG TABLET PO (08:04)
[2024-05-10] MEDS: Sennosides 8.6 MG TABLET 17.2 MG PO (08:04)
[2024-05-10] MEDS: Multivitamin TABLET 1 TAB PO (08:04)
[2024-05-10] MEDS: metFORMIN HCl 1,000 MG TABLET 1000 MG PO (08:04)
[2024-05-10] MEDS: 0.9 % Sodium Chloride Flush 3 ML SYRINGE IVFLUSH (08:05)
--- NOTE | 2024-05-10 10:37 | PM.DS ---
DS: Providers Provider Date of Service: 05/10/24 Date of admission: 05/06/24 10:13 Date of discharge: 05/10/24 Primary care physician: Lionel Rodriguez MD Attending physician on discharge: Simone Kwong Discharging clinician: Ashley Marques DS: Diagnosis Discharge Diagnosis (1) Reactive airway disease: Status: Acute (2) Diabetes mellitus: Status: Acute DS: Summary Hospital Course Hospital Course: From H&P on the day of admission 63 yo female with PMH of asthma still heavy smoker, anxiety, depression, GERD, HTN, DM, HLD, here with c/o 2 days of cough, wheezing, white sputum no fevers, She has tried her home treatments without any improvement. CXR showing no consolidation but bronchial wall thickening likely bronchitis. No fever or leukocytosis noted. labs all within normal limits, stable vs without hypoxia. She received IV Solu-Medrol, doxycycline, albuterol, magnesium in the ER. She will be admitted for further management and treatment of asthma/COPD exacerbation Patient was admitted to the hospital and treated for asthma and possible COPD exacerbation. She denies any formal diagnosis of COPD. She remains an active smoker. She was treated with systemic steroids, IV doxycycline and around the clock breathing treatments. Chest x-ray was negative for pneumonia, blood cultures have remained negative to date. She tested negative for influenza a, influenza B, RSV, COVID-19. Her respiratory status slowly improved and she is able to ambulate without any shortness of breath. Her wheezing has improved significantly and she is not requiring any supplemental oxygen and she is eager to return home. Smoking cessation has been encouraged. May need formal outpatient PFT studies. Time Attestation Discharge Coordination Time (in mins): 35 Quality: Safe Use of Opioids Does Pt have an Active Cancer Diagnosis on the Problem List?: No Quality: Stroke Does the patient have a stroke diagnosis?: No Physical Exam Vital Signs: Vital Signs: Last Vital Signs Temp 97.8 F 05/10/24 07:20 Pulse 70 05/10/24 07:31 Resp 16 05/10/24 07:31 BP 131/60 05/10/24 07:20 Pulse Ox 97 05/10/24 07:20 O2 Del Method Room Air 05/10/24 07:20 O2 Flow Rate 94 05/07/24 03:43 BMI result Body Mass Index 28.1 Const: General: cooperative, comfortable, no acute distress, alert and awake Nutritional Appearance: overweight Orientation/consciousness: patient oriented x3 Resp: Other: few scattered wheezes Effort & Inspection: normal respiratory effort, able to speak in complete sentences, no respiratory distress and no use of accessory muscles Cardio: Rate: regular rate GI: Inspection: No distended Palpation (GI): Soft to palpation and nontender Neuro: General: patient oriented x3 and moves all extremities Extrem: General: Yes no pedal edema DS: Data Data Completed and Pending Labs on day of discharge: Laboratory Results - last 24 hr 05/09/24 05/09/24 05/09/24 11:15 15:54 20:07 WBC RBC Hgb Hct MCV MCH MCHC RDW Plt Count MPV Immature Gran % (Auto) Neut % (Auto) Lymph % (Auto) [place] % (Auto) Eos % (Auto) Baso % (Auto) Lymph # (Auto) [place] # (Auto) Eos # (Auto) Baso # (Auto) Abs Immat Gran (auto) Absolute Neuts (auto) Absolute Nucleated RBC Nucleated RBC % (auto) Smear Tech's Comments Sodium Potassium Chloride Carbon Dioxide Anion Gap BUN Creatinine Estim Creat Clear Calc Estimated GFR POC Glucose 216 H 330 H 132 H Fasting Glucose Calcium Total Bilirubin AST ALT Alkaline Phosphatase Total Protein Albumin 05/10/24 05/10/24 05:34 07:23 WBC 12.4 H RBC 4.54 Hgb 13.7 Hct 40.4 MCV 89.0 MCH 30.2 MCHC 33.9 RDW 13.3 Plt Count 250 D MPV 10.2 Immature Gran % (Auto) 1.0 H Neut % (Auto) 67.0 Lymph % (Auto) 24.1 [place] % (Auto) 7.7 Eos % (Auto) 0.0 Baso % (Auto) 0.2 Lymph # (Auto) 3.0 [place] # (Auto) 1.0 Eos # (Auto) 0.0 Baso # (Auto) 0.0 Abs Immat Gran (auto) 0.12 H Absolute Neuts (auto) 8.3 Absolute Nucleated RBC 0.000 Nucleated RBC % (auto) 0.0 Smear Tech's Comments VERIFIED Sodium 137 Potassium 3.8 Chloride 103 Carbon Dioxide 24 Anion Gap 14 BUN 19 H Creatinine 0.71 Estim Creat Clear Calc 75.1 Estimated GFR > 60 POC Glucose 185 H Fasting Glucose 87 Calcium 9.8 Total Bilirubin 0.2 AST 16 ALT 27 Alkaline Phosphatase 68 Total Protein 7.8 Albumin 4.2 Discharge Plan Discharge Anticipated Discharge Date/Time: 05/10/24 10:43 Patient Disposition: Home, Self-Care Discharge Diagnosis: asthma exacerbation Tobacco use disorder Referrals: Lionel Rodriguez MD [Primary Care Provider] - 1 Week Discharge Medications: New doxycycline monohydrate 100 mg Capsule 100 mg PO Q12H 4 Days Qty: 8 0RF nicotine 7 mg/24 hr Patch 24 Hour 7 mg transdermal DAILY Qty: 14 0RF prednisone 20 mg tablet 40 mg PO DAILY 5 Days Qty: 10 0RF Continued cholecalciferol (vitamin D3) 50 mcg (2,000 unit) capsule 50 mcg PO DAILY 90 Days Qty: 90 3RF atorvastatin 20 mg tablet 20 mg PO DAILY 90 Days Qty: 90 1RF losartan 50 mg tablet 50 mg PO DAILY 90 Days Qty: 90 1RF Zyrtec 10 mg capsule 10 mg PO DAILY PRN (Reason: allergy symptoms) Qty: 14 0RF hydrochlorothiazide 12.5 mg tablet 12.5 mg PO DAILY Qty: 30 3RF multivitamin Tablet 1 tab PO DAILY sennosides 8.6 mg tablet 8.6 mg PO DAILY zolpidem 10 mg tablet 10 mg PO BEDTIME metformin 500 mg tablet extended release 24 hr 500 mg PO BID oxycodone 10 mg tablet 10 mg PO BID-TID PRN (Reason: Pain) diphenhydramine HCl [Benadryl] 25 mg capsule 25 mg PO TID PRN (Reason: allergic reaction) Qty: 20 0RF albuterol sulfate [Ventolin HFA] 90 mcg/actuation HFA aerosol inhaler 1 inh inhalation QID PRN (Reason: shortness of breath or wheezing) Qty: 8.5 1RF Discharge Orders: Discharge Order (Routine); Ordered 05/10/24 Ordered By: Ashley Marques Activity on Discharge: As tolerated Stand Alone Forms: Patient Portal Discharge page Print Language: [place] Care Plan Goals: See below Health Concerns: Acute asthma exacerbation. Possible component of COPD Active tobacco use Plan of Treatment: Complete course of antibiotics and steroids as prescribed Recommend to stop smoking, can use nicotine patch daily Call to schedule follow-up appointment with PCP. May need formal pulmonary function testing Assessment: See discharge summary
[2024-05-10] MEDS: Doxycycline Monohydrate 100 MG CAPSULE PO (10:48)
--- NOTE | 2024-05-10 11:15 | MHC.CM.PN ---
Per MD rounds patient medically cleared for dc home, will resume [employer] services. IMM delivered. at bedside to transport. RN aware.
== END 2024-05-10 11:10 | disposition home or self-care (01) | DRG 202 ==
LOC: HO.ED 10:08 → HO.EDOVER 10:18 → HO.S3 16:09
PROVIDERS: Hospitalist; Admitting Provider Nurse Practitioner Acute Care; Emergency Provider Emergency Medicine; PCP Internal Medicine; Visit Provider Physician Assistant Medical
DX: J20.9 Acute bronchitis, unspecified (principal); J44.0 Chronic obstructive pulmonary disease with (acute) lower respiratory infection; J45.51 Severe persistent asthma with (acute) exacerbation; J44.1 Chronic obstructive pulmonary disease with (acute) exacerbation; K59.00 Constipation, unspecified; E78.5 Hyperlipidemia, unspecified; I10 Essential (primary) hypertension; F17.210 Nicotine dependence, cigarettes, uncomplicated; Z71.6 Tobacco abuse counseling; Z20.822 Contact with and (suspected) exposure to COVID-19; Z88.0 Allergy status to penicillin; Z79.84 Long term (current) use of oral hypoglycemic drugs; Z79.899 Other long term (current) drug therapy
CPT/HCPCS: 0241U; 36415; 71046; 80048; 80053; 82947; 85025; 85027; 94640; 99285; J1650; J2919; J3475

== ENCOUNTER → 2024-05-06 10:13 | Outpatient (BNV) | payer OTHER, SELFPAY | PROVIDERS: Admitting Provider Nurse Practitioner Acute Care; Emergency Provider Emergency Medicine; PCP Internal Medicine; Visit Provider Nurse Practitioner Acute Care | DX: J45.909 Unspecified asthma, uncomplicated (principal); E11.9 Type 2 diabetes mellitus without complications | CPT/HCPCS: 99223; 99232; 99239 ==

== ENCOUNTER 2024-05-16 10:51 | Outpatient (AMB) | payer OTHER, SELFPAY ==
[2024-05-16 10:52] VITALS: BP 118/64; PULSE 79; O2SAT 98; BMI 28.0
--- NOTE | 2024-05-16 10:52 | MHC.PC.OV ---
Vital Signs 05/16/24 10:52 Height 5 ft 2 in Weight 153 lb 0.8 oz BMI 28.0 BP 118/64 Blood Pressure Location Lt brachial Position Sitting Pulse 79 Pulse Source Pulse Oximeter Pulse Oximetry (%) 98 Oxygen Delivery Method Room Air Int[place] [facility] [place] Intake Note: Patient is here for hospital discharge follow up. Patient was discharged [place] [facility] [place]. [employer] Required: No Allergies lisinopril Allergy (Severe, Verified 05/16/24 10:58) Angioedema amoxicillin [Amoxicillin] Allergy (Intermediate, Verified 05/16/24 10:58) SHORTNESS OF BREATH penicillin V Allergy (Intermediate, Verified 05/16/24 10:58) shortness of breath Penicillins Allergy (Intermediate, Verified 05/16/24 10:58) SHORTNESS OF BREATH Medication List - Last Reconciled 05/16/24 by Doris Valadez PA-C albuterol sulfate 90 mcg/actuation (Ventolin HFA) 1 inh inhalation QID PRN atorvastatin 20 mg PO DAILY 90 days cetirizine (Zyrtec) 10 mg PO DAILY PRN cholecalciferol (vitamin D3) 50 mcg PO DAILY 90 days diphenhydramine HCl (Benadryl) 25 mg PO TID PRN doxycycline monohydrate 100 mg PO Q12H 4 days hydrochlorothiazide 12.5 mg PO DAILY losartan 50 mg PO DAILY 90 days metformin ER 500 mg PO BID multivitamin 1 tab PO DAILY nicotine 7 mg transdermal DAILY oxycodone 10 mg PO BID-TID PRN prednisone 40 mg (2 x 20 mg) PO DAILY 5 days sennosides 8.6 mg PO DAILY zolpidem 10 mg PO BEDTIME Tobacco use date assessed: 12/29/23 Dental Screening Dental Screen Date: 09/22/23 [place] [facility] HPI Details 63-year-old female with past medical history of diabetes mellitus, hypertension, hypercholesterolemia, GERD, anxiety, depression, and asthma last seen by Dr. Rodriguez coming in for hospital follow up.?In review of the notes, patient was seen in [facility] [place]/06/[place] for cough and sputum production.?Given IV Solu-Medrol, doxycycline, albuterol, magnesium in the ER and admitted for asthma/COPD exacerbation. Viral panel was negative and was treated around the clock with breathing treatments.?Patient was discharged home with doxycycline, prednisone, and nicotine patches and recommended PFTs.?Patient was discharged home 05/10/2024. Patient states her cough and phlegm has greatly improved since her hospitalization. She did finish the antibiotic yesterday and does not like taking the prednisone because it affects her blood sugar. She does still continue to have a slight cough with mild phlegm production however mentions that this is manageable. She has not had to use her inhaler since discharge. She also mentioned that she has never had a formal diagnosis of asthma in the past. 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 Smoker Depression Anxiety Insomnia GERD without esophagitis Constipation Osteoarthritis of left knee Lumbar radiculopathy Lumbar degenerative disc disease Pure hypercholesterolemia Benign essential hypertension Diabetes mellitus Surgical History History of tooth extraction History of ectopic History of open reduction and internal fixation (ORIF) procedure History of foot surgery History of tubal ligation Family History Father Hypertension Mother Hypertension Arthritis Family/Other Breast cancer Social History Household Members: Spouse Housing: House Do you presently have visiting nurse or other home services: No Unable to assess alcohol history related to: Unknown Alcohol intake: never Patient Tobacco Use Status: Current everyday Tobacco user Tobacco use type: Cigarette Cigarettes Per Day: 8 e-Cigarette/Vaping Use: Never Used Second Hand Smoke Exposure: Yes Advance Directives Date on File: 05/06/24 service: No Current occupational status: disabled Cognitive needs: No Hearing needs: No Vision needs: No Questionnaire Thrive Questionnaire Date Thrive assessed: 05/07/24 AUDIT C Alcohol Use Questionnaire (AUDIT-C) 1. How often do you have a drink containing alcohol?: Never 3. How often do you have six or more drinks on one occasion?: Never Total Score: 0 Score Reviewed/Action Taken: Yes IZABEL-7 AMB Questionnaire IZABEL-7 Date IZABEL - 7 assessed: 09/22/23 Source: Developed by Drs. Stan Kruse, Doris Bustamante, Jose Wheatley and colleagues, with an educational marlee from [employer]. Review of Systems Const Denies body aches, Denies chills, Denies fever(s), Denies headache(s) and Denies poor appetite Eyes Reports no additional complaints ENT Denies dizziness and Denies headache(s) Card Denies chest pain, Denies syncope, Denies lightheadedness and Denies dyspnea Resp Denies change in phlegm color, Reports cough, Denies hemoptysis, Denies excessive phlegm production and Denies dyspnea GI Denies abdominal pain, Reports constipation, Denies diarrhea, Denies nausea and Denies vomiting Reports no additional complaints Musc Reports no additional complaints and Denies abnormal gait Skin/Breast Reports system reviewed and no additional complaints, except as documented Neuro Denies abnormal gait, Denies dizziness, Denies syncope and Denies headache(s) Psych Reports no additional complaints Physical exam (Primary Care) Vital Signs: Last Vital Signs Pulse 79 05/16/24 10:52 BP 118/64 05/16/24 10:52 Pulse Ox 98 05/16/24 10:52 Oxygen Delivery Method Room Air 05/16/24 10:52 BMI result Body Mass Index 28.0 Tobacco/Smoking Status: Tobacco use Status Tobacco use date assessed 12/29/23 05/16/24 10:54 Patient Tobacco Use Status Current everyday Tobacco 05/16/24 10:54 Tobacco use type Cigarette 05/16/24 10:54 e-Cigarette/Vaping Use Never Used 05/16/24 10:54 Thrive Assessment: Date of Thrive Assessment Date Thrive assessed 05/07/24 05/16/24 10:54 Const General: cooperative, healthy appearing, comfortable and no acute distress Orientation/consciousness: patient oriented x3 HENMT Head: Yes normocephalic Ears: hearing grossly normal bilaterally General nose exam: Normal external nose present Eyes General: appearance normal, both eyes and all related structures Conjunctivae: conjunctivae normal Neck Neck: Yes full ROM and Yes no lymphadenopathy Resp Effort & Inspection: normal respiratory effort Auscultation: clear to auscultation bilaterally, no crackles, no rales, no rhonchi and no wheezes Cardio Rate: regular rate Rhythm: regular rhythm Skin General skin exam: no rashes or lesions noted Neuro General: patient oriented x3 Gait exam (Neuro): Normal gait present Extrem General: Yes normal to inspection, Yes full ROM and No edema Psych Affect: normal affect Attitude: cooperative Insight: Good insight present (Psych) Judgement: Good judgement present (Psych) Assessment and Plan Assessment & Plan (1) Asthma: Code(s): J45.909 - Unspecified asthma, uncomplicated Qualifiers: Asthma complication type: with acute exacerbation Asthma persistence: persistent Asthma severity: severe Qualified Code(s): J45.51 - Severe persistent asthma with (acute) exacerbation Plan: Patient states she has never been diagnosed with asthma in the past and has never been evaluated for this. She was considered to have asthma/COPD exacerbation while in the hospital. Symptoms seem to have resolved at this time however does still continue to have minor cough. We will order for pulmonary function tests for further evaluation. Advised patient to avoid triggers such as smoking and allergens and use albuterol inhaler as needed for shortness of breath and chest tightness. Discussed with patient red flag symptoms and when to present for re-evaluation. Follow up in 2 months for re-evaluation and discussion after PFTs. Plan This note was constructed using voice recognition software. While every effort has been made to ensure accuracy and product manager financial [employer], still areas may have been included sometimes these areas may affect the content or meeting of the given symptoms. Total time spent caring for the patient today was 30 minutes. This includes time spent before the visit reviewing the chart, time spent during the visit, and time spent after the visit and documentation. Orders: Orders PFT pulmonary function test Today Medications: New bisacodyl (Dulcolax (bisacodyl)) 5 mg PO BEDTIME 10 days PRN 10 tabs 0RF constipation multivitamin 1 tab PO DAILY 30 tabs 2RF Refilled cholecalciferol (vitamin D3) 50 mcg PO DAILY 90 days 90 caps 3RF E55.9 - Vitamin D deficiency, unspecified Coding Level of Care Code TCM Mod MDM <= 7 Days Diagnoses Asthma J45.51 Asthma complication type: with acute exacerbation Asthma persistence: persistent Asthma severity: severe
== END 2024-05-16 11:20 | disposition home or self-care (01) ==
PROVIDERS: PCP Internal Medicine
DX: J45.51 Severe persistent asthma with (acute) exacerbation (principal)
CPT/HCPCS: 99495

== ENCOUNTER 2024-07-26 14:15 | Outpatient (AMB) | payer OTHER, SELFPAY ==
[2024-07-26 14:17] VITALS: BP 128/72; PULSE 86; O2SAT 97; BMI 29.1
--- NOTE | 2024-07-26 14:17 | A.OFFPC_ITS ---
Vital Signs 07/26/24 14:17 Height 5 ft 2 in Weight 159 lb BMI 29.1 BP 128/72 Blood Pressure Location Lt brachial Position Sitting Pulse 86 Pulse Source Pulse Oximeter Pulse Oximetry (%) 97 Oxygen Delivery Method Room Air Intake Visit Reasons: 2 mo f/u asthma - Intake Note: Patient is here to follow up on asthma [employer] Required: No Allergies lisinopril Allergy (Severe, Verified 08/08/24 07:09) Angioedema amoxicillin [Amoxicillin] Allergy (Intermediate, Verified 08/08/24 07:09) SHORTNESS OF BREATH penicillin V Allergy (Intermediate, Verified 08/08/24 07:09) shortness of breath Penicillins Allergy (Intermediate, Verified 08/08/24 07:09) SHORTNESS OF BREATH Medication List - Last Reconciled 07/26/24 by Doris Valadez PA-C albuterol sulfate 90 mcg/actuation (Ventolin HFA) 1 inh inhalation QID PRN atorvastatin 20 mg PO DAILY 90 days bisacodyl (Dulcolax (bisacodyl)) 5 mg PO BEDTIME PRN 10 days blood sugar diagnostic (FreeStyle Lite Strips) As directed three times per day cetirizine (Zyrtec) 10 mg PO DAILY PRN cholecalciferol (vitamin D3) 50 mcg PO DAILY 90 days diphenhydramine HCl (Benadryl) 25 mg PO TID PRN hydrochlorothiazide 12.5 mg PO DAILY lancets (FreeStyle Lancets) As directed three times daily losartan 50 mg PO DAILY 90 days metformin ER 500 mg PO BID multivitamin 1 tab PO DAILY nicotine 7 mg transdermal DAILY oxycodone 10 mg PO BID-TID PRN oxycodone Take 1 tablet by mouth 2 to 3 times a day as needed for increased pain; 28 days sennosides 8.6 mg PO DAILY sennosides 8.6 mg PO DAILY PRN zolpidem 10 mg PO BEDTIME zolpidem 10 mg PO BEDTIME PRN 30 days Tobacco use date assessed: 12/29/23 Dental Screening Dental Screen Date: 09/22/23 HPI 2 mo f/u asthma - HPI Details 63-year-old female with past medical his tory of diabetes mellitus, hypertension, hypercholesterolemia, GERD, anxiety, depression, and asthma last seen April 2024 coming in for follow up on asthma. Patient states she is feeling generally well. She has not had the pulmonary fu nction testing done as the schedule was never made. She denies any cough, shortness of breath or chest tightness and has not used her albuterol inhaler at all. She has no other concerns today. 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 Smoker Depression Anxiety Insomnia GERD without esophagitis Constipation Osteoarthritis of left knee Lumbar radiculopathy Lumbar degenerative disc disease Pure hypercholesterolemia Benign essential hypertension Surgical History History of tooth extraction History of ectopic History of open reduction and internal fixation (ORIF) procedure History of foot surgery History of tubal ligation Family History Father Hypertension Mother Hypertension Arthritis Family/Other Breast cancer Social History Household Members: Spouse Housing: House Do you presently have visiting nurse or other home services: No Unable to assess alcohol history related to: Unknown Alcohol intake: never Patient Tobacco Use Status: Current everyday Tobacco user Tobacco use type: Cigarette Cigarettes Per Day: 8 e-Cigarette/Vaping Use: Never Used Second Hand Smoke Exposure: Yes Advance Directives: Yes Advance Directives on File: Yes Advance Directives Date on File: 05/06/24 service: No Current occupational status: disabled Cognitive needs: No Hearing needs: No Vision needs: No Questionnaire Thrive Questionnaire Date Thrive assessed: 05/07/24 AUDIT C Alcohol Use Questionnaire (AUDIT-C) 1. How often do you have a drink containing alcohol?: Never 3. How often do you have six or more drinks on one occasion?: Never Total Score: 0 Score Reviewed/Action Taken: Yes IZABEL-7 AMB Questionnaire IZABEL-7 Date IZABEL - 7 assessed: 09/22/23 Source: Developed by Drs. Stan Kruse, Doris Bustamante, Jose Wheatley and colleagues, with an educational marlee from [employer]. Review of Systems Const Denies body aches, Denies chills, Denies fever(s), Denies headache(s) and Denies poor appetite ENT Denies dizziness and Denies headache(s) Card Denies chest pain, Denies lightheadedness and Denies dyspnea Resp Denies cough and Denies dyspnea Musc Reports no additional complaints and Denies abnormal gait Skin/Breast Reports system reviewed and no additional complaints, except as documented Neuro Denies abnormal gait, Denies dizziness and Denies headache(s) Psych Reports no additional complaints Physical exam (Primary Care) Vital Signs: Last Vital Signs Pulse 86 07/26/24 14:17 BP 128/72 07/26/24 14:17 Pulse Ox 97 07/26/24 14:17 Oxygen Delivery Method Room Air 07/26/24 14:17 BMI result Body Mass Index 29.1 Tobacco/Smoking Status: Tobacco use Status Tobacco use date assessed 12/29/23 07/26/24 14:18 Patient Tobacco Use Status Current everyday Tobacco 07/26/24 14:18 Tobacco use type Cigarette 07/26/24 14:18 e-Cigarette/Vaping Use Never Used 07/26/24 14:18 Thrive Assessment: Date of Thrive Assessment Date Thrive assessed 05/07/24 07/26/24 14:18 Const General: cooperative, healthy appearing, comfortable and no acute distress Orientation/consciousness: patient oriented x3 HENMT Head: Yes normocephalic Ears: hearing grossly normal bilaterally General nose exam: Normal external nose present Eyes General: appearance normal, both eyes and all related structures Conjunctivae: conjunctivae normal Neck Neck: Yes full ROM and Yes no lymphadenopathy Resp Effort & Inspection: normal respiratory effort Auscultation: clear to auscultation bilaterally, no crackles, no rales, no rhonchi and no wheezes Cardio Rate: regular rate Rhythm: regular rhythm Skin General skin exam: no rashes or lesions noted Neuro General: patient oriented x3 Gait exam (Neuro): Normal gait present Extrem General: Yes normal to inspection, Yes full ROM and No edema Psych Affect: normal affect Attitude: cooperative Insight: Good insight present (Psych) Judgement: Good judgement present (Psych) Coding Level of Care Code Est Pt Level 3 (32779) Diagnoses Asthma J45.51 Asthma complication type: with acute exacerbation Asthma persistence: persistent Asthma severity: severe Overweight (BMI 25.0-29.9) E66.3 Benign essential hypertension I10 Pure hypercholesterolemia E78.00 Assessment & Plan Assessment & Plan (1) Asthma: Code(s): J45.909 - Unspecified asthma, uncomplicated Category: Medical Qualifiers: Asthma complication type: with acute exacerbation Asthma persistence: persistent Asthma severity: severe Qualified Code(s): J45.51 - Severe persistent asthma with (acute) exacerbation Plan: Patient states she was never diagnosed with asthma in the past however on last hospital admission was diagnosed with asthma/COPD exacerbation. Denies any chest pain, shortness of breath, chest tightness and has not had to use her albuterol inhaler. We will defer PFTs at this time and can consider if patient becomes symptomatic. (2) Overweight (BMI 25.0-29.9): Code(s): E66.3 - Overweight Category: Medical Plan: Healthy diet and regular exercise is encouraged. (3) Benign essential hypertension: Code(s): I10 - Essential (primary) hypertension Category: Medical Plan: Continue on current blood pressure medication. Avoid salt intake and encourage healthy diet and regular exercise. (4) Pure hypercholesterolemia: Code(s): E78.00 - Pure hypercholesterolemia, unspecified Category: Medical Plan: Avoid foods that are high in cholesterol such as red meat, fried foods, eggs and baked goods. Triglyceride goal of less than 150 and LDL goal of less than 100. Repeat blood work ordered by Dr. Rodriguez and we will follow up at next month. Plan This note was constructed using voice recognition software. While every effort has been made to ensure accuracy and java xml developer, still areas may have been included sometimes these areas may affect the content or meeting of the given symptoms. Total time spent caring for the patient today was 20 minutes. This includes time spent before the visit reviewing the chart, time spent during the visit, and time spent after the visit and documentation. Medications: New blood sugar diagnostic (FreeStyle Lite Strips) As directed three times per day 100 ea 0RF [Women's underwear liners] As directed once daily 30 ea 3RF lancets (FreeStyle Lancets) As directed three times daily 100 ea 0RF [women's regular pad with wings] As directed once daily 30 ea 4RF [women's regular pad with wings] As directed once daily 30 ea 4RF [Women's underwear liners] As directed once daily 30 ea 3RF
== END 2024-07-26 15:10 | disposition home or self-care (01) ==
LOC: HO.HMCH 14:16
PROVIDERS: PCP Internal Medicine
DX: J45.51 Severe persistent asthma with (acute) exacerbation (principal); E66.3 Overweight; I10 Essential (primary) hypertension; E78.00 Pure hypercholesterolemia, unspecified

== ENCOUNTER → 2024-07-26 14:15 | Outpatient (BNVA) | payer OTHER, SELFPAY | PROVIDERS: PCP Internal Medicine | DX: J45.51 Severe persistent asthma with (acute) exacerbation (principal); E66.3 Overweight; E78.00 Pure hypercholesterolemia, unspecified; I10 Essential (primary) hypertension | CPT/HCPCS: 99212 ==

== ENCOUNTER 2024-08-08 07:04 | Emergency (ER) | payer OTHER, SELFPAY ==
--- NOTE | ~2024-08-08 | XR_ITS ---
EXAMINATION: XR CHEST CLINICAL INFORMATION: cough, fever COMPARISON: 05/06/2024 TECHNIQUE: 2 views of the chest were obtained. FINDINGS: No significant abnormality is noted involving the heart, lungs, mediastinum, bony thorax or soft tissues. XR/XR chest 2V IMPRESSION: No acute disease Electronically signed by: Helder Daniel MD 08/08/2024 08:[address] [facility]
[2024-08-08 07:07] VITALS: BP 140/70; PULSE 77; RESP 18; TEMP 36.7; O2SAT 97; BMI 29.0
--- NOTE | 2024-08-08 07:11 | ED_ITS ---
HPI - URI/Sore Throat General Chief Complaint: Upper Respiratory Symptoms Stated Complaint: Sore throat, cough Time Seen by Provider: 08/08/24 07:10 Source: patient and old records reviewed Mode of arrival: ambulatory Limitations: no limitations History of Present Illness ED Provider: FAIZA OLMOS Narrative: 63 yo female with PMH of DM, asthma, anxiety, depression, HTN, HLD, GERD here with c/o 2 days of sore throat and cough. No fevers no chills. No chest pain no trouble breathing denies sick contacts or travel. She has not had to use her inhaler. She has had pneumonia before and was worried. MD elicited complaint: cough and sore throat Onset (ago): day(s) (2) Consistency: intermittent Severity: mild Description of mucous: green Able to tolerate fluids by mouth: Yes Exacerbating factors: other (swallowing, coughing) Relieving factors: nothing Associated symptoms: sore throat and cough Treatments prior to arrival: none Related Data Home Medications ?Medication ?Instructions ?Recorded ?Confirmed metformin 500 mg tablet,extended 500 mg PO BID 05/06/24 07/26/24 release 24 hr oxycodone 10 mg tablet 10 mg PO BID-TID PRN Pain 05/06/24 07/26/24 sennosides 8.6 mg tablet 8.6 mg PO DAILY constipation 05/06/24 07/26/24 zolpidem 10 mg tablet 10 mg PO BEDTIME insomnia 05/06/24 07/26/24 Previous Rx's ?Medication ?Instructions ?Recorded diphenhydramine HCl 25 mg capsule 25 mg PO TID PRN allergic reaction 12/17/22 (Benadryl) #20 caps cetirizine 10 mg capsule (Zyrtec) 10 mg PO DAILY PRN allergy 02/15/24 symptoms #14 caps losartan 50 mg tablet 50 mg PO DAILY 90 days #90 tabs 02/15/24 nicotine 7 mg/24 hr daily 7 mg transdermal DAILY #14 ea 05/10/24 transdermal patch albuterol sulfate 90 mcg/actuation 1 inh inhalation QID PRN shortness 05/11/24 aerosol inhaler (Ventolin HFA) of breath or wheezing #8.5 grams atorvastatin 20 mg tablet 20 mg PO DAILY 90 days #90 caps 05/16/24 bisacodyl 5 mg tablet,delayed 5 mg PO BEDTIME PRN constipation 05/16/24 release (Dulcolax (bisacodyl)) 10 days #10 tabs cholecalciferol (vitamin D3) 50 50 mcg PO DAILY 90 days #90 caps 05/16/24 mcg (2,000 unit) capsule multivitamin 1 tab PO DAILY #30 tabs 05/16/24 sennosides 8.6 mg tablet 8.6 mg PO DAILY PRN constipation 05/22/24 #30 tabs oxycodone 10 mg tablet See Rx Instructions .Route 07/12/24 .COMPLEX 28 days #66 tabs zolpidem 10 mg tablet 10 mg PO BEDTIME PRN insomnia 30 07/12/24 days #30 tabs hydrochlorothiazide 12.5 mg tablet 12.5 mg PO DAILY #30 tabs 07/14/24 Women's underwear liners #30 ea 07/26/24 blood sugar diagnostic (FreeStyle #100 ea 07/26/24 Lite Strips) lancets 28 gauge (FreeStyle #100 ea 07/26/24 Lancets) women's regular pad with wings #30 ea 07/26/24 azithromycin 250 mg tablet See Rx Instructions PO .COMPLEX #6 08/08/24 tabs prednisone 20 mg tablet 40 mg (2 x 20 mg) PO DAILY 5 days 08/08/24 #10 tabs Allergies Allergy/AdvReac Type Severity Reaction Status Date / Time lisinopril Allergy Severe Angioedema Verified 08/08/24 07:09 amoxicillin [Amoxicillin] Allergy Intermediate SHORTNESS Verified 08/08/24 07:09 OF BREATH penicillin V Allergy Intermediate shortness Verified 08/08/24 07:09 of breath Penicillins Allergy Intermediate SHORTNESS Verified 08/08/24 07:09 OF BREATH Review of Systems Review of Systems: Constitutional : No Fever, No Chills ENT/Mouth : No Hoarseness, pos sore throat, No Rhinorrhea Eyes: No Redness, No Discharge, No Vision Changes Cardiovascular : No Chest Pain, no SOB, Respiratory : positive Cough, pos Sputum, Gastrointestinal : No Nausea, No Vomiting, No Diarrhea, No abdominal Pain Genitourinary : No Dysuria, No Hematuria Musculoskeletal : No joint pain, No Myalgias Skin : No rash Neuro : No Weakness, No Numbness, No Headache Psych : No anxiety, depression All other systems reviewed and are negative [facility] Past Medical History Attestation statement: The following information was validated with the patient. 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 Smoker Depression Anxiety Insomnia GERD without esophagitis Constipation Osteoarthritis of left knee Lumbar radiculopathy Lumbar degenerative disc disease Pure hypercholesterolemia Benign essential hypertension Surgical History History of tooth extraction History of ectopic History of open reduction and internal fixation (ORIF) procedure History of foot surgery History of tubal ligation Family History Family History Father Hypertension Mother Hypertension Arthritis Family/Other Breast cancer Social History Social History Household Members: Spouse Housing: House Do you presently have visiting nurse or other home services: No Unable to assess alcohol history related to: Unknown Alcohol intake: never Patient Tobacco Use Status: Current everyday Tobacco user Tobacco use type: Cigarette Cigarettes Per Day: 8 e-Cigarette/Vaping Use: Never Used Second Hand Smoke Exposure: Yes Advance Directives: Yes Advance Directives on File: Yes Advance Directives Date on File: 05/06/24 service: No Current occupational status: disabled Cognitive needs: No Hearing needs: No Vision needs: No Physical Exam Vital Signs: Vital Signs: Last Vital Signs Temp 98.0 F 08/08/24 07:07 Pulse 77 08/08/24 07:07 Resp 18 08/08/24 07:07 BP 140/70 H 08/08/24 07:07 Pulse Ox 97 08/08/24 07:07 O2 Del Method Room Air 08/08/24 07:07 BMI result Body Mass Index 29.0 Appearance: Alert. Oriented X3. No acute distress. Eyes: Pupils equal, round and reactive to light. ENT: Pharynx mild erythema no swelling or exudates Neck: Normal inspection. Neck supple. CVS: Normal heart rate and rhythm. Pulses normal. Respiratory: No respiratory distress. Breath sounds L base crackles noted otherwise clear Abdomen: Soft and nontender. Skin: Skin warm and dry. Normal skin color. Normal skin turgor. Extremities: No lower extremity edema. No calf ttp Neuro: Oriented X 3. No motor deficit. No sensory deficit. Medical Decision Making Medical Decision Making MDM Narrative: 63 yo female with PMH of DM, asthma, anxiety, depression, HTN, HLD, GERD here with c/o sore throat and productive cough - not toxic normal O2 sats not labored she is eating and drinking. 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 Differential Diagnosis Differential Diagnoses: The differential diagnosis associated with the presentation includes viral syndrome, pharyngitis, bronchitis, pneumonia Admission/Observation Consideration of admission/observation: Escalation of care including admission/observation considered no hypoxia can be managed as an outpatient Lab Data MDM Lab Attestation statement: I reviewed the patient's lab results. Labs: Lab Results 08/08/24 Range/Units 07:17 Influenza Type A (PCR) NEGATIVE (Negative) Influenza Type B (PCR) NEGATIVE (Negative) RSV RNA Qual (PCR) NEGATIVE (Negative) SARS-CoV-2 RNA (RT-PCR) NEGATIVE (Negative) S. pyogenes GrpA ESTEFANÍA Negative (Negative) Independent Interpretation I performed an independent interpretation of an: Plain X-Ray (bronchial thickening) Radiology Impression Discussion of test interpretation with radiology: I have reviewed the radio logist's reading. External Record Review External record reviewed: Outpatient record Prescription Management I considered prescription management with: Antibiotic Discharge Plan Discharge Clinical Impression: Bronchitis Patient Disposition: Home, Self-Care Instructions: Acute Bronchitis (ED) Additional Instructions: no covid flu rsv no pneumonia on xray continue your inhalers return for any worsening symptoms or concerns On azithromycin, call your provider if you develop new ringing in your ears, new problems hearing, dizziness, palpitations, abdominal pain, nausea, or diarrhea. Prescriptions: New azithromycin 250 mg tablet See Rx Instructions .ROUTE .COMPLEX Qty: 6 0RF Rx Instructions: For 250 mg dose pack: take 500 mg today (day 1), then 250 mg for 4 days (days 2-5) prednisone 20 mg tablet 40 mg PO DAILY 5 Days Qty: 10 0RF No Action losartan 50 mg tablet 50 mg PO DAILY 90 Days Qty: 90 1RF Zyrtec 10 mg capsule 10 mg PO DAILY PRN (Reason: allergy symptoms) Qty: 14 0RF albuterol sulfate [Ventolin HFA] 90 mcg/actuation HFA aerosol inhaler 1 inh inhalation QID PRN (Reason: shortness of breath or wheezing) Qty: 8.5 1RF atorvastatin 20 mg tablet 20 mg PO DAILY 90 Days Qty: 90 1RF sennosides 8.6 mg tablet 8.6 mg PO DAILY PRN (Reason: constipation) Qty: 30 12RF oxycodone 10 mg tablet See Rx Instructions .ROUTE .COMPLEX 28 Days Qty: 66 0RF Rx Instructions: Take 1 tablet by mouth 2 to 3 times a day as needed for increased pain; zolpidem 10 mg tablet 10 mg PO BEDTIME PRN (Reason: insomnia) 30 Days Qty: 30 1RF hydrochlorothiazide 12.5 mg tablet 12.5 mg PO DAILY Qty: 30 3RF sennosides 8.6 mg tablet 8.6 mg PO DAILY zolpidem 10 mg tablet 10 mg PO BEDTIME metformin 500 mg tablet extended release 24 hr 500 mg PO BID oxycodone 10 mg tablet 10 mg PO BID-TID PRN (Reason: Pain) nicotine 7 mg/24 hr Patch 24 Hour 7 mg transdermal DAILY Qty: 14 0RF diphenhydramine HCl [Benadryl] 25 mg capsule 25 mg PO TID PRN (Reason: allergic reaction) Qty: 20 0RF cholecalciferol (vitamin D3) 50 mcg (2,000 unit) capsule 50 mcg PO DAILY 90 Days Qty: 90 3RF multivitamin Tablet 1 tab PO DAILY Qty: 30 2RF bisacodyl [Dulcolax (bisacodyl)] 5 mg tablet,delayed release (DR/EC) 5 mg PO BEDTIME PRN (Reason: constipation) 10 Days Qty: 10 0RF (DME) FreeStyle Lite Strips Strip See Rx Instructions .Route Qty: 100 0RF Rx Instructions: As directed three times per day (DME) lancets [FreeStyle Lancets] 28 gauge misc See Rx Instructions .Route Qty: 100 0RF Rx Instructions: As directed three times daily (DME) women's regular pad with wings See Rx Instructions .Route .MEDSUPPLY Qty: 30 4RF Rx Instructions: As directed once daily (DME) Women's underwear liners See Rx Instructions .Route .MEDSUPPLY Qty: 30 3RF Rx Instructions: As directed once daily Print Language: Citizen Of [place]
[2024-08-08 07:33] LABS: IDNOW Serial# 08D9AD1C; Strep A Nucleic Acid Negative (Negative)
[2024-08-08 07:59] LABS: Influenza A PCR NEGATIVE (Negative); Influenza B PCR NEGATIVE (Negative); Resp Syncy Virus RNA Qual PCR NEGATIVE (Negative); SARS COV2 PCR INHOUSE NEGATIVE (Negative)
[2024-08-08 08:23] VITALS: BP 134/77; PULSE 66; RESP 16; TEMP 37.1; O2SAT 98
[2024-08-08 08:38] VITALS: BP 134/77; PULSE 66; RESP 16; TEMP 37.1; O2SAT 98
== END 2024-08-08 08:45 | disposition home or self-care (01) ==
PROVIDERS: Emergency Provider Emergency Medicine; PCP Internal Medicine
DX: J40 Bronchitis, not specified as acute or chronic (principal); J02.9 Acute pharyngitis, unspecified; R05.9 Cough, unspecified; Z03.818 Encounter for observation for suspected exposure to other biological agents ruled out; I10 Essential (primary) hypertension; E78.5 Hyperlipidemia, unspecified; E11.9 Type 2 diabetes mellitus without complications; E78.00 Pure hypercholesterolemia, unspecified; F17.210 Nicotine dependence, cigarettes, uncomplicated; Z79.899 Other long term (current) drug therapy; Z79.02 Long term (current) use of antithrombotics/antiplatelets
CPT/HCPCS: 0241U; 71046; 87651; 99283

== ENCOUNTER 2024-08-31 10:46 | Outpatient (AMB) | payer OTHER, SELFPAY ==
[2024-08-31 10:52] VITALS: BP 112/78; PULSE 78; O2SAT 94; BMI 29.3
--- NOTE | 2024-08-31 10:52 | A.OFFPC_ITS ---
Vital Signs 08/31/24 10:52 Height 5 ft 2 in Weight 160 lb BMI 29.3 BP 112/78 Blood Pressure Location Lt brachial Position Sitting Pulse 78 Pulse Source Pulse Oximeter Pulse Oximetry (%) 94 Oxygen Delivery Method Room Air Intake Visit Reasons: 3M follow up Day Light Relief Operator Required: No Accompanied by: Self / Same As Patient Allergies lisinopril Allergy (Severe, Verified 08/31/24 11:16) Angioedema amoxicillin [Amoxicillin] Allergy (Intermediate, Verified 08/31/24 11:16) SHORTNESS OF BREATH penicillin V Allergy (Intermediate, Verified 08/31/24 11:16) shortness of breath Penicillins Allergy (Intermediate, Verified 08/31/24 11:16) SHORTNESS OF BREATH Medication List - Last Reconciled 08/31/24 by Lionel Rodriguez MD albuterol sulfate 90 mcg/actuation (Ventolin HFA) 1 inh inhalation QID PRN atorvastatin 20 mg PO DAILY 90 days blood sugar diagnostic (FreeStyle Lite Strips) As directed three times per day cetirizine (Zyrtec) 10 mg PO DAILY PRN cholecalciferol (vitamin D3) 50 mcg PO DAILY 90 days diphenhydramine HCl (Benadryl) 25 mg PO TID PRN hydrochlorothiazide 12.5 mg PO DAILY lancets (FreeStyle Lancets) As directed three times daily losartan 50 mg PO DAILY 90 days metformin ER 500 mg PO BID multivitamin 1 tab PO DAILY oxycodone Take 1 tablet by mouth 2 to 3 times a day as needed for increased pain; 28 days sennosides 8.6 mg PO DAILY PRN [women's regular pad with wings As directed once daily] [Women's underwear liners As directed once daily] zolpidem 10 mg PO BEDTIME PRN 30 days Tobacco use date assessed: 08/31/24 Dental Screening Dental Screen Date: 08/31/24 Did you have a dental visit in the last 12 months?: No Did you have a dental problem in the last 6 months where you did not have access to dental care?: No Was dental information given to patient?: No HPI 3M follow up HPI Details Patient comes in today for her follow up visit States that she feels okay Relates that she missed her last appointment as she thought her appointment was at a different time and she came into the office at the wrong time and had to be rescheduled She denies any headaches or dizziness Denies any chest pains, no SOB No nausea/vomiting, no abdominal pain No change in bowel habits noted States that her chronic low back pain and joint pains remain adequately controlled on her current Rx She was not able to get her follow up labs done prior to her visit today - states that she will go and get these done tomorrow morning if she can PFSH Medical History Diabetes mellitus Tenosynovitis of finger Overweight (BMI 25.0-29.9) 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 Smoker Depression Anxiety Insomnia GERD without esophagitis Constipation Osteoarthritis of left knee Lumbar radiculopathy Lumbar degenerative disc disease Pure hypercholesterolemia Benign essential hypertension Surgical History History of tooth extraction History of ectopic History of open reduction and internal fixation (ORIF) procedure History of foot surgery History of tubal ligation Family History Father Hypertension Mother Hypertension Arthritis Family/Other Breast cancer Social History Household Members: Spouse Housing: House Do you presently have visiting nurse or other home services: No Unable to assess alcohol history related to: Unknown Alcohol intake: never Patient Tobacco Use Status: Current everyday Tobacco user Tobacco use type: Cigarette Cigarettes Per Day: 8 e-Cigarette/Vaping Use: Never Used Second Hand Smoke Exposure: Yes Advance Directives Date on File: 05/06/24 service: No Current occupational status: disabled Cognitive needs: No Hearing needs: No Vision needs: No Questionnaire PHQ-9 Over the last 2 weeks, how often have you been bothered by any of the following problems? 1. Little interest or pleasure in doing things: not at all 2. Feeling down, depressed, or hopeless: not at all 3. Trouble falling or staying asleep, or sleeping too much: not at all 4. Feeling tired or having little energy: not at all 5. Poor appetite or overeating: not at all 6. Feeling bad about yourself - or that you are a failure or have let yourself or your family down: not at all 7. Trouble concentrating on things, such as reading the newspaper or watching television: not at all 8. Moving or speaking so slowly that other people could have noticed. Or the opposite - being so fidgety or restless that you have been moving around a lot more than usual: not at all 9. Thoughts that you would be better off or of hurting yourself in some way: not at all Total score: 0 Depression Screening Interpretation: Negative Depression Screening Done: Yes 72244 - PHQ-9 Billing: Yes Source: Developed by Drs. Stan Kruse, Doris Bustamante, Jose Wheatley and colleagues, with an educational marlee from [employer]. Thrive Questionnaire Date Thrive assessed: 08/31/24 I am a: Patient What is your living situation today?: I have a steady place to live Within the past 12 months, did the food you bought not last and you didn't have the money to get more?: Never true Within the past 12 months, did you worry whether your food would run out before you got money to buy more?: Never true Do you have trouble paying for medicines?: No Do you have trouble getting transportation to medical appointments?: No Do you have trouble paying your heating and electricity bill?: No Do you have trouble taking care of your child, family member or friend?: No Do you have trouble with day-to-day activities such as bathing, preparing meals, shopping, managing finances, etc.?: No Are you currently unemployed and looking for a job?: No Are you interested in more education?: No Please select the resources that you would like help with: None Currently or been in a relationship where the following occur: No concerns reported THRIVE Score: 0 AUDIT C Alcohol Use Questionnaire (AUDIT-C) 1. How often do you have a drink containing alcohol?: Never 3. How often do you have six or more drinks on one occasion?: Never Total Score: 0 Score Reviewed/Action Taken: Yes IZABEL-7 AMB Questionnaire IZABEL-7 Date IZABEL - 7 assessed: 08/31/24 Feeling nervous, anxious, or on edge: 0 = Not at all Not being able to stop or control worryin = Not at all Worrying too much about different things: 0 = Not at all Trouble relaxin = Not at all Being so restless that it is hard to sit still: 0 = Not at all Becoming easily annoyed or irritable: 0 = Not at all Feeling afraid as if something awful might happen: 0 = Not at all Total IZABEL-7 score (0-4 normal; 5-9 mild; 10-14 moderate; 15-21 severe): 0 Source: Developed by Drs. Stan Kruse, Doris Bustamante, Jose Wheatley and colleagues, with an educational marlee from [employer]. Review of Systems Const Denies chills, Denies fatigue, Denies fever(s) and Denies headache(s) ENT Denies dysphagia, Denies dizziness, Denies otalgia, Denies headache(s), Denies neck pain, Denies odynophagia and Denies sore throat Card Denies chest pain, Denies palpitations and Denies dyspnea Resp Denies chest congestion, Denies cough and Denies dyspnea GI Denies abdominal pain, Denies constipation, Denies dysphagia, Denies heartburn, Denies diarrhea, Denies nausea, Denies odynophagia and Denies vomiting Denies difficulty voiding, Denies nocturia, Denies dysuria and Denies urinary urgency Musc Reports back pain (chronic, over the lower back), Reports arthralgias (over both hands/fingers and on both knees), Denies neck pain and Reports stiffness Skin/Breast Denies rash Neuro Denies dizziness and Denies headache(s) Psych Reports anxiety Endo Denies fatigue and Denies palpitations Aller/Immun Reports as per HPI Physical exam (Primary Care) Vital Signs: Last Vital Signs Pulse 78 08/31/24 10:52 BP 112/78 08/31/24 10:52 Pulse Ox 94 08/31/24 10:52 Oxygen Delivery Method Room Air 08/31/24 10:52 BMI result Body Mass Index 29.3 Tobacco/Smoking Status: Tobacco use Status Tobacco use date assessed 08/31/24 08/31/24 10:58 Patient Tobacco Use Status Current everyday Tobacco 08/31/24 10:58 Tobacco use type Cigarette 08/31/24 10:58 e-Cigarette/Vaping Use Never Used 08/31/24 10:58 PHQ-9: PHQ-9 Score PHQ-9: Total score 0 08/31/24 10:58 Depression Screening Interpretation: Negative Thrive Assessment: Date of Thrive Assessment Date Thrive assessed 08/31/24 08/31/24 10:58 Currently or been in a relationship where the following occur: No concerns reported Const General: no acute distress and alert HENMT Ears: TM's normal bilaterally and EAC's normal Throat: Yes posterior oropharynx normal and Yes tonsils normal (no TP congestion noted) Neck Neck: Yes supple and No lymphadenopathy Thyroid: Thyroid normal Resp Auscultation: clear to auscultation bilaterally, no rales and no wheezes Cardio Rate: regular rate Rhythm: regular rhythm Heart sounds: no murmurs GI Palpation (GI): Soft to palpation and nontender Auscultation: normal bowel sounds General: Yes no CVA tenderness Back/Spine/Pelvis Back: no CVA tenderness Thoracic/Lumbar Spine: lumbar spinal tenderness (chronic) Skin Rashes: no rashes Extrem General: Yes no clubbing, cyanosis or edema Right upper extremity: Extremity exam: right hand Details: tenderness and no swelling Left upper extremity: hand Details: tenderness and no swelling Right lower extremity: knee Details: tenderness (mild); no swelling Left lower extremity: knee Details: tenderness; no swelling Coding Level of Care Code Est Pt Level 4 (28736) Diagnoses Type 2 diabetes mellitus without complication, without long-term current use of insulin E11.9 Diabetes mellitus type: type 2 Diabetes mellitus correction insulin use: without correction use Diabetes mellitus complication status: without complication Pure hypercholesterolemia E78.00 Benign essential hypertension I10 Multiple allergies Z88.9 Degeneration of intervertebral disc of lumbar region with discogenic back pain M51.360 Disc-related pain type: discogenic back pain only Tenosynovitis of finger M65.9 Primary osteoarthritis of left knee M17.12 Osteoarthritis type: primary Insomnia, unspecified type G47.00 Insomnia type: unspecified Anxiety F41.9 Episode of recurrent major depressive disorder, unspecified depression episode severity F33.9 Depression Type: major depressive disorder Major depression recurrence: recurrent Active/Remission status: currently active Major depression episode severity: unspecified Smoker F17.200 Overweight (BMI 25.0-29.9) E66.3 Additional Codes PHQ-9 - 02634 - PHQ-9 Billing: Yes ([id number]) Assessment & Plan Assessment & Plan (1) Diabetes mellitus: Code(s): E11.9 - Type 2 diabetes mellitus without complications Category: Medical Qualifiers: Diabetes mellitus type: type 2 Diabetes mellitus correction insulin use: without adjunct faculty for medical terminology use Diabetes mellitus complication status: without complication Qualified Code(s): E11.9 - Type 2 diabetes mellitus without complications Plan: Her in-office HgbA1c was normal at 5.8% when she was last here on 04/19/2024; it was previously at 4.9%, 5.4% and 5.6% - goal is < 7.0% She will be going to get her previously ordered labs done and we will see how her HgbA1c is at present Reinforced diabetic diet Continue Metformin ER 500 mg 2 tablets BID Will recheck her labs and HgbA1c in 3 months for follow up (2) Pure hypercholesterolemia: Code(s): E78.00 - Pure hypercholesterolemia, unspecified Category: Medical Plan: She was again not able to get her follow up labs done prior to her visit today - states that she will try to get them done tomorrow morning Reinforced low cholesterol diet Continue Atorvastatin 20 mg QD Will recheck her labs and fasting lipids again in 3 months for follow up (3) Benign essential hypertension: Code(s): I10 - Essential (primary) hypertension Category: Medical Plan: Reinforced low sodium diet - goal is systolic BP of 120 mm or less Continue HCT 12.5 mg QD and Losartan 50 mg QD (she developed angioedema on Lisinopril previously) (4) Multiple allergies: Code(s): Z88.9 - Allergy status to unspecified drugs, medicaments and biological substances Category: Medical Plan: She has been referred to allergy and immunology for allergy testing and evaluation - to follow up with asset protection specialist as scheduled Continue Cetirizine 10 mg QD PRN (5) Lumbar degenerative disc disease: Code(s): M51.36 - Other intervertebral disc degeneration, lumbar region Category: Medical Qualifiers: Disc-related pain type: discogenic back pain only Qualified Code(s): M51.360 - Other intervertebral disc degeneration, lumbar region with discogenic back pain only Plan: Reinforced activity and weight-lifting restrictions Continue Tizanidine 4 mg TID PRN and Oxycodone 10 mg 2 to 3 times a day only as needed for increased pain Follow up with [facility] [place] Pain Management as scheduled (6) Tenosynovitis of finger: Code(s): M65.9 - Synovitis and tenosynovitis, unspecified Category: Medical Plan: X-rays of both hands done back in June 2023 came out normal Patient had some labs done back in 2012 and again in June 2023 for arthralgia work ups - tests done were all negative for inflammatory markers She was referred to and seen by rheumatology a few months ago and received some cortisone injections into her hands/fingers and states that she experienced some relief from the injections Follow up with rheumatology as scheduled (7) Osteoarthritis of left knee: Code(s): M17.12 - Unilateral primary osteoarthritis, left knee Category: Medical Qualifiers: Osteoarthritis type: primary Qualified Code(s): M17.12 - Unilateral primary osteoarthritis, left knee Plan: X-rays of the left knee done in the past showed (+) arthritis changes Follow up with orthopedics as scheduled (8) Insomnia: Code(s): G47.00 - Insomnia, unspecified Category: Medical Qualifiers: Insomnia type: unspecified Qualified Code(s): G47.00 - Insomnia, unspecified Plan: Sleep hygiene reinforced Continue Zolpidem 10 mg Q HS PRN (9) Anxiety: Code(s): F41.9 - Anxiety disorder, unspecified Category: Medical Plan: Continue Lorazepam 0.5 mg BID PRN for severe anxiety (10) Depression: Code(s): F32.9 - Major depressive disorder, single episode, unspecified Category: Medical Qualifiers: Depression Type: major depressive disorder Major depression recurrence: recurrent Active/Remission status: currently active Major depression episode severity: unspecified Qualified Code(s): F33.9 - Major depressive disorder, recurrent, unspecified Plan: Follow up with psychiatry as scheduled (11) Smoker: Code(s): F17.200 - Nicotine dependence, unspecified, uncomplicated Category: Social Hx Plan: Patient is counseled again on smoking cessation (12) Overweight (BMI 25.0-29.9): Code(s): E66.3 - Overweight Category: Medical Plan: Reinforced diet/exercise as tolerated/lose weight Plan Follow up in 3 months Orders: Orders Lipid Panel 3 Months E78.00 - Pure hypercholesterolemia, unspecified Comprehensive [place]. Panel Fast 3 Months E78.00 - Pure hypercholesterolemia, unspecified Complete Blood Count Auto Diff 3 Months D64.9 - Anemia, unspecified TSH reflex Free T4 3 Months E78.00 - Pure hypercholesterolemia, unspecified UA CC w/rflx Micro + Cult 3 Months R30.0 - Dysuria Microalbumin, Random (w Creat) 3 Months E11.9 - Type 2 diabetes mellitus without complications Hemoglobin A1c 3 Months E11.9 - Type 2 diabetes mellitus without complications Medications: Changed From multivitamin 1 tab PO DAILY 30 tabs 2RF To multivitamin 1 tab PO DAILY 90 days 90 tabs 3RF
== END 2024-08-31 11:25 | disposition home or self-care (01) ==
PROVIDERS: PCP Internal Medicine; Visit Provider Internal Medicine
DX: E11.9 Type 2 diabetes mellitus without complications (principal); F33.9 Major depressive disorder, recurrent, unspecified; E78.00 Pure hypercholesterolemia, unspecified; I10 Essential (primary) hypertension; Z88.9 Allergy status to unspecified drugs, medicaments and biological substances; M51.360 Other intervertebral disc degeneration, lumbar region with discogenic back pain only; M65.9 Synovitis and tenosynovitis, unspecified; M17.12 Unilateral primary osteoarthritis, left knee; G47.00 Insomnia, unspecified; F41.9 Anxiety disorder, unspecified; F17.200 Nicotine dependence, unspecified, uncomplicated; E66.3 Overweight

== ENCOUNTER → 2024-08-31 10:46 | Outpatient (BNVA) | payer OTHER, SELFPAY | PROVIDERS: PCP Internal Medicine; Visit Provider Internal Medicine | DX: E11.9 Type 2 diabetes mellitus without complications (principal); E78.00 Pure hypercholesterolemia, unspecified; I10 Essential (primary) hypertension; Z88.9 Allergy status to unspecified drugs, medicaments and biological substances; M51.360 Other intervertebral disc degeneration, lumbar region with discogenic back pain only; M17.12 Unilateral primary osteoarthritis, left knee; M65.90 Unspecified synovitis and tenosynovitis, unspecified site; G47.00 Insomnia, unspecified; F41.9 Anxiety disorder, unspecified; F33.9 Major depressive disorder, recurrent, unspecified; E66.3 Overweight; Z68.29 Body mass index [BMI] 29.0-29.9, adult; F17.200 Nicotine dependence, unspecified, uncomplicated; Z71.3 Dietary counseling and surveillance; Z71.6 Tobacco abuse counseling | CPT/HCPCS: 96127; 99212 ==

== ENCOUNTER 2024-09-03 08:14 | Outpatient (REF) | payer OTHER, SELFPAY ==
[2024-09-03 08:27] LABS: MANUAL DIFF FLAG NO
[2024-09-03 09:35] LABS: Basophils Absolute Auto 0.1 X10*3/uL (0.0-0.2); Basophils Percent Auto 0.9 % (0-2); Eosinophils Absolute Auto 0.3 X10*3/uL (0.0-0.4); Eosinophils Percent Auto 4.8 % (0-4); Hematocrit 44.7 % (37.0-47.0); Hemoglobin 14.5 g/dl (12.0-16.0); Imm Gran Abs Auto 0.02 X10*3/uL (0.00-0.03); Imm Gran Pct Auto 0.3 % (0.0-0.4); Lymphocytes Absolute Auto 2.4 X10*3/uL (1.2-4.9); Lymphocytes Percent Auto 37.6 % (20-40); Mean Corpuscular HGB Conc 32.4 g/dl (31.0-35.0); Mean Corpuscular Volume 92.5 fL (80.0-98.0); Mean Platelet Volume 10.5 fL (9.4-12.3); Monocytes Absolute Auto 0.5 X10*3/uL (0.1-1.2); Monocytes Percent Auto 7.6 % (2-11); Neutrophils Absolute Auto 3.1 x10*3/uL (2.0-8.3); Neutrophils Percent Auto 48.8 % (45-73); Platelet Count 238 X10*3/uL (160-400); Red Blood Count 4.83 X10*6/uL (4.20-5.50); Red Cell Distribution Width 13.8 % (11.0-16.0); White Blood Count 6.4 X10*3/uL (4.8-10.8)
[2024-09-03 09:44] LABS: Estimated Average Glucose 120 mg/dL; Hemoglobin A1C 146.0601 umol/L; Hemoglobin A1c % 5.8 % (<6.0); Total Hemoglobin (HGBA1C) 3686.0277 umol/L
[2024-09-03 10:07] LABS: Appearance Urine Clear; Color Urine Yellow; Glucose Urine UA Negative (Negative); Leukocyte Esterase Urine Trace (Negative); Nitrite Urine Negative (Negative); UMIC TRIGGER UACC YES; Urine Blood Small (1+) (Negative); Urine Ketones Negative (Negative); Urine Protein Negative (Neg-Trace)
[2024-09-03 10:13] LABS: Bacteria Urine 1+ (None Seen); Hyaline Casts Urine 0-2 /LPF (0-2); WBC Urine 0-5 /HPF (0-5)
[2024-09-03 10:13] LABS: Alanine Aminotransferase 28 U/L (0-31); Albumin Level 4.6 g/dL (3.5-5.0); Alkaline Phosphatase 75 U/L (39-117); Anion Gap 11 (12-20); Aspartate Amino Transferase 21 U/L (5-31); Bilirubin Total 0.3 mg/dL (0.0-1.0); Blood Urea Nitrogen 11 mg/dL (9-16); Calcium 9.3 mg/dL (8.4-10.2); Carbon Dioxide 28 mmol/L (22-29); Chloride 104 mmol/L (96-108); Cholesterol 196 mg/dL (<200); Estimated Glomerular Filt Rate > 60; Glucose Fasting 95 mg/dL (60-99); HDL Cholesterol 60 mg/dL (>40); LDL Cholesterol Calculated 118 mg/dL (<100); Potassium 3.9 mmol/L (3.3-5.1); Sodium 139 mmol/L (135-145); Total Protein 8.1 g/dL (6.5-8.0); Triglycerides 93 mg/dL (<150)
[2024-09-03 10:31] LABS: TSH reflex Free T4 3.54 uIU/mL (0.32-4.0)
== END 2024-09-03 08:15 | disposition home or self-care (01) ==
LOC: HO.LAB 08:14
PROVIDERS: PCP Internal Medicine; Visit Provider Internal Medicine
DX: D64.9 Anemia, unspecified (principal); E78.00 Pure hypercholesterolemia, unspecified; E11.9 Type 2 diabetes mellitus without complications
CPT/HCPCS: 36415; 80053; 80061; 81001; 81003; 83036; 84443; 85025

== ENCOUNTER 2024-12-06 11:05 | Outpatient (AMB) | payer OTHER, SELFPAY ==
[2024-12-06 11:10] VITALS: BP 118/70; PULSE 81; O2SAT 96; BMI 29.3
--- NOTE | 2024-12-06 11:10 | A.OFFPC_ITS ---
Vital Signs 12/06/24 11:10 Height 5 ft 2 in Weight 160 lb BMI 29.3 BP 118/70 Blood Pressure Location Lt brachial Position Sitting Pulse 81 Pulse Source Pulse Oximeter Pulse Oximetry (%) 96 Oxygen Delivery Method Room Air Intake Visit Reasons: 3mth f/u Accreditation Specialist Required: No Accompanied by: Self / Same As Patient Allergies lisinopril Allergy (Severe, Verified 12/06/24 11:42) Angioedema amoxicillin [Amoxicillin] Allergy (Intermediate, Verified 12/06/24 11:42) SHORTNESS OF BREATH penicillin V Allergy (Intermediate, Verified 12/06/24 11:42) shortness of breath Penicillins Allergy (Intermediate, Verified 12/06/24 11:42) SHORTNESS OF BREATH Medication List - Last Reconciled 12/06/24 by Lionel Rodriguez MD albuterol sulfate 90 mcg/actuation (Ventolin HFA) 1 inh inhalation QID PRN atorvastatin 20 mg PO DAILY 90 days blood sugar diagnostic (FreeStyle Lite Strips) As directed three times per day cetirizine (Zyrtec) 10 mg PO DAILY PRN cholecalciferol (vitamin D3) 50 mcg PO DAILY 90 days diphenhydramine HCl (Benadryl) 25 mg PO TID PRN hydrochlorothiazide 12.5 mg PO DAILY lancets (FreeStyle Lancets) As directed three times daily losartan 50 mg PO DAILY 90 days metformin ER 500 mg PO BID multivitamin with folic acid 400 mcg (Daily-Dennis (with folic acid)) 1 tab PO DAILY oxycodone Take 1 tablet by mouth 2 to 3 times a day as needed for increased pain; 28 days sennosides (senna) 8.6 mg PO DAILY PRN [women's regular pad with wings As directed once daily] [Women's underwear liners As directed once daily] zolpidem 10 mg PO BEDTIME PRN 30 days Tobacco use date assessed: 12/06/24 Dental Screening Dental Screen Date: 12/06/24 Did you have a dental visit in the last 12 months?: Yes Did you have a dental problem in the last 6 months where you did not have access to dental care?: No Was dental information given to patient?: Patient has dentist HPI 3mth f/u HPI Details Patient comes in today for follow up of her HTN, DM and hyperlipidemia States that she has been experiencing increased pain over her left shoulder for a few weeks now, with the pain feeling much worse when she tries to raise her arm She denies any recent injury or trauma to her left shoulder States that she has also not been able to bend the fingers of her right hand lately as she reports experiencing increased pain and stiffness over the palmar area of her hand recently She denies any headaches or dizziness Denies any chest pains, no increased shortness of breath No nausea/vomiting, no abdominal pain No change in bowel habits noted Adds that she has been having trouble getting her prescription for multivitamins refilled by her insurance recently and would like for us to try sending in a new prescription for her for this She had some follow-up labs done back in August 2024 right after her last visit but none recently - states that she was not able to get previously ordered follow-up labs done in time COUNT INCLUDES THE [facility] Medical History Diabetes mellitus Tenosynovitis of finger Overweight (BMI 25.0-29.9) 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 Smoker Depression Anxiety Insomnia GERD without esophagitis Constipation Osteoarthritis of left knee Lumbar radiculopathy Lumbar degenerative disc disease Pure hypercholesterolemia Benign essential hypertension Surgical History History of tooth extraction History of ectopic History of open reduction and internal fixation (ORIF) procedure History of foot surgery History of tubal ligation Family History Father Hypertension Mother Hypertension Arthritis Family/Other Breast cancer Social History Household Members: Spouse Housing: House Do you presently have visiting nurse or other home services: No Unable to assess alcohol history related to: Unknown Alcohol intake: never Patient Tobacco Use Status: Current everyday Tobacco user Tobacco use type: Cigarette Cigarettes Per Day: 8 e-Cigarette/Vaping Use: Never Used Second Hand Smoke Exposure: Yes Advance Directives Date on File: 05/06/24 service: No Current occupational status: disabled Cognitive needs: No Hearing needs: No Vision needs: No Questionnaire PHQ-9 Over the last 2 weeks, how often have you been bothered by any of the following problems? 1. Little interest or pleasure in doing things: not at all 2. Feeling down, depressed, or hopeless: not at all 3. Trouble falling or staying asleep, or sleeping too much: not at all 4. Feeling tired or having little energy: not at all 5. Poor appetite or overeating: not at all 6. Feeling bad about yourself - or that you are a failure or have let yourself or your family down: not at all 7. Trouble concentrating on things, such as reading the newspaper or watching television: not at all 8. Moving or speaking so slowly that other people could have noticed. Or the opposite - being so fidgety or restless that you have been moving around a lot more than usual: not at all 9. Thoughts that you would be better off or of hurting yourself in some way : not at all Total score: 0 Depression Screening Interpretation: Negative Depression Screening Done: Yes 11023 - PHQ-9 Billing: Yes Source: Developed by Drs. Stan Kruse, Doris Bustamante, Jose Wheatley and colleagues, with an educational marlee from [email or web address]. Thrive Questionnaire Date Thrive assessed: 12/06/24 I am a: Patient What is your living situation today?: I have a steady place to live Within the past 12 months, did the food you bought not last and you didn't have the money to get more?: Never true Within the past 12 months, did you worry whether your food would run out before you got money to buy more?: Never true Do you have trouble paying for medicines?: No Do you have trouble getting transportation to medical appointments?: No Do you have trouble paying your heating and electricity bill?: No Do you have trouble taking care of your child, family member or friend?: No Do you have trouble with day-to-day activities such as bathing, preparing meals, shopping, managing finances, etc.?: No Are you currently unemployed and looking for a job?: No Are you interested in more education?: No Please select the resources that you would like help with: None Currently or been in a relationship where the following occur: No concerns reported THRIVE Score: 0 AUDIT C Alcohol Use Questionnaire (AUDIT-C) 1. How often do you have a drink containing alcohol?: Never 3. How often do you have six or more drinks on one occasion?: Never Total Score: 0 Score Reviewed/Action Taken: Yes IZABEL-7 AMB Questionnaire IZABEL-7 Date ZIABEL - 7 assessed: 12/06/24 Feeling nervous, anxious, or on edge: 0 = Not at all Not being able to stop or control worryin = Not at all Worrying too much about different things: 0 = Not at all Trouble relaxin = Not at all Being so restless that it is hard to sit still: 0 = Not at all Becoming easily annoyed or irritable: 0 = Not at all Feeling afraid as if something awful might happen: 0 = Not at all Total IZABEL-7 score (0-4 normal; 5-9 mild; 10-14 moderate; 15-21 severe): 0 Source: Developed by Drs. Stan Kruse, Doris Bustamante, Jose Wheatley and colleagues, with an educational marlee from [email or web address]. Review of Systems Const Denies chills, Denies fatigue, Denies fever(s) and Denies headache(s) ENT Denies dysphagia, Denies dizziness, Denies otalgia, Denies headache(s), Denies neck pain, Denies odynophagia and Denies sore throat Card Denies chest pain, Denies palpitations and Denies dyspnea Resp Denies chest congestion, Denies cough and Denies dyspnea GI Denies abdominal pain, Denies constipation, Denies dysphagia, Denies heartburn, Denies diarrhea, Denies nausea, Denies odynophagia and Denies vomiting Denies difficulty voiding, Denies nocturia, Denies dysuria and Denies urinary urgency Musc Reports back pain (chronic, over the lower back), Reports arthralgias (over the left shoulder and right hand - see HPI), Denies neck pain and Reports stiffness Skin/Breast Denies rash Neuro Denies dizziness and Denies headache(s) Psych Reports anxiety Endo Denies fatigue and Denies palpitations Aller/Immun Reports as per HPI Physical exam (Primary Care) Vital Signs: Last Vital Signs Pulse 81 12/06/24 11:10 BP 118/70 12/06/24 11:10 Pulse Ox 96 12/06/24 11:10 Oxygen Delivery Method Room Air 12/06/24 11:10 BMI result Body Mass Index 29.3 Tobacco/Smoking Status: Tobacco use Status Tobacco use date assessed 12/06/24 12/06/24 11:17 Patient Tobacco Use Status Current everyday Tobacco 12/06/24 11:17 Tobacco use type Cigarette 12/06/24 11:17 e-Cigarette/Vaping Use Never Used 12/06/24 11:17 PHQ-9: PHQ-9 Score PHQ-9: Total score 0 12/06/24 12:42 Depression Screening Interpretation: Negative Thrive Assessment: Date of Thrive Assessment Date Thrive assessed 12/06/24 12/06/24 11:17 Currently or been in a relationship where the following occur: No concerns reported Const General: no acute distress and alert HENMT Ears: TM's normal bilaterally and EAC's normal Throat: Yes posterior oropharynx normal and Yes tonsils normal (no TP congestion noted) Neck Neck: Yes supple and No lymphadenopathy Thyroid: Thyroid normal Resp Auscultation: clear to auscultation bilaterally, no rales and no wheezes Cardio Rate: regular rate Rhythm: regular rhythm Heart sounds: no murmurs GI Palpation (GI): Soft to palpation and nontender Auscultation: normal bowel sounds General: Yes no CVA tenderness Back/Spine/Pelvis Back: no CVA tenderness Thoracic/Lumbar Spine: lumbar spinal tenderness (chronic) Skin Rashes: no rashes Extrem General: Yes no clubbing, cyanosis or edema Right upper extremity: Extremity exam: right hand Details: tenderness Location: of the palm and no swelling Left upper extremity: shoulder/upper arm Details: tenderness Location: of the A- C joint and hand Details: tenderness and no swelling Right lower extremity: knee Details: tenderness (mild); no swelling Left lower extremity: knee Details: tenderness; no swelling Results AMB Hemoglobin A1c AMB Hemoglobin A1c 5.8 % Last Edit by ZEV Austin on 12/06/24 11 :51 Results Reviewed Results Reviewed: Laboratory Last Values Hgb A1c (Clinic) 5.8 % (4.0-6.0) 12/06/24 11:22 Coding Level of Care Code Est Pt Level 4 (64058) Complex EM visit Add On G2211 Diagnoses Right hand pain M79.641 Tenosynovitis of finger M65.9 Left shoulder pain, unspecified chronicity M25.512 Chronicity: unspecified Type 2 diabetes mellitus without complication, without long-term current use of insulin E11.9 Diabetes mellitus complication status: without complication Diabetes mellitus terminal supervisor insulin use: without shelter use Diabetes mellitus type: type 2 Pure hypercholesterolemia E78.00 Benign essential hypertension I10 Multiple allergies Z88.9 Degeneration of intervertebral disc of lumbar region with discogenic back pain M51.360 Disc-related pain type: discogenic back pain only Primary osteoarthritis of left knee M17.12 Osteoarthritis type: primary Insomnia, unspecified type G47.00 Insomnia type: unspecified Anxiety F41.9 Episode of recurrent major depressive disorder, unspecified depression episode severity F33.9 Active/Remission status: currently active Depression Type: major depressive disorder Major depression episode severity: unspecified Major depression recurrence: recurrent Smoker F17.200 Overweight (BMI 25.0-29.9) E66.3 Additional Codes PHQ-9 - 80293 - PHQ-9 Billing: Yes ([id number]) Assessment & Plan Assessment & Plan (1) Right hand pain: Code(s): M79.641 - Pain in right hand Category: Medical Plan: Possible Dupuytren's, she appears to have (+) tenderness palpation over the palmar with difficulty in flexing/bending her fingers Will send patient for x-rays of the right hand for further evaluation Will also refer her to orthopedics for further evaluation and management (2) Tenosynovitis of finger: Code(s): M65.9 - Synovitis and tenosynovitis, unspecified Category: Medical Plan: X-rays of both hands done back in June 2023 came out normal Patient had some labs done back in 2012 and again in June 2023 for arthralgia work ups - tests done were all negative for inflammatory markers She was referred to and seen by rheumatology a few months ago and received some cortisone injections into her hands/fingers and states that she experienced some relief from the injections Follow up with rheumatology as scheduled (3) Left shoulder pain: Code(s): M25.512 - Pain in left shoulder Category: Medical Qualifiers: Chronicity: unspecified Qualified Code(s): M25.512 - Pain in left shoulder Plan: Have discussed with patient the possibility that she may have some tendinitis or bursitis in her left shoulder Will send her for x-rays of her left shoulder for further evaluation Will also refer to orthopedics for further evaluation and management of her recent increased left shoulder pain (4) Diabetes mellitus: Code(s): E11.9 - Type 2 diabetes mellitus without complications Category: Medical Qualifiers: Diabetes mellitus complication status: without complication Diabetes mellitus shelter insulin use: without terminal supervisor use Diabetes mellitus type: type 2 Qualified Code(s): E11.9 - Type 2 diabetes mellitus without complications Plan: Her in-office HgbA1c today remains normal at 5.8% (it was previously also at 5.8% a few months ago and at 4.9%, 5.4% and 5.6% over the past year) - goal is < 7.0% Reinforced diabetic diet Continue Metformin ER 500 mg 2 tablets BID Will recheck her labs and HgbA1c in 3 months for follow up (5) Pure hypercholesterolemia: Code(s): E78.00 - Pure hypercholesterolemia, unspecified Category: Medical Plan: She was again not able to get her follow up labs done prior to her visit today but states that she did get labs done a few days after her last visit in August 2024 Reinforced low cholesterol diet Continue Atorvastatin 20 mg QD Will just have patient recheck her labs and fasting lipids in 3 months for follow up so we are not playing catch up all the time in terms of her lab results - will have patient use her current orders (updated) for her next lab draw (6) Benign essential hypertension: Code(s): I10 - Essential (primary) hypertension Category: Medical Plan: Reinforced low sodium diet - goal is systolic BP of 120 mm or less Continue HCT 12.5 mg QD and Losartan 50 mg QD - she previously developed angioedema while on Lisinopril (7) Multiple allergies: Code(s): Z88.9 - Allergy status to unspecified drugs, medicaments and biological substances Category: Medical Plan: She has been referred to allergy and immunology for allergy testing and evaluation - to follow up with marketing content specialist as scheduled Continue Cetirizine 10 mg QD PRN (8) Lumbar degenerative disc disease: Code(s): M51.36 - Other intervertebral disc degeneration, lumbar region Category: Medical Qualifiers: Disc-related pain type: discogenic back pain only Qualified Code(s): M51.360 - Other intervertebral disc degeneration, lumbar region with discogenic back pain only Plan: Reinforced activity and weight-lifting restrictions Continue Tizanidine 4 mg TID PRN and Oxycodone 10 mg 2 to 3 times a day only as needed for increased pain Follow up with [facility] as scheduled (9) Osteoarthritis of left knee: Code(s): M17.12 - Unilateral primary osteoarthritis, left knee Category: Medical Qualifiers: Osteoarthritis type: primary Qualified Code(s): M17.12 - Unilateral primary osteoarthritis, left knee Plan: X-rays of the left knee done in the past showed (+) arthritis changes Follow up with orthopedics as scheduled (10) Insomnia: Code(s): G47.00 - Insomnia, unspecified Category: Medical Qualifiers: Insomnia type: unspecified Qualified Code(s): G47.00 - Insomnia, unspecified Plan: Sleep hygiene reinforced Continue Zolpidem 10 mg Q HS PRN (11) Anxiety: Code(s): F41.9 - Anxiety disorder, unspecified Category: Medical Plan: Continue Lorazepam 0.5 mg BID PRN for severe anxiety (12) Depression: Code(s): F32.9 - Major depressive disorder, single episode, unspecified Category: Medical Qualifiers: Active/Remission status: currently active Depression Type: major depressive disorder Major depression episode severity: unspecified Major depression recurrence: recurrent Qualified Code(s): F33.9 - Major depressive disorder, recurrent, unspecified Plan: Follow up with psychiatry as scheduled (13) Smoker: Code(s): F17.200 - Nicotine dependence, unspecified, uncomplicated Category: Social Hx Plan: Patient is counseled again on complete smoking cessation (14) Overweight (BMI 25.0-29.9): Code(s): E66.3 - Overweight Category: Medical Plan: Reinforced diet/exercise as tolerated/lose weight Plan Follow up in 3 months Orders: Orders XR hand RT 2V Today M79.641 - Pain in right hand AMB Hemoglobin A1c Today Z13.9 - Encounter for screening, unspecified XR shoulder LT min 2V Today M25.512 - Pain in left shoulder Referrals Orthopedics Referral M24.541 - Contracture, right hand, M25.512 - Pain in left shoulder, M79.641 - Pain in right hand Medications: New multivitamin 1 tab PO DAILY 90 tabs 3RF 90 days
== END 2024-12-06 11:53 | disposition home or self-care (01) ==
LOC: HO.HMCH 11:06
PROVIDERS: PCP Internal Medicine; Visit Provider Internal Medicine
DX: Z13.9 Encounter for screening, unspecified (principal)

== ENCOUNTER → 2024-12-06 11:05 | Outpatient (BNVA) | payer OTHER, SELFPAY | PROVIDERS: PCP Internal Medicine; Visit Provider Internal Medicine | DX: M79.641 Pain in right hand (principal); M65.90 Unspecified synovitis and tenosynovitis, unspecified site; M25.512 Pain in left shoulder; E11.9 Type 2 diabetes mellitus without complications; E78.00 Pure hypercholesterolemia, unspecified; I10 Essential (primary) hypertension; M51.360 Other intervertebral disc degeneration, lumbar region with discogenic back pain only; M17.12 Unilateral primary osteoarthritis, left knee; G47.00 Insomnia, unspecified; F41.9 Anxiety disorder, unspecified; F33.9 Major depressive disorder, recurrent, unspecified; Z88.9 Allergy status to unspecified drugs, medicaments and biological substances | CPT/HCPCS: 83036; 96127; 99212 ==

== ENCOUNTER 2025-01-18 08:14 | Outpatient (REF) | payer OTHER, SELFPAY ==
--- NOTE | ~2025-01-18 | XR_ITS ---
EXAMINATION: XR HAND 3 OR MORE VIEWS LEFT HISTORY: M79.641 - Pain in left hand COMPARISON: Comparison is made with the prior examination dated 06/28/2023. FINDINGS: Three views of the left hand are submitted. Osseous mineralization is normal. There is no acute fracture or dislocation. There is a chronic deformity of the middle phalanx of the 5th finger. The joint spaces are preserved. The soft tissues are unremarkable. XR/XR hand LT min 3V IMPRESSION: No acute abnormality. Electronically signed by: Stan Eason MD 01/18/2025 02:21 PM EDT
== END 2025-01-18 08:15 | disposition home or self-care (01) ==
LOC: HO.HOSX 08:14
DX: M65.331 Trigger finger, right middle finger (principal); M65.341 Trigger finger, right ring finger
CPT/HCPCS: 73130; 99202

== ENCOUNTER 2025-01-18 10:31 | Outpatient (AMB) | payer OTHER, SELFPAY ==
--- NOTE | 2025-01-18 10:50 | A.OFFVIS_ITS ---
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 Patient reports having bilateral hand pain that has been present for a while. She believes she had a nerve conduction study a couple of years ago however unsure if it was at [facility]. States her discomfort varies on which side, states some days her right is worse and some days her left is worse. She is unable to close her hand to make a full fist. States locking in catching in all her fingers except her thumbs. Denies injury. NO other tx. 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 Patient reports having bilateral hand pain that has been present for a while. She believes she had a nerve conduction study a couple of years ago however unsure if it was at [facility]. States her discomfort varies on which side, states some days her right is worse and some days her left is worse. She is unable to close her hand to make a full fist. States locking in catching in all her fingers except her thumbs. Denies injury. NO other tx. 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 Smoker Depression Anxiety Insomnia GERD without esophagitis Constipation Osteoarthritis of left knee Lumbar radiculopathy Lumbar degenerative disc disease Pure hypercholesterolemia Benign essential hypertension Surgical History History of tooth extraction History of ectopic History of open reduction and internal fixation (ORIF) procedure History of foot surgery History of tubal ligation Family History Father Hypertension Mother Hypertension Arthritis Family/Other Breast cancer Social History Household Members: Spouse Housing: House Do you presently have visiting nurse or other home services: No Unable to assess alcohol history related to: Unknown Alcohol intake: never Patient Tobacco Use Status: Current everyday Tobacco user Tobacco use type: Cigarette Cigarettes Per Day: 8 e-Cigarette/Vaping Use: Never Used Second Hand Smoke Exposure: Yes Advance Directives Date on File: 05/06/24 service: No Current occupational status: disabled Cognitive needs: No Hearing needs: No Vision needs: No Review of Systems Const All systems reviewed & are unremarkable except as noted in HPI and below Physical Exam Extrem Other: Patient is alert, oriented, and in no acute distress. Neuro: Normal sensation of the tips of all digits of the bilateral hand at this time Vascular: Cap refill brisk Pain: Patient does report tenderness to palpation at the level of the A1 amanda of the middle and ring fingers of the right hand No other tenderness to palpation noted No pain with range of motion ROM: Patient was able to make a closed fist and extend all digits of bilateral hands fully No visible or palpable locking and catching Skin: No lacerations or abrasions. General: No ecchymosis, erythema, or evidence of infection. Psych: Appears grossly normal Affect normal Attitude cooperative Assessment & Plan Assessment & Plan (1) Trigger finger, right middle finger: Code(s): M65.331 - Trigger finger, right middle finger Category: Medical (2) Trigger finger, right ring finger: Code(s): M65.341 - Trigger finger, right ring finger Category: Medical Plan 1. Trigger fingers of bilateral index, middle, ring, small fingers I educated the patient about the condition. I discussed both operative and nonoperative treatment options. The patient would like to proceed with surgery. The risks and benefits of operative treatment were discussed with the patient and the patient wishes to proceed with surgery. These risks include, but are not limited to, risk of damage to blood vessels, nerves, tendons, infection, recurrence, incomplete relief of preoperative symptoms, persistent pain, possible need for further surgery, and the risks associated with regional blocks and/or anesthesia. Plan is to take the patient to the operating room at some point in the next few weeks for the following procedures: 1. Right middle finger trigger release under local 2. Right ring finger trigger release under local All of the preoperative paperwork including the consent was discussed today. All of the patient's questions were answered in the clinic today. The patient understands that they will be in contact with our space scheduler to discuss scheduling their procedure. Patient denies diabetes, blood thinners, asthma, heart issues, lung issues, kidney issues, or current smoking. Coding Level of Care Code New Pt Level 4 (85649) Diagnoses Trigger finger, right middle finger M65.331 Trigger finger, right ring finger M65.341
== END 2025-01-18 11:13 | disposition home or self-care (01) ==
LOC: HO.HOS 10:32
PROVIDERS: PCP Internal Medicine
DX: M65.331 Trigger finger, right middle finger (principal); M65.341 Trigger finger, right ring finger
CPT/HCPCS: 99204

== ENCOUNTER → 2025-01-18 10:35 | Outpatient (BNV) | payer OTHER, SELFPAY | PROVIDERS: Visit Provider Radiology Diagnostic Radiology | DX: M79.642 Pain in left hand (principal) | CPT/HCPCS: 73130 ==

== ENCOUNTER 2025-03-04 07:55 | Day surgery (SDC) | payer OTHER, SELFPAY ==
[2025-03-04 09:36] VITALS: BP 133/73; PULSE 73; RESP 18; TEMP 36.6; O2SAT 95
--- NOTE | 2025-03-04 10:02 | PC.NURSE ---
Upon arrival, patient was having difficulty answering questions. Patient was confused about the present year and who the president is. Spouse brought to bedside and stated she has been forgetful at home at times. Spouse signed surgical consent today. Patient is agreeance to procedure and laterality.
[2025-03-04 10:04] VITALS: BMI 29.9
--- NOTE | 2025-03-04 10:04 | MHC.SHP ---
Pre-Procedural Eval Section A - 24 Hr Update-Section A only Date of Service: 03/04/25 The patient is an INPATIENT: No Changes since office visit: No Cold of Flu in the past 2 weeks, No New Medical Problems, No Changes in Medication and No Patient answered all questions The patient has been examined within 24 hours of the surgical procedure. The History & Physical has been completed within 30 days and I have reviewed it.: Yes Section B - Complete if H&P > 30 days Chief Complaint: middle and ring finger trigger release Allergies: Allergies Allergy/AdvReac Type Severity Reaction Status Date / Time lisinopril Allergy Severe Angioedema Verified 01/18/25 10:56 amoxicillin [Amoxicillin] Allergy Intermediate SHORTNESS Verified 01/18/25 10:56 OF BREATH penicillin V Allergy Intermediate shortness Verified 01/18/25 10:56 of breath Penicillins Allergy Intermediate SHORTNESS Verified 01/18/25 10:56 OF BREATH Exam Exam Comment: There was some concerned from our nursing staff about patient confusion. Evidently she did not get her own birthday right, and thought that [facility] was president. For this reason we had her signed the consent. The patient does want to proceed with the surgery as well. There was also some confusion over left versus right hands. I reviewed her note and found that both the MA and my PA indicated that her right hand was worse than her left and that she wanted the right hand ring and middle fingers taken care of. She and her both agree to having right middle and ring finger trigger fingers released today. Plan I have reviewed the history and physical and performed a pertinent physical examination on my patient. No changes have occurred unless specified. Time Spent With Patient Time: Total time managing care of this patient today ____ minutes.
--- NOTE | 2025-03-04 10:06 | PC.NURSE ---
spouse stated that he has spoken to 's primary care physician regarding her forgetfulness and his concerns.
--- NOTE | 2025-03-04 10:50 | W.PM.OPN ---
Operative Note Operative Note Date of Service: 03/04/25 Narrative: Operative Note Preop diagnosis: 1. Right middle finger Trigger finger 2. Right ring finger trigger finger Postop diagnosis: Same Procedure: 1. Right middle finger A1 amanda release 2. Right ring finger A1 amanda release Surgeon: Radha Agrawal MD [employer] Technician: None Anesthesia: local block using 1% lidocaine with epinephrine Findings: No locking or catching after A1 amanda release EBL: Less than 5 mL Tourniquet time: None Specimens: None Complications: None Disposition: Brought to recovery room in stable condition Plan: Follow-up for 10-14 days for wound check and suture removal Indications: The patient is a 64 years old, with right middle finger and right ring finger trigger fingers that have been unresponsive to nonoperative management. The risks and benefits of operative treatment including but not limited to risk of damage to blood vessels, nerves, tendons, infection, persistent pain, persistent symptoms, recurrence or possible need for additional surgery were discussed with the patient and the patient wishes to proceed with surgery. Procedure: Once consent was obtained a local block was performed in the preop area using a combination of 1% lidocaine with epinephrine. The patient was then brought back to the operating suite and placed on the operative table in supine position. The right upper extremity was prepped and draped in a standard surgical fashion. Once assured that we had a good block, a 1.5 cm oblique incision was made centered over the A1 amanda of the right middle finger . The incision was made through the skin to the subcutaneous tissues using a #15 blade. Careful dissection was made down to the level of the A1 amanda using tenotomy scissors, with care being taken to protect the nearby neurovascular structures. A longitudinal incision was made in the A1 amanda 1st using a #15 blade, then using tenotomy scissors under direct visualization. The A1 amanda was noted to be thickened. Following our A1 amanda release, we no longer saw any locking or catching of the digit with flexion and extension. Once assured that we had a good block, a 1.5 cm oblique incision was made centered over the A1 amanda of the right ring finger . The incision was made through the skin to the subcutaneous tissues using a #15 blade. Careful dissection was made down to the level of the A1 amanda using tenotomy scissors, with care being taken to protect the nearby neurovascular structures. A longitudinal incision was made in the A1 amanda 1st using a #15 blade, then using tenotomy scissors under direct visualization. The A1 amanda was noted to be thickened. Following our A1 amanda release, we no longer saw any locking or catching of the digit with flexion and extension. Once satisfied with our A1 amanda release the wound was copiously irrigated with normal saline and hemostasis was obtained with a brief period of local pressure. The skin edges were reapproximated with some 5.0 nylon suture material and a sterile dressing was applied. The patient appears to have tolerated the procedure well and with no complications. All digits were well vascularized at the conclusion of the case.
[2025-03-04 11:15] VITALS: BP 147/77; PULSE 70; RESP 16; O2SAT 95
== END 2025-03-04 11:41 | disposition home or self-care (01) ==
PROVIDERS: PCP Internal Medicine; Visit Provider Orthopaedic Surgery
PROC: (CPT 26055; principal; 2025-03-04 10:00)
DX: M65.331 Trigger finger, right middle finger (principal); M65.341 Trigger finger, right ring finger; M79.641 Pain in right hand; M65.849 Other synovitis and tenosynovitis, unspecified hand; E11.9 Type 2 diabetes mellitus without complications; I10 Essential (primary) hypertension; E78.00 Pure hypercholesterolemia, unspecified; F32.A Depression, unspecified; F41.9 Anxiety disorder, unspecified; K21.9 Gastro-esophageal reflux disease without esophagitis; Z88.0 Allergy status to penicillin; Z88.1 Allergy status to other antibiotic agents; F17.210 Nicotine dependence, cigarettes, uncomplicated
CPT/HCPCS: 26055 ×2; J0171; J2003

== ENCOUNTER → 2025-03-04 07:55 | Outpatient (BNV) | payer OTHER, SELFPAY | PROVIDERS: PCP Internal Medicine; Visit Provider Orthopaedic Surgery | DX: M65.331 Trigger finger, right middle finger (principal); M65.341 Trigger finger, right ring finger | CPT/HCPCS: 26055 ==

== ENCOUNTER 2025-03-20 10:44 | Outpatient (AMB) | payer OTHER, SELFPAY ==
--- NOTE | 2025-03-20 10:52 | A.OFFVIS_ITS ---
Vital Signs 03/20/25 10:57 Height 5 ft 2 in Weight 163 lb BMI 29.8 Handedness Right Intake Visit Reasons: PO RT MF/RF trigger 03/04/25 AR Intake Note: Erica is a 64 year old right hand dominant female who presents today for a post operative visit status post right middle finger A1 amanda release and right ring finger A1 amanda release, DOS: 03/04/25, by Dr Radha Agrawal. Patient reports she is in a lot of pain after surgery. Expresses swelling occasionally near her incision sites. Denies numbness and tingling. Allergies lisinopril Allergy (Severe, Verified 03/20/25 10:57) Angioedema amoxicillin (Amoxicillin) Allergy (Intermediate, Verified 03/20/25 10:57) SHORTNESS OF BREATH penicillin V Allergy (Intermediate, Verified 03/20/25 10:57) shortness of breath Penicillins Allergy (Intermediate, Verified 03/20/25 10:57) SHORTNESS OF BREATH HPI HPI PO RT MF/RF trigger 03/04/25 AR: Details: Erica is a 64 year old right hand dominant female who presents today for a post operative visit status post right middle finger A1 amanda release and right ring finger A1 amanda release, DOS: 03/04/25, by Dr Radha Agrawal. Patient reports she is in a lot of pain after surgery. Patient states that she has been trying to avoid using the hand whenever possible, and feels that her range of motion is greatly diminished from prior to surgery. Expresses swelling occasionally near her incision sites. Denies numbness and tingling. 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 Smoker Depression Anxiety Insomnia GERD without esophagitis Constipation Osteoarthritis of left knee Lumbar radiculopathy Lumbar degenerative disc disease Pure hypercholesterolemia Benign essential hypertension Surgical History History of tooth extraction History of ectopic History of open reduction and internal fixation (ORIF) procedure History of foot surgery History of tubal ligation Family History Father Hypertension Mother Hypertension Arthritis Family/Other Breast cancer Social History Household Members: Spouse Housing: House Are you a primary menagerie caretaker to a significant other at home: No Do you presently have visiting nurse or other home services: No Unable to assess alcohol history related to: Unknown Alcohol intake: never Comment: counts correct Patient Tobacco Use Status: Current everyday Tobacco user Tobacco use type: Cigarette Cigarettes Per Day: 8 e-Cigarette/Vaping Use: Never Used Second Hand Smoke Exposure: Yes Advance Directives Date on File: 05/06/24 service: No Current occupational status: disabled Cognitive needs: No Hearing needs: No Vision needs: No Review of Systems Const All systems reviewed & are unremarkable except as noted in HPI and below Physical Exam Vital Signs: BMI result Body Mass Index 29.8 Extrem Other: Patient is alert, oriented, and in no acute distress. Neuro: Normal sensation of the tips of all digits of the right hand at this time Vascular: Cap refill brisk Pain: Mild tenderness to palpation noted of incision sites over A1 pulleys of right middle and ring fingers ROM: Patient is able to weakly make a closed fist Skin: Well approximated and well healing incision sites noted over the A1 pulleys of the right middle and ring fingers No lacerations or abrasions. General: No ecchymosis, erythema, or evidence of infection. Psych: Appears grossly normal Affect normal Attitude cooperative Assessment & Plan Assessment & Plan (1) Trigger finger, right middle finger: Code(s): M65.331 - Trigger finger, right middle finger Category: Medical (2) Trigger finger, right ring finger: Code(s): M65.341 - Trigger finger, right ring finger Category: Medical Plan 1. Status post right middle finger and ring finger trigger releases With stiffness postoperatively Patient appears to be recovering fairly well postoperatively Patient is educated about the typical recovery course OT order to work on range of motion of the right hand Patient is educated that the only way to treat postoperative stiffness is to keep the hand and fingers moving Patient states understanding of this Follow-up in 4 weeks for [id number] check Orders: Orders 2 OT Evaluation and Treatment Today M65.331 - Trigger finger, right middle finger, M65.341 - Trigger finger, right ring finger Coding Level of Care Code Global (87104) Diagnoses Trigger finger, right middle finger M65.331 Trigger finger, right ring finger M65.341
[2025-03-20 10:57] VITALS: BMI 29.8
== END 2025-03-20 11:28 | disposition home or self-care (01) ==
LOC: HO.HOS 10:45
PROVIDERS: PCP Internal Medicine
DX: M65.331 Trigger finger, right middle finger (principal); M65.341 Trigger finger, right ring finger
CPT/HCPCS: 99024

== ENCOUNTER → 2025-03-20 10:44 | Outpatient (BNVA) | payer OTHER, SELFPAY | PROVIDERS: PCP Internal Medicine | DX: Z47.89 Encounter for other orthopedic aftercare (principal); M65.331 Trigger finger, right middle finger; M65.341 Trigger finger, right ring finger | CPT/HCPCS: 99212 ==

== ENCOUNTER 2025-04-03 08:42 | Outpatient (REF) | payer OTHER, SELFPAY | END 2025-04-03 08:43 | disposition home or self-care (01) | LOC: HO.HOSX 08:42 | DX: Z13.89 Encounter for screening for other disorder (principal) ==

== ENCOUNTER 2025-04-10 10:34 | Outpatient (AMB) | payer OTHER, SELFPAY ==
--- NOTE | 2025-04-10 10:36 | MHC.PC.OV ---
Vital Signs 04/10/25 10:37 Height 5 ft 2 in Weight 162 lb 8 oz BMI 29.7 BP 118/66 Blood Pressure Location Lt brachial Position Sitting Pulse 77 Pulse Source Pulse Oximeter Pulse Oximetry (%) 97 Oxygen Delivery Method Room Air Intake Visit Reasons: 3 Months f/u- needs A1C Concrete Pourer Required: No Accompanied by: Self / Same As Patient Allergies lisinopril Allergy (Severe, Verified 04/10/25 10:55) Angioedema amoxicillin (Amoxicillin) Allergy (Intermediate, Verified 04/10/25 10:55) SHORTNESS OF BREATH penicillin V Allergy (Intermediate, Verified 04/10/25 10:55) shortness of breath Penicillins Allergy (Intermediate, Verified 04/10/25 10:55) SHORTNESS OF BREATH Medication List - Last Reconciled 04/10/25 by Lionel Rodriguez MD albuterol sulfate 90 mcg/actuation (Ventolin HFA) 1 inh inhalation QID PRN atorvastatin 20 mg PO DAILY 90 days blood sugar diagnostic (FreeStyle Lite Strips) As directed three times per day cetirizine (Zyrtec) 10 mg PO DAILY PRN cholecalciferol (vitamin D3) 50 mcg PO DAILY 90 days diphenhydramine HCl (Benadryl) 25 mg PO TID PRN hydrochlorothiazide 12.5 mg PO DAILY hydrocodone-acetaminophen 5-325 mg 1 tab PO Q4-6H PRN lancets (FreeStyle Lancets) As directed three times daily losartan 50 mg PO DAILY 90 days metformin ER 500 mg PO BID multivitamin 1 tab PO DAILY 90 days multivitamin with folic acid 400 mcg (Daily-Dennis (with folic acid)) 1 tab PO DAILY oxycodone Take 1 tablet by mouth 2 to 3 times a day as needed for increased pain; 28 days sennosides (senna) 8.6 mg PO DAILY PRN [women's regular pad with wings As directed once daily] [Women's underwear liners As directed once daily] zolpidem 10 mg PO BEDTIME PRN 30 days Tobacco use date assessed: 04/10/25 Dental Screening Dental Screen Date: 04/10/25 Did you have a dental visit in the last 12 months?: No Did you have a dental problem in the last 6 months where you did not have access to dental care?: No Was dental information given to patient?: No HPI 3 Months f/u- needs A1C HPI Details Patient comes in today for her follow up visit States that she is currently experiencing increased pain in her right hand, left shoulder as well as over her lower back She recently had trigger finger release surgery done on her right hand and has been sent for PT/OT but she is still waiting for a call as to when she will start therapy for her hand She will be seeing orthopedics for her left shoulder as well but her appointment for that is not until 04/26/2025 States that she usually takes her Oxycodone twice a day but had to take it 3 times a day regularly lately due to her increased pain and her total number of pills per month of 66 tablets is now not lasting her long enough States that she feels okay otherwise She denies any headaches or dizziness Denies any chest pains, no increased SOB No nausea/vomiting, no abdominal pain No change in bowel habits noted She also needs her Ibuprofen Rx refilled today She was not able to get her follow up labs done prior to her appointment today - states that she will try to get them done tomorrow morning [facility] [place] Medical History (Updated 04/10/25 @ 11:38 by Lionel Rodriguez MD) Stenosing tenosynovitis of finger of right hand Diabetes mellitus Tenosynovitis of finger Overweight (BMI 25.0-29.9) 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 Smoker Depression Anxiety Insomnia GERD without esophagitis Constipation Osteoarthritis of left knee Lumbar radiculopathy Lumbar degenerative disc disease Pure hypercholesterolemia Benign essential hypertension Surgical History History of tooth extraction History of ectopic History of open reduction and internal fixation (ORIF) procedure History of foot surgery History of tubal ligation Family History Father Hypertension Mother Hypertension Arthritis Family/Other Breast cancer Social History Household Members: Spouse Housing: House Are you a primary childcare attendant to a significant other at home: No Do you presently have visiting nurse or other home services: No Unable to assess alcohol history related to: Unknown Alcohol intake: never Comment: counts correct Patient Tobacco Use Status: Current everyday Tobacco user Tobacco use type: Cigarette Cigarettes Per Day: 8 e-Cigarette/Vaping Use: Never Used Second Hand Smoke Exposure: Yes Advance Directives Date on File: 05/06/24 service: No Current occupational status: disabled Cognitive needs: No Hearing needs: No Vision needs: No Questionnaire PHQ-9 Over the last 2 weeks, how often have you been bothered by any of the following problems? 1. Little interest or pleasure in doing things: more than half the days 2. Feeling down, depressed, or hopeless: not at all 3. Trouble falling or staying asleep, or sleeping too much: more than half the days 4. Feeling tired or having little energy: not at all 5. Poor appetite or overeating: not at all 6. Feeling bad about yourself - or that you are a failure or have let yourself or your family down: not at all 7. Trouble concentrating on things, such as reading the newspaper or watching television: not at all 8. Moving or speaking so slowly that other people could have noticed. Or the opposite - being so fidgety or restless that you have been moving around a lot more than usual: not at all 9. Thoughts that you would be better off or of hurting yourself in some way: not at all Total score: 4 Depression Screening Interpretation: Positive Depression Screening Follow-up: Existing condition and Follow-up Visit Requested Depression Screening Done: Yes 98518 - PHQ-9 Billing: Yes Source: Developed by Drs. Stan Kruse, Doris Bustamante, Jose Wheatley and colleagues, with an educational marlee from [employer]. Thrive Questionnaire Date Thrive assessed: 04/10/25 I am a: Patient What is your living situation today?: I have a steady place to live Within the past 12 months, did the food you bought not last and you didn't have the money to get more?: Sometimes True Within the past 12 months, did you worry whether your food would run out before you got money to buy more?: Sometimes True Do you have trouble paying for medicines?: No Do you have trouble getting transportation to medical appointments?: No Do you have trouble paying your heating and electricity bill?: Yes Do you have trouble taking care of your child, family member or friend?: No Do you have trouble with day-to-day activities such as bathing, preparing meals, shopping, managing finances, etc.?: Yes Are you currently unemployed and looking for a job?: I choose not to answer this question Are you interested in more education?: No Please select the resources that you would like help with: Food, Utilities and None Currently or been in a relationship where the following occur: No concerns reported THRIVE Score: 3 AUDIT C Alcohol Use Questionnaire (AUDIT-C) 1. How often do you have a drink containing alcohol?: Never 3. How often do you have six or more drinks on one occasion?: Never Total Score: 0 Score Reviewed/Action Taken: Yes IZABEL-7 AMB Questionnaire IZABEL-7 Date IZABEL - 7 assessed: 04/10/25 Feeling nervous, anxious, or on edge: 0 = Not at all Not being able to stop or control worryin = Not at all Worrying too much about different things: 0 = Not at all Trouble relaxin = Not at all Being so restless that it is hard to sit still: 0 = Not at all Becoming easily annoyed or irritable: 0 = Not at all Feeling afraid as if something awful might happen: 0 = Not at all Total IZABEL-7 score (0-4 normal; 5-9 mild; 10-14 moderate; 15-21 severe): 0 Source: Developed by Drs. Stan Kruse, Doris Bustamante, Jose Wheatley and colleagues, with an educational marlee from [employer]. Review of Systems Const Denies chills, Reports fatigue, Denies fever(s) and Denies headache(s) ENT Denies dysphagia, Denies dizziness, Denies otalgia, Denies headache(s), Denies neck pain, Denies odynophagia and Denies sore throat Card Denies chest pain, Denies palpitations and Denies dyspnea Resp Denies chest congestion, Denies cough and Denies dyspnea GI Denies abdominal pain, Denies constipation, Denies dysphagia, Denies heartburn, Denies diarrhea, Denies nausea, Denies odynophagia and Denies vomiting Denies difficulty voiding, Denies nocturia, Denies dysuria and Denies urinary urgency Musc Reports back pain (chronic, over the lower back), Reports arthralgias (over the left shoulder and right hand - see HPI), Denies neck pain and Reports stiffness Skin/Breast Denies rash Neuro Denies dizziness and Denies headache(s) Psych Reports anxiety Endo Reports fatigue and Denies palpitations Aller/Immun Reports as per HPI Physical exam (Primary Care) Vital Signs: Last Vital Signs Pulse 77 04/10/25 10:37 BP 118/66 04/10/25 10:37 Pulse Ox 97 04/10/25 10:37 Oxygen Delivery Method Room Air 04/10/25 10:37 BMI result Body Mass Index 29.7 Tobacco/Smoking Status: Tobacco use Status Tobacco use date assessed 04/10/25 04/10/25 10:43 Patient Tobacco Use Status Current everyday Tobacco 04/10/25 10:43 Tobacco use type Cigarette 04/10/25 10:43 e-Cigarette/Vaping Use Never Used 04/10/25 10:43 PHQ-9: PHQ-9 Score PHQ-9: Total score 4 04/10/25 10:43 Depression Screening Interpretation: Positive Depression Screening Follow-up: Existing condition and Follow-up Visit Requested Thrive Assessment: Date of Thrive Assessment Date Thrive assessed 04/10/25 04/10/25 10:43 Currently or been in a relationship where the following occur: No concerns reported Const General: no acute distress and alert HENMT Ears: TM's normal bilaterally and EAC's normal Throat: Yes posterior oropharynx normal and Yes tonsils normal (no TP congestion noted) Neck Neck: Yes supple and No lymphadenopathy Thyroid: Thyroid normal Resp Auscultation: clear to auscultation bilaterally, no rales and no wheezes Cardio Rate: regular rate Rhythm: regular rhythm Heart sounds: no murmurs GI Palpation (GI): Soft to palpation and nontender Auscultation: normal bowel sounds General: Yes no CVA tenderness Back/Spine/Pelvis Back: no CVA tenderness Thoracic/Lumbar Spine: lumbar spinal tenderness (chronic) Skin Rashes: no rashes Extrem General: Yes no clubbing, cyanosis or edema Right upper extremity: Extremity exam: right hand Details: tenderness Location: of the palm and no swelling Left upper extremity: shoulder/upper arm Details: tenderness Location: of the A-C joint and hand Details: tenderness and no swelling Right lower extremity: knee Details: tenderness (mild); no swelling Left lower extremity: knee Details: tenderness; no swelling Results AMB Hemoglobin A1c AMB Hemoglobin A1c 6.4 % Last Edit by ZEV Austin on 04/10/25 11:04 Coding Level of Care Code Est Pt Level 4 (27182) Diagnoses Stenosing tenosynovitis of finger of right hand M65.841 Left shoulder pain, unspecified chronicity M25.512 Chronicity: unspecified Type 2 diabetes mellitus without complication, without long-term current use of insulin E11.9 Diabetes mellitus type: type 2 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 insulin use: without long wall mining machine helper use Diabetes mellitus complication status: without complication Pure hypercholesterolemia E78.00 Benign essential hypertension I10 Multiple allergies Z88.9 Degeneration of intervertebral disc of lumbar region with discogenic back pain M51.360 Disc-related pain type: discogenic back pain only Primary osteoarthritis of left knee M17.12 Osteoarthritis type: primary Insomnia, unspecified type G47.00 Insomnia type: unspecified Anxiety F41.9 Episode of recurrent major depressive disorder, unspecified depression episode severity F33.9 Depression Type: major depressive disorder Major depression recurrence: recurrent Active/Remission status: currently active Major depression episode severity: unspecified Smoker F17.200 Overweight (BMI 25.0-29.9) E66.3 Additional Codes PHQ-9 - 54990 - PHQ-9 Billing: Yes ([id number]) Assessment & Plan Assessment & Plan (1) Stenosing tenosynovitis of finger of right hand: Code(s): M65.841 - Other synovitis and tenosynovitis, right hand Category: Medical Plan: S/P trigger finger release surgery with orthopedics last month Patient is currently waiting to start OT/PT for her hand Follow up with orthopedics as scheduled (2) Left shoulder pain: Code(s): M25.512 - Pain in left shoulder Category: Medical Qualifiers: Chronicity: unspecified Qualified Code(s): M25.512 - Pain in left shoulder Plan: Have discussed again with patient the possibility that she may have some tendinitis or bursitis in her left shoulder Patient was previously sent for x-rays of her left shoulder for further evaluation but she has not gotten this done yet - states that she will get this done when she goes for her labs tomorrow She was also referred to orthopedics previously for further evaluation and management of her recent increased left shoulder pain and she is now scheduled to be seen by orthopedics on 04/26/2025 for her shoulder (3) Diabetes mellitus: Code(s): E11.9 - Type 2 diabetes mellitus without complications Category: Medical Qualifiers: Diabetes mellitus type: type 2 Diabetes mellitus correction insulin use: without long wall mining machine helper use Diabetes mellitus complication status: without complication Qualified Code(s): E11.9 - Type 2 diabetes mellitus without complications Plan: Her in-office HgbA1c today is at 6.4% (was at 5.8% a few months ago and at 4.9%, 5.4% and 5.6% last year) - goal is < 7.0% Reinforced diabetic diet - patient admitted to poor compliance with her diet over the past several months and that she has been eating a lot of rice and bread recently and will start working again on her diet now Continue Metformin ER 500 mg 2 tablets BID for now Will recheck her labs and HgbA1c in 3 months for follow up (4) Pure hypercholesterolemia: Code(s): E78.00 - Pure hypercholesterolemia, unspecified Category: Medical Plan: She was again not able to get her follow up labs done prior to her visit today - have advised patient that she has not had any follow up labs done since August 2024 and should try to get these done MARIE Reinforced low cholesterol diet Continue Atorvastatin 20 mg QD Will have patient recheck her labs and fasting lipids in 3 months for follow up (5) Benign essential hypertension: Code(s): I10 - Essential (primary) hypertension Category: Medical Plan: Reinforced low sodium diet - goal is systolic BP of 120 mm or less Continue HCT 12.5 mg QD and Losartan 50 mg QD - she previously developed angioedema while on Lisinopril (6) Multiple allergies: Code(s): Z88.9 - Allergy status to unspecified drugs, medicaments and biological substances Category: Medical Plan: She has been referred to allergy and immunology for allergy testing and evaluation - to follow up with customer advisor specialist as scheduled Continue Cetirizine 10 mg QD PRN (7) Lumbar degenerative disc disease: Code(s): M51.36 - Other intervertebral disc degeneration, lumbar region Category: Medical Qualifiers: Disc-related pain type: discogenic back pain only Qualified Code(s): M51.360 - Other intervertebral disc degeneration, lumbar region with discogenic back pain only Plan: Reinforced activity and weight-lifting restrictions Continue Tizanidine 4 mg TID PRN and Oxycodone 10 mg 2 to 3 times a day only as needed for increased pain - will agree to increase her total monthly amount of tablets from 66 to 80 tablets a month for now Follow up with [facility] as scheduled (8) Osteoarthritis of left knee: Code(s): M17.12 - Unilateral primary osteoarthritis, left knee Category: Medical Qualifiers: Osteoarthritis type: primary Qualified Code(s): M17.12 - Unilateral primary osteoarthritis, left knee Plan: X-rays of the left knee done in the past showed (+) arthritis changes Follow up with orthopedics as scheduled (9) Insomnia: Code(s): G47.00 - Insomnia, unspecified Category: Medical Qualifiers: Insomnia type: unspecified Qualified Code(s): G47.00 - Insomnia, unspecified Plan: Sleep hygiene reinforced Continue Zolpidem 10 mg Q HS PRN (10) Anxiety: Code(s): F41.9 - Anxiety disorder, unspecified Category: Medical Plan: Continue Lorazepam 0.5 mg BID PRN for severe anxiety (11) Depression: Code(s): F32.9 - Major depressive disorder, single episode, unspecified Category: Medical Qualifiers: Depression Type: major depressive disorder Major depression recurrence: recurrent Active/Remission status: currently active Major depression episode severity: unspecified Qualified Code(s): F33.9 - Major depressive disorder, recurrent, unspecified Plan: Follow up with psychiatry as scheduled (12) Smoker: Code(s): F17.200 - Nicotine dependence, unspecified, uncomplicated Category: Social Hx Plan: Patient is counseled again on complete smoking cessation (13) Overweight (BMI 25.0-29.9): Code(s): E66.3 - Overweight Category: Medical Plan: Reinforced diet/exercise as tolerated/lose weight Plan Follow up in 3 months Orders: Orders AMB Hemoglobin A1c Today Z13.9 - Encounter for screening, unspecified Lipid Panel 3 Months E78.00 - Pure hypercholesterolemia, unspecified Complete Blood Count Auto Diff 3 Months D64.9 - Anemia, unspecified Microalbumin, Random (w Creat) 3 Months E11.9 - Type 2 diabetes mellitus without complications Vitamin B12 and Folate 3 Months E53.8 - Deficiency of other specified B group vitamins Hemoglobin A1c 3 Months E11.9 - Type 2 diabetes mellitus without complications Comprehensive Girard. Panel Fast 3 Months E78.00 - Pure hypercholesterolemia, unspecified TSH reflex Free T4 3 Months E78.00 - Pure hypercholesterolemia, unspecified UA CC w/rflx Micro + Cult 3 Months R30.0 - Dysuria Vitamin D 25-OH Total 3 Months E55.9 - Vitamin D deficiency, unspecified Medications: Refilled oxycodone Take 1 tablet by mouth 2 to 3 times a day as needed for increased pain; 80 tabs 0RF 28 days
[2025-04-10 10:37] VITALS: BP 118/66; PULSE 77; O2SAT 97; BMI 29.7
== END 2025-04-10 11:10 | disposition home or self-care (01) ==
LOC: HO.HMCH 10:34
PROVIDERS: PCP Internal Medicine; Visit Provider Internal Medicine
DX: M65.841 Other synovitis and tenosynovitis, right hand (principal); M25.512 Pain in left shoulder; E11.9 Type 2 diabetes mellitus without complications; E78.00 Pure hypercholesterolemia, unspecified; I10 Essential (primary) hypertension; Z88.9 Allergy status to unspecified drugs, medicaments and biological substances; M51.360 Other intervertebral disc degeneration, lumbar region with discogenic back pain only; M17.12 Unilateral primary osteoarthritis, left knee; G47.00 Insomnia, unspecified; F41.9 Anxiety disorder, unspecified; F33.9 Major depressive disorder, recurrent, unspecified; F17.200 Nicotine dependence, unspecified, uncomplicated; E66.3 Overweight; Z13.9 Encounter for screening, unspecified

== ENCOUNTER → 2025-04-10 10:34 | Outpatient (BNVA) | payer OTHER, SELFPAY | PROVIDERS: PCP Internal Medicine; Visit Provider Internal Medicine | DX: M65.841 Other synovitis and tenosynovitis, right hand (principal); M25.512 Pain in left shoulder; E11.9 Type 2 diabetes mellitus without complications; E78.00 Pure hypercholesterolemia, unspecified; I10 Essential (primary) hypertension; M51.360 Other intervertebral disc degeneration, lumbar region with discogenic back pain only; M17.12 Unilateral primary osteoarthritis, left knee; G47.00 Insomnia, unspecified; F41.9 Anxiety disorder, unspecified; F33.9 Major depressive disorder, recurrent, unspecified; F17.210 Nicotine dependence, cigarettes, uncomplicated; E66.3 Overweight; Z88.9 Allergy status to unspecified drugs, medicaments and biological substances | CPT/HCPCS: 83036; 96127; 99212 ==

== ENCOUNTER 2025-04-11 08:08 | Outpatient (REF) | payer OTHER, SELFPAY ==
--- NOTE | ~2025-04-11 | XR_ITS ---
EXAMINATION: XR SHOULDER 2 OR MORE VIEWS LEFT HISTORY: M25.512 - Pain in left shoulder COMPARISON: Comparison is made with the prior examination dated 12/28/2011. FINDINGS: Four views of the left shoulder are submitted. Osseous mineralization is normal. A triangular well-corticated osseous density seen adjacent to the inferior glenoid which could represent an old fracture fragment. There is mild narrowing of the glenohumeral joint. There is mild to moderate degenerative change of the AC joint with joint space narrowing and osteophyte formation. The soft tissues are unremarkable. XR/XR shoulder LT min 2V IMPRESSION: 1. Triangular well-corticated osseous density adjacent to the inferior glenoid which could represent an old fracture deformity. 2. Degenerative change of the glenohumeral and acromioclavicular joints as described. Electronically signed by: Stan Eason MD 04/11/2025 08:52 AM EDT
[2025-04-11 08:32] LABS: MANUAL DIFF FLAG NO
[2025-04-11 09:02] LABS: Hematocrit 42.4 % (37.0-47.0); Hemoglobin 14.1 g/dl (12.0-16.0); Imm Gran Abs Auto 0.01 X10*3/uL (0.00-0.03); Imm Gran Pct Auto 0.2 % (0.0-0.4); Lymphocytes Absolute Auto 1.8 X10*3/uL (1.2-4.9); Mean Corpuscular HGB Conc 33.3 g/dl (31.0-35.0); Mean Corpuscular Hemoglobin 30.2 pg (27.0-33.0); Mean Corpuscular Volume 90.8 fL (80.0-98.0); NRBC Abs Auto 0.000 X10*3/uL (0.0-0.012); NRBC Pct Auto 0.0 /100WBC (0.0-0.2); Platelet Count 231 X10*3/uL (160-400); Red Blood Count 4.67 X10*6/uL (4.20-5.50); White Blood Count 6.4 X10*3/uL (4.8-10.8)
[2025-04-11 09:04] LABS: Appearance Urine Clear; Glucose Urine UA Negative (Negative); PH 5.5 (5.0-9.0); Specific Gravity - Urine 1.015 (1.005-1.025); UMIC TRIGGER UACC YES
[2025-04-11 09:15] LABS: Hemoglobin A1C 146.4787 umol/L; Total Hemoglobin (HGBA1C) 3647.4125 umol/L
[2025-04-11 09:37] LABS: Alanine Aminotransferase 28 U/L (0-31); Albumin Level 4.7 g/dL (3.5-5.0); Alkaline Phosphatase 98 U/L (39-117); Anion Gap 15 (12-20); Aspartate Amino Transferase 27 U/L (5-31); Blood Urea Nitrogen 14 mg/dL (9-16); Calcium 9.7 mg/dL (8.4-10.2); Carbon Dioxide 23 mmol/L (22-29); Chloride 106 mmol/L (96-108); Cholesterol 184 mg/dL (<200); Estimated Glomerular Filt Rate > 60; HDL Cholesterol 55 mg/dL (>40); Potassium 3.9 mmol/L (3.3-5.1); Sodium 140 mmol/L (135-145); Total Protein 8.2 g/dL (6.5-8.0); Triglycerides 123 mg/dL (<150)
[2025-04-11 10:17] LABS: Microalbum/Creatinine Ratio Ur 10.2 ug/mg cr (<30)
== END 2025-04-11 08:09 | disposition home or self-care (01) ==
LOC: HO.XRAY 08:08
PROVIDERS: PCP Internal Medicine; Visit Provider Internal Medicine
DX: R30.0 Dysuria (principal); M25.512 Pain in left shoulder; E78.00 Pure hypercholesterolemia, unspecified; D64.9 Anemia, unspecified; E11.9 Type 2 diabetes mellitus without complications
CPT/HCPCS: 36415; 73030; 80053; 80061; 81001; 81003; 82043; 82570; 83036; 84443; 85025

== ENCOUNTER → 2025-04-11 08:36 | Outpatient (BNV) | payer OTHER, SELFPAY | PROVIDERS: PCP Internal Medicine; Visit Provider Radiology Diagnostic Radiology | DX: M19.012 Primary osteoarthritis, left shoulder (principal) | CPT/HCPCS: 73030 ==

== ENCOUNTER 2025-04-19 10:23 | Outpatient (AMB) | payer OTHER, SELFPAY ==
[2025-04-19 10:32] VITALS: BMI 29.7
--- NOTE | 2025-04-19 10:32 | A.OFFVIS_ITS ---
Vital Signs 04/19/25 10:32 Height 5 ft 2 in Weight 162 lb 8 oz BMI 29.7 Intake Visit Reasons: PO RT MF/RF trigger 03/04/25 AR Intake Note: Erica is a 64 year old right hand dominant female who presents today post- operatively for a ROM check status post right middle and right ring trigger finger release, DOS: 03/04/[address] Agrawal. A referral to occupational therapy was placed at her last visit. Patient reports she never got a call to schedule occupational therapy. She complains of numbness at the right middle and ring fingers. She has been using a squishy ball to help with range of motion. Allergies lisinopril Allergy (Severe, Verified 04/19/25 10:32) Angioedema amoxicillin (Amoxicillin) Allergy (Intermediate, Verified 04/19/25 10:32) SHORTNESS OF BREATH penicillin V Allergy (Intermediate, Verified 04/19/25 10:32) shortness of breath Penicillins Allergy (Intermediate, Verified 04/19/25 10:32) SHORTNESS OF BREATH HPI HPI PO RT MF/RF trigger 03/04/25 AR: Details: Erica is a 64 year old right hand dominant female who presents today post- operatively for a ROM check status post right middle and right ring trigger finger release, DOS: 03/04/[address] Agrawal. A referral to occupational therapy was placed at her last visit. Patient reports she never got a call to schedule occupational therapy. She complains of decreased range of motion at the right middle and ring fingers. She has been using a squishy ball to help with range of motion. 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 Smoker Depression Anxiety Insomnia GERD without esophagitis Constipation Osteoarthritis of left knee Lumbar radiculopathy Lumbar degenerative disc disease Pure hypercholesterolemia Benign essential hypertension Surgical History History of tooth extraction History of ectopic History of open reduction and internal fixation (ORIF) procedure History of foot surgery History of tubal ligation Family History Father Hypertension Mother Hypertension Arthritis Family/Other Breast cancer Social History Household Members: Spouse Housing: House Are you a primary student career development specialist to a significant other at home: No Do you presently have visiting nurse or other home services: No Unable to assess alcohol history related to: Unknown Alcohol intake: never Comment: counts correct Patient Tobacco Use Status: Current everyday Tobacco user Tobacco use type: Cigarette Cigarettes Per Day: 8 e-Cigarette/Vaping Use: Never Used Second Hand Smoke Exposure: Yes Advance Directives Date on File: 05/06/24 service: No Current occupational status: disabled Cognitive needs: No Hearing needs: No Vision needs: No Review of Systems Const All systems reviewed & are unremarkable except as noted in HPI and below Physical Exam Vital Signs: BMI result Body Mass Index 29.7 Extrem Other: Patient is alert, oriented, and in no acute distress. Neuro: Normal sensation of the tips of all digits of the right hand at this time Vascular: Cap refill brisk Pain: No tenderness to palpation noted of incision sites over A1 pulleys of right middle and ring fingers ROM: Patient is able to weakly make a closed fist Skin: Well approximated and well healing incision sites noted over the A1 pulleys of the right middle and ring fingers No lacerations or abrasions. General: No ecchymosis, erythema, or evidence of infection. Psych: Appears grossly normal Affect normal Attitude cooperative Assessment & Plan Assessment & Plan (1) Trigger finger, right middle finger: Code(s): M65.331 - Trigger finger, right middle finger Category: Medical (2) Trigger finger, right ring finger: Code(s): M65.341 - Trigger finger, right ring finger Category: Medical Plan 1. Status post right middle finger and ring finger trigger releases With stiffness postoperatively Patient appears to be recovering fairly well postoperatively Patient is educated about the typical recovery course OT order to work on range of motion of the right hand Patient is provided with OT contact information for appointment scheduling purposes Patient is educated that the only way to treat postoperative stiffness is to keep the hand and fingers moving Patient states understanding of this Follow-up as needed Coding Level of Care Code Global (45015) Diagnoses Trigger finger, right middle finger M65.331 Trigger finger, right ring finger M65.341
== END 2025-04-19 10:48 | disposition home or self-care (01) ==
LOC: HO.HOS 10:24
PROVIDERS: PCP Internal Medicine
DX: M65.331 Trigger finger, right middle finger (principal); M65.341 Trigger finger, right ring finger
CPT/HCPCS: 99024

== ENCOUNTER → 2025-04-19 10:23 | Outpatient (BNVA) | payer OTHER, SELFPAY | PROVIDERS: PCP Internal Medicine | DX: M65.331 Trigger finger, right middle finger (principal); M65.341 Trigger finger, right ring finger | CPT/HCPCS: 99212 ==

== ENCOUNTER 2025-04-26 08:38 | Outpatient (AMB) | payer OTHER, SELFPAY ==
--- NOTE | 2025-04-26 09:13 | A.OFFVIS_ITS ---
Vital Signs 04/26/25 09:14 Height 5 ft 2 in Weight 162 lb 8 oz BMI 29.7 Intake Visit Reasons: Newprob-LT shoulder pain, xray done 04/11/25 Intake Note: Erica is a 64 year old right hand dominant female who presents today for a new problem visit for evaluation of left shoulder pain. Patient reports pain began many years ago, worsening for the past 2-3 months. Pain is primarily at the base of the shoulder, radiating down her deltoid. She denies numbness, tingling. She is taking Oxycodone for other health problems, relieving some of her shoulder pain. Denies injuries or previous surgeries to the left shoulder. Allergies lisinopril Allergy (Severe, Verified 04/26/25 09:14) Angioedema amoxicillin (Amoxicillin) Allergy (Intermediate, Verified 04/26/25 09:14) SHORTNESS OF BREATH penicillin V Allergy (Intermediate, Verified 04/26/25 09:14) shortness of breath Penicillins Allergy (Intermediate, Verified 04/26/25 09:14) SHORTNESS OF BREATH HPI HPI Newprob-LT shoulder pain, xray done 04/11/25: Details: Erica is a 64 year old right hand dominant female who presents today for a new problem visit for evaluation of left shoulder pain. Patient reports pain began many years ago, worsening for the past 2-3 months. Pain is primarily at the base of the shoulder, radiating down her deltoid. She denies numbness, tingling. She is taking Oxycodone for other health problems, relieving some of her shoulder pain. Denies injuries or previous surgeries to the left shoulder. 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 Smoker Depression Anxiety Insomnia GERD without esophagitis Constipation Osteoarthritis of left knee Lumbar radiculopathy Lumbar degenerative disc disease Pure hypercholesterolemia Benign essential hypertension Surgical History History of tooth extraction History of ectopic History of open reduction and internal fixation (ORIF) procedure History of foot surgery History of tubal ligation Family History Father Hypertension Mother Hypertension Arthritis Family/Other Breast cancer Social History Household Members: Spouse Housing: House Are you a primary daycare teacher to a significant other at home: No Do you presently have visiting nurse or other home services: No Unable to assess alcohol history related to: Unknown Alcohol intake: never Comment: counts correct Patient Tobacco Use Status: Current everyday Tobacco user Tobacco use type: Cigarette Cigarettes Per Day: 8 e-Cigarette/Vaping Use: Never Used Second Hand Smoke Exposure: Yes Advance Directives Date on File: 05/06/24 service: No Current occupational status: disabled Cognitive needs: No Hearing needs: No Vision needs: No Review of Systems Const All systems reviewed & are unremarkable except as noted in HPI and below Physical Exam Vital Signs: BMI result Body Mass Index 29.7 Extrem Other: Patient's left shoulder normal to inspection No erythema, ecchymosis, edema noted No lacerations, abrasions, open areas No evidence of infection Very mild tenderness to palpation of the posterior aspect of the left shoulder Patient reports no tenderness to palpation of the anterior shoulder, bicipital groove, AC joint, or elsewhere on the left shoulder Patient is able to forward flex to 90 degrees bilaterally without difficulty External rotation to approximately 40 degrees bilaterally 4/5 empty can bilaterally 4/5 belly press bilaterally Positive Davis in the left Distal sensation intact Capillary refill brisk Results Reviewed Results Reviewed: X-rays obtained on 04/15/2025 and independently reviewed by me, Favian Palma, demonstrate [id number] osteoarthritic changes of both the glenohumeral joint and AC joint of the left shoulder. Assessment & Plan Assessment & Plan (1) Primary osteoarthritis, left shoulder: Code(s): M19.012 - Primary osteoarthritis, left shoulder Category: Medical (2) Impingement syndrome of left shoulder: Code(s): M75.42 - Impingement syndrome of left shoulder Category: Medical Plan 1. Osteoarthritis of the left shoulder 2. Impingement Syndrome of the left shoulder Patient is educated about these conditions Patient is educated about the treatment options available, namely physical therapy, injections, or a referral for potential surgical intervention Patient states she would like to proceed with physical therapy prior to any more invasive interventions Patient is referred to PT for range of motion and strengthening of the left shoulder in the setting of impingement syndrome and osteoarthritis Patient understands this and is amenable to this plan Follow-up as needed Orders: Orders PT Evaluation and Treatment Today M19.012 - Primary osteoarthritis, left shoulder, M75.42 - Impingement syndrome of left shoulder NE nerve conduction velocity Today R20.0 - Anesthesia of skin, R20.2 - Paresth esia of skin NE electromyogram (EMG) Today R20.0 - Anesthesia of skin, R20.2 - Paresthesia of skin Coding Level of Care Code Est Pt Level 3 (75823) Diagnoses Primary osteoarthritis, left shoulder M19.012 Impingement syndrome of left shoulder M75.42
[2025-04-26 09:14] VITALS: BMI 29.7
== END 2025-04-26 09:36 | disposition home or self-care (01) ==
LOC: HO.HOS 08:38
PROVIDERS: PCP Internal Medicine
DX: M19.012 Primary osteoarthritis, left shoulder (principal); M75.42 Impingement syndrome of left shoulder
CPT/HCPCS: 99213

== ENCOUNTER → 2025-04-26 08:38 | Outpatient (BNVA) | payer OTHER, SELFPAY | PROVIDERS: PCP Internal Medicine | DX: M25.512 Pain in left shoulder (principal); M19.012 Primary osteoarthritis, left shoulder; R20.0 Anesthesia of skin; R20.2 Paresthesia of skin; M75.42 Impingement syndrome of left shoulder | CPT/HCPCS: 99212 ==

== ENCOUNTER 2025-04-26 13:01 | Outpatient (RCR) | payer OTHER, SELFPAY ==
--- NOTE | 2025-04-26 14:57 | MHC.OT.EP ---
[facility] Office [address] [phone] F: [phone] F: [phone] Occupational Therapy Plan of Care Patient Name: Erica Elizondo Date of Evaluation: 04/26/25 Diagnosis: S/P RF/MF TRIGGER FINGER RELEASE Pain Location: 4-5/10 AT REST 8/10 R VOLAR HAND WITH USE Pain Score: 4-8/10 Pain Scale Used: Numeric (0 - 10) Aggravating Factors: GENERAL USE OF R HAND Alleviating Factors: COLD COMPRESS, LIQUID MEDICATION/ OXY, HOT WATER SOAKS WITH RELIEF Assessment: MS ELIZONDO IS 8 WEEKS S/P TRIGGER FINGER RELEASE TO RING AND MIDDLE FINGERS, DR GANN (DOS 03/04/25). SHE IS R HAND DOMINANT AND C/O DIFFICULTIES WITH COOKING AND DRESSING SELF. SHE RECEIVES DAILY ASSISTANCE FROM ADMINISTRATIVE RESIDENT FOR LAUNDRY AND HOUSEKEEPING TASKS. A 95% LIMITATION IS REPORTED PER THE QUICKDASH ASSESSMENT. ONGOING SKILLED OT WARRANTED TO ADDRESS AREAS MENTIONED BELOW. Frequency and Duration: The patient will be seen 2X/WEEK FOR 4 WEEKS Short Term Goals: IND HEP REPORT <3/10 PAIN DURING ADLs IND SCAR MOBILIZATION STRATEGIES IND JT PROTECTION STRATEGIES AND ACTIVITY MODIFICATIONS Manager Recruiting Goals: R GRASP >20 POUNDS REPORT QUICK DASH <70% TOLERATE VIBRATION, ROUGH TEXTURES FOR >8 MINS Treatment Plan: Therapeutic Exercise Therapeutic Activity Home Exercise Program Splinting Neuro Re-ed Patient Education Desensitization/Sensory Re-ed Edema Control ADL Training Ultrasound NMES Iontophoresis Paraffin Fluidotherapy MHP Cold Packs Joint Mobilization Soft Tissue Mobilization Kinesiotaping Electronically Signed By: HANG MELENDEZ OTR/L Please Sign and return to therapist. Thank you once again for your referral.
== END 2025-05-16 12:11 | disposition home or self-care (01) ==
LOC: HO.OT 13:01
PROVIDERS: PCP Internal Medicine
DX: M65.331 Trigger finger, right middle finger (principal); M65.341 Trigger finger, right ring finger; M25.641 Stiffness of right hand, not elsewhere classified; Z98.890 Other specified postprocedural states
CPT/HCPCS: 97110; 97166

== ENCOUNTER → 2025-05-10 10:00 | Outpatient (BNV) | payer OTHER, SELFPAY | PROVIDERS: PCP Internal Medicine; Visit Provider Internal Medicine | DX: Z12.31 Encounter for screening mammogram for malignant neoplasm of breast (principal) | CPT/HCPCS: 77063; 77067 ==

== ENCOUNTER 2025-05-10 10:05 | Outpatient (REF) | payer OTHER, SELFPAY ==
--- NOTE | ~2025-05-10 | MM_ITS ---
EXAMINATION: MM SCREENING DIGITAL BREAST TOMOSYNTHESIS, BILATERAL CLINICAL INFORMATION: Screening. Asymptomatic. COMPARISON: Mammography: Comparison is made with available priors TECHNIQUE: Digital breast mammography with tomosynthesis is performed in both the craniocaudal and mediolateral oblique views along with computer-aided detection (CAD). FINDINGS: There are scattered areas of fibroglandular density (ACR BI-RADS breast composition Category b). There are no significant masses, abnormal calcifications, or other abnormalities. MM/MM tomosynthesis screening BI IMPRESSION: No mammographic evidence of malignancy. ASSESSMENT: BI-RADS BI-RADS 1 - Negative RECOMMENDATION: Routine annual mammography screening. 1 year F/U This examination should not preclude the clinical evaluation of a suspicious palpable abnormality. This patient's information was entered into a reminder system with a target due date for their next mammogram. Electronically signed by: Lauren Lucia DO 05/14/2025 03:52 PM EDT
== END 2025-05-10 10:06 | disposition home or self-care (01) ==
LOC: HO.MAMMO 10:05
PROVIDERS: PCP Internal Medicine; Visit Provider Internal Medicine
DX: Z12.31 Encounter for screening mammogram for malignant neoplasm of breast (principal)
CPT/HCPCS: 77063; 77067

== ENCOUNTER 2025-06-28 13:28 | Outpatient (REF) | payer OTHER, SELFPAY ==
--- NOTE | 2025-06-28 13:31 | EMG_ITS ---
Chief complaint: Chronic right hand numbness and pain Reason for referral: Evaluate for Carpal Tunnel Syndrome Referred by: Favian MCGEE Procedure done: Right upper extremity NCS/EMG Precautions and/or limitations: None The limb temperature was monitored continuously and remained between 32-36 degrees C during the performance of the NCS. Nerve Conduction Studies Anti Sensory Summary Table ?Stim Site NR Onset (ms) Norm Onset (ms) Peak (ms) Norm Peak (ms) O-P Amp (?V) Norm O-P Amp Site1 Site2 Delta-0 (ms) Dist (cm) Yony (m/s) Norm Yony (m/s) Right Median Anti Sensory (2nd Digit) Wrist ? 4.0 5.0 <3.6 25.7 >10 Wrist 2nd Digit 4.0 14.0 35 Right Radial Anti Sensory (Thumb) Forearm ? 1.8 2.6 <3.1 19.1 Forearm Thumb 1.8 10.0 56 Right Ulnar Anti Sensory (5th Digit) Wrist ? 2.9 3.7 <3.7 28.1 >15.0 Wrist 5th Digit 2.9 14.0 48 Motor Summary Table ?Stim Site NR Onset (ms) Norm Onset (ms) O-P Amp (mV) Norm O-P Amp iAmp (mV) Amp (1st) (%) Site1 Site2 Delta-0 (ms) Dist (cm) Yony (m/s) Norm Yony (m/s) Right Median Motor (Abd Poll Brev) Wrist ? 4.8 <3.9 5.9 >4.5 7.1 100.0 Elbow Wrist 4.0 18.0 45 >45 Elbow ? 8.8 5.8 7.0 98.3 Right Ulnar Motor (Abd Dig Minimi) Wrist ? 3.0 <3.0 8.5 >5 9.8 100.0 B Elbow Wrist 3.1 18.0 58 >45 B Elbow ? 6.1 8.4 9.7 98.8 A Elbow B Elbow 1.4 10.0 71 >45 A Elbow ? 7.5 8.0 9.3 94.1 EMG ?Side Muscle Nerve Root Ins Act Fibs Psw Amp Dur Poly Recrt Int Pat Comment Right 1stDorInt Ulnar C8-T1 Nml Nml Nml Nml Nml 0 Nml Complete Right FlexCarRad Median C6-7 Nml Nml Nml Nml Nml 0 Nml Complete Right Biceps Musculocut C5-6 Nml Nml Nml Nml Nml 0 Nml Complete Right Triceps Radial C6-7-8 Nml Nml Nml Nml Nml 0 Nml Complete Right Deltoid Axillary C5-6 Nml Nml Nml Nml Nml 0 Nml Complete FINDINGS: Right median motor nerve showed prolonged distal latency, normal amplitude and normal conduction velocity. Right median sensory nerve showed prolonged peak latency. All other nerves tested were within normal. Concentric needle EMG was performed in selected muscles of the right upper extremity. Study did not reveal signs of electric abnormalities as shown in the table above. IMPRESSION: 1. This is an abnormal study. 2. There is electrodiagnostic evidence for right moderate/severe median neuropathy at the wrist, consistent with carpal tunnel syndrome. 3. There is no electrodiagnostic evidence for ulnar neuropathy, brachial plexopathy, or cervical radiculopathy. Thank you for your kind referral. Bria Pina MD, DAVIN Board Certified, [place] [employer] and Rehabilitation (ABPMR) Board Certified, [place] Board [employer] Electrodiagnostic Medicine (ABEM) [address] [id number] [facility]
== END 2025-06-28 13:29 | disposition home or self-care (01) ==
LOC: HO.NEURO 13:28
PROVIDERS: PCP Internal Medicine
DX: R20.0 Anesthesia of skin (principal); R20.2 Paresthesia of skin
CPT/HCPCS: 95886; 95909

== ENCOUNTER → 2025-06-28 13:31 | Outpatient (BNV) | payer OTHER, SELFPAY | PROVIDERS: PCP Internal Medicine; Visit Provider Physical Medicine & Rehabilitation | DX: G56.01 Carpal tunnel syndrome, right upper limb (principal) | CPT/HCPCS: 95886; 95909 ==

== ENCOUNTER 2025-08-28 13:39 | Outpatient (AMB) | payer OTHER, SELFPAY ==
[2025-08-28 13:43] VITALS: BMI 29.6
--- NOTE | 2025-08-28 13:43 | A.OFFVIS_ITS ---
Vital Signs 08/28/25 13:43 Height 5 ft 2 in Weight 162 lb BMI 29.6 Intake Visit Reasons: NeProb: right hand numbness & tingling, EMG done Intake Note: Erica is a 64 year old right hand dominant female who presents today for New Problem Visit for evaluation of Right Hand Numbness & Tingling. Patient reports today her symptoms are daily, primarily at night. She explains she also has the same problem on her left hand but she understands we only have results for the right hand. She has not tried any formal form of treatment however she works on ROM. Hx of Diabetes Mellitus, last A1C done 04/10/25, 6.4%. History of Right Middle and Right Ring Trigger Finger Release, DOS: 03/04/[address] Agrawal. IMPRESSION 06/28/25: 1. This is an abnormal study. 2. There is electrodiagnostic evidence for right moderate/severe median neuropathy at the wrist, consistent with carpal tunnel syndrome. 3. There is no electrodiagnostic evidence for ulnar neuropathy, brachial plexo segundo, or cervical radiculopathy. Allergies lisinopril Allergy (Severe, Verified 08/28/25 13:49) Angioedema amoxicillin (Amoxicillin) Allergy (Intermediate, Verified 08/28/25 13:49) SHORTNESS OF BREATH penicillin V Allergy (Intermediate, Verified 08/28/25 13:49) shortness of breath Penicillins Allergy (Intermediate, Verified 08/28/25 13:49) SHORTNESS OF BREATH HPI HPI NeProb: right hand numbness & tingling, EMG done: Details: Erica is a 64 year old right hand dominant female who presents today for New Problem Visit for evaluation of Right Hand Numbness & Tingling. Patient reports today her symptoms are daily, primarily at night. Patient does report that she does have periods of normal sensation. She explains she also has the same problem on her left hand but she understands we only have results for the right hand. She has not tried any formal form of treatment however she works on ROM. Patient would like to move forward with surgical intervention. Hx of Diabetes Mellitus, last A1C done 04/10/25, 6.4%. History of Right Middle and Right Ring Trigger Finger Release, DOS: 03/04/[address] Agrawal. IMPRESSION 06/28/25: 1. This is an abnormal study. 2. There is electrodiagnostic evidence for right moderate/severe median neuropathy at the wrist, consistent with carpal tunnel syndrome. 3. There is no electrodiagnostic evidence for ulnar neuropathy, brachial plexopathy, or cervical radiculopathy. 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 Smoker Depression Anxiety Insomnia GERD without esophagitis Constipation Osteoarthritis of left knee Lumbar radiculopathy Lumbar degenerative disc disease Pure hypercholesterolemia Benign essential hypertension Surgical History (Updated 08/22/25 @ 15:19 by ZEV Gallo) H/O hand surgery History of tooth extraction History of ectopic History of open reduction and internal fixation (ORIF) procedure History of foot surgery History of tubal ligation Family History Father Hypertension Mother Hypertension Arthritis Family/Other Breast cancer Social History Household Members: Spouse Housing: House Are you a primary specialist wound care to a significant other at home: No Do you presently have visiting nurse or other home services: No Alcohol intake: never Comment: counts correct Patient Tobacco Use Status: Current everyday Tobacco user Tobacco use type: Cigarette Cigarettes Per Day: 8 e-Cigarette/Vaping Use: Never Used Second Hand Smoke Exposure: Yes Advance Directives Date on File: 05/06/24 service: No Current occupational status: disabled Cognitive needs: No Hearing needs: No Vision needs: No Review of Systems Const All systems reviewed & are unremarkable except as noted in HPI and below Physical Exam Vital Signs: BMI result Body Mass Index 29.6 Extrem Other: Patient is alert, oriented, and in no acute distress. Neuro: Normal sensation of the tips of all digits of the right hand at this time Vascular: Cap refill brisk Pain: No tenderness to palpation noted of incision sites over A1 pulleys of right middle and ring fingers ROM: Patient is able to make a closed fist and extend all digits of the right hand fully and without difficulty Skin: Well approximated and well healed incision sites noted over the A1 pulleys of the right middle and ring fingers No lacerations or abrasions. General: No ecchymosis, erythema, or evidence of infection. Psych: Appears grossly normal Affect normal Attitude cooperative Assessment & Plan Assessment & Plan (1) Right carpal tunnel syndrome: Code(s): G56.01 - Carpal tunnel syndrome, right upper limb Category: Medical Plan 1. Right carpal tunnel syndrome Symptoms intermittent, daily, worse at night I educated the patient about the condition. I discussed both operative and nonoperative treatment options. The patient would like to proceed with surgery. The risks and benefits of operative treatment were discussed with the patient and the patient wishes to proceed with surgery. These risks include, but are not limited to, risk of damage to blood vessels, nerves, tendons, infection, recurrence, incomplete relief of preoperative symptoms, persistent pain, possible need for further surgery, and the risks associated with regional blocks and/or anesthesia. Plan is to take the patient to the operating room at some point in the next few weeks for the following procedures: 1. Right carpal tunnel release under local All of the preoperative paperwork including the consent was discussed today. All of the patient's questions were answered in the clinic today. The patient understands that they will be in contact with our rn medical surgical to discuss scheduling their procedure. Patient reports diabetes, last A1c 6.4 Denies blood thinners, asthma, heart issues, lung issues, kidney issues, or current smoking. Coding Level of Care Code Est Pt Level 4 (58439) Diagnoses Right carpal tunnel syndrome G56.01
== END 2025-08-28 14:35 | disposition home or self-care (01) ==
LOC: HO.HOS 13:41
PROVIDERS: PCP Internal Medicine
DX: G56.01 Carpal tunnel syndrome, right upper limb (principal)
CPT/HCPCS: 99214

== ENCOUNTER → 2025-08-28 13:39 | Outpatient (BNVA) | payer OTHER, SELFPAY | PROVIDERS: PCP Internal Medicine | DX: G56.01 Carpal tunnel syndrome, right upper limb (principal); E11.9 Type 2 diabetes mellitus without complications | CPT/HCPCS: 99212 ==

== ENCOUNTER 2025-09-11 12:55 | Outpatient (AMB) | payer OTHER, SELFPAY ==
--- NOTE | 2025-09-11 12:56 | MHC.PC.OV ---
Intake Visit Reasons: 3mth f/u- due for A1C Director Of Mobile Marketing Required: No Material Handling Technician: Not Required per policy Accompanied by: Self / Same As Patient Allergies lisinopril Allergy (Severe, Verified 09/11/25 13:04) Angioedema amoxicillin (Amoxicillin) Allergy (Intermediate, Verified 09/11/25 13:04) SHORTNESS OF BREATH penicillin V Allergy (Intermediate, Verified 09/11/25 13:04) shortness of breath Penicillins Allergy (Intermediate, Verified 09/11/25 13:04) SHORTNESS OF BREATH Medication List - Last Reconciled 09/11/25 by Lionel Rodriguez MD albuterol sulfate 90 mcg/actuation (Ventolin HFA) 1 inh inhalation QID PRN atorvastatin 20 mg PO DAILY 90 days blood sugar diagnostic (FreeStyle Lite Strips) As directed three times per day cetirizine (Zyrtec) 10 mg PO DAILY PRN cholecalciferol (vitamin D3) 50 mcg PO DAILY 90 days hydrochlorothiazide 12.5 mg PO DAILY 90 days lancets (FreeStyle Lancets) As directed three times daily losartan 50 mg PO DAILY 90 days metformin ER 500 mg PO BID multivitamin 1 tab PO DAILY 90 days multivitamin with folic acid 400 mcg (Daily-Dennis (with folic acid)) 1 tab PO DAILY oxycodone Take 1 tablet by mouth 2 to 3 times a day as needed for increased pain; 28 days sennosides (senna) 8.6 mg PO DAILY PRN [women's regular pad with wings As directed once daily] [Women's underwear liners As directed once daily] zolpidem 10 mg PO BEDTIME PRN 30 days Tobacco use date assessed: 04/10/25 Dental Screening Dental Screen Date: 04/10/25 HPI 3mth f/u- due for A1C HPI Details Patient's follow up visit / consultation today is done over video conference (iPhone/iPad/Google Meets/[employer]) as she reportedly tested positive for COVID last week - this is a TELEHEALTH visit Patient's current medications have been reviewed and verified with patient and/or caregiver/proxy and have been updated accordingly in the medication list Patient states that she has been experiencing increased cough and congestion for a few days early last week and decided to test herself for COVID a couple of days later and her test came back positive so she called to have her appointment today changed over to a telehealth visit instead States that her respiratory symptoms were not severe when she was sick and are now starting to clear up but she still has a recurrent cough and still feels somewhat congested She denies any fever or sore throat at present; denies any headaches or dizziness Denies any chest pains, no increased SOB No nausea/vomiting, no abdominal pain No change in bowel habits noted She was not able to get her follow up labs done prior to today as she has been sick for the past week or so [facility] Medical History Stenosing tenosynovitis of finger of right hand Diabetes mellitus Tenosynovitis of finger Overweight (BMI 25.0-29.9) 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 Smoker Depression Anxiety Insomnia GERD without esophagitis Constipation Osteoarthritis of left knee Lumbar radiculopathy Lumbar degenerative disc disease Pure hypercholesterolemia Benign essential hypertension Surgical History H/O hand surgery History of tooth extraction History of ectopic History of open reduction and internal fixation (ORIF) procedure History of foot surgery History of tubal ligation Family History Father Hypertension Mother Hypertension Arthritis Family/Other Breast cancer Social History Household Members: Spouse Housing: House Are you a primary housekeeper child care to a significant other at home: No Do you presently have visiting nurse or other home services: No Alcohol intake: never Comment: counts correct Patient Tobacco Use Status: Current everyday Tobacco user Tobacco use type: Cigarette Cigarette Packs Per Day: 0.5 Cigarettes Per Day: 8 e-Cigarette/Vaping Use: Never Used Second Hand Smoke Exposure: Yes Advance Directives Date on File: 05/06/24 service: No Current occupational status: disabled Cognitive needs: No Hearing needs: No Vision needs: No Questionnaire Thrive Questionnaire Date Thrive assessed: 04/10/25 IZABEL-7 AMB Questionnaire IZABEL-7 Date IZABEL - 7 assessed: 04/10/25 Source: Developed by Drs. Stan Kruse, Doris Bustamante, Jose Wheatley and colleagues, with an educational marlee from [employer]. Review of Systems Const Denies chills, Reports fatigue, Denies fever(s) and Denies headache(s) ENT Denies dysphagia, Denies dizziness, Denies otalgia, Denies headache(s), Denies neck pain, Denies odynophagia and Denies sore throat Card Denies chest pain, Denies palpitations and Denies dyspnea Resp Reports chest congestion (mild - improving), Reports cough (on and off - improving) and Denies dyspnea GI Denies abdominal pain, Denies constipation, Denies dysphagia, Denies heartburn, Denies diarrhea, Denies nausea, Denies odynophagia and Denies vomiting Denies difficulty voiding, Denies nocturia, Denies dysuria and Denies urinary urgency Musc Reports back pain (chronic, over the lower back), Reports arthralgias (over the left shoulder and right hand - see HPI), Denies neck pain and Reports stiffness Skin/Breast Denies rash Neuro Denies dizziness and Denies headache(s) Psych Reports anxiety Endo Reports fatigue and Denies palpitations Aller/Immun Reports as per HPI Physical exam (Primary Care) Vital Signs: Physical examination is not performed as visit / consultation today is done over videoconference - Telehealth visit All physical findings indicated here, if present, are as per patient's and / or caregivers / proxy's report and visual inspection over videoconference, if appropriate or applicable Tobacco/Smoking Status: Tobacco use Status Tobacco use date assessed 04/10/25 09/11/25 12:58 Patient Tobacco Use Status Current everyday Tobacco 09/11/25 12:58 Tobacco use type Cigarette 09/11/25 12:58 e-Cigarette/Vaping Use Never Used 09/11/25 12:58 Thrive Assessment: Date of Thrive Assessment Date Thrive assessed 04/10/25 09/11/25 12:58 Telehealth Telehealth Telehealth Platform: [facility] Location of provider rendering services: practice address Location of patient: address on file Patient Identification confirmed using: Name, : Yes Telehealth method: video Patient verbally consented to treatment: Yes Patient verbally consented to billing insurance company: Yes Patient informed of any privacy concerns related to visit: Yes Minutes spent on Phone/Video with Pt.: 19 Coding Level of Care Code Tele Est Pt Level 4 (24038) Diagnoses COVID U07.1 Stenosing tenosynovitis of finger of right hand M65.841 Type 2 diabetes mellitus without complication, without long-term current use of insulin E11.9 Diabetes mellitus complication status: without complication Diabetes mellitus superintendent container terminal insulin use: without retirement use Diabetes mellitus type: type 2 Pure hypercholesterolemia E78.00 Benign essential hypertension I10 Multiple allergies Z88.9 Degeneration of intervertebral disc of lumbar region with discogenic back pain M51.360 Disc-related pain type: discogenic back pain only Primary osteoarthritis of left knee M17.12 Osteoarthritis type: primary Insomnia, unspecified type G47.00 Insomnia type: unspecified Anxiety F41.9 Episode of recurrent major depressive disorder, unspecified depression episode severity F33.9 Active/Remission status: currently active Depression Type: major depressive disorder Major depression episode severity: unspecified Major depression recurrence: recurrent Smoker F17.200 Overweight (BMI 25.0-29.9) E66.3 Assessment & Plan Assessment & Plan (1) COVID: Code(s): U07.1 - COVID-19 Category: Medical Plan: Resolving - continue symptomatic Tx with OTC cough/cold meds PRN Patient states that her respiratory symptoms were not severe when she was sick over the past week and are now starting to clear up slowly but she still has a recurrent cough and some lingering chest congestion (2) Stenosing tenosynovitis of finger of right hand: Code(s): M65.841 - Other synovitis and tenosynovitis, right hand Category: Medical Plan: S/P trigger finger release surgery with orthopedics back in February 2025 Patient also completed OT/PT for her hand back in late April 2025 with (+) significant improvement in her right hand pain and ROM Follow up with orthopedics as scheduled (3) Diabetes mellitus: Code(s): E11.9 - Type 2 diabetes mellitus without complications Category: Medical Qualifiers: Diabetes mellitus complication status: without complication Diabetes mellitus retirement insulin use: without retirement use Diabetes mellitus type: type 2 Qualified Code(s): E11.9 - Type 2 diabetes mellitus without complications Plan: Her in-office HgbA1c was at 6.4% back in March 2025 (was previously at 5.8% a few months prior and at 4.9%, 5.4% and 5.6% last year) - goal is < 7.0% Reinforced diabetic diet - patient admitted to poor compliance with her diet over the past year Continue Metformin ER 500 mg 2 tablets BID for now Will recheck her labs and HgbA1c in 3 months for follow up (4) Pure hypercholesterolemia: Code(s): E78.00 - Pure hypercholesterolemia, unspecified Category: Medical Plan: She was not able to get her follow up labs done prior to her visit today - her labs done a day after her March 2025 visit revealed (+) slight improvement of her cholesterol levels from last year Reinforced low cholesterol diet Continue Atorvastatin 20 mg QD Will have patient recheck her labs and fasting lipids in 3 months for follow up - will just have her use her current orders (updated) for her next lab draw (5) Benign essential hypertension: Code(s): I10 - Essential (primary) hypertension Category: Medical Plan: Reinforced low sodium diet - goal is systolic BP of 120 mm or less Continue HCT 12.5 mg QD and Losartan 50 mg QD - she previously developed angioedema while on Lisinopril (6) Multiple allergies: Code(s): Z88.9 - Allergy status to unspecified drugs, medicaments and biological substances Category: Medical Plan: She has been referred to allergy and immunology for allergy testing and evaluation - to follow up with back sewer as scheduled Continue Cetirizine 10 mg QD PRN (7) Lumbar degenerative disc disease: Code(s): M51.36 - Other intervertebral disc degeneration, lumbar region Category: Medical Qualifiers: Disc-related pain type: discogenic back pain only Qualified Code(s): M51.360 - Other intervertebral disc degeneration, lumbar region with discogenic back pain only Plan: Reinforced activity and weight-lifting restrictions Continue Tizanidine 4 mg TID PRN and Oxycodone 10 mg 2 to 3 times a day only as needed for increased pain - we agreed to increase her total monthly amount of tablets from 66 to 80 tablets a month for now at her last visit Follow up with [facility] Pain Management as scheduled (8) Osteoarthritis of left knee: Code(s): M17.12 - Unilateral primary osteoarthritis, left knee Category: Medical Qualifiers: Osteoarthritis type: primary Qualified Code(s): M17.12 - Unilateral primary osteoarthritis, left knee Plan: X-rays of the left knee done in the past showed (+) arthritis changes Follow up with orthopedics as scheduled (9) Insomnia: Code(s): G47.00 - Insomnia, unspecified Category: Medical Qualifiers: Insomnia type: unspecified Qualified Code(s): G47.00 - Insomnia, unspecified Plan: Sleep hygiene reinforced Continue Zolpidem 10 mg Q HS PRN (10) Anxiety: Code(s): F41.9 - Anxiety disorder, unspecified Category: Medical Plan: Continue Lorazepam 0.5 mg BID PRN for severe anxiety (11) Depression: Code(s): F32.9 - Major depressive disorder, single episode, unspecified Category: Medical Qualifiers: Active/Remission status: currently active Depression Type: major depressive disorder Major depression episode severity: unspecified Major depression recurrence: recurrent Qualified Code(s): F33.9 - Major depressive disorder, recurrent, unspecified Plan: Follow up with psychiatry as scheduled (12) Smoker: Code(s): F17.200 - Nicotine dependence, unspecified, uncomplicated Category: Social Hx Plan: Patient is counseled again on complete smoking cessation (13) Overweight (BMI 25.0-29.9): Code(s): E66.3 - Overweight Category: Medical Plan: Reinforced diet/exercise as tolerated/lose weight Plan Follow up in 3 months
--- OUTSIDE RECORDS SUMMARY | 2025-09-11 12:57 | XMS_ITS | Continuity of Care Document ---
Author Organization [facility] Address [address] [id number] Care Team Providers Care Microsoft Dynamics Manager Architect Name Role Phone HIM CCA OTHER PÉREZ JACKSON Primary Care Provider Assessment Encounter Date Assessment Date Assessment LastModified by Organization Details LastModified Time 09/03/2025 09/03/2025 As noted, we were called to see this patient regarding concerns of Nasal congestion and cough. Evaluation in the field was performed by my demographic analyst colleague, as noted above, I provided real-time direction and supervision for this visit. Patient has been having a nonproductive cough for the past two days. She also having some nasal congestion, bodyaches, and a headache. He denies any chest pain, shortness of breath. Patient's Covid 19 test is positive. I've discussed option of starting Paxlovid. However, patient has declined. She states that she will follow-up with her primary care physician next week. She was advised to cause back with any questions or concerns. Impression: Covid 19 Plan: follow-up PCP Primary care, consider Labs, chest x-ray Disposition: We discussed the diagnostic uncertainty of home visits and the risk associated with this. In this case, the patient and I felt this to be an acceptable and reasonable amount of risk given the benefit of avoiding an ED visit. We discussed the need to seek care urgently/emergen tly in the setting of any new or worsening serious symptoms, particularly fevers, chest pain, shortness of breath. [email or web address] Not available 09/03/2025 14:36:15 Plan of Treatment Reminders Order Date Submit Date Provider Last Modified By Organization Details Last Modified Time Details Appointments None recorded. Lab rapid flu (A+B) 2024 025 [facility], [address] [place] [address], [id number] 15:11:24 rapid SARS CoV 2 Ag, QL IA, respiratory specimen 2024 [facility], [address] [place] [address], [id number] 15:11:08 Referral None recorded. Procedures None recorded. Surgeries None recorded. Imaging None recorded. Medication Orders benzonatate 100 mg capsule 2024 [facility] #[id number], [address] [place], [address], 14:35:39 Patient TargetsNo targets recorded. Patient InstructionsNo instructions recorded. Reason for Referral None Reported. Results Created Date Observation Date Name Description Value Unit Range Abnormal Flag Note LastModifiedBy Organization Detail LastModifiedTime Result Notes None recorded. Medical Equipment None Reported. Allergies Allergen ID Allergen Name Allergen Category Reaction Reaction Severity Criticality Documentation Date Start Date Code Code System Note Provider Name and Address Organization Details Recorded Time Product containin g penicilli n (product) medicatio n Not available Not available Not available 09/03/2025 03401 8001 SNOMED Not Available [facility] - production 09:56:38 amoxicill in medicatio n Not available Not available Not available 09/03/2025 723 RxNorm Not Available [facility] - production 5 09:56:38 Medications Name Sig Start Date Stop Date Status Note LastModified by Organization Details LastModified Time losartan 50 mg tablet TAKE 1 TABLET BY MOUTH EVERY DAY active Not Available Not Available No t Available atorvastatin 20 mg tablet TAKE ONE TABLET BY MOUTH EVERY DAY active Not Available Not Available No t Available hydrocodone 5 mg-acetamino phen 325 mg tablet 1 TAB ORALLY EVERY 4 TO 6 HOURS NEEDED FOR PAIN active Not Available Not Available No t Available senna 8.6 mg tablet TAKE 1 TABLET BY MOUTH DAILY NEEDED FOR CONSTIPATIO N active Not Available Not Available No t Available FreeStyle Lancets 28 gauge USE TO TEST 3 TIMES DAILY DIRECTED active Not Available Not Available No t Available benzonatate 100 mg capsule Take 1 capsule 3 times a day by oral route as needed for 3 days, for cough. 2024 active Not Available Not Available Not Avai lable zolpidem 10 mg tablet TAKE 1 TABLET BY MOUTH AT BEDTIME NEEDED FOR INSOMNIA FOR 30 DAYS active Not Available Not Available Not Available albuterol sulfate HFA 90 mcg/actuatio n aerosol inhaler INHALE 1 PUFF 4 TIMES A DAY NEEDED FOR SHORTNESS OF BREATH OR WHEEZING active Not Available Not Available Not Available metformin ER 500 mg tablet,exten ded release 24 hr TAKE ONE TABLET BY MOUTH TWICE A DAY active Not Available Not Available No t Available Daily-Dennis tablet TAKE 1 TABLET BY MOUTH EVERY DAY FOR 90 DAYS active Not Available Not Available No t Available hydrochlorot hiazide 12.5 mg tablet TAKE ONE TABLET BY MOUTH EVERY DAY active Not Available Not Available No t Available FreeStyle Lite Strips DIRECTED THREE TIMES PER DAY active Not Available Not Available No t Available oxycodone 10 mg tablet TAKE 1 TABLET BY MOUTH 2 TO 3 TIMES A DAY NEEDED FOR INCREASED PAIN FOR 28 DAYS active Not Available Not Available No t Available cholecalcife rol (vitamin D3) 50 mcg (2,000 unit) capsule TAKE 1 CAPSULE BY MOUTH DAILY active Not Available Not Available Not Available Daily-Dennis (with folic acid) 400 mcg tablet TAKE 1 TABLET BY MOUTH EVERY DAY active Not Available Not Available No t Available Vitals Date Recorded Respiratory rate Body temperature Oxygen saturation Heart rate Systolic And Diastolic Provider Name and Address Organization Details Last Updated DateTime 5 18 /min 98.8 [degF] 96 % 96 /min 146/82 mm[Hg] Not Available [facility] - production 5 14:13:53 Social History None recorded. Functional Status None recorded. Mental Status None recorded. Family History Nothing Reported. Medical History No medical history recorded. Gynecological HistoryNo gynecological history recorded. Obstetrics History GPAL:G 0 P 0 0 0 0 Past Encounters Encounter ID Performer Location Encounter Start Date Encounter Closed Date Diagnosis/Indication Diagnosis SNOMED-CT Code Diagnosis ICD10 Code Diagnosis IMO Codes Diagnosis Note [id number] Parker Huerta MD [facility] [address] [place] [address] 09/03/2025 14:13:50 09/03/2025 19:12:31 Acute COVID-19 [id number] U07.0 [id number] Health Concerns Section Related Observation LastModified by Organization Detai ls LastModified Time None Recorded Concern Status LastModified by Organization Details LastModified Time None Recorded Payers Encounter Date Sequence Insurance Name Policy Number Policy Gardner Covered Member ID Gardner Member ID Guarantor Name 09/03/2025 1 [facility] - DOS ON OR AFTER 2022 - DUAL ELIGIBLE - INTERMEDIATE OPTIONS AND ONE CARE (MEDICARE REPLACEMENT/ADV ANTAGE - HMO) Erica Ennis [id number] Erica Ennis Notes Date Note Type Note Provider Name and Address Organization Details Recorded Time 09/03/2025 text/html ROS as noted in the HPI [facility] Nurse Triage Notes (Zari Us - RN): Reason For Request: two days of cold symptoms, no mucus but has body aches and headache Denies: Increased work of breathing/labored with or without fever Unable to speak in full sentences without distress Discoloration of skin -cyanosis Needs to sleep sitting up, can t catch breath Shortness of breath in setting of confusion Chief Complaints: Cough, Common Cold PMH: Diabetes Mellitus Type 2, Hyperlipidemia, Hypertension, Family History of Cancer PMH Reviewed at 09/03/2025 - 09:56 (ET) Allergies Reviewed at 09/03/2025 - 09:56 (ET) Comments: 64 y.o female complains of Cough, Common Cold Patient calling in to place a referral Patient with non-productive cough for 2 days +stuffy nose, body aches and headaches, denies dizziness Denies chest congestion or wheezing No chest pain or shortness of breath No lung disease Denies sore throat No nausea, vomiting or diarrhea No fever. +chills and fatigue Has not taken any OTC medications Is not consistent with taking blood sugars, but is 167 during intake She would like to be evaluated I provided information on the mobile health provider response time and advised the patient and/or caregiver to monitor reported signs and symptoms. I discussed the warning signs of when to seek emergency care. Diesel Electrician Organization Information for [facility] Business Legal Name: [employer]. Address: [address] [place] [id number], Digital Marketing Consultant: Darwin Gallardo MD CLIA No.: [id number] [employer]el Electrician POC Test Results from [facility] Rapid COVID antigen (14:14:19) COVID: + Attachments uploaded as part of this test result can be found under Documents section. Rapid influenza antigen (14:14:22) Flu: - Attachments uploaded as part of this test result can be found under Documents section. .................. .................. .................. .................. .................. .................. .................. ............... Diesel Electrician Note From [facility]: Pt met medic at the door. A/Ox3 pt is pink/warm/dry and not in any immediate respiratory distress. Pt states that began feeling ill x3 days ago. Pt experienced dry cough, chills, weakness, and headache. Pt denies any congestion, dizziness, CP, SOB, nausea and/or GI issues. Vitals as noted. Bilateral breath sounds clear. Pt has hx of smoking. Pt is Covid positive, flu negative. [facility] Contacted and [facility] pros and cons were explained to pt. Pt refused medication. Pt was advised that if she develops any CP, one sided weakness, SOB, pain or high fever to call 911. Call was then cleared. [facility] Lab Orders: rapid flu (A+B): Performed rapid SARS CoV 2 Ag, QL IA, respiratory specimen: Performed .................. .................. .................. .................. .................. .................. .................. ............... [facility] Consulted: Parker Huerta .................. .................. .................. .................. .................. .................. .................. ............... Disposition: Fulfilled Parker Huerta MD [address] [facility],[address], [place], [phone], [employer] 09/03/2025 15:43:19 OBGyn Episode No OBEpisode recorded.
--- OUTSIDE RECORDS SUMMARY | 2025-09-11 12:57 | XMS_ITS | Encounter Summary ---
Author Organization [facility] Address [address] [place] [address] Encounters * CPT with Medical [facility] at [employer] on 2025-09-03 { reasonForRequest : two days of cold symptoms, no mucus but has body aches and headache , patientReports : , denies :[ Increased work of breathing/labored with or without fever , Unable to speak in full sentences without distress , Discoloration of skin -cyanosis , Needs to sleep sitting up, can t catch breath , Shortness of breath in setting of confusion ], chiefComplaints :"Cough, Common Cold , pmh : Diabetes Mellitus Type 2, Hyperlipidemia, Hypertension, Family History of Cancer , allergies : Penicillins, Amoxicillin ,&quot ;otherAllergies :null, painAssessment : , visitOutcome : &q uot;, additionalComments : 64 y.o female complains of Cough, Common Cold\n\nPatient calling in to place a referral\nPatient with non-productive cough for 2 days\n+stuffy nose, body aches and headaches, denies dizziness\nDenies chest congestion or wheezing\nNo chest pain or shortness of breath\nNo lung disease\nDenies sore throat\nNo nausea, vomiting or diarrhea\nNo fever. +chills and fatigue\nHas not taken any OTC medications\nIs not consistent with taking blood sugars, but is 167 during intake\nShe would like to be evaluated\n\n\nI provided information on the mobile health provider response time and advised the patient and/or caregiver to monitor reported signs and symptoms.I discussed the warning signs of when to seek emergency care. } Pt met medic at the door. A/Ox3 pt is pink/warm/dry and not in any immediate respiratory distress. Pt states that began feeling ill x3 days ago. Pt experienced dry cough, chills, weakness, and headache. Pt denies any congestion, dizziness, CP, SOB, nausea and/or GI issues. Vitals as noted. Bilateral breath sounds clear. Pt has hx of smoking. Pt is Covid positive, flu negative. C Contacted and Paxlovid medications pros and cons were explained to pt. Pt refused medication. Pt was advised that if she develops any CP, one sided weakness, SOB, pain orhigh fever to call 911. Call was then cleared. IV_(FLUIDS_AND/OR_MEDICATION), MEDICATION_IM, ORAL_MEDICATION, POC_BLOODWORK, POC_FLU_STREP, COVID_TEST Written by Medical [facility] on 2025-09-03
--- OUTSIDE RECORDS SUMMARY | 2025-09-11 12:57 | XMS_ITS | Continuity of Care Document ---
Author Name [facility], Medical Address [address] [place] [address] Organization Unknown Address [address] [place] [address] Medications No known medications Problems No known problems
--- OUTSIDE RECORDS SUMMARY | 2025-09-11 12:57 | XMS_ITS | Data Portability ---
Author Organization [facility] Address [address] [place] [id number] Care Team Providers Care Office Administrator Name Role Phone HIM CCA OTHER PÉREZ JACKSON Primary Care Provider Assessment Encounter Date Assessment Date Assessment LastModified by Organization Details LastModified Time 09/03/2025 09/03/2025 As noted, we were called to see this patient regarding concerns of Nasal congestion and cough. Evaluation in the field was performed by my materials scientist colleague, as noted above, I provided real-time [...] Lab rapid flu (A+B) 2024 025 [facility], [address] [place] [address], [id number] 15:11:24 rapid SARS CoV 2 Ag, QL [place], respiratory specimen 2024 [facility], [address] [place] [address], [id number] 15:11:08 Referral None recorded. Procedures None recorded. Surgeries None recorded. Imaging None recorded. Medication Orders benzonatate 100 mg capsule 2024 [facility][id number], [address], [place], [address], 14:35:39 Patient TargetsNo targets recorded. Patient InstructionsNo [...] Not available Not available Not available 09/03/2025 [id number] SNOMED Not Available [facility] - production [...] ICD10 Code Diagnosis IMO Codes Diagnosis Note [id number] Parker Huerta MD Main-inst ED Medical [facility] [address] [place] [address] 09/03/2025 14:13:50 09/03/2025 19:12:31 Acute COVID-19 [id number] U07.0 [id number] Health Concerns Section Related Observation LastModified by Organization [employer] LastModified Time None Recorded Concern Status LastModified by Organization Details LastModified Time None Recorded Advance Directives Directive None Recorded Payers Insurance Date Sequence Insurance Name Policy Number Policy Gardner Covered Member ID Gardner Member ID Guarantor Name 09/03/[address] [facility] [place] [place] - DOS ON OR AFTER 2022 - DUAL ELIGIBLE - LONGTERM OPTIONS AND ONE CARE (MEDICARE REPLACEMENT/ADV ANTAGE - HMO) Erica Ennis [id number] Erica Ennis Notes Date Note Type Note [...] signs of when to seek emergency care. Government Affairs Fellow Organization Information for [employer] Name: [employer]. Address: [address] [place] [address], Video Game Creator: Darwin Gallardo MD CLIA No.: [id number] Government Affairs Fellow POC Test Results from [employer] Rapid COVID antigen (14:14:19) COVID: + Attachments uploaded as part of this test result can be found under Documents section. Rapid influenza antigen (14:14:22) Flu: - Attachments uploaded as part of this test result can be found under Documents section. .................. .................. .................. .................. .................. .................. .................. ............... Government Affairs Fellow Note From [facility]: Pt met medic [...] smoking. Pt is Covid positive, flu negative. [facility] and cons were explained to [facility]. Pt refused medication. Pt was advised that if she develops any CP, one sided weakness, SOB, pain or high fever to call 911. Call was then cleared. [facility] Lab Orders: rapid flu (A+B): Performed rapid SARS CoV 2 Ag, QL [place], respiratory specimen: Performed .................. .................. .................. .................. .................. .................. .................. ............... [facility] Consulted: Parker Huerta .................. .................. .................. .................. .................. .................. .................. ............... Disposition: Fulfilled Parker Huerta MD [address] [facility],[address] [facility], [place], [phone], [employer] 09/03/2025 15:43:19 OBGyn Episode No OBEpisode recorded.
== END 2025-09-11 15:24 | disposition home or self-care (01) ==
LOC: HO.HMCH 12:55
PROVIDERS: PCP Internal Medicine; Visit Provider Internal Medicine
DX: U07.1 COVID-19 (principal); M65.841 Other synovitis and tenosynovitis, right hand; E11.9 Type 2 diabetes mellitus without complications; E78.00 Pure hypercholesterolemia, unspecified; I10 Essential (primary) hypertension; Z88.9 Allergy status to unspecified drugs, medicaments and biological substances; M51.360 Other intervertebral disc degeneration, lumbar region with discogenic back pain only; M17.12 Unilateral primary osteoarthritis, left knee; G47.00 Insomnia, unspecified; F41.9 Anxiety disorder, unspecified; F33.9 Major depressive disorder, recurrent, unspecified; F17.200 Nicotine dependence, unspecified, uncomplicated; E66.3 Overweight